=== PATIENT | female | born 1935 | race Caucasian/White ===

== ENCOUNTER 2017-02-20 17:05 | Inpatient (IN) ==
--- OUTSIDE RECORDS SUMMARY | 2017-02-20 19:01 | External Medical Summary | Summary of Care ---
:1935 Author Name Derick Luna Address [address], [place] [id number] Care Team Providers Name Role Phone Keesha Downey, Adali Lim Unavailable Unavailable Derick Luna Unavailable Unavailable Kiley Romero APRN Unavailable Unavailable Adali Richards M.D. Unavailable Unavailable Raphael Thao Unavailable Unavailable [place] Burke, [place] (MD) Unavailable Unavailable Unavailable Unavailable Unavailable Functional Status Functional Status Health Issues Name Dates Details Functional status health issues are not documented Status: Cognitive Status Health Issues Name Dates Details Cognitive status health issues are not documented Status: Problems Name Dates Details Tendonitis (726.90, M77.9) Status: Active De Quervain's tenosynovitis (727.04, M65.4) Status: Active Pseudophakia (V43.1, Z96.1) Status: Active Nontropical sprue (579.0, K90.0) Status: Active Cataract (366.9, H26.9) Status: Active Labyrinthitis (386.30, H83.09) Status: Active Carotid artery stenosis (433.10, I65.29) Status: Active Cystocele (618.01, N81.10) Status: Active Vaginal bleeding (623.8, N93.9) Status: Active Lower back pain (724.2, M54.5) Status: Active Postmenopausal vaginal bleeding (627.1, N95.0) Status: Active Esophageal reflux (530.81, K21.9) Status: Active Fall (E888.9, W19.XXXA) Status: Active Chronic pain of both shoulders (719.41, M25.512) Status: Active Malnutrition (263.9, E46) Status: Active Urinary incontinence (788.30, R32) Status: Active Arthralgia of multiple sites (719.49, M25.50) Status: Active Allergic rhinitis (477.9, J30.9) Status: Active Memory loss (780.93, R41.3) Status: Active Depression (311, F32.9) Status: Active Decreased appetite (783.0, R63.0) Status: Active Bursitis of hip (726.5, M70.70) Status: Active Neck pain (723.1, M54.2) Status: Active Hip pain, acute, right (719.45, M25.551) Status: Active Dysphagia, neurologic (787.29, R13.19) Status: Active 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, 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 Hypertension (401.9, I10) Status: Active Hypothyroidism (244.9, E03.9) Status: Active Anxiety (300.00, F41.9) Status: Active Parkinson's disease (332.0, G20) Status: Active Headache (784.0, R51) Status: Active Dizziness (780.4, R42) Status: Active Recurrent urinary tract infection (599.0, N39.0) Status: Active Acute cystitis without hematuria (595.0, N30.00) Status: Active Constipation (564.00, K59.00) Status: Active Dysphagia (787.20, R13.10) Status: Active Chronic nausea (787.02, R11.0) Status: Active Early satiety (780.94, R68.81) Status: Active Medications Name Dates Details Aspirin 81 MG TABS TAKE 1 TABLET DAILY. Refills: 0 Start 21-Jan-2011 Active Carbidopa-Levodopa ER 50-200 MG Oral Tablet Extended Release TAKE 1 TABLET FOUR TIMES A DAY Quantity: 360 Refills: 3 Vimal Richards M.D. Start 08-Jun-2011 Active Effexor XR 150 MG Oral Capsule Extended Release 24 Hour TAKE 1 CAPSULE DAILY. Refills: 0 Start Active MiraLax Oral Powder Refills: 0 Start 22-May-2014 Active Vitamin D 1000 UNIT CAPS Refills: 0 Start 22-May-2014 Active Levothyroxine Sodium 137 MCG Oral Tablet TAKE 1 TABLET DAILY. Refills: 0 Raphael Thao M.D. Start 26-Jun-2014 Active Zofran 4 MG Oral Tablet Give one tab po TID and Q 4 hours prn nausea Refills: 0 Raphael Thao M.D. Adali Start 26-Jun-2014 Active LORazepam 0.5 MG Oral Tablet TAKE 1 TABLET EVERY 6 HOURS NEEDED. Quantity: 90 Refills: 3 Raphael Thao M.D. Start 26-Jul-2014 Active SEROquel 50 MG Oral Tablet Take one tablet at bedtime. Refills: 0 Raphael Thao M.D. Start 19-Nov-2014 Active Loratadine 10 MG Oral Tablet TAKE 1 TABLET DAILY. Refills: 0 Raphael Thao M.D. Start 11-Apr-2015 Active Depakote 500 MG Oral Tablet Delayed Release TAKE 1 TABLET DAILY. Refills: 0 Raphael Thao M.D. Start 07-Feb-2013 Active Fluticasone Propionate 50 MCG/ACT Nasal Suspension USE 2 SPRAYS IN EACH NOSTRIL ONCE DAILY Refills: 0 Raphael Thao M.D. Start 11-Apr-2015 Active Carafate 1 GM/10ML Oral Suspension 10 mL po prn Refills: 0 Raphael Thao M.D. Start 26-Jun-2014 Active Cyclobenzaprine HCl - 10 MG Oral Tablet TAKE 1 TABLET DAILY NEEDED. Quantity: 30 Refills: 2 Raphael Thao M.D. Adali Start Active Voltaren 1 % Transdermal Gel APPLY 1-2 GM OF GEL TO AFFECTED AREA 4 TIMES DAILY. DO NOT APPLY MORE THAN 8 GM DAILY TO ANY ONE AFFECTED JOINT. Quantity: 1 Refills: 1 Raphael Thao M.D. Start Active 100 GM Tube PredniSONE 20 MG Oral Tablet Take 1 tablet daily Refills: 0 Raphael Thao M.D. Start Active Amantadine HCl - 100 MG Oral Tablet Take 1 tablet daily Refills: 0 Start Active AmLODIPine Besylate 5 MG Oral Tablet TAKE 1 TABLET DAILY DIRECTED. Refills: 0 Start Active Omeprazole 20 MG Oral Capsule Delayed Release Take one capsule by mouth daily Quantity: 30 Refills: 0 Kiley Romero APRN Start 03-Feb-2016 Active BusPIRone HCl - 10 MG Oral Tablet TAKE 1 TABLET TWICE DAILY. Refills: 0 Vimal Richards M.D. Start 11-Feb-2016 Active TraMADol HCl - 50 MG Oral Tablet TAKE 1 TABLET EVERY 4 HOURS NEEDED. Quantity: 40 Refills: 5 Keesha Downey Raphael Adali Start 10-Jun-2015 Active Amitiza 8 MCG Oral Capsule TAKE ONE TABLET TWICE DAILY WITH MEALS Quantity: 60 Refills: 5 Derick Luna Start 24-Feb-2016 Active Allergies and Adverse Reactions Name Dates Details Bactrim TABS (Allergy) Status: Active Lortab TABS (Allergy) Status: Active Promethazine HCl TABS (Allergy) Status: Active Reglan TABS (Allergy) Status: Active Sulfa Drugs (Allergy) Status: Active Past Medical History Name Dates Details History of abdominal pain (V1., Z87.898) Status: Resolved History of Abdominal pain, epigastric (789.06, R10.13) Status: Resolved History of Abnormal weight gain (783.1, R63.5) Status: Resolved History of abnormal weight loss (., Z87.898) Status: Resolved History of Acute upper respiratory infection (465.9, J06.9) Status: Resolved History of Allergic rhinitis due to cats (477.2, J30.81) Status: Resolved History of Allergic rhinitis due to dogs (477.2, J30.81) Status: Resolved History of Allergic rhinitis due to pollen (477.0, J30.1) Status: Resolved History of Allergic rhinitis due to pollen (477.0, J30.1) Status: Resolved History of Allergic rhinitis due to pollen (477.0, J30.1) Status: Resolved History of allergy (V15.09, Z88.9) Status: Resolved History of Antral gastritis (535.40, K29.50) Status: Resolved History of Basal cell carcinoma of skin of face (173.31, C44.310) Status: Resolved History of Bone Density Studies Dual-Energy X-ray Absorptiometry Status: Resolved History of diarrhea (V12.79, Z87.898) Status: Resolved History of Duodenitis (535.60, K29.80) Status: Resolved History of Encounter for screening for malignant neoplasm of colon (V76.51, Z12.11) Status: Resolved History of fatigue (3., Z87.898) Status: Resolved History of nausea and vomiting (V12.79, Z87.898) Status: Resolved History of Pre-operative exam (V72.84, Z01.818) Status: Resolved History of Pre-operative exam (V72.84, Z01.818) Status: Resolved History of spontaneous (V13.29, Z87.59) Status: Resolved History of urinary incontinence (V13.09, Z87.898) Status: Resolved History of vaginal delivery (V13.29) Status: Resolved History of weakness (V13.89, Z87.898) Status: Resolved Procedures Procedure Dates Details History of Extracaps Cataract Extract With Prosthesis Insert Right Eye History of Extracaps Cataract Extract With Prosthesis Insert Left Eye History of Complete Colonoscopy For Completed: Polyp Removal History of Back Surgery History of Tubal Ligation History of Gastroscopy With Biopsy Completed: History of Gastroscopy With Biopsy Completed: 25-Feb-2012 GASTRIC EMPTYING Ordered: 24-Feb-2016 Immunization Name Dates Details Influenza on: 18-Jan-2008 Influenza on: 05-Mar-2010 Lot #: [id number] Influenza on: 17-Jan-2013 Pneumo (Pneumovax) on: 23-Jan-2016 Fluzone High-Dose 0.5 ML Intramuscular Suspension Prefilled Syringe on: 2015 Family History Unknown Family Member Name Dates Details Family history of Migraine Headache Comments: Family History Status: Active Family history of Hay Fever Comments: Family History Status: Active Family history of Urticaria Comments: Family History Status: Active Mother Name Dates Details Family history of Heart Disease (V17.49) Status: Active Family history of Diabetes Mellitus (V18.0) Status: Active Father Name Dates Details Family history of Heart Disease (V17.49) Status: Active Brother Name Dates Details Family history of Heart Disease (V17.49) Status: Active Family history of Heart Disease (V17.49) Status: Active Social History Name Dates Details - Status: Smoking Status Name Dates Details Never smoker Vital Signs Date Test Result Details 24-Feb-2016 15:09 BP Systolic 135 mm[Hg] Status: Comments: Location: ; Position: BP Diastolic 79 mm[Hg] Status: Comments: Location: ; Position: Heart Rate 96 /min Status: Comments: Location: ; Height 64 in Status: 17-Feb-2016 10:16 BP Systolic 121 mm[Hg] Status: Comments: Location: ; Position: BP Diastolic 63 mm[Hg] Status: Comments: Location: ; Position: Temperature 97.5 f Status: Heart Rate 92 /min Status: Comments: Location: ; Physical Findings 96 Status: Comments: O2 Saturation 07-Feb-2016 16:05 BP Systolic 163 mm[Hg] Status: Comments: Location: ; Position: BP Diastolic 104 mm[Hg] Status: Comments: Location: ; Position: Temperature 98.1 f Status: Comments: Method: Heart Rate 103 /min Status: Comments: Location: ; Physical Findings 98 Status: Comments: O2 Saturation 05-Feb-2016 14:06 BP Systolic 150 mm[Hg] Status: Comments: Location: ; Position: BP Diastolic 90 mm[Hg] Status: Comments: Location: ; Position: Heart Rate 80 /min Status: Comments: Location: ; 03-Feb-2016 11:23 BP Systolic 116 mm[Hg] Status: Comments: Location: ; Position: BP Diastolic 55 mm[Hg] Status: Comments: Location: ; Position: Temperature 98.2 f Status: Heart Rate 87 /min Status: Comments: Location: ; Physical Findings 20 Status: Comments: Respiration Weight 175 lb Status: Body Mass Index Calculated 30.04 kg/m2 Status: Body Surface Area Calculated 1.85 m2 Status: Results Date Description Value Details 07-Feb-2016 15:40 CT HEAD WITHOUT IV CONTRAST Comments: Exam Date: 2015 14:58Dictation Date: 02/07/2016 15:40 XC HEAD 17-Feb-2016 12:04 CBC w/ Auto Diff 7150 Comments: Manual differential indicated. WBC 10.9 K/uL Range: 4.5-11.0 RBC 4.15 mil/uL Range: 3.60-5.00 HGB 13.5 g/dL Range: 12.0-16.0 HCT 40.1 % Range: 36.0-48.0 MCV 96.7 fL Range: 80.0-99.0 MCH 32.5 pg Range: 27.3-32.5 MCHC 33.6 % Range: 32.0-36.0 RDW 13.8 % Range: 11.6-14.8 PLATELETS 307 K/uL Range: 150-400 MPV 5.9 fL (Below low threshold) Range: 6.0-11.0 12:09 Urinalysis, Reflex to Microscopic or Culture PRN 8005 pH 7.5 Range: 5.0-7.5 SP GRAVITY 1.025 Range: 1.010-1.030 APPEARANCE CLEAR Range: Clear COLOR YELLOW Range: Straw-Yellow PROTEIN NEGATIVE mg/dL Range: Negative-Trace GLUCOSE NEGATIVE mg/dL Range: Negative KETONE TRACE mg/dL (Abnormal) Range: Negative BILIRUB NEGATIVE Range: Negative BLOOD NEGATIVE Range: Negative UROBIL 1.0 EU/dL Range: 0.2-1.0 NITRITE POSITIVE (Abnormal) Range: Negative Comments: Specimen referred to Reference Lab for Culture----- LEUK MODERATE (Abnormal) Range: Negative 12:09 Urine Microscopic UMIC WBC 11-20 /HPF (Abnormal) Range: 0-5 Comments: Specimen referred to Reference Lab for Culture----- MUCUS 1+ /LPF Range: Negative-2+ BACTERIA 3+ /HPF (Abnormal) Range: Negative-Trace Comments: Specimen referred to Reference Lab for Culture----- EPITH 3-5 /HPF Range: 0-10 12:25 H. Pylori IgG, Ab 2024 H PYLORI ANTIBODY Negative Range: Negative 12:26 Comprehensive Metabolic Panel 1212 SODIUM 136 mmol/L Range: 133-144 POTASSIUM 4.5 mmol/L Range: 3.5-5.1 CHLORIDE 97 mmol/L (Below low Range: 98-110 threshold) CARBON DIOXIDE 24.1 mmol/L Range: 23.0-33.0 ANION GAP 15 mmol/L Range: 6-16 BUN 19 mg/dL (Above high Range: 7-18 threshold) CREATININE, SERUM 0.95 mg/dL Range: 0.55-1.02 BUN:CREATININE RATIO 20 EST GFR, >60 ml/min Range: >60 EST GFR, NON-AFR YEMENI 57 ml/min (Below low Range: >60 threshold) Comments: EST GFR is reported in ml/min per 1.73 m2 of body surface area. ----- GLUCOSE 109 mg/dL (Above high Range: 70-100 threshold) ALK PHOSPHATASE 120 U/L (Above high Range: 46-116 threshold) TOTAL BILIRUBIN 0.20 mg/dL Range: 0.20-1.00 AST 18 U/L Range: 8-35 ALT 14 U/L Range: 14-59 ALBUMIN 3.6 g/dL Range: 3.4-5.0 TOTAL PROTEIN 7.0 g/dL Range: 6.4-8.2 A/G RATIO 1.1 units Range: 1.0-1.8 CALCIUM 8.9 mg/dL Range: 8.5-10.1 12:26 AMYLASE 1250 AMYLASE 26 U/L Range: 25-115 12:26 Lipase 1275 LIPASE 94 U/L Range: 73-393 12:33 VITAMIN B12 3606 Comments: SDC 10 VITAMIN B12 726 pg/mL Range: 211-911 12:36 Manual Differential 7400 SEGS 75 % Range: 37-80 BANDS 0 % Range: 0-7 LYMPH 21 % Range: 13-50 MONO 1 % Range: 0-12 EOSIN 3 % Range: 0-7 BASO 0 % Range: 0-3 DANNY LYMPH 0 % Range: 0-0 META 0 % Range: 0-0 MYELO 0 % Range: 0-0 PRO 0 % Range: 0-0 BLAST 0 % Range: 0-0 NUC RBC 0 /100 WBC Range: 0-0 SMUDGE 0 /100 WBC PLATELET Adequate Range: Adequate 19-Feb-2016 17:15 URINE CULTURE [id number] Comments: [employer] performed at: [facility], [facility] [place], [address], [employer]: Shree Pollock D.O., MPHQuest Collection Date/Time: [id number] Results Received Date/Time: Reported Date /Time: FASTING:NOQuest performed at : [facility], [facility] [place], [address], [employer]: Shree Pollock D.O., MPHQuest Collection Date/Time: [id number] Results Received Date/Time: [id number] Reported Date/Time: FASTING:NO CULTURE, URINE, ROUTINE SEE NOTE (Abnormal) Comments: CULTURE, URINE, ROUTINE MICRO NUMBER: [id number] TEST STATUS: FINAL SPECIMEN SOURCE : URINE SPECIMEN QUALITY: ADEQUATE RESULT: Greater than 100,000 CFU/mL of Escherichia co li E.coli --- INT GEOFF AMOX/CLAVULANATE S <=2 AMPICILLIN S <=2 AMP/SULBACTA M S <=2 CEFAZOLIN NR <=4 1 CEFEPIME S <=1 CEFTRIAXONE S <=1 CIPROFLOXACIN S <=0.25 ERTAPENEM S <=0.5 GENTAMICIN S <=1 IMIPENEM S <=0.25 LEVOFLOXACIN S <=0.12 NITROFURANTOIN S <=16 PIP/TAZOBACTAM S <=4 TOBRAMYCIN S <=1 TRIMETHOPRIM/ SULFA S <=20S=Susceptible I=Intermediate R=Resistant *=Not TestedNR=Not Reported NN=See Therapy CommentsTHERAPY COMM ENTS Note 1: ORAL therapy: A cefazolin GEOFF of < 32 predicts susceptibility to the oral agents cefaclor, cefdinir, cefpodoxime, cefprozil , cefuroxime, cephalexin, and loracarbef when us ed for therapy of uncomplicated UTIs due to E. coli, K. pneumoniae , and P. mirabilis. PARENTERAL therapy: A cefazolin GEOFF of > 8 indicates resistance to parenteral cefazolin. An altern ate test method must be performed to to confirm susceptibility to parenteral cefazolin.[KS]----- Plan of Care Name Dates Details Planned Observations GASTRIC EMPTYING On 24-Feb-2016 Intent Planned Goals not documented Planned Encounters Appointment; Provider: Camacho Lawson On 16-Mar-2016 14:00 Appointment; Provider: Vimal Ricahrds M.D. On 04-Mar-2016 14:15 Appointment; Provider: Ke Solomon M.D. On 03-Mar-2016 09:15 Instructions Name Dates Details Instructions not documented Encounters Appointment; Bobo Sierra D.O. On 17-Feb-2016 Encounter Diagnosis: Problem not documented 10:05 Appointment; Vimal Richards M.D. On 05-Feb-2016 Encounter Diagnosis: Problem not documented 13:45 Appointment; Kiley Romero A.P.R.N. On 31-Jan-2016 Encounter Diagnosis: Problem not documented 13:30 Appointment; Tra Rico M.D.|Vernell|Nasreen,PRANAY|Nasreen,PRANAY, On Encounter Diagnosis: Problem not documented 11:30 Appointment; Billy Golden M.D.|PRANAY Boyce|Nasreen,PRANAY, On Encounter Diagnosis: Problem not documented 10:30 Appointment; Raphael Thao M.D. On Encounter Diagnosis: Problem not documented 16:00 Appointment; Raphael Thao M.D. On Encounter Diagnosis: Problem not documented 14:15 Appointment; Vimal Richards M.D. On 08-Aug-2015 Encounter Diagnosis: Problem not documented 15:00 Appointment; Jo Ann Crowe, P.AGorge On 02-Aug-2015 Encounter Diagnosis: Problem not documented 13:00 Appointment; Raphael Thao M.D. On 09-Apr-2015 Encounter Diagnosis: Problem not documented 14:15 Appointment; Vimal Richards M.D. On 19-Feb-2015 Encounter Diagnosis: Problem not documented 14:15 Appointment; Raphael Thao M.D. On 04-Feb-2015 Encounter Diagnosis: Problem not documented 14:30 Appointment; Raphael Thao M.D. On 24-Dec-2014 Encounter Diagnosis: Problem not documented 15:00 Appointment; Raphael Thao M.D. On 16-Nov-2014 Encounter Diagnosis: Problem not documented 11:30 Appointment; Vimal Richards M.D. On 13-Nov-2014 Encounter Diagnosis: Problem not documented 14:30 Appointment; Jo Ann Crowe PGorgeAGorge On 24-Aug-2014 Encounter Diagnosis: Problem not documented 13:15 Appointment; Raphael Thao M.D. On 19-Jun-2014 Encounter Diagnosis: Problem not documented 16:00 Appointment; Brittney Bennett M.D. On 07-Jun-2014 Encounter Diagnosis: Problem not documented 10:30 Appointment; Raphael Thao M.D. On 05-Jun-2014 Encounter Diagnosis: Problem not documented 13:00 Appointment; Vimal Richards M.D. On 22-May-2014 Encounter Diagnosis: Problem not documented 13:30 Appointment; Jo Ann Crowe, P.AGorge On 27-Apr-2014 Encounter Diagnosis: Problem not documented 13:45 Appointment; Raphael Thao M.D. On 16-Mar-2014 Encounter Diagnosis: Problem not documented 14:30 Appointment; Ke Gabriel M.D.|Vernell|Nasreen,PRANAY|Nasreen,PRANAY, On 2013 Encounter Diagnosis: Problem not documented 14:30"
--- OUTSIDE RECORDS SUMMARY | 2017-02-20 19:02 | External Medical Summary ---
:1935 Author Name Davidson Banerjee A Address [address] Unavailable [place], [place] [id number] Care Team Providers Name Role Phone Keesha Lim Unavailable Unavailable Unavailable Unavailable Reason for Referral No Reason for Referral was given. History of Present Illness No HPI available. Problems Normal Routine History And Physical Senior Citizen (65-80) (V70.0); ( Active)Chest Pain (786.50); (Active)Cataract (366.9); (Active) Visit For: Preoperative Exam (V72.84); (Active)Visit For: Preoperative Exam (V72.84); (Active)Pseudophakia (V43.1); (Active)De Quervain' s Tenosynovitis (727.04); (Active)Fatigue (780.79); (Active) Parkinson Disease (332.0); (Active)Tendonitis (726.90); (Active) Abnormal Weight Gain (783.1); (Active)Lower Back Pain (724.2); ( Active)Allergies (V15.09); (Active)Hypertension (401.9); (Active) Pain During Urination (Dysuria) (788.1); (Active)Allergic Rhinitis Due To Cats (477.2); (Active)Allergic Rhinitis Due To Dogs (477.2); ( Active)Allergic Rhinitis Due To Grass Pollen (477.0); (Active)Allergic Rhinitis Due To Mold (477.8); (Active)Allergic Rhinitis Due To Tree Pollen (477.0); (Active)Allergic Rhinitis Due To Ragweed Pollen (477.0); (Active)Headache (784.0); (Active)Depression (311); ( Active)Abdominal Pain In The Central Upper Belly (Epigastric) (789.06); ( Active)Nontropical (Celiac) Sprue (579.0); (Active)Arthralgias In Multiple Sites (719.49); (Active)Bursitis Of The Hip (726.5); ( Active)Abnormal Weight Loss (783.21); (Active)Visit For: Screening Malignant Neoplasm Colon (V76.51); (Active)Carotid Artery Stenosis ( 433.10); (Active)Diarrhea (Symptom) (787.91); (Active)Nausea With Vomiting (787.01); (Active)Duodenitis (535.60); (Active)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); (Active)Abdominal Pain (789.00); ( Active)Feeling Weak (780.79); (Active)Hypothyroidism (244.9); ( Active) Medication Levothyroxine Sodium 125 MCG Oral Tablet;Take 1 tablet daily; Start Date: 2008; End Date: (Active)Caduet 5-20 MG Oral Tablet;TAKE 1 TABLET DAILY.; Start Date: 11/20/2006 (Active)Pantoprazole Sodium 40 MG Oral Tablet Delayed Release;TAKE 1 TABLET DAILY.; Start Date: 09/22/2010; End Date: 1899 (Active)Aspirin 81 MG Oral Tablet;TAKE 1 TABLET DAILY.; Start Date: 2010 (Active)Carbidopa-Levodopa ER 50-200 MG Oral Tablet Extended Release;TAKE 1 TABLET 4 TIMES DAILY.; Start Date: 06/08/2011; End Date: (Active) Singulair 10 MG Oral Tablet;TAKE 1 TABLET DAILY.; Start Date: 06/08/2011 (Active )Loratadine 10 MG Oral Tablet; Start Date: 02/02/2012 (Active)ALPRAZolam 0.25 MG Oral Tablet;TAKE 1 TABLET EVERY 6 HOUR(S) NEEDED FOR ANXIETY; Start Date: 03/14/2012 (Active)Remeron 45 MG Oral Tablet;Take one daily; Start Date: 2012 (Active)HydrOXYzine HCl 10 MG Oral Tablet;TAKE 1 TABLET 3 TIMES DAILY NEEDED.; Start Date: 07/20/2012 (Active) Allergies and Adverse Reactions Lortab TABS (Active)Sulfa Drugs (Active)Bactrim TABS (Active) Past Medical History History ofComplete Colonoscopy For Polyp Removal - Onset: 10/15/2009; ( Resolved)History ofBone Density Studies Dual-Energy X-ray Absorptiometry ( Resolved)History ofBasal Cell Carcinoma Of The Skin Of The Face Comments: Rt supra tip, ASIM/C (173.31); (Resolved) Procedures Procedure Procedure Date Date Completed Status Extracaps Cataract Extract With Prosthesis - - Active Insert Right Eye Extracaps Cataract Extract With Prosthesis - - Active Insert Left Eye Back Surgery - - Active Tubal Ligation - - Active Gastroscopy With Biopsy 09/22/2010 - Active Gastroscopy With Biopsy 02/25/2012 - Active Immunization Influenza - Administered on: 01/18/2008Influenza (Lot #: [id number]) - Administered on: 03/05/2010 Family History Family history ofMigraine Headache (Active)Family history ofHay Fever (Active)Family history ofUrticaria (Active)Maternal history ofHeart Disease (V17.49); (Active)Maternal history ofDiabetes Mellitus (V18.0); (Active)Paternal history ofHeart Disease (V17.49); (Active) Fraternal history ofHeart Disease (V17.49); (Active)Fraternal history ofHeart Disease (V17.49); (Active) Social History Racial Background (___ %) (Active)Never A Smoker (Active) Vital Signs Date Description Test Result 20 Jul 2012 02:39 PM recorded by: Susi Reaves BP Systolic 130 mm[Hg] BP Diastolic 64 mm[Hg] Results Date Description Test Name Value Reference Interpretation Status 20 Jul 2012 01:52 PM XS CAROTID XS CAROTID Active Treatment Plan XM CAD (SCREENING) 08/09/2007 RoutinePAP SMEAR 9600 08/09/2007 RoutineUrine Culture PRN 8000 10/17/2007 RoutineXM CAD (SCREENING) 08/08/2008 RoutineXM CAD ( SCREENING) 08/09/2009 RoutinePAP SMEAR 9600 09/13/2009 RoutineXC CTA NECK [address] RECON FOR NON CTA EXAMS 02/26/2010 RoutineXC OPTIRAY 320 100ML 02/26/2010 RoutineHOLD TUBE 9421 03/05/2010 RoutineXC OPTIRAY 320 100ML RoutineUrine Culture PRN 8000 10/21/2011 Routine Advance Directives No Advance Directives available. Encounters Appointment 07/20/2012RTNPT , Provider: Maurice Celis, Status: Pen , Time: 2:30 PM 08/02/2012
--- OUTSIDE RECORDS SUMMARY | 2017-02-20 19:02 | External Medical Summary | Summary of Care ---
:1935 Author Name Gabo Bennett M.D.say Address [address], [place] [id number] Care Team Providers Name Role Phone Adali Thao M.D. Unavailable Unavailable Adali Richards M.D. Unavailable Unavailable Raphael Thao Primary Care Provider Unavailable [facility] Referring Provider Unavailable Unavailable Unavailable Unavailable Functional Status Functional Status Health Issues Name Dates Details Functional status health issues are not documented Status: Cognitive Status Health Issues Name Dates Details Cognitive status health issues are not documented Status: Problems Name Dates Details Tendonitis (726.90, M77.9) Status: Active De Quervain's tenosynovitis (727.04, M65.4) Status: Active Pseudophakia (V43.1, Z96.1) Status: Active Bursitis of hip (726.5, M70.70) Status: Active Nontropical sprue (579.0, K90.0) Status: Active Cataract (366.9, H26.9) Status: Active Labyrinthitis (386.30, H83.09) Status: Active Chest pain (786.50, R07.9) Status: Active Arthralgia of multiple sites (719.49, M25.50) Status: Active Esophageal reflux (530.81, K21.9) Status: Active UTI (lower urinary tract infection) (599.0, N39.0) Status: Active Decreased appetite (783.0, R63.0) Status: Active Dysuria (788.1, R30.0) Status: Active Carotid artery stenosis (433.10, I65.29) Status: Active Hypertension (401.9, I10) Status: Active Hypothyroidism (244.9, E03.9) Status: Active Recurrent urinary tract infection (599.0, N39.0) Status: Active Urinary incontinence (788.30, R32) Status: Active Cystocele (618.01, N81.10) Status: Active Hip pain (719.45, M25.559) Status: Active Memory loss (780.93, R41.3) Status: Active Constipation (564.00, K59.00) Status: Active Depression (311, F32.9) Status: Active Acute upper respiratory infection (465.9, J06.9) Status: Active Parkinson's disease (332.0, G20) Status: Active Vaginal bleeding (623.8, N93.9) Status: Active Lower back pain (724.2, M54.5) Status: Active Medications Name Dates Details Levothyroxine Sodium 125 MCG Oral Tablet Take 1 tablet daily Quantity: 90 Refills: 3 Raphael Thao M.D. Started 02-Jan-2009 ActiveAspirin 81 MG Oral Tablet TAKE 1 TABLET DAILY. Refills: 0 Started 21-Jan-2011 ActiveCarbidopa-Levodopa ER 50-200 MG Oral Tablet Extended Release TAKE 1 TABLET FOUR TIMES A DAY Quantity: 360 Refills: Vimal Zavala M.D. Started 08-Jun-2011 ActiveEffexor XR 150 MG Oral Capsule Extended Release 24 Hour TAKE 1 CAPSULE DAILY. Refills: 0 Started ActiveSEROquel 50 MG Oral Tablet Take one tablet at bedtime. Refills: 0 Raphael Thao M.D. Started 06-Feb-2013 ActiveDepakote 500 MG Oral Tablet Delayed Release TAKE 1 TABLET TWICE DAILY. Refills: 0 Raphael Thao M.D. Started 07-Feb-2013 ActiveMontelukast Sodium 10 MG Oral Tablet TAKE 1 TABLET BY MOUTH DAILY Quantity: 90 Refills: Raphael Conner M.D. Started 03-Jul-2013 ActiveAmLODIPine Besylate 5 MG Oral Tablet take one tablet by mouth every day Quantity: 30 Refills: Raphael Painter M.D. Started ActiveAtorvastatin Calcium 20 MG Oral Tablet TAKE 1 TABLET DAILY. Quantity: 30 Refills: Raphael Painter M.D. Started ActiveHydrOXYzine HCl - 25 MG Oral Tablet TAKE 1 TABLET 3 TIMES DAILY NEEDED. Refills: 0 Raphael Thao M.D. Started 15-Feb-2014 ActiveAricept 10 MG Oral Tablet TAKE 1 TABLET DAILY DIRECTED. Refills: 0 Raphael Thao M.D. Started 30-Apr-2014 ActiveMegestrol Acetate 400 MG/10ML Oral Suspension TAKE 20 ML , BY MOUTH, DAILY DIRECTED. Refills: 0 Raphael Thao M.D. Started 30-Apr-2014 ActiveMiraLax Oral Powder Refills: 0 Started 22-May-2014 ActiveNamenda XR 7 MG Oral Capsule Extended Release 24 Hour Refills: 0 Started 22-May-2014 ActivePremarin 0.625 MG/GM Vaginal Cream Refills: 0 Started 22-May-2014 ActiveSenna 8.6 MG Oral Tablet Refills: 0 Started 22-May-2014 ActiveVitamin C 500 MG Oral Capsule Refills: 0 Started 22-May-2014 ActiveVitamin D 1000 UNIT Oral Capsule Refills: 0 Started 22-May-2014 ActiveOmeprazole 20 MG Oral Tablet Delayed Release Take 1 tablet daily Refills: 0 Raphael Thao M.D. Started 07-Jun-2014 Active Allergies and Adverse Reactions Name Dates Details Bactrim TABS Status: Active Lortab TABS Status: Active Promethazine HCl TABS Status: Active Reglan TABS Status: Active Sulfa Drugs Status: Active Past Medical History Name Dates Details History of abdominal pain (V13.89, Z87.898) Status: Resolved History of Abdominal pain, epigastric (789.06, R10.13) Status: Resolved History of Abnormal weight gain (783.1, R63.5) Status: Resolved History of abnormal weight loss (V13.89, Z87.898) Status: Resolved History of allergic rhinitis (V12.69, Z87.09) Status: Resolved History of Allergic rhinitis due [...] Absorptiometry Status: Resolved History of diarrhea (V12.79, Z87.19) Status: Resolved History of Duodenitis (535.60, K29.80) Status: Resolved History of Encounter for screening for malignant neoplasm of colon (V76.51, Z12.11) Status: Resolved History of fatigue (V13.89, Z87.898) Status: Resolved History of headache (V13.89, Z87.898) Status: Resolved History of nausea and vomiting (V12.79, Z87.19) Status: Resolved History of Pre-operative exam (V72.84, Z01.818) Status: Resolved History of Pre-operative exam (V72.84, Z01.818) Status: Resolved History of spontaneous (V13.29, Z87.42) Status: Resolved History of vaginal delivery (V13.29, Z87.42) Status: Resolved History of weakness (V13.89, Z87.898) Status: Resolved Procedures Procedure Dates Details History of Extracaps Cataract Extract With Prosthesis Insert Right Eye History of Extracaps Cataract Extract With Prosthesis Insert Left Eye History of Complete Colonoscopy For Polyp Completed: Removal History of Back Surgery History of Tubal Ligation History of Gastroscopy With Biopsy Completed: History of Gastroscopy With Biopsy Completed:25-Feb-2012 ULTRASOUND PELVIC SONO Ordered:05-Jun-2014 Immunization Name Dates Details Influenza Administered on:18-Jan-2008 Influenza Administered on:05-Mar-2010 Lot #: [id number] Influenza Administered on:17-Jan-2013 Family History Unknown Family Member Name Dates [...] Status: Active Social History Name Dates Details Smoking StatusNever smoker Vital Signs Date Test Result Details 07-Jun-2014 11:04 BP Systolic 120 mm[Hg] Status: BP Diastolic 75 mm[Hg] Status: Weight 0 lb Status: Body Mass Index Calculated 25.75 kg/m2 Status: Body Surface Area Calculated 1.73 m2 Status: 05-Jun-2014 13:04 BP Systolic 120 mm[Hg] Status: BP Diastolic 68 mm[Hg] Status: Heart Rate 112 /min Status: 22-May-2014 13:39 BP Systolic 110 mm[Hg] Status: BP Diastolic 70 mm[Hg] Status: Heart Rate 108 /min Status: Results Date Description Value Details 05-Jun-2014 16:43 Urinalysis, Reflex to Microscopic or Culture PRN 8005 pH 6.0 (Better) Range: 5.0-7.5 SP GRAVITY 1.030 (Better) Range: 1.010-1.030 APPEARANCE Clear (Better) Range: Clear COLOR Yellow (Better) Range: Straw-Yellow PROTEIN Trace mg/dL (Better) Range: Negative-Trace GLUCOSE Negative mg/dL Range: Negative (Better) KETONE Trace mg/dL Range: Negative (Abnormal) BILIRUB Negative (Better) Range: Negative BLOOD Trace (Abnormal) Range: Negative UROBIL 0.2 EU/dL (Better) Range: 0.2-1.0 NITRITE Negative (Better) Range: Negative LEUK Negative (Better) Range: Negative 16:43 Urine Microscopic UMIC Comments: Quantity not sufficient for concentration.Less than 10 ml received for analysis RBC 0-2 /HPF (Better) Range: 0-2 BACTERIA 1+ /HPF (Abnormal) Range: Negative-Trace EPITH 0-2 /HPF (Better) Range: 0-10 U AMORPH 2+ /HPF (Better) 17:07 ULTRASOUND ENDOVAGINAL Comments: Exam Date: 15:59Dictation Date: 17:07 SONO XS ENDOVAGINAL SONO (Better) Plan of Care Planned Observations Name Dates Details Planned Goals not documented Goal Planned Encounters Appointment; Provider: Vimal Richards On 13-Nov-2014 14:30 Appointment; Provider: Ke Gabriel On 14:15 Appointment; Provider: Davidson Banerjee On 04-Jun-2011 10:30 Instructions Instructions not documented Encounters Appointment; Brittney Bennett On 07-Jun-2014 Encounter Diagnosis: Problem not documented 10:30 Appointment; Raphael Thao On 05-Jun-2014 Encounter Diagnosis: Problem not documented 13:00 Appointment; Vimal Richards On 22-May-2014 Encounter Diagnosis: Problem not documented 13:30 Appointment; Jo Ann Crowe On 27-Apr-2014 Encounter Diagnosis: Problem not documented 13:45 Appointment; Raphael Thao On 16-Mar-2014 Encounter Diagnosis: Problem not documented 14:30 Appointment; Ke Gabriel On 07-Mar-2014 Encounter Diagnosis: Problem not documented 14:30 Appointment; Raphael Thao On 13-Feb-2014 Encounter Diagnosis: Problem not documented 13:00 Appointment; Ke Gabriel On 31-Jan-2014 Encounter Diagnosis: Problem not documented 12:00 Appointment; Ke Gabriel On 03-Jan-2014 Encounter Diagnosis: Problem not documented 13:30 Appointment; Raphael Thao On 21-Dec-2013 Encounter Diagnosis: Problem not documented 14:00 Appointment; Ke Gabriel On 20-Dec-2013 Encounter Diagnosis: Problem not documented 14:00 Appointment; Vimal Reynoso On Encounter Diagnosis: Problem not documented 15:30 Appointment; Vimal Richards On Encounter Diagnosis: Problem not documented 14:30 Appointment; Raphael Thao On 15-Aug-2013 Encounter Diagnosis: Problem not documented 14:15 Appointment; Davidson Banerjee On 19-Jun-2013 Encounter Diagnosis: Problem not documented 13:45 Appointment; Raphael Thao On 15-May-2013 Encounter Diagnosis: Problem not documented 14:15 Appointment; Raphael Thao On 06-Feb-2013 Encounter Diagnosis: Problem not documented 13:45 Appointment; Raphael Thao On 13-Jan-2013 Encounter Diagnosis: Problem not documented 13:00 Appointment; Vimal Richards On 08-Dec-2012 Encounter Diagnosis: Problem not documented 15:30 Appointment; Kiley Gresham On Encounter Diagnosis: Problem not documented 16:00 Appointment; Vimal Richards On 02-Aug-2012 Encounter Diagnosis: Problem not documented 14:30 Appointment; Davidson Banerjee On 20-Jul-2012 Encounter Diagnosis: Problem not documented 14:30
--- OUTSIDE RECORDS SUMMARY | 2017-02-20 19:02 | External Medical Summary | Summary of Care ---
:1935 Author Name Gabo Bennett M.D.say Address [address], [place] [id number] Care Team Providers Name Role Phone Adali Thao M.D. Unavailable Unavailable Adali Richards M.D. Unavailable Unavailable Raphael Thao Primary Care Provider Unavailable [facility] Referring Provider Unavailable Unavailable Unavailable Unavailable Functional [...] Status: Active Depression (311, F32.9) Status: Active Parkinson's disease (332.0, G20) Status: Active Vaginal bleeding (623.8, N93.9) Status: Active Lower back pain (724.2, M54.5) Status: Active Postmenopausal vaginal bleeding (627.1, N95.0) Status: Active Medications Name Dates Details Levothyroxine [...] loss (V13.89, Z87.898) Status: Resolved History of Acute upper respiratory infection (465.9, J06.9) Status: Resolved History of allergic rhinitis (V12.69, [...] Administered on:18-Jan-2008 Influenza Administered on:05-Mar-2010 Lot #: [id number] Influenza Administered on:17-Jan-2013 Family History Unknown Family [...]
--- OUTSIDE RECORDS SUMMARY | 2017-02-20 19:02 | External Medical Summary ---
:1935 Author Name GENERATED, SYSTEM Care Team Providers Name Role Phone MD MONICA, AYUSH Primary Care Provider Unavailable Reason For Visit Reason for Visit from 06/19/2014 7:49 PM:Pt Stated Reason for Adm : Dehydration Chief Complaint DEHYDRATION ACID REFLEX Social History Social History from 06/26/2014 11:56 AM:Tobacco Use? : Never SmokerSocial History from 06/19/2014 7:49 PM:Tobacco Use? : Never Smoker Functional Status Functional Status from 06/26/2014 10:30 AM:LOC : AlertOriented To : Person,Place, Time,EventWeight Bearing Status : FullAssist Level : Partial# Assists : 2Functional Status from 06/25/2014 8:15 PM:LOC : AlertOriented To : Person,Place, Time,EventWeight Bearing Status : FullAssist Level : Partial# Assists : 1Functional Status from 06/25/2014 8:19 AM:LOC : AlertOriented To : Person,Place, TimeWeight Bearing Status : FullAssist Level : Partial# Assists : 2Functional Status from 06/24/2014 9:00 PM:LOC : AlertOriented To : Person,Place,TimeWeight Bearing Status : FullAssist Level : Partial# Assists : 2Functional Status from 8:44 AM:LOC : AlertOriented To : Person,Place,EventWeight Bearing Status : FullAssist Level : Dependent# Assists : 2Functional Status from 2014 12:09 AM:LOC : DrowsyOriented To : Person,Place,TimeWeight Bearing Status : FullAssist Level : Partial# Assists : 2Functional Status from 06/23/2014 4:20 PM:LOC : AlertOriented To : Person,Place,Time,EventWeight Bearing Status : PartialAssist Level : Partial# Assists : 2Functional Status from 06/23/2014 11: 00 AM:LOC : AlertOriented To : Person,Place,TimeWeight Bearing Status : PartialAssist Level : Partial# Assists : 2Functional Status from 06/23/2014 10: 45 AM:LOC : DrowsyOriented To : Person,Place,EventFunctional Status from 2014 10:13 AM:LOC : DrowsyFunctional Status from 06/22/2014 7:59 PM:LOC : AlertOriented To : Person,Place,Time,EventWeight Bearing Status : FullAssist Level : Partial# Assists : 1Functional Status from 06/22/2014 3:25 PM:LOC : AlertOriented To : Person,PlaceWeight Bearing Status : FullAssist Level : Partial# Assists : 2Functional Status from 06/22/2014 9:02 AM:LOC : ConfusedOriented To : PersonWeight Bearing Status : FullAssist Level : Partial# Assists : 2Functional Status from 06/22/2014 12:05 AM:LOC : AlertOriented To : Person,PlaceWeight Bearing Status : FullAssist Level : Partial# Assists : 2Functional Status from 06/21/2014 3:38 PM:LOC : AlertOriented To : Person,Place, Time,EventWeight Bearing Status : FullAssist Level : Partial# Assists : 2Functional Status from 06/21/2014 7:30 AM:LOC : AlertOriented To : Person,Place, Time,EventWeight Bearing Status : FullAssist Level : Dependent# Assists : 2Functional Status from 06/20/2014 11:21 PM:LOC : DrowsyOriented To : Person, Place,Time,EventWeight Bearing Status : FullAssist Level : Dependent# Assists : 2Functional Status from 06/20/2014 9:37 PM:LOC : AlertOriented To : Person,Place, Time,EventWeight Bearing Status : FullAssist Level : Partial# Assists : 2Functional Status from 06/20/2014 9:45 AM:LOC : AlertOriented To : Person,Place, Time,EventWeight Bearing Status : FullAssist Level : Partial# Assists : 2Functional Status from 06/19/2014 9:00 PM:LOC : AlertOriented To : Person,Place, TimeWeight Bearing Status : FullAssist Level : Partial# Assists : 2Functional Status from 06/19/2014 7:49 PM:LOC : AlertOriented To : Person,Place,Time, EventWeight Bearing Status : FullAssist Level : Partial# Assists : 2 Vital Signs Hospital Vital Signs from 06/26/2014 1:00 PM:Height : 5/5 ft,inTemperature : 98.2 FPulse : 108Respirations : 18BP : 145/88Hospital Vital Signs from 2014 7:28 AM:Height : 5/5 ft,inTemperature : 97.0 FPulse : 90Respirations : 18BP : 144/69Hospital Vital Signs from 06/25/2014 10:06 PM:Height : 5/5 ft, inTemperature : 98.2 FPulse : 91Respirations : 18BP : 114/57Hospital Vital Signs from 06/25/2014 3:07 PM:Height : 5/5 ft,inTemperature : 97.5 FPulse : 96Respirations : 18BP : 115/71Hospital Vital Signs from 06/25/2014 7:08 AM: Height : 5/5 ft,inTemperature : 96.5 FPulse : 95Respirations : 18BP : 103/ 55Hospital Vital Signs from 06/25/2014 3:14 AM:Height : 5/5 ft,inTemperature : 97.8 FPulse : 84Respirations : 18BP : 122/58Hospital Vital Signs from 06/24/2014 2:34 PM:Height : 5/5 ft,inTemperature : 97.6 FPulse : 90Respirations : 18BP : 122/56Hospital Vital Signs from 06/24/2014 8:44 AM:Heart Rate : 86Hospital Vital Signs from 06/24/2014 7:18 AM:Height : 5/5 ft,inTemperature : 98.1 FPulse : 86Respirations : 20BP : 124/58Hospital Vital Signs from 06/23/2014 10:45 PM: Height : 5/5 ft,inTemperature : 98.6 FPulse : 87Respirations : 20BP : 120/ 62Hospital Vital Signs from 06/23/2014 2:52 PM:Height : 5/5 ft,inTemperature : 97.4 FPulse : 92Respirations : 20BP : 141/67Hospital Vital Signs from 06/23/2014 11:00 AM:Heart Rate : 80Hospital Vital Signs from 06/23/2014 10:15 AM:Temp : 98Hospital Vital Signs from 06/23/2014 10:00 AM:Temp : 98.8Resp Rate : 13Systolic BP (mmHg) : 92Diastolic BP (mmHg) : 58Mean BP (mmHg) : 70Hospital Vital Signs from 06/23/2014 7:24 AM:Height : 5/5 ft,inTemperature : 97.2 FPulse : 83Respirations : 20BP : 147/76Hospital Vital Signs from 06/22/2014 10:05 PM: Height : 5/5 ft,inTemperature : 97.8 FPulse : 95Respirations : 20BP : 145/ 55Hospital Vital Signs from 06/22/2014 3:26 PM:Height : 5/5 ft,inTemperature : 97.8 FPulse : 101Respirations : 20BP : 132/71Hospital Vital Signs from 2014 7:27 AM:Height : 5/5 ft,inTemperature : 97.7 FPulse : 105Respirations : 20BP : 151/79Hospital Vital Signs from 06/21/2014 10:50 PM:Height : 5/5 ft, inTemperature : 98.0 FPulse : 92BP : 164/80Hospital Vital Signs from 06/21/2014 4 :05 PM:Height : 5/5 ft,inHospital Vital Signs from 06/21/2014 3:35 PM:Height : 5/ 5 ft,inTemperature : 96.8 FPulse : 93BP : 122/63Hospital Vital Signs from 2014 7:44 AM:Height : 5/5 ft,inTemperature : 97.9 FPulse : 92Respirations : 16BP : 135/74Hospital Vital Signs from 06/20/2014 10:01 PM:Height : 5/5 ft, inTemperature : 97.8 FPulse : 91Respirations : 16BP : 127/63Hospital Vital Signs from 06/20/2014 7:21 PM:Height : 5/5 ft,inTemperature : 97.4 FPulse : 94Respirations : 16BP : 130/62Hospital Vital Signs from 06/20/2014 3:07 PM: Height : 5/5 ft,inTemperature : 97.3 FPulse : 96Respirations : 16BP : 125/ 56Hospital Vital Signs from 06/20/2014 11:27 AM:Height : 5/5 ft,inTemperature : 96.5 FPulse : 96Respirations : 18BP : 142/72Hospital Vital Signs from 06/20/2014 10:43 AM:Height : 5/5 ft,inHospital Vital Signs from 06/20/2014 7:40 AM:Height : 5/5 ft,inTemperature : 96.9 FPulse : 86Respirations : 18BP : 120/62Hospital Vital Signs from 06/19/2014 10:27 PM:Height : 5/5 ft,inTemperature : 97.2 FPulse : 90Respirations : 18BP : 126/70Hospital Vital Signs from 06/19/2014 7:49 PM: Weight : 67.8/ kgHeight : 5/5 ft,inHospital Vital Signs from 06/19/2014 5:57 PM: Weight : 67.8/ kgHeight : 5/5 ft,inTemperature : 97.3 FPulse : 93Respirations : 18BP : 122/69 Results Chemistry from 06/24/2014 5:26 [id number] MMOL/L (136-145 MMOL/L) POTASSIUM4.4 MMOL/L (3.5-5.1 MMOL/L) ERFCQGTL581 MMOL/L (98-107 MMOL/L) ZAJ362.9 MMOL/L (21.0-32.0 MMOL/L) ANION GAP7.1 MMOL/L L (8.0-16.0 MMOL/L) BUN14 MG/DL (7-18 MG/DL) CREATININE0.83 MG/DL (0.43-0.83 MG/DL) BUN/CREATININE RATIO16.9 (9.1-17.0 ) DSMQPFR84 MG/DL (65-99 MG/DL) GFR EST NON AFR LVZRQAEM82 ML/MIN GFRA EST AFR AMER79 ML/MIN CALCIUM8.8 MG/DL (8.5-10.1 MG/DL) BILIRUBIN TOTAL0.20 MG/DL (0.20-1.00 MG/DL) TOTAL PROTEIN5.6 GM/DL L (6.4-8.2 GM/DL) ALBUMIN2.7 GM/DL L (3.4-5.0 GM/DL) GLOBULIN2.9 GM/DL (2.3-3.5 GM/DL) A/G RATIO0.9 MG/DL L (1.5-2.2 MG/DL) ALK PHOS82 U/L (46-116 U/L) ALT (SGPT)15 U/L L (16-63 U/L) AST (SGOT)44 U/L H (15-37 U/L)Chemistry from 06/21/2014 6:19 [id number] MMOL/L ( 136-145 MMOL/L) POTASSIUM4.4 MMOL/L (3.5-5.1 MMOL/L) CNJDMZYV567 MMOL/L (98-107 MMOL/L) OWW953.3 MMOL/L (21.0-32.0 MMOL/L) ANION GAP7.7 MMOL/L L (8.0-16.0 MMOL/L) BUN8 MG/DL (7-18 MG/DL) CREATININE0.64 MG/DL (0.43-0.83 MG/DL) BUN/CREATININE RATIO12.5 (9.1-17.0 ) ADQHLMW33 MG/DL (65-99 MG/DL) GFR EST NON AFR LHVJZSSF85 ML/MIN GFRA EST AFR AMER>90 ML/MIN CALCIUM8.6 MG/DL (8.5-10.1 MG/DL) BILIRUBIN TOTAL0.23 MG/DL (0.20-1.00 MG/DL) TOTAL PROTEIN5.4 GM/DL L (6.4-8.2 GM/DL) ALBUMIN2.6 GM/DL L (3.4-5.0 GM/DL) GLOBULIN2.8 GM/DL (2.3-3.5 GM/DL) A/G RATIO0.9 MG/DL L (1.5-2.2 MG/DL) ALK PHOS78 U/L (46-116 U/L) ALT (SGPT)17 U/L (16-63 U/L) AST (SGOT)34 U/L (15-37 U/L) EST AVG GRCYLHM126.9 gm/dl HEMOGLOBIN A1C5.7 % (4.5-6.2 %) VITAMIN F22930 PG/ML (180-914 PG/ML) FOLATES9.5 NG/ML (>3.0- NG/ML)Chemistry from 06/19/2014 8:37 [id number] MMOL/ L L (136-145 MMOL/L) POTASSIUM3.8 MMOL/L (3.5-5.1 MMOL/L) ZEPPPELY048 MMOL/L (98-107 MMOL/L) YEZ464.8 MMOL/L (21.0-32.0 MMOL/L) ANION GAP4.2 MMOL/L L (8.0-16.0 MMOL/L) BUN18 MG/DL (7-18 MG/DL) CREATININE0.73 MG/DL (0.43-0.83 MG/DL) BUN/CREATININE RATIO24.7 H (9.1-17.0 ) OVGCJRT251 MG/DL H (65-99 MG/DL) GFR EST NON AFR PKCHPFFX30 ML/MIN GFRA EST AFR AMER>90 ML/MIN CALCIUM8.1 MG/DL L (8.5-10.1 MG/DL) BILIRUBIN TOTAL0.20 MG/DL (0.20-1.00 MG/DL) TOTAL PROTEIN5.8 GM/DL L (6.4-8.2 GM/DL) ALBUMIN2.7 GM/DL L (3.4-5.0 GM/DL) GLOBULIN3.1 GM/DL (2.3-3.5 GM/DL) A/G RATIO0.9 MG/DL L (1.5-2.2 MG/DL) ALK PHOS85 U/L (46-116 U/L) ALT (SGPT)14 U/L L (16-63 U/L) AST (SGOT)20 U/L (15-37 U/L) MAGNESIUM2.2 MG/DL (1.8-2.4 MG/DL) PHOSPHORUS3.3 MG/DL (2.5-4.9 MG/DL) TROPONIN-I<0.04 (SEE BELOW ) C-REACTIVE PROTEIN0.16 MG/DL (0.00-0.30 MG/DL) TSH9.23 UIU/ML H (0.34-4.82 UIU/ML) CK74 U/L (26-192 U/L)Hematology from 06/24/2014 5:26 AMWBC10.9 X10e3/UL (3.6- 11.2 X10e3/UL) RBC3.71 X10e6/UL (3.63-4.92 X10e6/UL) ZDGDOEOQOZ99.1 G/DL (11.0-14.3 G/DL) JITDLTXWZD18.3 % (31.2-41.9 %) QAO488.6 FL H (79.0-98.0 FL) MCH32.8 PG (27.0-33.0 PG) MCHC32.6 G/DL (32.0-36.0 G/DL) RDW13.1 % (12.3-17.0 %) RDWSD45.5 (37.1-47.8 ) BQSCKOXI359 X10e3/UL (159-386 X10e3/UL) MPV7.5 FL (7.4-10.4 FL)Hematology from 06/21/2014 6:19 AMWBC10.4 X10e3/UL (3.6- 11.2 X10e3/UL) RBC3.68 X10e6/UL (3.63-4.92 X10e6/UL) DPDPNQKDWZ99.3 G/DL (11.0-14.3 G/DL) DXTOYLTWHD21.9 % (31.2-41.9 %) APJ691.3 FL H (79.0-98.0 FL) MCH33.4 PG H (27.0-33.0 PG) MCHC33.3 G/DL (32.0-36.0 G/DL) RDW12.7 % (12.3-17.0 %) VCCKBYKM042 X10e3/UL (159-386 X10e3/UL) MPV7.8 FL (7.4-10.4 FL)Hematology from 06/19/2014 8:37 PMWBC8.5 X10e3/UL (3.6- 11.2 X10e3/UL) RBC3.63 X10e6/UL (3.63-4.92 X10e6/UL) NARIMNUDHS44.0 G/DL (11.0-14.3 G/DL) XCDUKIYCSX44.3 % (31.2-41.9 %) VDE710.1 FL H (79.0-98.0 FL) MCH33.1 PG H (27.0-33.0 PG) MCHC33.1 G/DL (32.0-36.0 G/DL) RDW13.4 % (12.3-17.0 %) RDWSD46.8 (37.1-47.8 ) YBBMWMWZ598 X10e3/UL (159-386 X10e3/UL) MPV7.7 FL (7.4-10.4 FL) SED RATE7 MM/HR (0-30 MM/HR)Urinalysis from 06/20/2014 1:20 PM Status: Final Result URINALYSIS Specimen Number: [id number] Sample Collection Date/Time: 06/20/2014 1:20 PM Specimen Source: URINE COLORYELLOW (STRAW/YELL/DK YELL ) URINE APPEARANCECLOUDY A (CLEAR ) URINE PH6.5 (5.0-8.0 ) URINE SPECIFIC GRAVITY1.020 (<=1.005->=1.030 ) URINE GLUCOSENEGATIVE MG/DL (NEGATIVE MG/DL) URINE BILIRUBINNEGATIVE (NEGATIVE ) URINE KETONESNEGATIVE MG/DL (NEGATIVE MG/DL) URINE BLOODTRACE-LYSED A (NEGATIVE ) URINE PROTEINNEGATIVE MG/DL (NEGATIVE MG/DL) URINE UROBILINOGEN0.2 EU/DL (0.2-1.0 EU/DL) URINE NITRITESNEGATIVE (NEGATIVE ) *URINE LEUKOCYTESLARGE A (NEGATIVE ) MICROSCOPIC EXAM PERFORMEDPERFORMED TVP27-83 /HPF A (0-5 /HPF) RBC1-5 /HPF A (0-1 /HPF) TRANSITIONAL EP. CELLSMODERATE /LPF A (NEG-FEW /LPF) MUCOUS THREADSFEW /LPF A (NEGATIVE /LPF)Microbiology from 06/20/2014 1:20 PMCULTURE URINE Specimen Number: [id number] Sample Collection Date/Time: 06/20/2014 1:20 PM Specimen Source: Urine Catheter 1 Comment Result Value Citrobacter freundii Result Status Final Result Aztreonam <=1 S Cefazolin =16 R Cefepime <=1 S Ceftazidime <=1 S Ceftriaxone <=1 S Ertapenem <=0.5 S Gentamicin <=1 S Levofloxacin =0.5 S Meropenem <=0.25 S Nitrofurantoin <=16 S Piperacillin/tazobactam <=4 S Tobramycin <=1 S Trimethoprim/Sulfa <=20 S Pathology from 06/23/2014 12:00 AMPATH SOURCE DUODENUM BX-ROUTINE FINAL DIAGNOSIS DUODENUM (BIOPSY): BENIGN DUODENAL MUCOSA WITH NO SIGNIFICANT DUODENITIS.. (RAD[COLTON]) SIGNATURE JOSE ANTONIO VENTURA M.D. , PATHOLOGIST (CASE SIGNED 06/25/2014 AT 14:32) GROSS EXAMINATION: 1. RECEIVED IN FIXATIVE LABELED "DUODENUM NODULE" ARE TWO YELLOWISH-PINK MUCOSAL FRAGMENTS EACH AVERAGING 0.3 CM. THE SPECIMEN IS SUBMITTED IN TOTO IN A SINGLE CASSETTE. (RD/COLTON) MICROSCOPIC EXAMINATION: BIOPSY OF DUODENUM REVEALS NORMAL TALL VILLOUS ARCHITECTURE WITHOUT EVIDENCE OF VILLOUS BLUNTING. A MASS FORMING LESION IS NOT IDENTIFIED. PHYSICIANS ARNAUD ORDAZ// AYUSH ANDERSON// MICHAEL CONWAY// CHARGE CODE CPT COUNT [id number] 1 DX Radiology from 06/19/2014 5:42 PMCHEST 1 VIEWDATE OF EXAM: Jun 19 2014 6: 18PM Proc: DG 0066 - CHEST 1 VIEW CPT Code(s): 59730-; ; ; INDICATION / CLINICAL HISTORY: Dehydration. COMPARISON: 02/23/09. FINDINGS: The cardiac silhouette and pulmonary vasculature are within normal limits. There is minimal left basilar atelectasis. IMPRESSION: Minimal left basilar atelectasis. Problems Encounter Diagnosis Anxiety Comment:Problem resolved by [facility] upon Discharge, Status: Resolved.Dehydration Comment:Problem resolved by [facility] upon Discharge , Status:Resolved.Gastroesophageal Reflux Disease Comment:Problem resolved by [facility] upon Discharge, Status:Resolved.Hypertensive Disorder Comment: Problem resolved by [facility] upon Discharge, Status:Resolved.Parkinson' s Disease Comment:Problem resolved by [facility] upon Discharge, Status: Resolved.Additional Problems Pain Comment:Problem resolved by [facility] upon Discharge, Status: Resolved.Vertigo Comment:Problem resolved by [facility] upon Discharge, Status:Resolved. Encounters Encounter Diagnosis Anxiety Comment:Problem resolved by [facility] upon Discharge, Status: Resolved.Dehydration Comment:Problem resolved by [facility] upon Discharge , Status:Resolved.Gastroesophageal Reflux Disease Comment:Problem resolved by [facility] Work[facility] upon Discharge, Status:Resolved.Hypertensive Disorder Comment: Problem resolved by [facility] upon Discharge, Status:Resolved.Parkinson' s Disease Comment:Problem resolved by [facility] upon Discharge, Status: Resolved. Plan of Care Follow-up Appointments from 06/26/2014 11:56 AM:#1 Office appointment: : Jaycee Rolle#1 Date/Time : 07/05/2014 11:00 AMAddress # 1 : [facility]: [address], [address], [facility] Treatment Plan from 06/26/2014 9:45 AM:Care Management Note : [facility] aware of discharge for today and will transport at 1300. Patient and spouse informed. Spouse states he will notify their daughter, who will be bringing patient's wheelchair for transfer.Treatment Plan from 06/25/2014 2:31 PM:Care Management Note : Patient, [facility] and daughterSandy, all aware of anticipated discharge for tomorrow. Will set up transportation once discharge date confirmed.Treatment Plan from 06/22/2014 9:35 AM:Care Management Note :Noted Dr. Anderson discharged patient today to [facility]. I went to set up transportation and informed patient, spouse and daughter but daughter states she does not feel patient ready to be dismissed and wants to appeal discharge. Nurse informed and will notify Dr. Anderson.Treatment Plan from 06/20/2014 3:08 PM :Care Management Note : Patient resides at [facility] and plans to return at discharge. Will set up transportation once discharge date confirmed. Procedures Completed esophagogastroduodenoscopy with biopsy, by MD [facility], on 9:48 AM Immunizations No immunizations administered or ordered. Hospital Course Hospital Discharge Instructions How to care for yourself at home from 06/26/2014 11:56 AM:Discharge Activity : Activity as tolerated,May ShowerDischarge Diet : Modification as given by physicianDischarge Diet: : Regular with Ensure 1 can BIDCall your doctor if: : Fever over 101 F or severe chills,Chest pain or other unexplained symptoms, Tingling or numbness develops,A sudden increase or decrease in weight,You have persistent or worsening symptomsSpecific Discharge Teaching Instructions provided: : NoDischarge on Warfarin : No Allergies, Adverse Reactions, Alerts Bactrim causes unspecified.Neurontin causes unspecified.opium tincture causes unspecified.No Latex Allergy.No IV Contrast Allergy.No Known Food Allergies. Medication It is the responsibility of the patient or patient printing supplies sales representative to confirm the list of medicationswith either the patient's personal care provider or the patient's follow-up care provider to ensure the patient has an appropriate list of medications to take at home. Discharge medicationsNew medicationspantoprazole (ProTONIX) 40 mg tablet, delayed release (DR/EC), Ordered By: BONNIE AKBAR RN Directions: 1 tablet oral twice a day Additional Instructions: For 2 weeks LORazepam 0.5 mg Tablet, Ordered By: AYUSH ANDERSON MD Directions: 1 tablet oral every six hours PRN ANXIETY sucralfate (CarafATE) 1 gram/10 mL Suspension, Ordered By: BONNIE AKBAR RN Directions: 10 mL oral daily every morning ondansetron HCl (Zofran) 4 mg Tablet, Ordered By: BONNIE AKBAR RN Directions: 1 tablet oral 3 times a day before meals ondansetron HCl (Zofran) 4 mg Tablet, Ordered By: BONNIE AKBAR RN Directions: 1 tablet oral Every 4 hours as needed for nausea. PRN nausea or vomiting Continued medicationsvenlafaxine (Effexor XR) 150 mg capsule,extended release 24hr, Ordered By: AYUSH ANDERSON MD Directions: 1 capsule oral daily sennosides (Senna Lax) 8.6 mg Tablet, Ordered By: AYUSH ANDERSON MD Directions: 2 tablet oral daily polyethylene glycol 3350 (Miralax) 17 gram Powder in Packet, Ordered By: AYUSH ANDERSON MD Directions: 1 packet oral every other day montelukast (Singulair) 10 mg Tablet, Ordered By: AYUSH ANDERSON MD Directions: 1 tablet oral daily every evening divalproex (Depakote) 500 mg tablet,delayed release (DR/EC), Ordered By: AYUSH ANDERSON MD Directions: 1 tablet oral twice a day donepezil (Aricept) 10 mg Tablet, Ordered By: AYUSH ANDERSON MD Directions: 1 tablet oral daily amLODIPine 5 mg Tablet, Ordered By: AYUSH ANDERSON MD Directions: 1 tablet oral daily ascorbic acid (Vitamin C) 500 mg Tablet, Ordered By: AYUSH ANDERSON MD Directions: 1 tablet oral three times a day atorvastatin 20 mg Tablet, Ordered By: AYUSH ANDERSON MD Directions: 1 tablet oral daily at bedtime Changed medicationsQUEtiapine (SEROquel) 50 mg Tablet, Ordered By: ARYAN RAMEY Directions: 1 tablet oral daily at bedtime MEMAntine (Namenda XR) 28 mg capsule,sprinkle,ER 24hr, Ordered By: AYUSH ANDERSON MD Directions: oral oral daily conjugated estrogens (Premarin) 0.625 mg/gram Cream, Ordered By: AYUSH ANDERSON MD Directions: 1 application per vagina every Wednesday, Wednesday, Wednesday levothyroxine 137 mcg Tablet, Ordered By: BONNIE AKBAR RN Directions: 1 tablet oral daily before breakfast aspirin (Antelmo Chewable Aspirin) 81 mg tablet,chewable, Ordered By: AYUSH ANDERSON MD Directions: 1 tablet oral daily carbidopa-levodopa 50 mg-200 mg Tablet Extended Release, Ordered By: AYUSH ANDERSON MD Directions: 1 tablet oral twice a day Additional Instructions: RE TIMED TO AVOID CARAFATE cholecalciferol (vitamin D3) (Vitamin D3) 1,000 unit Tablet, Ordered By: AYUSH ANDERSON MD Directions: 3 tablets oral daily QUEtiapine 25 mg Tablet, Ordered By: AYUSH ANDERSON MD Directions: 1 tablet oral three times a day PRN ANXIETY Stopped medicationsomeprazole 20 mg capsule,delayed release(DR/EC) Directions: 1 capsule oral Every evening. hydrOXYzine HCl 25 mg Tablet Directions: 1 tablet oral three times a day PRN anxiety hydrOXYzine HCl 25 mg Tablet Directions: 1 tablet oral twice a day
--- OUTSIDE RECORDS SUMMARY | 2017-02-20 19:02 | External Medical Summary | Summary of Care ---
:1935 Author Name Derick Luna Address [address] [place], [place] [id number] Care Team Providers Name Role Phone Keesha Downey, Adali Lim Unavailable Unavailable Derick Luna Unavailable Unavailable Kiley Romero APRN Unavailable Unavailable Maurice Downey, Adali Celis Unavailable Unavailable Raphael Thao Unavailable Unavailable [facility], [place] ([place]) Unavailable Unavailable Unavailable Unavailable Unavailable Functional Status [...] Postmenopausal vaginal bleeding (627.1, N95.0) Status: Active Fall (E888.9, W19.XXXA) Status: Active Chronic pain of both shoulders (719.41, M25.512) Status: Active Urinary incontinence (788.30, R32) Status: Active Arthralgia of multiple sites (719.49, M25.50) Status: Active Allergic rhinitis (477.9, J30.9) Status: Active Memory loss (780.93, R41.3) Status: Active Bursitis of hip (726.5, M70.70) Status: Active Neck pain (723.1, M54.2) Status: Active Hip pain, acute, right (719.45, M25.551) Status: Active Hypothyroidism (244.9, E03.9) Status: Active Headache (784.0, R51) Status: Active Recurrent urinary tract infection (599.0, N39.0) Status: Active Acute cystitis without hematuria (595.0, N30.00) Status: Active Early satiety (780.94, R68.81) Status: Active Dizziness (780.4, R42) Status: Active Sensorineural hearing loss, bilateral (389.18, H90.3) Status: Active Dysuria (788.1, R30.0) Status: Active Malnutrition (263.9, E46) Status: Active Constipation (564.00, K59.00) Status: Active Benign paroxysmal vertigo of left ear (386.11, H81.12) Status: Active Myofascial pain syndrome (729.1, M79.1) Status: Active Bilateral impacted cerumen (380.4, H61.23) Status: Active Dysphagia (787.20, R13.10) Status: Active Chronic nausea (787.02, R11.0) Status: Active Dysphagia, neurologic (787.29, R13.19) Status: Active Depression (311, F32.9) Status: Active Anxiety (300.00, F41.9) Status: Active Parkinson's disease (332.0, G20) Status: Active Decreased appetite (783.0, R63.0) Status: Active Hypertension (401.9, I10) Status: Active 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 Refills: 0 Start 21-Jan-2011 Active Carbidopa-Levodopa ER 25-100 MG Oral Tablet Extended Release 1 tablet po QID Refills: 0 Vimal Richards M.D. Start 08-Jun-2011 Active Effexor [...] prn nausea Refills: 0 Raphael Thao M.D. Start 26-Jun-2014 Active LORazepam 0.5 MG Oral Tablet TAKE 1 TABLET EVERY 6 HOURS NEEDED. Quantity: 90 Refills: 3 Raphael Thao M.D. Start 26-Jul-2014 Active Loratadine 10 MG Oral Tablet TAKE [...] Quantity: 30 Refills: 2 Raphael Thao M.D. Start Active Voltaren 1 % Transdermal Gel APPLY 1-2 GM OF GEL TO AFFECTED AREA 4 TIMES DAILY. DO NOT APPLY MORE THAN 8 GM DAILY TO ANY ONE AFFECTED JOINT. Quantity: 1 Refills: 1 Raphael Thao M.D. Start Active 100 GM Tube Amantadine HCl - 100 MG Oral Tablet Take 1 tablet daily Refills: 0 Start Active AmLODIPine Besylate 5 MG Oral Tablet TAKE 1 TABLET DAILY DIRECTED. Refills: 0 Start Active Omeprazole 20 MG Oral Capsule Delayed Release Take one capsule by mouth daily Quantity: 30 Refills: 0 Kiley Romero APRN Start 03-Feb-2016 Active TraMADol HCl - 50 MG Oral Tablet TAKE 1 TABLET EVERY 4 HOURS NEEDED. Quantity: 40 Refills: 5 Keesha DowneyRaphael Start 10-Jun-2015 Active Amitiza 8 MCG Oral Capsule TAKE ONE TABLET TWICE DAILY WITH MEALS Quantity: 60 Refills: 5 Fausto Sauer Derick Start 24-Feb-2016 Active Bismuth Subsalicylate 262 MG Oral Tablet Chewable USE DIRECTED. Refills: 0 Start 26-Jun-2016 Active BusPIRone HCl - 15 MG Oral Tablet TAKE ONE TABLET BY MOUTH TWO TIMES DAILY Quantity: 60 Refills: 2 Maurice DowneyVimal Start 11-Feb-2016 Active Allergies and Adverse Reactions Name Dates [...] fatigue (V13.89, Z87.898) Status: Resolved History of History of vaginal delivery (V13.29) Status: Resolved History of nausea and vomiting (V12.79, Z87.898) Status: Resolved History of Pre-operative exam (V72.84, Z01.818) Status: Resolved History of Pre-operative exam (V72.84, Z01.818) Status: Resolved History of spontaneous (V13.29, Z87.59) Status: Resolved History of urinary incontinence (V13.09, Z87.898) Status: Resolved History of weakness (V13.89, Z87.898) Status: Resolved Procedures Procedure Dates Details History of Extracaps Cataract Extract With Prosthesis Insert Right Eye History of Extracaps Cataract Extract With Prosthesis Insert Left Eye History of Complete Colonoscopy For Polyp Removal Completed: History of Back Surgery History of Tubal Ligation History of Gastroscopy With Biopsy Completed: History of Gastroscopy With Biopsy Completed: 25-Feb-2012 Procedures not documented Immunization Name Dates Details Influenza on: 18-Jan-2008 Influenza on: 05-Mar-2010 Lot #: [id number] Influenza on: 17-Jan-2013 Pneumo (Pneumovax) on: 23-Jan-2016 [...] smoker Vital Signs Date Test Result Details 15:41 BP Systolic 139 mm[Hg] Status: Comments: Location: ; Position: BP Diastolic 74 mm[Hg] Status: Comments: Location: ; Position: Heart Rate 98 /min Status: Comments: Location: ; Results Date Description Value Details Results not documented Plan of Care Name Dates Details Planned Observations Planned Goals not documented Planned Encounters Appointment; Provider: Camacho Lawson On 11-Nov-2016 15:15 Appointment; Provider: Vimal Richards M.D. On 05-Nov-2016 14:15 Instructions Name Dates Details Instructions not documented Encounters Appointment; Billy Golden M.D.|[place]|Nasreen,PRANAY|Nasreen,PRANAY, On Encounter Diagnosis: Problem not documented 11:00 Appointment; Raphael Thao M.D. On 21-Aug-2016 Encounter Diagnosis: Problem not documented 11:45 Appointment; Vimal Richards M.D. On 04-Aug-2016 Encounter Diagnosis: Problem not documented 14:15 Appointment; Derick Lambert P.A. On 22-Jul-2016 Encounter Diagnosis: Problem not documented 13:30 Appointment; Silvina Shaikh A.P.R.N. On 16-Jul-2016 Encounter Diagnosis: Problem not documented 15:00 Appointment; Derick Lambert P.A. On 26-Jun-2016 Encounter Diagnosis: Problem not documented 14:00 Appointment; Vimal Velasquez M.A.|C.C.CGorge-A On 12-May-2016 Encounter Diagnosis: Problem not documented 13:45 Appointment; Ke Solomon M.D. On 12-May-2016 Encounter Diagnosis: Problem not documented 13:00 Appointment; Raphael Thao M.D. On 24-Apr-2016 Encounter Diagnosis: Problem not documented 11:45 Appointment; Ke Solomon M.D. On 20-Apr-2016 Encounter Diagnosis: Problem not documented 13:30 Appointment; Derick Lambert P.A. On 07-Apr-2016 Encounter Diagnosis: Problem not documented 11:15 Appointment; Vimal Richards M.D. On 04-Mar-2016 Encounter Diagnosis: Problem not documented 14:15 Appointment; Ke Solomon M.D. On 03-Mar-2016 Encounter Diagnosis: Problem not documented 09:15 Appointment; Derick Lambert P.A. On 24-Feb-2016 Encounter Diagnosis: Problem not documented 14:30 Appointment; Bobo Sierra D.O. On 17-Feb-2016 Encounter Diagnosis: Problem not documented 10:05 Appointment; Vimal Richards M.D. On 05-Feb-2016 Encounter Diagnosis: Problem not documented 13:45 Appointment; Kiley Romero A.P.R.N. On 31-Jan-2016 Encounter Diagnosis: Problem not documented 13:30 Appointment; Tra Rico M.D.|F.A.C.SGorge|PRANAY Downey|Nasreen,FACS, On Encounter Diagnosis: Problem not documented 11:30 Appointment; Billy Golden M.D.|F.A.C.SGorge|PRANAY Downey|Nasreen,FACS, On Encounter Diagnosis: Problem not documented 10:30 Appointment; Raphael Thao M.D. On Encounter Diagnosis: Problem not documented 16:00 Appointment; Raphael Thao M.D. On Encounter Diagnosis: Problem not documented 14:15 Appointment; Vimal Richards M.D. On 08-Aug-2015 Encounter Diagnosis: Problem not documented 15:00 Appointment; Jo Ann Crowe P.A. On 02-Aug-2015 Encounter Diagnosis: Problem not documented [...] On 13-Nov-2014 Encounter Diagnosis: Problem not documented 14:30"
--- OUTSIDE RECORDS SUMMARY | 2017-02-20 19:02 | External Medical Summary | Summary of Care ---
:1935 Author Name Adali Thao M.D. Address [address], [place] [id number] Care Team Providers Name Role Phone Adali Thao M.D. Unavailable Unavailable Adali Richards M.D. Unavailable Unavailable Raphael Thao Primary Care Provider Unavailable [place], [place] Referring Provider Unavailable Unavailable Unavailable Unavailable Functional [...] of multiple sites (719.49, M25.50) Status: Active UTI (lower urinary tract infection) (599.0, N39.0) Status: Active Dysuria (788.1, R30.0) Status: Active Carotid artery stenosis (433.10, I65.29) Status: Active Hypothyroidism (244.9, E03.9) Status: Active Recurrent urinary tract infection (599.0, N39.0) Status: Active Urinary incontinence (788.30, R32) Status: Active Cystocele (618.01, N81.10) Status: Active Hip pain (719.45, M25.559) Status: Active Memory loss (780.93, R41.3) Status: Active Constipation (564.00, K59.00) Status: Active Depression (311, F32.9) Status: Active Vaginal bleeding (623.8, N93.9) Status: Active Lower back pain (724.2, M54.5) Status: Active Postmenopausal vaginal bleeding (627.1, N95.0) Status: Active Esophageal reflux (530.81, K21.9) Status: Active Parkinson's disease (332.0, G20) Status: Active Anxiety (300.00, F41.1) Status: Active Hypertension (401.9, I10) Status: Active Fall (E888.9, W19.XXXA) Status: Active Decreased appetite (783.0, R63.0) Status: Active Contusion of left hip (924.01, S70.02XA) Status: Active Medications Name Dates Details Aspirin 81 MG Oral Tablet TAKE 1 TABLET DAILY. Refills: 0 Started 21-Jan-2011 ActiveCarbidopa-Levodopa ER 50-200 MG Oral Tablet Extended Release TAKE 1 TABLET FOUR TIMES A DAY Quantity: 360 Refills: 3 Vimal Richards M.D. Started 08-Jun-2011 ActiveEffexor XR 150 MG [...] TABLET BY MOUTH DAILY Quantity: 90 Refills: 3 Raphael Thao M.D. Started 03-Jul-2013 ActiveAmLODIPine Besylate 5 MG Oral Tablet take one tablet by mouth every day Quantity: 30 Refills: Raphael Painter M.D. Started ActiveAtorvastatin Calcium 20 MG Oral Tablet TAKE 1 TABLET DAILY. Quantity: 30 Refills: Raphael Painter M.D. Started ActiveAricept 10 MG Oral Tablet TAKE 1 TABLET DAILY DIRECTED. Refills: 0 Raphael Thao M.D. Started 30-Apr-2014 ActiveMiraLax Oral Powder Refills: 0 Started 22-May-2014 ActiveNamenda XR 7 MG Oral Capsule Extended Release 24 Hour Refills: 0 Started 22-May-2014 ActiveSenna 8.6 MG Oral Tablet Refills: 0 Started 22-May-2014 ActiveVitamin D 1000 UNIT Oral Capsule Refills: 0 Started 22-May-2014 ActiveEffexor XR 75 MG Oral Capsule Extended Release 24 Hour Take one daily with 150 mg to equal 225 mg daily Refills: 0 Raphael Thao M.D. Started 03-Jul-2014 ActiveLevothyroxine Sodium 137 MCG Oral Tablet TAKE 1 TABLET DAILY. Refills: 0 Raphael Thao M.D. Started 26-Jun-2014 ActiveCarafate 1 GM/10ML Oral Suspension 10 mL po each morning Refills: 0 Raphael Thao M.D. Started 26-Jun-2014 ActivePantoprazole Sodium 40 MG Oral Tablet Delayed Release Take 1 tablet twice a day Quantity: 76 Refills: 0 Raphael Thao M.D. Started 26-Jun-2014 ActiveQUEtiapine Fumarate 25 MG Oral Tablet TAKE 1 TABLET 3 TIMES DAILY. Refills: 0 Raphael Thao M.D. Started 26-Jun-2014 ActiveRemeron 15 MG Oral Tablet TAKE 1 TABLET AT BEDTIME. Refills: 0 Raphael Thao M.D. Started ActiveZofran 4 MG Oral Tablet Give one tab po TID and Q 4 hours prn nausea Refills: 0 Raphael Thao M.D. Started 26-Jun-2014 ActiveLORazepam 0.5 MG Oral Tablet TAKE 1 TABLET EVERY 6 HOURS NEEDED. Quantity: 90 Refills: 3 Raphael Thao M.D. Started 26-Jul-2014 Active Allergies and Adverse Reactions Name Dates [...] Completed: History of Gastroscopy With Biopsy Completed:25-Feb-2012 Procedures not documented Immunization Name Dates Details Influenza Administered on:18-Jan-2008 Influenza Administered on:05-Mar-2010 Lot #: [id number] Influenza Administered on:17-Jan-2013 Family History Unknown Family [...] smoker Vital Signs Date Test Result Details No Known Vitals to report Results Date Description Value Details Results not documented Plan of Care Planned Observations Name Dates Details Planned Goals not documented Goal Planned Encounters Appointment; Provider: Raphael Thao On 16-Nov-2014 11:30 Appointment; Provider: Vimal Richards On 13-Nov-2014 14:30 Appointment; Provider: Jo Ann Crowe On 13:30 Appointment; Provider: Davidson Banerjee On 04-Jun-2011 10:30 Instructions Instructions not documented Encounters Appointment; Jo Ann Crowe On 24-Aug-2014 Encounter Diagnosis: Problem not documented 13:15 Appointment; Raphael Thao On 19-Jun-2014 Encounter Diagnosis: Problem not documented 16:00 Appointment; Brittney Bennett On 07-Jun-2014 Encounter Diagnosis: [...]
--- OUTSIDE RECORDS SUMMARY | 2017-02-20 19:03 | External Medical Summary | Summary of Care ---
:1935 Author Name Silvina Shaikh APRN Address [address] Unavailable [place], [place] [id number] Care Team Providers Name Role Phone Keesha Downey, Adali Lim Unavailable Unavailable Derick Luna Unavailable Unavailable Kiley Romero APRN Unavailable Unavailable Silvina Shaikh APRN Unavailable Unavailable Maurice Downey, Adali Celis Unavailable Unavailable Raphael Thao Unavailable Unavailable [facility], [place] ([place]) Unavailable Unavailable Unavailable Unavailable Unavailable Functional Status [...] Active Memory loss (780.93, R41.3) Status: Active Decreased appetite (783.0, R63.0) Status: Active Bursitis of hip (726.5, M70.70) Status: Active Neck pain (723.1, M54.2) Status: Active Hip pain, acute, right (719.45, M25.551) Status: Active 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, 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 Hypothyroidism (244.9, E03.9) Status: Active Headache (784.0, R51) Status: Active Recurrent urinary tract infection (599.0, N39.0) Status: Active Acute cystitis without hematuria (595.0, N30.00) Status: Active Early satiety (780.94, R68.81) Status: Active Depression (311, F32.9) Status: Active Dizziness (780.4, R42) Status: Active Sensorineural hearing loss, bilateral (389.18, H90.3) Status: Active Dysuria (788.1, R30.0) Status: Active Anxiety (300.00, F41.9) Status: Active Malnutrition (263.9, E46) Status: Active Constipation (564.00, K59.00) Status: Active Benign paroxysmal vertigo of left ear (386.11, H81.12) Status: Active Myofascial pain syndrome (729.1, M79.1) Status: Active Bilateral impacted cerumen (380.4, H61.23) Status: Active Chronic nausea (787.02, R11.0) Status: Active Dysphagia, neurologic (787.29, R13.19) Status: Active Esophageal reflux (530.81, K21.9) Status: Active Dysphagia (787.20, R13.10) Status: Active Parkinson's disease (332.0, G20) Status: Active Hypertension (401.9, I10) Status: Active Medications Name Dates Details Aspirin 81 MG TABS TAKE 1 TABLET DAILY. Refills: 0 Start 21-Jan-2011 Active Carbidopa-Levodopa ER 25-100 MG Oral Tablet Extended Release 1 tablet po QID Refills: 0 Vimal Richards M.D. Start 08-Jun-2011 Active Effexor XR 150 MG Oral Capsule Extended Release 24 Hour TAKE 1 CAPSULE DAILY. Refills: 0 Start Active Depakote 500 MG Oral Tablet Delayed Release TAKE 1 TABLET DAILY. Refills: 0 Raphael Thao M.D. Start 07-Feb-2013 Active MiraLax Oral Powder Refills: 0 Start [...] 0 Raphael Thao M.D. Start 11-Apr-2015 Active Fluticasone Propionate 50 MCG/ACT Nasal Suspension [...] fatigue (V13.89, Z87.898) Status: Resolved History of nausea [...] on: 18-Jan-2008 Influenza on: 05-Mar-2010 Lot #: [id number] Influenza on: 17-Jan-2013 Pneumo (Pneumovax) on: 23-Jan-2016 [...] smoker Vital Signs Date Test Result Details 16-Jul-2016 16:54 Weight 178 lb Status: Body Mass Index Calculated 30.55 kg/m2 Status: Body Surface Area Calculated 1.86 m2 Status: 16-Jul-2016 15:22 BP Systolic 120 mm[Hg] Status: Comments: Location: ; Position: BP Diastolic 78 mm[Hg] Status: Comments: Location: ; Position: Heart Rate 95 /min Status: Comments: Location: ; Physical Findings 96 Status: Comments: O2 Saturation 26-Jun-2016 14:14 BP Systolic 132 mm[Hg] Status: BP Diastolic 76 mm[Hg] Status: Heart Rate 99 /min Status: Results Date Description Value Details Results not documented Plan of Care Name Dates Details Planned Observations Planned Goals not documented Planned Encounters Appointment; Provider: Vimal Richards M.D. On 04-Aug-2016 14:15 Appointment; Provider: Camacho Lawson On 22-Jul-2016 13:30 Instructions Name Dates Details Instructions not documented Encounters Appointment; Derick Lambert P.A. On 26-Jun-2016 Encounter Diagnosis: Problem not documented 14:00 Appointment; Vimal Velasquez M.A.|C.C.C.-A On 12-May-2016 Encounter Diagnosis: Problem not documented [...] Problem not documented 13:30 Appointment; Tra Rico M.D.|PremaC.SGorge|Nasreen,PRANAY|Nasreen,PRANAY, On Encounter Diagnosis: Problem not documented 11:30 Appointment; Billy Golden M.D.|PremaC.SGorge|Nasreen,PRANAY|Nasreen,PRANAY, On Encounter Diagnosis: Problem not documented 10:30 [...] not documented 14:30 Appointment; Jo Ann Crowe P.A. On 24-Aug-2014 Encounter Diagnosis: Problem not documented 13:15"
--- OUTSIDE RECORDS SUMMARY | 2017-02-20 19:03 | External Medical Summary | Summary of Care ---
:1935 Author Name [place] Downey, PRANAY, ,, Billy Address Unavailable Unavailable , Care Team Providers Name Role Phone Adali Thao M.D. Unavailable Unavailable Adali Richards M.D. Unavailable Unavailable Raphael Thao Primary Care Provider Unavailable [place], [place] ([place]) Referring Provider Unavailable Unavailable Unavailable Unavailable Functional [...] Active Chest pain (786.50, R07.9) Status: Active UTI (lower urinary tract infection) (599.0, N39.0) Status: Active Dysuria (788.1, R30.0) Status: Active Carotid artery stenosis (433.10, I65.29) Status: Active Recurrent urinary tract infection (599.0, N39.0) Status: Active Cystocele (618.01, N81.10) Status: Active Hip pain (719.45, M25.559) Status: Active Constipation (564.00, K59.00) Status: Active Vaginal bleeding (623.8, N93.9) Status: Active Lower back pain (724.2, M54.5) Status: Active Postmenopausal vaginal bleeding (627.1, N95.0) Status: Active Esophageal reflux (530.81, K21.9) Status: Active Fall (E888.9, W19.XXXA) Status: Active Contusion of left hip (924.01, S70.02XA) Status: Active Acute sinusitis (461.9, J01.90) Status: Active Chronic pain of both shoulders (719.41, M25.512) Status: Active Malnutrition (263.9, E46) Status: Active Urinary incontinence (788.30, R32) Status: Active Arthralgia of multiple sites (719.49, M25.50) Status: Active Allergic rhinitis (477.9, J30.9) Status: Active Hypothyroidism (244.9, E03.9) Status: Active Hypertension (401.9, I10) Status: Active Parkinson's disease (332.0, G20) Status: Active Memory loss (780.93, R41.3) Status: Active Acute bronchitis, unspecified organism (466.0, J20.9) Status: Active Depression (311, F32.9) Status: Active Decreased appetite (783.0, R63.0) Status: Active Anxiety (300.00, F41.9) Status: Active Bursitis of hip (726.5, M70.70) Status: Active Neck pain (723.1, M54.2) Status: Active Hip pain, acute, right (719.45, M25.551) Status: Active Dysphagia, neurologic (787.29, R13.19) Status: Active 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 Refills: 0 Started 21-Jan-2011 ActiveCarbidopa-Levodopa ER 50-200 MG Oral Tablet Extended Release TAKE 1 TABLET FOUR TIMES A DAY Quantity: 360 Refills: 3 Vimal Richards M.D. Started 08-Jun-2011 ActiveEffexor XR 150 MG Oral Capsule Extended Release 24 Hour TAKE 1 CAPSULE DAILY. Refills: 0 Started ActiveMiraLax Oral Powder Refills: 0 Started 22-May-2014 ActiveVitamin D 1000 UNIT CAPS Refills: 0 Started 22-May-2014 ActiveLevothyroxine Sodium 137 MCG Oral Tablet TAKE 1 TABLET DAILY. Refills: 0 Raphael Thao M.D. Started 26-Jun-2014 ActiveZofran 4 MG Oral Tablet Give one tab po TID and Q 4 hours prn nausea Refills: 0 Raphael Thao M.D. Started 26-Jun-2014 ActiveLORazepam 0.5 MG Oral Tablet TAKE 1 TABLET EVERY 6 HOURS NEEDED. Quantity: 90 Refills: 3 Raphael Thao M.D. Started 26-Jul-2014 ActiveSEROquel 50 MG Oral Tablet Take one tablet at bedtime. Refills: 0 Raphael Thao M.D. Started 19-Nov-2014 ActiveLoratadine 10 MG Oral Tablet TAKE 1 TABLET DAILY. Refills: 0 Raphael Thao M.D. Started 11-Apr-2015 ActiveDepakote 500 MG Oral Tablet Delayed Release TAKE 1 TABLET DAILY. Refills: 0 Raphael Thao M.D. Started 07-Feb-2013 ActiveFluticasone Propionate 50 MCG/ACT Nasal Suspension USE 2 SPRAYS IN EACH NOSTRIL ONCE DAILY Refills: 0 Raphael Thao M.D. Started 11-Apr-2015 ActiveTraMADol HCl - 50 MG Oral Tablet TAKE 1 TABLET EVERY 4 HOURS NEEDED. Quantity: 40 Refills: 5 Raphael Thao M.D. Started 10-Jun-2015 ActiveCarafate 1 GM/10ML Oral Suspension 10 mL po prn Refills: 0 Raphael Thao M.D. Started 26-Jun-2014 ActiveCyclobenzaprine HCl - 10 MG Oral Tablet TAKE 1 TABLET DAILY NEEDED. Quantity: 30 Refills: 2 Raphael Thao M.D. Started ActiveVoltaren 1 % Transdermal Gel APPLY 1-2 GM OF GEL TO AFFECTED AREA 4 TIMES DAILY. DO NOT APPLY MORE THAN 8 GM DAILY TO ANY ONE AFFECTED JOINT. Quantity: 1 Refills: 1 Raphael Thao M.D. Started [id number] GM Tube PredniSONE 20 MG Oral Tablet Take 1 tablet daily Refills: 0 Raphael Thao M.D. Started ActiveAmantadine HCl - 100 MG Oral Tablet Take 1 tablet daily Refills: 0 Started ActiveAmLODIPine Besylate 5 MG Oral Tablet TAKE 1 TABLET DAILY DIRECTED. Refills: 0 Started Active Allergies and Adverse Reactions Name Dates Details Bactrim TABS Status: Active Lortab TABS Status: Active Promethazine HCl TABS Status: Active Reglan TABS Status: Active Sulfa Drugs Status: Active Past Medical History Name Dates Details History of abdominal pain (V13., Z87.898) Status: Resolved History of Abdominal pain, [...] (V76.51, Z12.11) Status: Resolved History of fatigue (V13., Z87.898) Status: Resolved History of headache (V13., Z87.898) Status: Resolved History of nausea and [...] Administered on:18-Jan-2008 Influenza Administered on:05-Mar-2010 Lot #: [id number] Influenza Administered on:17-Jan-2013 Family History Unknown Family [...] smoker Vital Signs Date Test Result Details 10:53 BP Systolic 126 mm[Hg] Status: BP Diastolic 68 mm[Hg] Status: Temperature 98.4 f Status: Heart Rate 104 /min Status: O2 SAT 97 % Status: 16:32 BP Systolic 126 mm[Hg] Status: BP Diastolic 68 mm[Hg] Status: Heart Rate 99 /min Status: Weight 177.0 lb Status: Body Mass Index Calculated 30.38 kg/m2 Status: Body Surface Area Calculated 1.86 m2 Status: Results Date Description Value Details 07:55 XRay HIP-Right Comments: Exam Date: 10/07/2015 17: 07Dictation Date: 10/08/2015 07:55 X HIP COMP (MIN 2V) RT (Better) Plan of Care Planned Observations Name Dates Details Planned Goals not documented Goal Planned Encounters Appointment; Provider: Vimal Richards On 05-Feb-2016 13:45 Appointment; Provider: Jo Ann Crowe On 13:30 Appointment; Provider: Davidson Banerjee On 04-Jun-2011 10:30 Instructions Instructions not documented Encounters Appointment; Billy Golden On Encounter Diagnosis: Problem not documented 10:30 Appointment; Raphael Thao On Encounter Diagnosis: Problem not documented 16:00 Appointment; Raphael Thao On Encounter Diagnosis: Problem not documented 14:15 Appointment; Vimal Richards On 08-Aug-2015 Encounter Diagnosis: Problem not documented 15:00 Appointment; Jo Ann Crowe On 02-Aug-2015 Encounter Diagnosis: Problem not documented 13:00 Appointment; Raphael Thao On 09-Apr-2015 Encounter Diagnosis: Problem not documented 14:15 Appointment; Vimal Richards On 19-Feb-2015 Encounter Diagnosis: Problem not documented 14:15 Appointment; Raphael Thao On 04-Feb-2015 Encounter Diagnosis: Problem not documented 14:30 Appointment; Rahpael Thao On 24-Dec-2014 Encounter Diagnosis: Problem not documented 15:00 Appointment; Raphael Thao On 16-Nov-2014 Encounter Diagnosis: Problem not documented 11:30 Appointment; Vimal Richards On 13-Nov-2014 Encounter Diagnosis: Problem not documented 14:30 Appointment; Jo Ann Crowe On 24-Aug-2014 Encounter [...]
--- OUTSIDE RECORDS SUMMARY | 2017-02-20 19:03 | External Medical Summary | Summary of Care ---
:1935 Author Name Chico Downey, PRANAY, ,Billy Address Unavailable Unavailable , Care Team Providers Name Role Phone Keesha Downey, Adali Lim Unavailable Unavailable Chico Downey FACS, ,, Billy Unavailable Unavailable Derick Luna Unavailable Unavailable Romero SQUARE CUTTER, Kiley Unavailable Unavailable Maurice Downey, Adali Celis Unavailable Unavailable Raphael Thao Unavailable Unavailable [facility] [place] ([place]) Unavailable Unavailable Unavailable Unavailable Unavailable Functional Status Functional Status Health Issues Name Dates Details Functional status health issues are not documented Status: Cognitive Status Health Issues Name Dates Details Cognitive status health issues are not documented Status: Problems Name Dates Details Carotid artery stenosis (433.10, I65.29) Status: Active Fall (E888.9, W19.XXXA) Status: Active Bursitis of hip (726.5, M70.70) Status: Active Neck pain (723.1, M54.2) Status: Active Hip pain, acute, right (719.45, M25.551) Status: Active Bilateral impacted cerumen (380.4, H61.23) Status: Active Depression (311, F32.9) Status: Active 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, 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 Esophageal reflux (530.81, K21.9) Status: Active Acute cystitis without hematuria (595.0, N30.00) Status: Active Headache (784.0, R51) Status: Active Hypothyroidism (244.9, E03.9) Status: Active Memory loss (780.93, R41.3) Status: Active Allergic rhinitis (477.9, J30.9) Status: Active Arthralgia of multiple sites (719.49, M25.50) Status: Active Urinary incontinence (788.30, R32) Status: Active Chronic pain of both shoulders (719.41, M25.512) Status: Active Postmenopausal vaginal bleeding (627.1, N95.0) Status: Active Lower back pain (724.2, M54.5) Status: Active Vaginal bleeding (623.8, N93.9) Status: Active Cystocele (618.01, N81.10) Status: Active Labyrinthitis (386.30, H83.09) Status: Active Cataract (366.9, H26.9) Status: Active Nontropical sprue (579.0, K90.0) Status: Active Pseudophakia (V43.1, Z96.1) Status: Active De Quervain's tenosynovitis (727.04, M65.4) Status: Active Tendonitis (726.90, M77.9) Status: Active Hypertension (401.9, I10) Status: Active Decreased appetite (783.0, R63.0) Status: Active Parkinson's disease (332.0, G20) Status: Active Anxiety (300.00, F41.9) Status: Active Dysphagia, neurologic (787.29, R13.19) Status: Active Chronic nausea (787.02, R11.0) Status: Active Dysphagia (787.20, R13.10) Status: Active Myofascial pain syndrome (729.1, M79.1) Status: Active Benign paroxysmal vertigo of left ear (386.11, H81.12) Status: Active Constipation (564.00, K59.00) Status: Active Malnutrition (263.9, E46) Status: Active Dysuria (788.1, R30.0) Status: Active Sensorineural hearing loss, bilateral (389.18, H90.3) Status: Active Dizziness (780.4, R42) Status: Active Early satiety (780.94, R68.81) Status: Active Recurrent urinary tract infection (599.0, N39.0) Status: Active Medications Name Dates Details Effexor XR 150 MG Oral Capsule Extended Release 24 Hour TAKE 1 CAPSULE DAILY. Refills: 0 Start Active Depakote 500 MG Oral Tablet Delayed Release TAKE 1 TABLET DAILY. Refills: 0 Raphael Thao M.D. Start 07-Feb-2013 Active Loratadine 10 MG Oral Tablet TAKE 1 TABLET DAILY. Refills: 0 Raphael Thao M.D. Start 11-Apr-2015 Active Fluticasone Propionate 50 MCG/ACT Nasal Suspension USE 2 SPRAYS IN EACH NOSTRIL ONCE DAILY Refills: 0 Raphael Thao M.D. Start 11-Apr-2015 Active Amantadine HCl - 100 MG Oral Tablet Take 1 tablet daily Refills: 0 Start Active AmLODIPine Besylate 5 MG Oral Tablet TAKE 1 TABLET DAILY DIRECTED. Refills: 0 Start Active TraMADol HCl - 50 MG Oral Tablet TAKE 1 TABLET EVERY 4 HOURS NEEDED. Quantity: 40 Refills: 5 Raphael Thao M.D. Start 10-Jun-2015 Active Bismuth Subsalicylate 262 MG Oral Tablet Chewable USE DIRECTED. Refills: 0 Start 26-Jun-2016 Active BusPIRone HCl - 15 MG Oral Tablet TAKE ONE TABLET BY MOUTH TWO TIMES DAILY Quantity: 60 Refills: 2 Vimal Richards M.D. Start 11-Feb-2016 Active Carafate 1 GM/10ML Oral Suspension 10 mL po prn Refills: 0 Raphael Thao M.D. Start 26-Jun-2014 Active Amitiza 8 MCG Oral Capsule TAKE ONE TABLET TWICE DAILY WITH MEALS Quantity: 60 Refills: 5 Derick Luna Start 24-Feb-2016 Active Omeprazole 20 MG Oral Capsule Delayed Release Take one capsule by mouth daily Quantity: 30 Refills: 0 Kiley Romero APRN Start 03-Feb-2016 Active Voltaren 1 % Transdermal Gel APPLY 1-2 GM OF GEL TO AFFECTED AREA 4 TIMES DAILY. DO NOT APPLY MORE THAN 8 GM DAILY TO ANY ONE AFFECTED JOINT. Quantity: 1 Refills: 1 Keesha Downey, Raphael Bro Start Active 100 GM Tube Cyclobenzaprine HCl - 10 MG Oral Tablet TAKE 1 TABLET DAILY NEEDED. Quantity: 30 Refills: 2 Raphael Thao M.D. Start Active LORazepam 0.5 MG Oral Tablet TAKE 1 TABLET EVERY 6 HOURS NEEDED. Quantity: 90 Refills: 3 Keesha Downey, Raphael Bro Start 26-Jul-2014 Active Zofran 4 MG Oral Tablet Give one tab po TID and Q 4 hours prn nausea Refills: 0 YaRaphael morales M.D. Start 26-Jun-2014 Active Levothyroxine Sodium 137 MCG Oral Tablet TAKE 1 TABLET DAILY. Refills: 0 Raphael Thao M.D. Start 26-Jun-2014 Active Vitamin D 1000 UNIT CAPS Refills: 0 Start 22-May-2014 Active MiraLax Oral Powder Refills: 0 Start 22-May-2014 Active Carbidopa-Levodopa ER 25-100 MG Oral Tablet Extended Release 1 tablet po QID Refills: 0 Vimal Richards M.D. Start 08-Jun-2011 Active Aspirin 81 MG TABS TAKE 1 TABLET DAILY. Refills: 0 Start 21-Jan-2011 Active Allergies and Adverse Reactions Name Dates [...] With Prosthesis Insert Left Eye History of Tubal Ligation History of Gastroscopy With Biopsy Completed: 25-Feb-2012 History of Gastroscopy With Biopsy Completed: History of Back Surgery History of Complete Colonoscopy For Polyp Removal Completed: History of Extracaps Cataract Extract With Prosthesis Insert Right Eye Procedures not documented Immunization Name Dates Details Influenza on: 18-Jan-2008 Influenza on: 05-Mar-2010 Lot #: [id number] Influenza on: 17-Jan-2013 Pneumo (Pneumovax) on: 23-Jan-2016 Fluzone High-Dose 0.5 ML Intramuscular Suspension Prefilled Syringe on: 2015 Family History Unknown Family Member Name Dates Details Family history of Urticaria Comments: Family History Status: Active Family history of Hay Fever Comments: Family History Status: Active Family history of Migraine Headache Comments: Family History Status: Active Mother Name Dates Details Family history of Diabetes Mellitus (V18.0) Status: Active Family history of Heart Disease (V17.49) Status: Active Father Name Dates Details Family [...] Rate 98 /min Status: Comments: Location: ; 21-Aug-2016 11:57 BP Systolic 120 mm[Hg] Status: Comments: Location: ; Position: BP Diastolic 60 mm[Hg] Status: Comments: Location: ; Position: Heart Rate 105 /min Status: Comments: Location: ; Physical Findings 96 Status: Comments: O2 Saturation Results Date Description Value Details Results not documented Plan of Care Name Dates Details Planned Observations Planned Goals not documented Planned Encounters Appointment; Provider: Camacho Lawson On 11-Nov-2016 15:15 Appointment; Provider: Vimal Richards M.D. On 05-Nov-2016 14:15 Instructions Name Dates Details Instructions not documented Encounters Appointment; Raphael Thao M.D. On 21-Aug-2016 Encounter Diagnosis: Problem not documented 11:45 Appointment; Vimal Richards M.D. On 04-Aug-2016 Encounter Diagnosis: Problem not documented 14:15 Appointment; Derick Lambert P.A. On 22-Jul-2016 Encounter Diagnosis: Problem not documented 13:30 Appointment; Silvina Shaikh, SebasPGorgeREan On 16-Jul-2016 Encounter Diagnosis: Problem not documented [...] Problem not documented 13:30 Appointment; Tra Rico M.D.|F.A.C.SGorge|MLuisana,PRANAY|Nasreen,FACS, On Encounter Diagnosis: Problem not documented 11:30 Appointment; Billy Golden M.D.|F.A.C.S.|Nasreen,FACS|Nasreen,FACS, On Encounter Diagnosis: Problem not documented 10:30 Appointment; Raphael Thao M.D. On Encounter Diagnosis: Problem not documented 16:00 Appointment; Raphael Thao M.D. On Encounter Diagnosis: Problem not documented 14:15 Appointment; Vimal Richards M.D. On 08-Aug-2015 Encounter Diagnosis: Problem not documented 15:00 Appointment; Jo Ann Croew P.A. On 02-Aug-2015 Encounter Diagnosis: Problem not [...]
--- OUTSIDE RECORDS SUMMARY | 2017-02-20 19:03 | External Medical Summary | Summary of Care ---
:1935 Author Name Neha Downey, Adali Dempsey Address Unavailable Unavailable , Care Team Providers Name Role Phone Keesha Downey, Adali Lim Unavailable Unavailable Derick Luna Unavailable Unavailable Kiley Romero APRN Unavailable Unavailable Neha Downey, Adali Dempsey Unavailable Unavailable Maurice Downey, Adali Celis Unavailable Unavailable Raphael Thao Unavailable Unavailable [facility] [place] ([place]) Unavailable Unavailable Unavailable Unavailable Unavailable Functional Status [...] Active Early satiety (780.94, R68.81) Status: Active Anxiety (300.00, F41.9) Status: Active Parkinson's disease (332.0, G20) Status: Active Depression (311, F32.9) Status: Active Dizziness (780.4, R42) Status: Active Benign paroxysmal vertigo of left ear (386.11, H81.12) Status: Active Sensorineural hearing loss, bilateral (389.18, H90.3) Status: Active Medications Name Dates Details Aspirin [...] TABLET DAILY NEEDED. Quantity: 30 Refills: 2 Keesha Downey Raphael Adali Start Active Voltaren 1 % Transdermal Gel APPLY 1-2 GM OF GEL TO AFFECTED AREA 4 TIMES DAILY. DO NOT APPLY MORE THAN 8 GM DAILY TO ANY ONE AFFECTED JOINT. Quantity: 1 Refills: 1 Keesha Downey, Raphael Bro Start Active 100 GM Tube PredniSONE 20 [...] TAKE 1 TABLET TWICE DAILY. Refills: 0 Maurice DowneyVimal Start 11-Feb-2016 Active TraMADol HCl - 50 MG Oral Tablet TAKE 1 TABLET EVERY 4 HOURS NEEDED. Quantity: 40 Refills: 5 Keesha DowneyRaphael Start 10-Jun-2015 Active Amitiza 8 MCG Oral Capsule TAKE ONE TABLET TWICE DAILY WITH MEALS Quantity: 60 Refills: 5 Fausto Sauer Derick Start 24-Feb-2016 Active Allergies and Adverse Reactions [...] on: 18-Jan-2008 Influenza on: 05-Mar-2010 Lot #: [id number] Influenza on: 17-Jan-2013 Pneumo (Pneumovax) on: 23-Jan-2016 [...] smoker Vital Signs Date Test Result Details 04-Mar-2016 14:51 BP Systolic 104 mm[Hg] Status: Comments: Location: ; Position: BP Diastolic 60 mm[Hg] Status: Comments: Location: ; Position: Heart Rate 66 /min Status: Comments: Location: ; 03-Mar-2016 09:35 Heart Rate 104 /min Status: Comments: Location: ; Weight 171 lb Status: Physical Findings 96 Status: Comments: O2 Saturation Body Mass Index Calculated 29.35 kg/m2 Status: Body Surface Area Calculated 1.83 m2 Status: 24-Feb-2016 15:09 BP Systolic 135 mm[Hg] Status: [...] Location: ; Position: Temperature 98.1 f Status: Heart Rate 103 /min Status: Comments: Location: ; Physical Findings 98 Status: Comments: O2 Saturation 05-Feb-2016 14:06 BP Systolic 150 mm[Hg] Status: BP Diastolic 90 mm[Hg] Status: Heart Rate 80 /min Status: Comments: Location: ; Results Date Description Value Details 07-Feb-2016 15:40 [...] >60 ml/min Range: >60 EST GFR, NON-AFR SAO TOMEAN 57 ml/min (Below low Range: >60 threshold) [...] Adequate Range: Adequate 19-Feb-2016 17:15 URINE CULTURE [id number] Comments: Squirro performed at: [facility], [address] [place] [address], [id number], Air Export Coordinator: Shree Pollock D.O., MPHQuest Collection Date/Time: [id number] Results Received Date/Time: Reported Date /Time: FASTING:NOQuest performed at : [facility], [address] [place], [address], Air Export Coordinator: Shree Pollock D.O., MPHQuest Collection Date/Time: [id number] Results Received Date/Time: Reported Date/Time: FASTING:NO CULTURE, URINE, ROUTINE SEE NOTE (Abnormal) Comments: CULTURE, URINE, ROUTINE MICRO NUMBER: [id number] TEST STATUS: FINAL SPECIMEN SOURCE : URINE [...] Encounters Appointment; Provider: Vimal Richards M.D. On 22-Jun-2016 14:30 Appointment; Provider: Ke Solomon M.D. On 20-Apr-2016 15:15 Appointment; Provider: Camacho Lawson On 16-Mar-2016 14:00 Appointment; Provider: Schedule Radiology On 11-Mar-2016 09:00 Instructions Name Dates Details Instructions not documented Encounters Appointment; Derick Lambert P.A. On 24-Feb-2016 Encounter Diagnosis: Problem not documented 14:30 Appointment; Bobo Sierra D.O. On 17-Feb-2016 Encounter Diagnosis: Problem not documented 10:05 Appointment; Vimal Richards M.D. On 05-Feb-2016 Encounter Diagnosis: Problem not documented 13:45 Appointment; Kiley Romero A.P.R.N. On 31-Jan-2016 Encounter Diagnosis: Problem not documented 13:30 Appointment; Tra Rico M.D.|[place]|Nasreen,PRANAY|Nasreen,PRANAY, On Encounter Diagnosis: Problem not documented 11:30 Appointment; Billy Golden M.D.|[place]ell|Nasreen,PRANAY|Nasreen,PRANAY, On Encounter Diagnosis: Problem not documented 10:30 Appointment; Raphael Thao M.D. On Encounter Diagnosis: Problem not documented 16:00 Appointment; Raphael Thao M.D. On Encounter Diagnosis: Problem not documented 14:15 Appointment; Vimal Richards M.D. On 08-Aug-2015 Encounter Diagnosis: Problem not documented 15:00 Appointment; Jo Ann Crowe PJoy On 02-Aug-2015 Encounter Diagnosis: Problem not documented [...] not documented 13:30 Appointment; Jo Ann Crowe P.A. On 27-Apr-2014 Encounter Diagnosis: Problem not documented 13:45 Appointment; Raphael Thao M.D. On 16-Mar-2014 Encounter Diagnosis: Problem not documented 14:30 Appointment; Ke Gabriel M.D.|[place]ell|Nasreen,PRANAY|Nasreen,PRANAY, On 2013 Encounter Diagnosis: Problem not documented 14:30"
--- OUTSIDE RECORDS SUMMARY | 2017-02-20 19:04 | External Medical Summary | Summary of Care ---
:1935 Author Name Adali Thao M.D. Address Unavailable Unavailable , Care Team Providers Name Role Phone Adali Thao M.D. Unavailable Unavailable Adali Richards M.D. Unavailable Unavailable Raphael Thao Primary Care Provider Unavailable [facility] [place] ([place]) Referring Provider Unavailable Unavailable Unavailable Unavailable Functional [...] Active Dysphagia, neurologic (787.29, R13.19) Status: Active Medications Name Dates Details Aspirin 81 MG TABS TAKE 1 TABLET DAILY. Refills: 0 Started 21-Jan-2011 ActiveCarbidopa-Levodopa ER 50-200 MG Oral Tablet Extended Release TAKE 1 TABLET FOUR TIMES A DAY Quantity: 360 Refills: 3 Vimal Richards M.D. Started 08-Jun-2011 ActiveEffexor XR 150 MG Oral Capsule Extended Release 24 Hour TAKE 1 CAPSULE DAILY. Refills: 0 Started ActiveDepakote 500 MG Oral Tablet Delayed Release TAKE 1 TABLET DAILY. Refills: 0 Raphael Thao M.D. Started 07-Feb-2013 ActiveMiraLax Oral Powder Refills: 0 Started 22-May-2014 [...] Refills: 0 Raphael Thao M.D. Started 11-Apr-2015 ActiveFluticasone Propionate 50 MCG/ACT Nasal Suspension USE [...] 1 Refills: 1 Raphael Thao M.D. Started [id number] GM Tube PredniSONE 20 MG Oral Tablet Take 1 tablet daily Refills: 0 Raphael Thao M.D. Started Active Allergies and Adverse Reactions Name [...] Completed: History of Gastroscopy With Biopsy Completed:25-Feb-2012 XRay HIP-Right Ordered: Immunization Name Dates Details Influenza Administered on:18-Jan-2008 Influenza Administered on:05-Mar-2010 Lot #: [id number] Influenza Administered on:17-Jan-2013 Family History Unknown Family [...] smoker Vital Signs Date Test Result Details 16:32 BP Systolic 126 mm[Hg] Status: BP Diastolic 68 mm[Hg] Status: Heart Rate 99 /min Status: Weight 177.0 lb Status: Body Mass Index Calculated 30.38 kg/m2 Status: Body Surface Area Calculated 1.86 m2 Status: 14:13 BP Systolic 126 mm[Hg] Status: BP Diastolic 84 mm[Hg] Status: Heart Rate 96 /min Status: Results Date Description Value Details 16:16 XRay HIP-Left Comments: Exam Date: 09/10/2015 15: 10Dictation Date: 09/10/2015 16:16 X HIP COMP (MIN 2V) LT (Better) 16:18 XRay SPINE-CERVICAL Comments: Exam Date: 09/10/2015 15:11Dictation Date: 09/10/2015 16:18 X SPINE CERVICAL COMP (Better) Plan of Care Planned Observations Name Dates Details Planned Goals not documented Goal Planned Encounters Appointment; Provider: Vimal Richards On 05-Feb-2016 13:45 Appointment; Provider: Billy Golden On 10:30 Appointment; Provider: Jo Ann Crowe On 13:30 Appointment; Provider: Davidson Banerjee On 04-Jun-2011 10:30 Instructions Instructions not documented Encounters Appointment; Raphael Taho On Encounter Diagnosis: Problem not documented 16:00 [...] not documented 14:30 Appointment; Raphael Thao On 24-Dec-2014 Encounter Diagnosis: Problem not [...]
--- OUTSIDE RECORDS SUMMARY | 2017-02-20 19:04 | External Medical Summary | Summary of Care ---
:1935 Author Name Keesha Downey, Adali Lim Address [address], [place] [id number] Care Team Providers Name Role Phone Keesha Downey, Adali Lim Unavailable Unavailable Adali Richards M.D. Unavailable Unavailable Raphael Thao Primary Care Provider Unavailable [facility] ([place]) Referring Provider Unavailable Unavailable Unavailable Unavailable Functional [...] of left hip (924.01, S70.02XA) Status: Active Dysphagia, neurologic (787.29, R13.19) Status: Active Acute sinusitis (461.9, J01.90) Status: Active Chronic pain of both shoulders (719.41, M25.512) Status: Active Malnutrition (263.9, E46) Status: Active Urinary incontinence (788.30, R32) Status: Active Arthralgia of multiple sites (719.49, M25.50) Status: Active Allergic rhinitis (477.9, J30.9) Status: Active Memory loss (780.93, R41.3) Status: Active Parkinson's disease (332.0, G20) Status: Active Decreased appetite (783.0, R63.0) Status: Active Anxiety (300.00, F41.9) Status: Active Hypertension (401.9, I10) Status: Active Depression (311, F32.9) Status: Active Medications Name Dates Details Aspirin [...] Refills: 0 Raphael Thao M.D. Started 07-Feb-2013 ActiveAmLODIPine Besylate 5 MG Oral Tablet take one tablet by mouth every day Quantity: 30 Refills: 11 Raphael Thao M.D. Started ActiveMiraLax Oral Powder Refills: 0 Started [...] Refills: 0 Raphael Thao M.D. Started 19-Nov-2014 ActiveAmantadine HCl - 100 MG Oral Tablet Take one tablet daily. Refills: 0 Raphael Thao M.D. Started 11-Apr-2015 ActiveLoratadine 10 MG Oral Tablet TAKE 1 TABLET DAILY. Refills: 0 Raphael Thao M.D. Started 11-Apr-2015 ActiveFluticasone Propionate 50 MCG/ACT Nasal Suspension USE 2 SPRAYS IN EACH NOSTRIL ONCE DAILY Refills: 0 Raphael Thao M.D. Started 11-Apr-2015 ActiveNexIUM 40 MG Oral Capsule Delayed Release TAKE 1 CAPSULE DAILY. Refills: 0 Raphael Thao M.D. Started 11-Apr-2015 ActiveTraMADol HCl - 50 MG Oral Tablet TAKE 1 TABLET EVERY 4 HOURS NEEDED. Quantity: 40 Refills: 5 Raphael Thao M.D. Started 10-Jun-2015 Active Allergies and Adverse Reactions Name Dates [...] Administered on:18-Jan-2008 Influenza Administered on:05-Mar-2010 Lot #: [id number] Influenza Administered on:17-Jan-2013 Family History Unknown Family [...] Planned Encounters Appointment; Provider: Vimal Richards On 08-Jul-2015 14:30 Appointment; Provider: Jo Ann Crowe On 13:30 Appointment; Provider: Davidson Banerjee On 04-Jun-2011 10:30 Instructions Instructions not documented Encounters Appointment; Raphael Thao On 09-Apr-2015 Encounter Diagnosis: [...]
--- OUTSIDE RECORDS SUMMARY | 2017-02-20 19:04 | External Medical Summary | Summary of Care ---
:1935 Author Name Jo Ann Reina Address [address] [facility] Unavailable [place], [place] [id number] Care Team Providers Name Role Phone Adali Thao M.D. Unavailable Unavailable Adali Richards M.D. Unavailable Unavailable Raphael Thao Primary Care Provider Unavailable [facility] ([place]) Referring Provider Unavailable Unavailable Unavailable Unavailable Functional [...] Active Decreased appetite (783.0, R63.0) Status: Active Depression (311, F32.9) Status: Active Hypothyroidism (244.9, E03.9) Status: Active Hypertension (401.9, I10) Status: Active Parkinson's disease (332.0, G20) Status: Active Anxiety (300.00, F41.9) Status: Active Medications Name Dates Details Aspirin 81 MG TABS TAKE 1 TABLET DAILY. Refills: 0 Started 21-Jan-2011 ActiveCarbidopa-Levodopa ER 50-200 MG Oral Tablet Extended Release TAKE 1 TABLET FOUR TIMES A DAY Quantity: 360 Refills: 3 Vimal Richards M.D. Started 08-Jun-2011 ActiveEffexor XR 150 MG Oral Capsule Extended Release 24 Hour TAKE 1 CAPSULE DAILY. Refills: 0 Started ActiveAmLODIPine Besylate 5 MG Oral Tablet take [...] Refills: 0 Raphael Thao M.D. Started 26-Jun-2014 ActiveOmeprazole 20 MG Oral Capsule Delayed Release TAKE 1 CAPSULE Daily Quantity: 90 Refills: 0 Raphael Thao M.D. Started 28-Jul-2015 Active Allergies and Adverse Reactions Name Dates [...] Administered on:18-Jan-2008 Influenza Administered on:05-Mar-2010 Lot #: [id number] Influenza Administered on:17-Jan-2013 Family History Unknown Family [...] smoker Vital Signs Date Test Result Details 02-Aug-2015 11:40 BP Systolic 121 mm[Hg] Status: BP Diastolic 69 mm[Hg] Status: Temperature 97.4 f Status: Heart Rate 98 /min Status: Respiration Rate 21 /min Status: Weight 172 lb Status: Body Mass Index Calculated 29.52 kg/m2 Status: Body Surface Area Calculated 1.83 m2 Status: Results Date Description Value Details Results not documented Plan of Care Planned Observations Name Dates Details Planned Goals not documented Goal Planned Encounters Appointment; Provider: Vimal Richards On 08-Aug-2015 15:00 Appointment; Provider: Jo Ann Crowe On 13:30 Appointment; Provider: Davidson Banerjee On 04-Jun-2011 10:30 Instructions Instructions not documented Encounters Appointment; Jo Ann Crowe On 02-Aug-2015 Encounter Diagnosis: Problem not documented 13:00 Appointment; Raphael Thao On 09-Apr-2015 Encounter Diagnosis: Problem not documented 14:15 Appointment; Vimal Rihcards On 19-Feb-2015 Encounter Diagnosis: Problem not documented [...]
--- OUTSIDE RECORDS SUMMARY | 2017-02-20 19:04 | External Medical Summary | Summary of Care ---
:1935 Author Name Keesha Downey, Adali Lim Address [address], [place] [id number] Care Team Providers Name Role Phone Keesha Downey, Adali Lim Unavailable Unavailable Fausto MacADerick Pennington Unavailable Unavailable Kiley Romero APRN Unavailable Unavailable Adali Richards M.D. Unavailable Unavailable Raphael Thao Unavailable Unavailable Gilbert [place], [place] ([place]) Unavailable Unavailable Unavailable Unavailable Unavailable Functional Status [...] hearing loss, bilateral (389.18, H90.3) Status: Active Dysphagia (787.20, R13.10) Status: Active Dysuria (788.1, R30.0) Status: Active Anxiety (300.00, F41.9) Status: Active Malnutrition (263.9, E46) Status: Active Chronic nausea (787.02, R11.0) Status: Active Constipation (564.00, K59.00) Status: Active Parkinson's disease (332.0, G20) Status: Active Medications Name Dates Details Aspirin [...] Keesha Downey, Raphael Bro Start 26-Jul-2014 Active SEROquel 50 MG Oral [...] by mouth daily Quantity: 30 Refills: 0 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 Refills: 0 Maurice Downey Vimal Bro Start 11-Feb-2016 Active TraMADol HCl - 50 MG Oral Tablet TAKE 1 TABLET EVERY 4 HOURS NEEDED. Quantity: 40 Refills: 5 Keesha DowneyRaphael Start 10-Jun-2015 Active Amitiza 8 MCG Oral Capsule TAKE ONE TABLET TWICE DAILY WITH MEALS Quantity: 60 Refills: 5 Fausot Sauer Derick Start 24-Feb-2016 Active Allergies and [...] History of Gastroscopy With Biopsy Completed: 25-Feb-2012 Prealbumin [id number] Ordered: 07-Apr-2016 ALBUMIN 1105 Ordered: 07-Apr-2016 LIPID PROFILE 1184 Ordered: 07-Apr-2016 Immunization Name Dates Details Influenza on: 18-Jan-2008 Influenza on: 05-Mar-2010 Lot #: [id number] Influenza on: 17-Jan-2013 Pneumo (Pneumovax) on: 23-Jan-2016 [...] smoker Vital Signs Date Test Result Details 24-Apr-2016 11:55 BP Systolic 130 mm[Hg] Status: Comments: Location: ; Position: BP Diastolic 80 mm[Hg] Status: Comments: Location: ; Position: Heart Rate 102 /min Status: Comments: Location: ; Physical Findings 99 Status: Comments: O2 Saturation Results Date Description Value Details 07-Apr-2016 12:55 Urinalysis, Reflex to Microscopic or Culture PRN 8005 pH 6.5 Range: 5.0-7.5 SP GRAVITY 1.020 Range: 1.010-1.030 APPEARANCE CLEAR Range: Clear COLOR YELLOW Range: Straw-Yellow PROTEIN NEGATIVE mg/dL Range: Negative-Trace GLUCOSE NEGATIVE mg/dL Range: Negative KETONE TRACE mg/dL (Abnormal) Range: Negative BILIRUB NEGATIVE Range: Negative BLOOD NEGATIVE Range: Negative UROBIL 0.2 EU/dL Range: 0.2-1.0 NITRITE NEGATIVE Range: Negative LEUK MODERATE (Abnormal) Range: Negative 12:55 Urine Microscopic UMIC WBC 21-50 /HPF (Abnormal) Range: 0-5 Comments: Specimen referred to Reference Lab for Culture----- RBC 0-2 /HPF Range: 0-2 HYAL CAST 0-2 /LPF Range: 0-2 MUCUS 1+ /LPF Range: Negative-2+ BACTERIA 2+ /HPF (Abnormal) Range: Negative-Trace EPITH 0-2 /HPF Range: 0-10 09-Apr-2016 16:09 URINE CULTURE [id number] Comments: [facility] performed at: [facility], [place], [address], Manager Of Marketing: Shree Pollock D.O., MPHQuest Collection Date/Time: [facility] Results Received Date/Time: [id number] Reported Date /Time: [id number] FASTING:NOQuest performed at : [facility], [place], [address], Manager Of Marketing: Shree Pollock D.O., MPHQuest Collection Date/Time: [id number] Results Received Date/Time: [id number] Reported Date/Time: FASTING:NO CULTURE, URINE, ROUTINE SEE NOTE (Abnormal) Comments: CULTURE, URINE, ROUTINE MICRO NUMBER: [id number] TEST STATUS: FINAL SPECIMEN SOURCE : URINE SPECIMEN QUALITY: ADEQUATE RESULT: Greater than 100,000 CFU/mL of Escherichia co li (ESBL) E.coli (ESBL) INT GEOFF AMOX/CLAVULANATE S 4 AMPICILLIN R >=32 1 AMP/SULBACTAM S 4 CEFAZOLIN R >=64 * *2 CEFEPIME S 2 CEFTRIAXONE R 32 CIPROFLOXACIN R >=4 ERTAPENEM S <=0.5 GENTAMICIN S <=1 IMIPENEM S <=0.25 LEVOFLOXACIN R >=8 NITROFURANTOIN S <=16 PIP/TAZOBACTAM S <=4 TOBRAMYCIN S <=1 TRIMETHOPRIM/SULFA R >=320 ESBL RESULT: * 3S=Susceptible I=Intermediate R=Resistant *=Not TestedNR=Not Reported NN=See Therapy CommentsTHERAPY COMMENTS Note 1: Extended spectrum beta- lactamase (ESBL) producing organisms demonstrate decreased activity with penicillins, cephalosporins and aztreonam. Note 2 : ORAL therapy: A cefazolin GEOFF of < 32 predicts susceptibility to the oral agents cefaclor, cefdinir, cefpodoxime, cefprozil, cefuroxime, cephalexin, and loracarbef when used for therapy of uncomplicated UTIs due to E. coli, K. pneumoniae, and P. mirabilis. PARENTERAL therapy: A cefazolin GEOFF of > 8 indicates resistance to parenteral cefazolin. An alternate test metho d must be performed to to confirm susceptibility to parenteral cefazolin. Note 3: The organism has been confirm----- Plan of Care Name Dates Details Planned Observations Planned Goals not documented Planned Encounters Appointment; Provider: Vimal Richards M.D. On 22-Jun-2016 14:30 Appointment; Provider: Camacho Lawson On 02-Jun-2016 11:00 Appointment; Provider: Ke Solomon M.D. On 12-May-2016 13:00 Instructions Name Dates Details Instructions not documented Encounters Appointment; Ke Solomon M.D. On 20-Apr-2016 Encounter [...] Problem not documented 13:30 Appointment; Tra Rico M.D.|Catrachita.Adali.C.SGorge|PRANAY Downey|Nasreen,PRANAY, On Encounter Diagnosis: Problem not documented 11:30 Appointment; Billy Golden M.D.|F.A.C.SGorge|Nasreen,PRANAY|Nasreen,PRANAY, On Encounter Diagnosis: Problem not documented 10:30 Appointment; Raphael Thao M.D. On Encounter Diagnosis: Problem not documented 16:00 Appointment; Raphael Thao M.D. On Encounter Diagnosis: Problem not documented 14:15 Appointment; Vmial Richards M.D. On 08-Aug-2015 Encounter Diagnosis: Problem [...] On 27-Apr-2014 Encounter Diagnosis: Problem not documented 13:45"
--- OUTSIDE RECORDS SUMMARY | 2017-02-20 19:05 | External Medical Summary ---
:1935 Author Organization [facility], [facility]. Summary purpose CCDA Sent to [facility] Chief Complaint and Reason for Visit No authorized Reason for Visit (Admitting Diagnosis) is available for this visit. Problem list No authorized problems tracked for continuity of care are available for this visit. Encounters No authorized problems tracked for encounter diagnoses are available for this visit. Medications No medications recorded for this patient visit Allergies, adverse reactions, alerts No allergy information is available for this patient. Immunizations No immunizations recorded for this patient visit Relevant diagnostic tests and/or laboratory data No authorized results are available for this patient visit History of procedures No procedures recorded for this patient visit. Functional status No functional or cognitive status observations are available for this visit. Vital signs No authorized vital signs are available for this visit. Social history No Social History or smoking status observations were recorded for this visit. ( Unknown if ever smoked.) Treatment Plan No treatment plan text is available for this visit. Hospital discharge instructions No discharge instruction text is available for this visit.
--- OUTSIDE RECORDS SUMMARY | 2017-02-20 19:05 | External Medical Summary | Summary of Care ---
:1935 Author Name Nabor Sierra D.O. Address [address] [place], [place] [id number] Care Team Providers Name Role Phone Keesha Downey, Adali Lim Unavailable Unavailable Nabor Sierra D.O. Unavailable Unavailable Kiley Romero APRN Unavailable Unavailable Maurice Downey, Adali Celis Unavailable Unavailable Raphael Thao Unavailable Unavailable Carbon [place], [place] ([place]) Unavailable Unavailable Unavailable Unavailable Unavailable Functional Status [...] Status: Active Cystocele (618.01, N81.10) Status: Active Constipation (564.00, K59.00) Status: Active [...] Status: Active Dizziness (780.4, R42) Status: Active Chronic nausea (787.02, R11.0) Status: Active Recurrent urinary tract infection (599.0, N39.0) Status: Active Acute cystitis without hematuria (595.0, N30.00) Status: Active Medications Name Dates Details Aspirin [...] Q 4 hours prn nausea Refills: 0 Keesha Downey Raphael Bro Start 26-Jun-2014 Active LORazepam 0.5 MG Oral Tablet TAKE 1 TABLET EVERY 6 HOURS NEEDED. Quantity: 90 Refills: 3 Keesha DowneyRaphael Start 26-Jul-2014 Active SEROquel 50 MG Oral Tablet Take one tablet at bedtime. Refills: 0 Keesha Downey Raphael Bro Start 19-Nov-2014 Active Loratadine 10 MG Oral Tablet TAKE 1 TABLET DAILY. Refills: 0 Keesha Downey Raphael Bro Start 11-Apr-2015 Active Fluticasone Propionate 50 MCG/ACT Nasal Suspension USE 2 SPRAYS IN EACH NOSTRIL ONCE DAILY Refills: 0 Raphael Thao M.D. Adali Start 11-Apr-2015 Active Carafate 1 GM/10ML Oral Suspension 10 mL po prn Refills: 0 Keesha Downey, Raphael Bro Start 26-Jun-2014 Active Cyclobenzaprine HCl - 10 MG Oral Tablet TAKE 1 TABLET DAILY NEEDED. Quantity: 30 Refills: 2 Keesha DowneyRaphael Start Active Voltaren 1 % Transdermal Gel APPLY 1-2 GM OF GEL TO AFFECTED AREA 4 TIMES DAILY. DO NOT APPLY MORE THAN 8 GM DAILY TO ANY ONE AFFECTED JOINT. Quantity: 1 Refills: 1 Keesha DowneyRaphael Start Active 100 GM Tube PredniSONE 20 MG Oral Tablet Take 1 tablet daily Refills: 0 Keesha Downey Raphael Bro Start Active Amantadine HCl - 100 MG [...] TWICE DAILY. Refills: 0 Maurice Downey Vimal Adali Start 11-Feb-2016 Active TraMADol HCl - 50 MG Oral Tablet TAKE 1 TABLET EVERY 4 HOURS NEEDED. Quantity: 40 Refills: 5 Keesha Downey Raphael Adali Start 10-Jun-2015 Active Allergies and Adverse Reactions Name [...] on: 18-Jan-2008 Influenza on: 05-Mar-2010 Lot #: [id number] Influenza on: 17-Jan-2013 Pneumo (Pneumovax) on: 23-Jan-2016 [...] smoker Vital Signs Date Test Result Details 17-Feb-2016 10:16 BP Systolic 121 mm[Hg] Status: Comments: Location: ; Position: BP Diastolic 63 mm[Hg] Status: Comments: Location: ; Position: Temperature 97.5 f Status: Comments: Method: Heart Rate 92 /min Status: Comments: Location: [...] Location: ; Position: Temperature 98.2 f Status: Comments: Method: Heart Rate 87 /min Status: Comments: Location: [...] >60 ml/min Range: >60 EST GFR, NON-AFR SUDANESE 57 ml/min (Below low Range: >60 threshold) [...] 0 /100 WBC PLATELET Adequate Range: Adequate Plan of Care Name Dates Details Planned Observations Planned Goals not documented Planned Encounters Appointment; Provider: Vimal Richards M.D. On 04-Mar-2016 14:15 Interventions Provided Labs/Procedures/ImagingAMYLASE 1250; Done: Feb 17 2016 11:35AMCBC w/ Auto Diff 7150; Done: Feb 17 2016 11:35AMComprehensive Metabolic Panel 1212; Done: Feb 17 2016 11:35AMH. Pylori IgG, Ab 2024; Done: Feb 17 2016 11:35AMLipase 1275; Done: Feb 17 2016 11:35AMUrinalysis, Reflex to Microscopic or Culture PRN [id number]; Done: Feb 17 2016 11:25AMVITAMIN B12 3606; Done: Feb 17 2016 11:35AM Instructions Name Dates Details Instructions not documented Encounters Appointment; Vimal Richards M.D. On 05-Feb-2016 Encounter Diagnosis: Problem not documented 13:45 Appointment; Kiley Romero A.P.R.N. On 31-Jan-2016 Encounter Diagnosis: Problem not documented 13:30 Appointment; Tra Rico M.D.|Catrachita.Adali.C.SPRANAY Quiñonez|PRANAY Downey, On Encounter Diagnosis: Problem not documented 11:30 Appointment; Billy Golden M.D.|Catrachita.A.C.SGorge|PRANAY Downey|PRANAY Downey, On Encounter Diagnosis: Problem not documented 10:30 Appointment; Raphael Thao M.D. On Encounter Diagnosis: Problem not documented 16:00 Appointment; Raphael Thao M.D. On Encounter Diagnosis: Problem not documented 14:15 Appointment; Vimal Richards M.D. On 08-Aug-2015 Encounter Diagnosis: Problem not documented 15:00 Appointment; Jo Ann Crowe PGorgeAGorge On 02-Aug-2015 Encounter Diagnosis: Problem not documented [...] not documented 14:30 Appointment; Jo Ann Crowe P.AGorge On 24-Aug-2014 Encounter Diagnosis: Problem not documented 13:15 Appointment; Raphael Thao M.D. On 19-Jun-2014 Encounter Diagnosis: Problem not documented 16:00 Appointment; Brittney Bennett M.D. On 07-Jun-2014 Encounter Diagnosis: Problem not documented 10:30 Appointment; Raphael Thao M.D. On 05-Jun-2014 Encounter Diagnosis: Problem not documented 13:00 Appointment; Vimal Richards M.D. On 22-May-2014 Encounter Diagnosis: Problem not documented 13:30 Appointment; Jo Ann Crowe P.AGorge On 27-Apr-2014 Encounter Diagnosis: Problem not documented 13:45 Appointment; Raphael Thao M.D. On 16-Mar-2014 Encounter Diagnosis: Problem not documented 14:30 Appointment; Ke Gabriel M.D.|Austen,PRANAY|Nasreen,PRANAY, On 2013 Encounter Diagnosis: Problem not documented 14:30"
--- OUTSIDE RECORDS SUMMARY | 2017-02-20 19:05 | External Medical Summary | Summary of Care ---
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 Refills: 0 Keesha Downey, Raphael Bro Start 26-Jun-2014 Active Zofran 4 MG Oral Tablet Give one tab po TID and Q 4 hours prn nausea Refills: 0 Keesha Downey, Raphael A Start 26-Jun-2014 Active LORazepam 0.5 MG Oral Tablet TAKE 1 TABLET EVERY 6 HOURS NEEDED. Quantity: 90 Refills: 3 Keesha Downey, Raphael A Start 26-Jul-2014 Active SEROquel 50 MG Oral Tablet Take one tablet at bedtime. Refills: 0 Keesha Downey, Raphael A Start 19-Nov-2014 Active Loratadine 10 MG Oral Tablet TAKE 1 TABLET DAILY. Refills: 0 Raphael Thao M.D. A Start 11-Apr-2015 Active Fluticasone Propionate 50 MCG/ACT Nasal Suspension USE 2 SPRAYS IN EACH NOSTRIL ONCE DAILY Refills: 0 Raphael Thao M.D. A Start 11-Apr-2015 Active TraMADol HCl - 50 MG Oral Tablet TAKE 1 TABLET EVERY 4 HOURS NEEDED. Quantity: 40 Refills: 5 Keesha Downey, Raphael A Start 10-Jun-2015 Active Carafate 1 GM/10ML Oral Suspension 10 mL po prn Refills: 0 Raphael Thao M.D. A Start 26-Jun-2014 Active Cyclobenzaprine HCl - 10 MG Oral Tablet TAKE 1 TABLET DAILY NEEDED. Quantity: 30 Refills: 2 Keesha Downey, Raphael A Start Active Voltaren 1 % Transdermal Gel APPLY 1-2 GM OF GEL TO AFFECTED AREA 4 TIMES DAILY. DO NOT APPLY MORE THAN 8 GM DAILY TO ANY ONE AFFECTED JOINT. Quantity: 1 Refills: 1 Keesha Downey, Raphael A Start Active 100 GM Tube PredniSONE 20 MG Oral Tablet Take 1 tablet daily Refills: 0 Raphael Thao M.D. A Start Active Amantadine HCl - 100 MG Oral Tablet Take 1 tablet daily Refills: 0 Start Active AmLODIPine Besylate 5 MG Oral Tablet TAKE 1 TABLET DAILY DIRECTED. Refills: 0 Start Active Omeprazole 20 MG Oral Capsule Delayed Release Take one capsule by mouth daily Quantity: 30 Refills: 0 Kiley Romero APRN Start 03-Feb-2016 Active Allergies and Adverse Reactions Name Dates [...] Status: Resolved History of abnormal weight loss (V13., Z87.898) Status: Resolved History of Acute upper [...] (V76.51, Z12.11) Status: Resolved History of fatigue (V1., Z87.898) Status: Resolved History of headache (V1., Z87.898) Status: Resolved History of nausea and [...] on: 18-Jan-2008 Influenza on: 05-Mar-2010 Lot #: [id number] Influenza on: 17-Jan-2013 Pneumo (Pneumovax) on: 23-Jan-2016 [...] smoker Vital Signs Date Test Result Details 03-Feb-2016 11:23 BP Systolic 116 mm[Hg] Status: [...] Encounters Appointment; Provider: Vimal Richards M.D. On 05-Feb-2016 13:45 Instructions Name Dates Details Instructions not documented Encounters Appointment; Tra Rico M.D.|EVONNE Boyce FACS, On Encounter Diagnosis: Problem not documented 11:30 Appointment; Billy Golden M.D.|[place]|PRANAY Downey|PRANAY Downey, On Encounter Diagnosis: Problem not documented 10:30 Appointment; Raphael Thao M.D. On Encounter Diagnosis: Problem not documented 16:00 Appointment; Raphael Thao M.D. On Encounter Diagnosis: Problem not documented 14:15 Appointment; Vimal Richards M.D. On 08-Aug-2015 Encounter Diagnosis: Problem not documented 15:00 Appointment; Jo Ann Crowe, PGorgeAGorge On 02-Aug-2015 Encounter Diagnosis: Problem not [...] On 2013 Encounter Diagnosis: Problem not documented 14:30 Appointment; Raphael Thao M.D. On 13-Feb-2014 Encounter Diagnosis: Problem not documented 13:00"
--- OUTSIDE RECORDS SUMMARY | 2017-02-20 19:05 | External Medical Summary ---
:1935 Author Name GENERATED, SYSTEM Care Team Providers Name Role Phone MD MONICA, AYUSH Primary Care Provider Unavailable Reason For Visit Chief Complaint FALL Social History Functional Status Vital Signs Results Chemistry from 11/26/2016 2:12 [id number] MMOL/L (136-145 MMOL/L) POTASSIUM4.1 MMOL/L (3.5-5.1 MMOL/L) [id number] MMOL/L (98-107 MMOL/L) LSI208.5 MMOL/L (21.0-32.0 MMOL/L) *ANION GAP6.5 MMOL/L L (8.0-16.0 MMOL/L) BUN20 MG/DL H (7-18 MG/DL) CREATININE0.88 MG/DL (0.55-1.02 MG/DL) *BUN/CREATININE RATIO22.7 H (9.1-17.0 ) NLFOVFZ190 MG/DL H (65-99 MG/DL) *GFR EST NON AFR ZZWGYVJX85 ML/MIN (Reference Range: not available) *GFR EST AFR AMER72 ML/MIN (Reference Range: not available) CALCIUM8.7 MG/DL (8.5-10.1 MG/DL)Hematology from 11/26/2016 2:12 AMWBC7.6 X10e3/ UL (3.6-11.2 X10e3/UL) RBC3.93 X10e6/UL (3.63-4.92 X10e6/UL) WQBYUFELUD36.9 G/DL (11.0-14.3 G/DL) SKTUNQRYOX42.7 % (31.2-41.9 %) *MCV98.4 FL H (79.0-98.0 FL) *MCH32.7 PG (27.0-33.0 PG) *MCHC33.2 G/DL (32.0-36.0 G/DL) *RDW13.9 % (12.3-17.0 %) *RDWSD48.6 H (37.1-47.8 ) NXFRRYHG002 X10e3/UL (159-386 X10e3/UL) *MPV7.4 FL (7.4-10.4 FL) AUTOMATED DIFFPERFORMED (Reference Range: not available) SEGS63.7 % (Reference Range: not available) *XQFQVFWWPBP93.5 % (Reference Range: not available) *CZMAFBNAT05.2 % (Reference Range: not available) *EOSINOPHILS4.9 % (Reference Range: not available) *BASOPHILS0.7 % (Reference Range: not available) *ABSOLUTE NEUTROPHILS4.80 X10e3/UL (1.80-7.80 X10e3/UL) *ABSOLUTE LYMPHOCYTES1.40 X10e3/UL (1.00-3.00 X10e3/UL) *ABSOLUTE MONOCYTES0.90 X10e3/UL (0.30-1.00 X10e3/UL) *ABSOLUTE EOSINOPHILS0.40 X10e3/UL (0.00-0.50 X10e3/UL) *ABSOLUTE BASOPHILS0.10 X10e3/UL (0.00-0.20 X10e3/UL)Urinalysis from 11/26/2016 2 :00 AM*URINE COLORYELLOW (STRAW/YELL/DK YELL ) *URINE APPEARANCECLEAR (CLEAR ) URINE PH5.5 (5.0-8.0 ) URINE SPECIFIC GRAVITY1.025 (<=1.005->=1.030 ) *URINE GLUCOSENEGATIVE MG/DL (NEGATIVE MG/DL) *URINE BILIRUBINNEGATIVE (NEGATIVE ) *URINE KETONESTRACE MG/DL A (NEGATIVE MG/DL) *URINE BLOODNEGATIVE (NEGATIVE ) *URINE PROTEINNEGATIVE MG/DL (NEGATIVE MG/DL) *URINE UROBILINOGEN0.2 EU/DL (0.2-1.0 EU/DL) *URINE NITRITESPOSITIVE A (NEGATIVE ) *URINE LEUKOCYTESSMALL A (NEGATIVE ) *MICROSCOPIC EXAM PERFORMEDPERFORMED (Reference Range: not available) *WBC IUNXR82-73 /HPF A (0-5 /HPF) *SQUAMOUS EP. CELLSFEW /LPF (NEG-FEW /LPF) *MUCOUS THREADSMODERATE /LPF A (NEGATIVE /LPF) *BACTERIAMODERATE /HPF A (NEGATIVE /HPF)Coagulation from 11/26/2016 2:12 AM* PROTHROMBIN TIME10.9 SECONDS (9.4-11.5 SECONDS) *INR1.0 (0.9-1.1 ) PARTIAL THROMBOPLASTIN TIME23.4 SECONDS (23.0-31.0 SECONDS)Microbiology from 2:00 AMCULTURE URINE Specimen Number: [id number] Sample Collection Date/Time: 11/26/2016 2:00 AM Specimen Source: Urine No Method Given CULTURE URINE: Escherichia coli >100,000 cfu/ml ESBL + organism isolated. Use Infection Control Precautions. *ISOLATE1: Escherichia coli 1 Comment Result Value Escherichia coli Result Status Final Result Ampicillin >=32 R Ampicillin/sulbactam =4 S Aztreonam =4 R Cefazolin >=64 R Cefepime <=1 R Ceftazidime =4 R Ceftriaxone >=64 R Ertapenem <=0.5 S ESBL Pos + Gentamicin <=1 S Levofloxacin >=8 R Meropenem <=0.25 S Nitrofurantoin <=16 S Piperacillin/tazobactam <=4 S Tobramycin <=1 S Trimethoprim/Sulfa >=[address] Scan from 11/26/2016 2:18 AMCT CEREBRAL W/O CONTRASTHistory: fall . 81 yo female presenting to ER by EMS for fall at home just [employer]. she was sitting on arm of chair, bent over to put a shoe on, lost balance and fell onto her left side. c/o pain to left face and left hip. no other complaints. she reports chronic left hip pain. Priors: CT of the head dated 01/19/2016 Findings: Ventricles and Extra axial spaces: Normal in size and morphology for the patient's age. Hemorrhage: None. Cerebral parenchyma: There is decreased attenuation within the periventricular white matter, suggestive of chronic microvascular ischemic changes. 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 Mass effect/midline shift: None. Brainstem/Cerebellum: Normal. Calvarium: Normal. Visualized Paranasal sinuses/Mastoids: Clear. Impression: No acute intracranial abnormality. Electronically signed by: Kristi Oliver MD Dictated: 11/26/2016 08:59 (Reference Range: not available) CT FACIAL BONES W/O CONTRASTHistory: fall . 81 yo female presenting to ER by EMS for fall at home just [employer]. she was sitting on arm of chair, bent over to put a shoe on, lost balance and fell onto her left side. c/o pain to left face and left hip. no other complaints. she reports chronic left hip pain. Priors: None. Findings: Facial Bones: No discrete facial fracture is identified. Sinuses and Mastoids: Unremarkable. Globes, extraocular muscles, optic nerves and retrobulbar fat: Normal. Mandible: Intact. Soft Tissues: Unremarkable. Impression: No evidence of acute facial bone fracture. Electronically signed by: Kristi Oliver MD Dictated: 11/26/2016 09:07 (Reference Range: not available) CT SPINE CERVICAL W/O CONTRASTHistory: fall . 81 yo female presenting to ER by EMS for fall at home just [employer] HEL[employer]. she was sitting on arm of chair, bent over to put a shoe on, lost balance and fell onto her left side. c/o pain to left face and left hip. no other complaints. she reports chronic left hip pain. Priors: CT of the cervical spine dated 01/19/2016 Findings: There is mild reversal of the normal cervical lordosis. Alignment is otherwise maintained. There is no acute fracture. At C2-3 there is a tiny central disc protrusion without significant spinal stenosis. At C3-4 there is mild generalized disc bulging without significant spinal stenosis. At C4-5 there is bilateral uncovertebral joint hypertrophy producing [id number] bilateral neural foraminal stenosis pre At C5-6 there is a mild disc bulge/ posterior osteophyte complex and bilateral uncovertebral joint hypertrophy producing moderate to severe bilateral neural foraminal stenosis. At C6-7 there is bilateral uncovertebral joint hypertrophy producing bilateral [id number] neural foraminal stenosis The soft tissues are unremarkable. The lung apices are unremarkable. Impression: No evidence of acute fracture or subluxation. Mild degenerative changes, as described. Electronically signed by: Kristi Oliver MD Dictated: 11/26/2016 09:06 (Reference Range: not available) Problems Encounter Diagnosis No relevant problems exist. Additional Problems Accidental Fall Comment:Problem resolved by [facility] Work[facility] upon Discharge, Status:Resolved.Acute Pain Comment:Problem resolved by [facility] Work[facility] upon Discharge, Status:Resolved.Acute Urinary Tract infection Comment:Problem resolved by [facility] upon Discharge, Status:Resolved.Adult Failure to Thrive Syndrome Comment:Problem resolved by [facility] upon Discharge, Status:Resolved.Altered Mental Status Comment:Problem resolved by [facility] upon Discharge, Status:Resolved.Altered Mental Status Comment:Problem resolved by [facility] Work[facility] upon Discharge, Status:Resolved.Anxiety Comment: Problem resolved by [facility] upon Discharge, Status:Resolved.Chest Pain Comment:Problem resolved by [facility] Work[facility] upon Discharge, Status: Resolved.Dehydration Comment:Problem resolved by [facility] upon Discharge , Status:Resolved.Dehydration Comment:Problem resolved by [facility] Work[facility] upon Discharge, Status:Resolved.Dementia Comment:Problem resolved by [facility] upon Discharge, Status:Resolved.Dysphagia Comment:Problem resolved by [facility] [employer] upon Discharge, Status:Resolved.Fall Risk Comment:Problem resolved by [facility] [employer] upon Discharge, Status:Resolved.Fall Risk Comment: Problem resolved by [facility] upon Discharge, Status: Resolved.Gastroesophageal Reflux Disease Comment:Problem resolved by [facility] upon Discharge, Status:Resolved.History of Hypertension Comment: Problem resolved by [facility] upon Discharge, Status: Resolved.Hypertensive Disorder Comment:Problem resolved by [facility] Work[facility] upon Discharge, Status:Resolved.Hypertensive Disorder Comment:Problem resolved by [facility] Work[facility] upon Discharge, Status:Resolved.Hypothyroidism Comment: Problem resolved by [facility] upon Discharge, Status:Resolved.Mobility Impairment Comment:Problem resolved by [facility] [employer] upon Discharge, Status: Resolved.Mobility Impairment Comment:Problem resolved by [facility] Work[facility] upon Discharge, Status:Resolved.Nutritional Deficiency Comment:Problem resolved by [facility] Work[facility] upon Discharge, Status:Resolved.Pain Comment:Problem resolved by [facility] Work[facility] upon Discharge, Status:Resolved.Parkinson's Disease Comment: Problem resolved by [facility] [employer] upon Discharge, Status:Resolved.Parkinson' s Disease Comment:Problem resolved by [facility] Work[facility] upon Discharge, Status: Resolved.Parkinson's Disease Comment:Problem resolved by [facility] Work[facility] upon Discharge, Status:Resolved.Skin Integrity Impairment Risk Comment:Problem resolved by [facility] Work[facility] upon Discharge, Status:Resolved.Skin Integrity Impairment Risk Comment:Problem resolved by [facility] Work[facility] upon Discharge, Status:Resolved.Vertigo Comment:Problem resolved by [facility] upon Discharge, Status:Resolved. Encounters Encounter Diagnosis No relevant problems exist. Plan of Care Procedures Completed Percutaneous Endoscopic Gastrostomy, by MD MARKUS MAURO, on 2014 2:47 PMCompleted esophagogastroduodenoscopy with biopsy, by MD ALYSSA CONWAYBHAKAR, on 06/23/2014 9:48 AMCompleted Procedure Code: 45.16 Procedure Name: not valued, on 06/23/2014 12:00 AM Immunizations No immunizations administered or ordered. Hospital Course Hospital Discharge Instructions Allergies, Adverse Reactions, Alerts This section is labor representative of the current allergy information, at the time of the CCD generation. In the case of regeneration of the CCD, the allergy information may not reflect the state of known allergies at the time of the CCD' s subject visit. Phenergan causes Unknown.Remeron causes Unknown.Sulfa (Sulfonamide Antibiotics) causes Unknown.Reglan causes Unknown.Bactrim causes unspecified.Neurontin causes unspecified.opium tincture causes unspecified.Latex Allergy has not been assessed.IV Contrast Allergy has not been assessed.No Known Food Allergies. Medication Medication reconciliation has not been performed.
--- OUTSIDE RECORDS SUMMARY | 2017-02-20 19:05 | External Medical Summary | Summary of Care ---
:1935 Author Name Adali Richards M.D. Address [address] [place], [place] [id number] Care Team Providers Name Role Phone Adali Thao M.D. Unavailable Unavailable Adali Richards M.D. Unavailable Unavailable Raphael Thao Primary Care Provider Unavailable [facility] Referring Provider Unavailable Unavailable Unavailable Unavailable Functional [...] Status: Active Cystocele (618.01, N81.10) Status: Active Urinary incontinence (788.30, R32) Status: Active Hip pain (719.45, M25.559) Status: Active Constipation (564.00, K59.00) Status: Active Depression (311, F32.9) Status: Active Vaginal bleeding (623.8, N93.9) Status: Active Lower back pain (724.2, M54.5) Status: Active Postmenopausal vaginal bleeding (627.1, N95.0) Status: Active Esophageal reflux (530.81, K21.9) Status: Active Hypertension (401.9, I10) Status: Active Fall (E888.9, W19.XXXA) Status: Active Decreased appetite (783.0, R63.0) Status: Active Contusion of left hip (924.01, S70.02XA) Status: Active Anxiety (300.00, F41.1) Status: Active Parkinson's disease (332.0, G20) Status: Active Memory loss (780.93, R41.3) Status: Active Medications Name Dates Details Aspirin [...] Administered on:18-Jan-2008 Influenza Administered on:05-Mar-2010 Lot #: [id number] Influenza Administered on:17-Jan-2013 Family History Unknown Family [...] smoker Vital Signs Date Test Result Details 13-Nov-2014 14:48 BP Systolic 132 mm[Hg] Status: BP Diastolic 70 mm[Hg] Status: Heart Rate 96 /min Status: Results Date Description Value Details Results not documented Plan of Care Planned Observations Name Dates Details Planned Goals not documented Goal Planned Encounters Appointment; Provider: Vimal Richards On 19-Feb-2015 14:15 Appointment; Provider: Raphael Thao On 16-Nov-2014 11:30 Appointment; Provider: Jo Ann Crowe On 13:30 Appointment; Provider: Davidson Banerjee On 04-Jun-2011 10:30 Instructions Instructions not documented Encounters Appointment; Vimal Richards On 13-Nov-2014 Encounter Diagnosis: [...]
--- OUTSIDE RECORDS SUMMARY | 2017-02-20 19:05 | External Medical Summary | Summary of Care ---
:1935 Author Name Derick Luna Address [address] [place] [place], [place] [id number] Care Team Providers Name Role Phone Keesha Downey, Adali Lim Unavailable Unavailable Derick Luna Unavailable Unavailable Kiley Romero APRN Unavailable Unavailable Adali Richards M.D. Unavailable Unavailable Raphael Thao Unavailable Unavailable Clementon Boardman, [place] ([place]) Unavailable Unavailable Unavailable Unavailable Unavailable Functional Status [...] Bilateral impacted cerumen (380.4, H61.23) Status: Active Esophageal reflux (530.81, K21.9) Status: Active Dysphagia (787.20, R13.10) Status: Active Parkinson's disease (332.0, G20) Status: Active Hypertension (401.9, I10) Status: Active Chronic nausea (787.02, R11.0) Status: Active Dysphagia, neurologic (787.29, R13.19) Status: Active Medications Name Dates Details Aspirin 81 MG TABS TAKE 1 TABLET DAILY. Refills: 0 Start 21-Jan-2011 Active Effexor XR 150 MG Oral Capsule Extended Release 24 Hour TAKE 1 CAPSULE DAILY. Refills: 0 Start Active Depakote 500 MG Oral Tablet Delayed Release TAKE 1 TABLET DAILY. Refills: 0 Raphael Thao M.D. Start 07-Feb-2013 Active Carbidopa-Levodopa ER 25-100 MG Oral Tablet Extended Release 1 tablet po QID Refills: 0 Maurice Downey Vimal Bro Start 08-Jun-2011 Active MiraLax Oral Powder Refills: 0 Start [...] on: 18-Jan-2008 Influenza on: 05-Mar-2010 Lot #: [id number] Influenza on: 17-Jan-2013 Pneumo (Pneumovax) on: 23-Jan-2016 [...] smoker Vital Signs Date Test Result Details 22-Jul-2016 13:56 BP Systolic 124 mm[Hg] Status: Comments: Location: ; Position: BP Diastolic 69 mm[Hg] Status: Comments: Location: ; Position: Heart Rate 96 /min Status: Comments: Location: ; Physical Findings 18 Status: Comments: Respiration 16-Jul-2016 16:54 Weight 178 lb Status: Body Mass Index Calculated 30.55 kg/m2 Status: Body Surface Area Calculated 1.86 m2 Status: 16-Jul-2016 15:22 BP Systolic 120 mm[Hg] Status: BP Diastolic 78 mm[Hg] Status: Heart Rate 95 /min Status: Physical Findings 96 Status: Comments: O2 Saturation Results Date Description Value Details Results not documented Plan of Care Name Dates Details Planned Observations Planned Goals not documented Planned Encounters Appointment; Provider: Camacho Lawson On 15:15 Appointment; Provider: Vimal Richards M.D. On 04-Aug-2016 14:15 Instructions Name Dates Details Instructions not documented Encounters Appointment; Silvina Shaikh A.P.R.N. On 16-Jul-2016 Encounter [...] Problem not documented 13:30 Appointment; Tra Rico M.D.|F.A.C.S.|M.DGorge,PRANAY|MLuisana,FACS, On Encounter Diagnosis: Problem not documented 11:30 Appointment; Billy Golden M.D.|F.A.C.S.|M.Johnny,FACS|Nasreen,FACS, On Encounter Diagnosis: Problem not documented 10:30 [...]
--- OUTSIDE RECORDS SUMMARY | 2017-02-20 19:06 | External Medical Summary | Summary of Care ---
:1935 Author Name Adali Richards M.D. Address [address] [place], [place] [id number] Care Team Providers Name Role Phone Adali Thao M.D. Unavailable Unavailable Adali Richards M.D. Unavailable Unavailable Raphael Thao Primary Care Provider Unavailable [facility] ([place]) Referring Provider Unavailable Unavailable [...] (924.01, S70.02XA) Status: Active Dysphagia, neurologic (787.29, F45.8) Status: Active Hypertension (401.9, I10) Status: Active Acute sinusitis (461.9, J01.90) Status: Active Chronic pain of both shoulders (719.41, M25.512) Status: Active Malnutrition (263.9, E46) Status: Active Urinary incontinence (788.30, R32) Status: Active Arthralgia of multiple sites (719.49, M25.50) Status: Active Depression (311, F32.9) Status: Active Allergic rhinitis (477.9, J30.9) Status: Active Anxiety (300.00, F41.9) Status: Active [...] ActiveMiraLax Oral Powder Refills: 0 Started 22-May-2014 ActiveSenna 8.6 MG Oral Tablet Refills: 0 Started 22-May-2014 ActiveVitamin D 1000 UNIT Oral Capsule Refills: 0 Started 22-May-2014 ActiveLevothyroxine Sodium 137 [...] Refills: 3 Raphael Thao M.D. Started 26-Jul-2014 ActiveLansoprazole 30 MG Oral Capsule Delayed Release TAKE 1 CAPSULE DAILY. Refills: 0 Raphael Thao M.D. Started 19-Nov-2014 ActiveSEROquel 50 MG Oral Tablet Take one tablet at bedtime. Refills: 0 Raphael Thao M.D. Started 19-Nov-2014 ActiveVenlafaxine HCl - 75 MG Oral Tablet TAKE 1 TABLET DAILY. Refills: 0 Raphael Thao M.D. Started 19-Nov-2014 ActiveClonazePAM 1 MG Oral Tablet TAKE 1/2 TABLET TWICE DAILY. Refills: 0 Raphael Thao M.D. Started 19-Nov-2014 Active Allergies and Adverse Reactions Name Dates [...] Administered on:18-Jan-2008 Influenza Administered on:05-Mar-2010 Lot #: [id number] Influenza Administered on:17-Jan-2013 Family History Unknown Family [...] smoker Vital Signs Date Test Result Details 19-Feb-2015 14:47 BP Systolic 128 mm[Hg] Status: BP Diastolic 68 mm[Hg] Status: Heart Rate 84 /min Status: 04-Feb-2015 14:43 BP Systolic 122 mm[Hg] Status: BP Diastolic 72 mm[Hg] Status: Heart Rate 108 /min Status: Results Date Description Value Details 04-Feb-2015 15:51 Urinalysis, Reflex to Microscopic or Culture PRN [id number] pH 8.0 (Abnormal) Range: 5.0-7.5 SP GRAVITY 1.015 (Better) Range: 1.010-1.030 APPEARANCE CLOUDY (Abnormal) Range: Clear COLOR YELLOW (Better) Range: Straw-Yellow PROTEIN NEGATIVE mg/dL Range: Negative-Trace (Better) GLUCOSE NEGATIVE mg/dL Range: Negative (Better) KETONE NEGATIVE mg/dL Range: Negative (Better) BILIRUB NEGATIVE (Better) Range: Negative BLOOD NEGATIVE (Better) Range: Negative UROBIL 0.2 EU/dL (Better) Range: 0.2-1.0 NITRITE NEGATIVE (Better) Range: Negative LEUK NEGATIVE (Better) Range: Negative Plan of Care Planned Observations Name Dates Details Planned Goals not documented Goal Planned Encounters Appointment; Provider: Vimal Richards On 14-May-2015 14:00 Appointment; Provider: Raphael Thao On 09-Apr-2015 14:15 Appointment; Provider: Jo Ann Crowe On 13:30 Appointment; Provider: Davidson Banerjee On 04-Jun-2011 10:30 Instructions Instructions not documented Encounters Appointment; Vimal Richards On 19-Feb-2015 Encounter Diagnosis: [...]
--- OUTSIDE RECORDS SUMMARY | 2017-02-20 19:06 | External Medical Summary ---
:1935 Author Name GENERATED, SYSTEM Care Team Providers Name Role Phone MD MONICA, AYUSH Primary Care Provider Unavailable Reason For Visit Reason for Visit from 10/20/2014 4:51 AM:Pt Stated Reason for Adm : failure to thrive, UTI, Parkinsons Chief Complaint FAILURE TO THRIVE, UTI, PARKINSONS Social History Social History from 10/29/2014 8:52 AM:Tobacco Use? : Never SmokerSocial History from 10/20/2014 4:51 AM:Tobacco Use? : Never Smoker Functional Status Functional Status from 10/29/2014 7:35 AM:LOC : AlertOriented To : Person,Place, EventWeight Bearing Status : FullAssist Level : Dependent# Assists : 3Functional Status from 10/28/2014 8:10 PM:LOC : AlertOriented To : Person,Place, TimeWeight Bearing Status : FullAssist Level : Dependent# Assists : > 3Functional Status from 10/28/2014 12:20 PM:LOC : AlertOriented To : Person,Place, TimeWeight Bearing Status : FullAssist Level : Partial# Assists : 2Functional Status from 10/27/2014 7:30 PM:LOC : AlertOriented To : Person,Place,TimeWeight Bearing Status : FullAssist Level : Dependent# Assists : >3Functional Status from 10/27/2014 8:15 AM:LOC : AlertOriented To : Person,Place,Time,EventWeight Bearing Status : FullAssist Level : Partial# Assists : 2Functional Status from 8:20 PM:LOC : AlertOriented To : Person,Place,TimeWeight Bearing Status : FullAssist Level : Dependent# Assists : >3Functional Status from 8:00 AM:LOC : DrowsyOriented To : Person,Place,EventWeight Bearing Status : No wt bearingAssist Level : Dependent# Assists : 3Functional Status from 10/25/2014 8:30 PM:LOC : AlertOriented To : PersonWeight Bearing Status : No wt bearingAssist Level : Dependent# Assists : 2Functional Status from 2014 3:48 PM:LOC : AlertOriented To : Person,Place,Time,EventFunctional Status from 10/25/2014 3:30 PM:LOC : AlertOriented To : Person,Place,Time, EventFunctional Status from 10/25/2014 8:00 AM:LOC : AlertOriented To : Person, PlaceWeight Bearing Status : No wt bearingAssist Level : Dependent# Assists : & gt;3Functional Status from 10/25/2014 4:34 AM:# Assists : 2Functional Status from 10/24/2014 8:01 PM:LOC : AlertOriented To : Person,PlaceWeight Bearing Status : No wt bearingAssist Level : Dependent# Assists : 2Functional Status from 10/24/2014 11:30 AM:LOC : AlertOriented To : Person,Place,EventWeight Bearing Status : No wt bearingAssist Level : Dependent# Assists : 2Functional Status from 10/23/2014 8:22 PM:LOC : AlertOriented To : Person,Place,Time, EventWeight Bearing Status : No wt bearingAssist Level : Partial# Assists : 2Functional Status from 10/23/2014 7:30 PM:LOC : DrowsyOriented To : Person,Place ,Time,EventWeight Bearing Status : FullAssist Level : Partial# Assists : 3Functional Status from 10/23/2014 11:00 AM:LOC : LethargicOriented To : Person, PlaceWeight Bearing Status : No wt bearingAssist Level : Dependent# Assists : 2Functional Status from 10/22/2014 9:21 AM:LOC : AlertOriented To : Person,Place, Time,EventWeight Bearing Status : FullAssist Level : Partial# Assists : 2Functional Status from 10/21/2014 8:30 PM:LOC : AlertOriented To : Person,Place, Time,EventWeight Bearing Status : FullAssist Level : Partial# Assists : 3Functional Status from 10/21/2014 4:30 PM:# Assists : 2Functional Status from 2:26 PM:LOC : ListlessOriented To : PersonWeight Bearing Status : No wt bearingAssist Level : Dependent# Assists : 2Functional Status from 10/21/2014 12: 20 PM:# Assists : 2Functional Status from 10/20/2014 8:00 PM:LOC : AlertOriented To : Person,Place,Time,EventWeight Bearing Status : FullAssist Level : Dependent # Assists : 2Functional Status from 10/20/2014 4:20 PM:# Assists : 2Functional Status from 10/20/2014 1:50 PM:LOC : DrowsyOriented To : PersonWeight Bearing Status : FullAssist Level : Dependent# Assists : 2Functional Status from 2014 12:00 PM:# Assists : 2Functional Status from 10/20/2014 4:51 AM:LOC : AlertOriented To : Person,Place,Time,EventWeight Bearing Status : FullAssist Level : Partial# Assists : 3 Vital Signs Hospital Vital Signs from 10/29/2014 3:43 PM:Height : 5/5 ft,inHospital Vital Signs from 10/29/2014 2:44 PM:Height : 5/5 ft,inTemperature : 99.1 FPulse : 89Respirations : 18BP : 125/66Hospital Vital Signs from 10/29/2014 11:09 AM: Height : 5/5 ft,inTemperature : 96.8 FPulse : 91Respirations : 18BP : 131/ 63Hospital Vital Signs from 10/29/2014 7:57 AM:Height : 5/5 ft,inTemperature : 97.8 FPulse : 90Respirations : 20BP : 118/59Hospital Vital Signs from 10/29/2014 12:15 AM:Height : 5/5 ft,inPulse : 83BP : 118/69Hospital Vital Signs from 2014 11:06 PM:Height : 5/5 ft,inTemperature : 98.4 FPulse : 83Respirations : 18BP : 93/46Hospital Vital Signs from 10/28/2014 6:33 PM:Height : 5/5 ft, inTemperature : 97.3 FPulse : 89Respirations : 17BP : 140/64Hospital Vital Signs from 10/28/2014 1:58 PM:Height : 5/5 ft,inTemperature : 96.7 FPulse : 93Respirations : 16BP : 128/60Hospital Vital Signs from 10/28/2014 11:08 AM: Height : 5/5 ft,inTemperature : 98.0 FPulse : 93Respirations : 16BP : 112/ 62Hospital Vital Signs from 10/28/2014 7:17 AM:Height : 5/5 ft,inTemperature : 97.4 FPulse : 95Respirations : 16BP : 122/62Hospital Vital Signs from 10/27/2014 3 :23 PM:Height : 5/5 ft,inTemperature : 97.9 FPulse : 92Respirations : 16BP : 123 /58Hospital Vital Signs from 10/27/2014 10:19 AM:Height : 5/5 ft,inTemperature : 98.3 FPulse : 86Respirations : 18BP : 118/57Hospital Vital Signs from 10/27/2014 7 :32 AM:Height : 5/5 ft,inTemperature : 97.8 FPulse : 93Respirations : 18BP : 140 /67Hospital Vital Signs from 10/26/2014 9:17 PM:Height : 5/5 ft,inTemperature : 98.1 FPulse : 81Respirations : 18BP : 119/67Hospital Vital Signs from 10/26/2014 6:40 PM:Height : 5/5 ft,inTemperature : 96.2 FPulse : 90Respirations : 18BP : 121/58Hospital Vital Signs from 10/26/2014 2:07 PM:Height : 5/5 ft,inTemperature : 98.4 FPulse : 87Respirations : 20BP : 116/57Hospital Vital Signs from 2014 10:46 AM:Height : 5/5 ft,inTemperature : 97.8 FPulse : 95Respirations : 20BP : 134/75Hospital Vital Signs from 10/26/2014 10:20 AM:Height : 5/5 ft, inHospital Vital Signs from 10/26/2014 7:14 AM:Height : 5/5 ft,inTemperature : 98.5 FPulse : 92Respirations : 20BP : 143/71Hospital Vital Signs from 10/26/2014 4:27 AM:Height : 5/5 ft,inTemperature : 98.1 FPulse : 98Respirations : 20BP : 133/60Hospital Vital Signs from 10/25/2014 9:25 PM:Height : 5/5 ft,inPulse : 91Respirations : 18BP : 147/67Hospital Vital Signs from 10/25/2014 8:24 PM: Height : 5/5 ft,inTemperature : 97.7 FPulse : 89Respirations : 16BP : 158/ 80Hospital Vital Signs from 10/25/2014 7:25 PM:Height : 5/5 ft,inPulse : 91Respirations : 16BP : 127/62Hospital Vital Signs from 10/25/2014 6:35 PM: Height : 5/5 ft,inPulse : 90Respirations : 16BP : 132/61Hospital Vital Signs from 10/25/2014 6:25 PM:Height : 5/5 ft,inPulse : 84Respirations : 16BP : 133/ 62Hospital Vital Signs from 10/25/2014 6:10 PM:Height : 5/5 ft,inPulse : 89Respirations : 16BP : 131/57Hospital Vital Signs from 10/25/2014 5:55 PM: Height : 5/5 ft,inPulse : 89Respirations : 16BP : 145/67Hospital Vital Signs from 10/25/2014 5:40 PM:Height : 5/5 ft,inPulse : 87Respirations : 16BP : 143/ 62Hospital Vital Signs from 10/25/2014 5:20 PM:Height : 5/5 ft,inTemperature : 97.0 FPulse : 92Respirations : 16BP : 136/62Hospital Vital Signs from 10/25/2014 4:15 PM:Heart Rate : 92Resp Rate : 15Systolic BP (mmHg) : 122Diastolic BP (mmHg ) : 68Mean BP (mmHg) : 100O2 Saturation (%) : 99Hospital Vital Signs from 2014 4:10 PM:Heart Rate : 90Resp Rate : 18Systolic BP (mmHg) : 130Diastolic BP ( mmHg) : 68Mean BP (mmHg) : 85O2 Saturation (%) : 99Hospital Vital Signs from 4:05 PM:Temp : 97.2Heart Rate : 92Resp Rate : 20Systolic BP (mmHg) : 130Diastolic BP (mmHg) : 80Mean BP (mmHg) : 99O2 Saturation (%) : 98Hospital Vital Signs from 10/25/2014 4:00 PM:Heart Rate : 94Resp Rate : 18Systolic BP ( mmHg) : 139Diastolic BP (mmHg) : 72Mean BP (mmHg) : 101O2 Saturation (%) : 99Hospital Vital Signs from 10/25/2014 3:55 PM:Heart Rate : 94Resp Rate : 18Systolic BP (mmHg) : 125Diastolic BP (mmHg) : 62Mean BP (mmHg) : 81O2 Saturation (%) : 99Hospital Vital Signs from 10/25/2014 3:50 PM:Heart Rate : 94Resp Rate : 18Systolic BP (mmHg) : 116Diastolic BP (mmHg) : 62Mean BP (mmHg) : 97O2 Saturation (%) : 100Hospital Vital Signs from 10/25/2014 3:45 PM:Temp : 97.9Heart Rate : 94Resp Rate : 16Systolic BP (mmHg) : 116Diastolic BP (mmHg) : 69Mean BP (mmHg) : 93O2 Saturation (%) : 100Hospital Vital Signs from 10/25/2014 3:40 PM:Heart Rate : 96Resp Rate : 18Systolic BP (mmHg) : 117Diastolic BP (mmHg ) : 68Mean BP (mmHg) : 83O2 Saturation (%) : 99Hospital Vital Signs from 2014 3:35 PM:Heart Rate : 95Resp Rate : 18Systolic BP (mmHg) : 96Diastolic BP ( mmHg) : 82Mean BP (mmHg) : 89O2 Saturation (%) : 100Hospital Vital Signs from 3:30 PM:Height : 5/5 ft,inHeart Rate : 95Resp Rate : 20Systolic BP (mmHg ) : 135Diastolic BP (mmHg) : 77Mean BP (mmHg) : 88O2 Saturation (%) : 98Hospital Vital Signs from 10/25/2014 3:25 PM:Temp : 97.2Heart Rate : 95Resp Rate : 20Systolic BP (mmHg) : 122Diastolic BP (mmHg) : 78Mean BP (mmHg) : 96O2 Saturation (%) : 99Hospital Vital Signs from 10/25/2014 11:33 AM:Height : 5/5 ft, inTemperature : 98.2 FPulse : 91Respirations : 14BP : 107/57Hospital Vital Signs from 10/25/2014 6:39 AM:Height : 5/5 ft,inTemperature : 98.4 FPulse : 93Respirations : 16BP : 117/54Hospital Vital Signs from 10/24/2014 9:28 PM: Height : 5/5 ft,inTemperature : 98.7 FPulse : 93Respirations : 16BP : 1113/ 53Hospital Vital Signs from 10/24/2014 3:54 PM:Height : 5/5 ft,inTemperature : 96.7 FPulse : 91Respirations : 14BP : 118/58Hospital Vital Signs from 10/24/2014 11:45 AM:Height : 5/5 ft,inTemperature : 96.5 FPulse : 96Respirations : 14BP : 131/60Hospital Vital Signs from 10/24/2014 7:39 AM:Height : 5/5 ft,inTemperature : 97.6 FPulse : 68Respirations : 16BP : 107/61Hospital Vital Signs from 2014 9:55 PM:Height : 5/5 ft,inTemperature : 97.2 FPulse : 88Respirations : 16BP : 131/62Hospital Vital Signs from 10/23/2014 3:31 PM:Height : 5/5 ft, inHospital Vital Signs from 10/23/2014 3:29 PM:Height : 5/5 ft,inTemperature : 97.9 FPulse : 89Respirations : 20BP : 117/59Hospital Vital Signs from 10/23/2014 7:38 AM:Height : 5/5 ft,inTemperature : 97.5 FPulse : 86Respirations : 18BP : 129/66Hospital Vital Signs from 10/22/2014 10:55 PM:Height : 5/5 ft, inTemperature : 97.8 FPulse : 85Respirations : 16BP : 134/64Hospital Vital Signs from 10/22/2014 7:19 PM:Height : 5/5 ft,inTemperature : 98.2 FPulse : 98Respirations : 16BP : 136/68Hospital Vital Signs from 10/22/2014 4:51 PM: Height : 5/5 ft,inTemperature : 98.3 FPulse : 94Respirations : 16BP : 148/ 72Hospital Vital Signs from 10/22/2014 2:24 PM:Height : 5/5 ft,inTemperature : 97.0 FPulse : 87Respirations : 16BP : 128/62Hospital Vital Signs from 10/22/2014 11:05 AM:Height : 5/5 ft,inTemperature : 96.6 FPulse : 74Respirations : 16BP : 119/61Hospital Vital Signs from 10/22/2014 10:13 AM:Height : 5/5 ft,inHospital Vital Signs from 10/22/2014 7:07 AM:Height : 5/5 ft,inTemperature : 97.8 FPulse : 77Respirations : 16BP : 128/67Hospital Vital Signs from 10/22/2014 4:32 AM: Weight : 68/ kgHeight : 5/5 ft,inHospital Vital Signs from 10/21/2014 9:19 PM: Height : 5/5 ft,inTemperature : 97.9 FPulse : 75Respirations : 16BP : 123/ 59Hospital Vital Signs from 10/21/2014 3:16 PM:Height : 5/5 ft,inTemperature : 97.4 FPulse : 78Respirations : 18BP : 118/58Hospital Vital Signs from 10/21/2014 10:32 AM:Height : 5/5 ft,inTemperature : 96.8 FPulse : 77Respirations : 16BP : 139/64Hospital Vital Signs from 10/21/2014 7:39 AM:Height : 5/5 ft,inTemperature : 97.5 FPulse : 78Respirations : 18BP : 131/72Hospital Vital Signs from 2014 9:52 PM:Height : 5/5 ft,inTemperature : 95.7 FPulse : 90Respirations : 16BP : 109/56Hospital Vital Signs from 10/20/2014 7:19 PM:Height : 5/5 ft, inTemperature : 97 FPulse : 91Respirations : 18BP : 141/65Hospital Vital Signs from 10/20/2014 2:00 PM:Height : 5/5 ft,inTemperature : 98.02 FPulse : 84Respirations : 18BP : 131/76Hospital Vital Signs from 10/20/2014 10:45 AM: Height : 5/5 ft,inTemperature : 97.6 FPulse : 81Respirations : 18BP : 114/ 61Hospital Vital Signs from 10/20/2014 7:23 AM:Height : 5/5 ft,inTemperature : 98.3 FPulse : 76Respirations : 18BP : 112/64Hospital Vital Signs from 10/20/2014 4:51 AM:Weight : 64.0/ kgHeight : 5/5 ft,inHospital Vital Signs from 10/20/2014 4 :15 AM:Height : 5/5 ft,inTemperature : 96.2 FPulse : 76Respirations : 18BP : 136 /60Hospital Vital Signs from 10/19/2014 10:06 PM:Height : 5/5 ft,inPulse : 89Respirations : 18BP : 125/68Hospital Vital Signs from 10/19/2014 7:20 PM: Height : 5/5 ft,inTemperature : 97 FPulse : 80Respirations : 18BP : 117/ 62Hospital Vital Signs from 10/19/2014 6:28 PM:Weight : 64.0/ kgHeight : 5/5 ft, inTemperature : 97.4 FPulse : 88Respirations : 18BP : 134/73 Results Chemistry from 10/29/2014 6:05 [id number] MMOL/L (136-145 MMOL/L) POTASSIUM4.3 MMOL/L (3.5-5.1 MMOL/L) [id number] MMOL/L H (98-107 MMOL/L) FSV275.4 MMOL/L (21.0-32.0 MMOL/L) ANION GAP4.6 MMOL/L L (8.0-16.0 MMOL/L) BUN17 MG/DL (7-18 MG/DL) CREATININE0.67 MG/DL (0.55-1.02 MG/DL) BUN/CREATININE RATIO25.4 H (9.1-17.0 ) EDPCHEQ298 MG/DL H (65-99 MG/DL) GFR EST NON AFR RQTLMICJ10 ML/MIN GFRA EST AFR AMER>90 ML/MIN CALCIUM8.3 MG/DL L (8.5-10.1 MG/DL) ALBUMIN2.6 GM/DL L (3.4-5.0 GM/DL) MAGNESIUM2.1 MG/DL (1.8-2.4 MG/DL) PHOSPHORUS4.3 MG/DL (2.5-4.9 MG/DL)Chemistry from 10/28/2014 5:45 [id number] MMOL /L (136-145 MMOL/L) POTASSIUM4.0 MMOL/L (3.5-5.1 MMOL/L) [id number] MMOL/L H (98-107 MMOL/L) HWW281.1 MMOL/L (21.0-32.0 MMOL/L) ANION GAP5.9 MMOL/L L (8.0-16.0 MMOL/L) BUN14 MG/DL (7-18 MG/DL) CREATININE0.71 MG/DL (0.55-1.02 MG/DL) BUN/CREATININE RATIO19.7 H (9.1-17.0 ) KGQAUAM679 MG/DL H (65-99 MG/DL) GFR EST NON AFR SACQCFJJ77 ML/MIN GFRA EST AFR AMER>90 ML/MIN CALCIUM8.2 MG/DL L (8.5-10.1 MG/DL) ALBUMIN2.4 GM/DL L (3.4-5.0 GM/DL) MAGNESIUM2.0 MG/DL (1.8-2.4 MG/DL) PHOSPHORUS3.2 MG/DL (2.5-4.9 MG/DL)Chemistry from 10/27/2014 5:08 [id number] MMOL /L (136-145 MMOL/L) POTASSIUM4.1 MMOL/L (3.5-5.1 MMOL/L) [id number] MMOL/L H (98-107 MMOL/L) TAL367.0 MMOL/L (21.0-32.0 MMOL/L) ANION GAP2.0 MMOL/L L (8.0-16.0 MMOL/L) BUN18 MG/DL (7-18 MG/DL) CREATININE0.77 MG/DL (0.55-1.02 MG/DL) BUN/CREATININE RATIO23.4 H (9.1-17.0 ) NHEBUBQ307 MG/DL H (65-99 MG/DL) GFR EST NON AFR DQQYMJPQ98 ML/MIN GFRA EST AFR AMER86 ML/MIN CALCIUM8.2 MG/DL L (8.5-10.1 MG/DL) ALBUMIN2.4 GM/DL L (3.4-5.0 GM/DL) MAGNESIUM2.2 MG/DL (1.8-2.4 MG/DL) PHOSPHORUS4.0 MG/DL (2.5-4.9 MG/DL)Chemistry from 10/26/2014 4:25 [id number] MMOL/L (136-145 MMOL/L) POTASSIUM4.1 MMOL/L (3.5-5.1 MMOL/L) [id number] MMOL/L H (98-107 MMOL/L) PGW238.3 MMOL/L (21.0-32.0 MMOL/L) ANION GAP5.7 MMOL/L L (8.0-16.0 MMOL/L) BUN12 MG/DL (7-18 MG/DL) CREATININE0.68 MG/DL (0.55-1.02 MG/DL) BUN/CREATININE RATIO17.6 H (9.1-17.0 ) HOPAFLO956 MG/DL H (65-99 MG/DL) GFR EST NON AFR LXWQMPFU41 ML/MIN GFRA EST AFR AMER>90 ML/MIN CALCIUM8.5 MG/DL (8.5-10.1 MG/DL) BILIRUBIN TOTAL0.18 MG/DL L (0.20-1.00 MG/DL) TOTAL PROTEIN5.7 GM/DL L (6.4-8.2 GM/DL) ALBUMIN2.6 GM/DL L (3.4-5.0 GM/DL) GLOBULIN3.1 GM/DL (2.3-3.5 GM/DL) A/G RATIO0.8 MG/DL L (1.5-2.2 MG/DL) ALK PHOS59 U/L (46-116 U/L) ALT (SGPT)10 U/L L (16-63 U/L) AST (SGOT)16 U/L (15-37 U/L) MAGNESIUM2.3 MG/DL (1.8-2.4 MG/DL) PHOSPHORUS4.7 MG/DL (2.5-4.9 MG/DL)Chemistry from 10/25/2014 8:13 [id number] MMOL/L (136-145 MMOL/L) POTASSIUM3.9 MMOL/L (3.5-5.1 MMOL/L) SVTVKQIJ532 MMOL/L H (98-107 MMOL/L) ALU488.9 MMOL/L (21.0-32.0 MMOL/L) ANION GAP8.1 MMOL/L (8.0-16.0 MMOL/L) BUN16 MG/DL (7-18 MG/DL) CREATININE0.76 MG/DL (0.43-0.83 MG/DL) BUN/CREATININE RATIO21.1 H (9.1-17.0 ) OPJJIWE96 MG/DL (65-99 MG/DL) GFR EST NON AFR FEJQNXGG30 ML/MIN GFRA EST AFR AMER88 ML/MIN CALCIUM8.7 MG/DL (8.5-10.1 MG/DL) ALBUMIN3.0 GM/DL L (3.4-5.0 GM/DL) MAGNESIUM2.1 MG/DL (1.8-2.4 MG/DL) PHOSPHORUS2.1 MG/DL L (2.5-4.9 MG/DL)Chemistry from 10/24/2014 6:30 [id number] MMOL/L (136-145 MMOL/L) POTASSIUM3.8 MMOL/L (3.5-5.1 MMOL/L) [id number] MMOL/L (98-107 MMOL/L) LSH426.1 MMOL/L (21.0-32.0 MMOL/L) ANION GAP5.9 MMOL/L L (8.0-16.0 MMOL/L) BUN19 MG/DL H (7-18 MG/DL) CREATININE0.58 MG/DL (0.43-0.83 MG/DL) BUN/CREATININE RATIO32.8 H (9.1-17.0 ) JKODLYD255 MG/DL H (65-99 MG/DL) GFR EST NON AFR NHMFSGGT81 ML/MIN GFRA EST AFR AMER>90 ML/MIN CALCIUM8.3 MG/DL L (8.5-10.1 MG/DL) BILIRUBIN TOTAL0.21 MG/DL (0.20-1.00 MG/DL) TOTAL PROTEIN5.6 GM/DL L (6.4-8.2 GM/DL) ALBUMIN2.6 GM/DL L (3.4-5.0 GM/DL) GLOBULIN3.0 GM/DL (2.3-3.5 GM/DL) A/G RATIO0.9 MG/DL L (1.5-2.2 MG/DL) ALK PHOS58 U/L (46-116 U/L) ALT (SGPT)<6 U/L L (16-63 U/L) AST (SGOT)13 U/L L (15-37 U/L) MAGNESIUM2.3 MG/DL (1.8-2.4 MG/DL) PHOSPHORUS4.3 MG/DL (2.5-4.9 MG/DL)Chemistry from 10/23/2014 7:40 [id number] MMOL/L (136-145 MMOL/L) POTASSIUM3.6 MMOL/L (3.5-5.1 MMOL/L) [id number] MMOL/L (98-107 MMOL/L) ROE674.9 MMOL/L (21.0-32.0 MMOL/L) ANION GAP4.1 MMOL/L L (8.0-16.0 MMOL/L) BUN15 MG/DL (7-18 MG/DL) CREATININE0.70 MG/DL (0.43-0.83 MG/DL) BUN/CREATININE RATIO21.4 H (9.1-17.0 ) JIEIFTS55 MG/DL (65-99 MG/DL) GFR EST NON AFR YDWDIODR31 ML/MIN GFRA EST AFR AMER>90 ML/MIN CALCIUM8.5 MG/DL (8.5-10.1 MG/DL) ALBUMIN2.9 GM/DL L (3.4-5.0 GM/DL) MAGNESIUM2.3 MG/DL (1.8-2.4 MG/DL) PHOSPHORUS4.3 MG/DL (2.5-4.9 MG/DL)Chemistry from 10/22/2014 4:15 [id number] MMOL/L (136-145 MMOL/L) POTASSIUM3.6 MMOL/L (3.5-5.1 MMOL/L) YYJJJVPG077 MMOL/L (98-107 MMOL/L) NYS876.8 MMOL/L H (21.0-32.0 MMOL/L) ANION GAP0.2 MMOL/L L (8.0-16.0 MMOL/L) BUN14 MG/DL (7-18 MG/DL) CREATININE0.61 MG/DL (0.43-0.83 MG/DL) BUN/CREATININE RATIO23.0 H (9.1-17.0 ) PKGBVSL841 MG/DL H (65-99 MG/DL) GFR EST NON AFR HDDRUQBG25 ML/MIN GFRA EST AFR AMER>90 ML/MIN CALCIUM8.4 MG/DL L (8.5-10.1 MG/DL) BILIRUBIN TOTAL0.22 MG/DL (0.20-1.00 MG/DL) TOTAL PROTEIN5.6 GM/DL L (6.4-8.2 GM/DL) ALBUMIN2.6 GM/DL L (3.4-5.0 GM/DL) GLOBULIN3.0 GM/DL (2.3-3.5 GM/DL) A/G RATIO0.9 MG/DL L (1.5-2.2 MG/DL) ALK PHOS64 U/L (46-116 U/L) ALT (SGPT)<6 U/L L (16-63 U/L) AST (SGOT)11 U/L L (15-37 U/L) MAGNESIUM2.3 MG/DL (1.8-2.4 MG/DL) PHOSPHORUS4.4 MG/DL (2.5-4.9 MG/DL)Chemistry from 10/21/2014 5:45 [id number] MMOL/L (136-145 MMOL/L) POTASSIUM3.9 MMOL/L (3.5-5.1 MMOL/L) REAINYJQ237 MMOL/L H (98-107 MMOL/L) IWS176.4 MMOL/L (21.0-32.0 MMOL/L) ANION GAP3.6 MMOL/L L (8.0-16.0 MMOL/L) BUN10 MG/DL (7-18 MG/DL) CREATININE0.55 MG/DL (0.43-0.83 MG/DL) BUN/CREATININE RATIO18.2 H (9.1-17.0 ) RIPCNYO14 MG/DL (65-99 MG/DL) GFR EST NON AFR UGANDAN>90 ML/MIN GFRA EST AFR AMER>90 ML/MIN CALCIUM8.5 MG/DL (8.5-10.1 MG/DL) ALBUMIN2.7 GM/DL L (3.4-5.0 GM/DL) MAGNESIUM2.3 MG/DL (1.8-2.4 MG/DL) PHOSPHORUS4.4 MG/DL (2.5-4.9 MG/DL)Chemistry from 10/20/2014 2:41 PMVALPROIC ACID67 MCG/ML (50-100 MCG/ML)Chemistry from 10/19/2014 7:25 [id number] MMOL/L ( 136-145 MMOL/L) POTASSIUM3.4 MMOL/L L (3.5-5.1 MMOL/L) [id number] MMOL/L (98-107 MMOL/L) WOK722.4 MMOL/L (21.0-32.0 MMOL/L) ANION GAP4.6 MMOL/L L (8.0-16.0 MMOL/L) BUN15 MG/DL (7-18 MG/DL) CREATININE0.78 MG/DL (0.43-0.83 MG/DL) BUN/CREATININE RATIO19.2 H (9.1-17.0 ) AQHHBYE510 MG/DL H (65-99 MG/DL) GFR EST NON AFR BCGUVEQW18 ML/MIN GFRA EST AFR AMER85 ML/MIN CALCIUM8.9 MG/DL (8.5-10.1 MG/DL) BILIRUBIN TOTAL0.46 MG/DL (0.20-1.00 MG/DL) TOTAL PROTEIN7.1 GM/DL (6.4-8.2 GM/DL) ALBUMIN3.4 GM/DL (3.4-5.0 GM/DL) GLOBULIN3.7 GM/DL H (2.3-3.5 GM/DL) A/G RATIO0.9 MG/DL L (1.5-2.2 MG/DL) ALK PHOS81 U/L (46-116 U/L) ALT (SGPT)7 U/L L (16-63 U/L) AST (SGOT)17 U/L (15-37 U/L) MAGNESIUM2.2 MG/DL (1.8-2.4 MG/DL) PHOSPHORUS4.0 MG/DL (2.5-4.9 MG/DL) TSH3.01 UIU/ML (0.34-4.82 UIU/ML)Hematology from 10/26/2014 4:25 AMWBC14.0 X10e3/ UL H (3.6-11.2 X10e3/UL) RBC3.57 X10e6/UL L (3.63-4.92 X10e6/UL) XYCPQWVRAA01.8 G/DL (11.0-14.3 G/DL) SVIPTQWKSY31.3 % (31.2-41.9 %) MCV99.0 FL H (79.0-98.0 FL) MCH33.1 PG H (27.0-33.0 PG) MCHC33.5 G/DL (32.0-36.0 G/DL) RDW14.1 % (12.3-17.0 %) RDWSD49.0 H (37.1-47.8 ) REYWLQIK626 X10e3/UL L (159-386 X10e3/UL) MPV9.0 FL (7.4-10.4 FL)Hematology from 10/24/2014 4:40 AMWBC7.8 X10e3/UL (3.6- 11.2 X10e3/UL) RBC3.46 X10e6/UL L (3.63-4.92 X10e6/UL) YUQEWTKNAU12.5 G/DL (11.0-14.3 G/DL) LBJPQICBKG25.5 % (31.2-41.9 %) MCV99.8 FL H (79.0-98.0 FL) MCH36.2 PG H (27.0-33.0 PG) MCHC36.3 G/DL H (32.0-36.0 G/DL) RDW14.2 % (12.3-17.0 %) RDWSD49.4 H (37.1-47.8 ) [id number] X10e3/UL L (159-386 X10e3/UL) MPV8.6 FL (7.4-10.4 FL)Hematology from 10/21/2014 5:45 AMWBC9.7 X10e3/UL (3.6- 11.2 X10e3/UL) RBC3.62 X10e6/UL L (3.63-4.92 X10e6/UL) DZAKDVRUPX21.3 G/DL (11.0-14.3 G/DL) LBQQEISSJD01.3 % (31.2-41.9 %) NNC508.1 FL H (79.0-98.0 FL) MCH33.9 PG H (27.0-33.0 PG) MCHC33.8 G/DL (32.0-36.0 G/DL) RDW14.6 % (12.3-17.0 %) RDWSD50.8 H (37.1-47.8 ) VFZRJEFD728 X10e3/UL L (159-386 X10e3/UL) MPV7.8 FL (7.4-10.4 FL)Hematology from 10/19/2014 7:25 PMWBC8.8 X10e3/UL (3.6- 11.2 X10e3/UL) RBC4.13 X10e6/UL (3.63-4.92 X10e6/UL) KTLQSKKAXJ69.8 G/DL (11.0-14.3 G/DL) EGOROTAKCX64.4 % (31.2-41.9 %) VOP663.3 FL H (79.0-98.0 FL) MCH33.4 PG H (27.0-33.0 PG) MCHC33.3 G/DL (32.0-36.0 G/DL) RDW14.3 % (12.3-17.0 %) RDWSD49.4 H (37.1-47.8 ) ALGUMCMJ696 X10e3/UL (159-386 X10e3/UL) MPV7.8 FL (7.4-10.4 FL) AUTOMATED DIFFPERFORMED SEGS74.2 % TFVWGUYKQXP74.4 % MONOCYTES9.0 % EOSINOPHILS1.0 % BASOPHILS0.4 % ABSOLUTE NEUTROPHILS6.60 X10e3/UL (1.80-7.80 X10e3/UL) ABSOLUTE LYMPHOCYTES1.40 X10e3/UL (1.00-3.00 X10e3/UL) ABSOLUTE MONOCYTES0.80 X10e3/UL (0.30-1.00 X10e3/UL) ABSOLUTE EOSINOPHILS0.10 X10e3/UL (0.00-0.50 X10e3/UL) ABSOLUTE BASOPHILS0.00 X10e3/UL (0.00-0.20 X10e3/UL)Urinalysis from 10/20/2014 6: 10 PM Status: Final Result URINALYSIS Specimen Number: [id number] Sample Collection Date/Time: 10/20/2014 6:10 PM Specimen Source: URINE COLORYELLOW (STRAW/YELL/DK YELL ) URINE APPEARANCECLEAR (CLEAR ) URINE PH7.5 (5.0-8.0 ) URINE SPECIFIC GRAVITY1.015 (<=1.005->=1.030 ) URINE GLUCOSENEGATIVE MG/DL (NEGATIVE MG/DL) URINE BILIRUBINNEGATIVE (NEGATIVE ) URINE KETONESNEGATIVE MG/DL (NEGATIVE MG/DL) URINE BLOODNEGATIVE (NEGATIVE ) URINE PROTEINNEGATIVE MG/DL (NEGATIVE MG/DL) URINE UROBILINOGEN0.2 EU/DL (0.2-1.0 EU/DL) URINE NITRITESNEGATIVE (NEGATIVE ) *URINE LEUKOCYTESNEGATIVE (NEGATIVE )Microbiology from 10/20/2014 6:10 PMCULTURE URINE Specimen Number: [id number] Sample Collection Date/Time: 10/20/2014 6:10 PM Specimen Source: Urine Straight Catheter CULTURE URINE: No growth at 48 hrs DX Radiology from 10/24/2014 5:16 AMCHEST 1 VIEWHistory: Cough Priors: 10/20/2009 Findings: There has been resolution of mild left lower lobe pneumonia. No new infiltrate, pneumothorax or pleural effusions identified. This right-sided PICC line in good position. Impression: Resolution left lower lobe pneumonia. Electronically signed by: Gage Thakkar MD Dictated: 10/24/2014 08:21DX Radiology from 10/20/2014 10:30 AMCHEST 1 VIEWHistory: PICC line repositioning. Priors: Earlier the same day Findings: There has been repositioning right-sided PICC line its tip now junction SVC and right atrium in good position. There is been no significant change in mild left lower lobe pneumonia. No new infiltrates identified Impression: Reposition right-sided PICC line its tip in good position. Unchanged mild left lower lobe pneumonia. Electronically signed by: Gage Thakkar MD Dictated: 10/20/2014 10:36DX Radiology from 10/20/2014 10:02 AMCHEST 1 VIEWHistory: Postop PICC line placement. Pneumonia. Priors: One day Findings: There is been placed right-sided PICC line its tip directed cephalad into the right internal jugular vein. This will be repositioned by the PICC line nurse. There has been worsening of mild left lower lobe pneumonia. No new infiltrate or pneumothorax identified. Impression: Cautiously right-sided PICC line which will be repositioned by the PICC line nurse. Worsening mild left lower lobe pneumonia. Electronically signed by: Gage Thakkar MD Dictated: 10/20/2014 10:14DX Radiology from 10/19/2014 6:54 PMCHEST 1 VIEWHistory : Pneumonia Priors: 08/01/2014 Findings: There is mild left basilar infiltrate consistent pneumonia. No additional infiltrate, pneumothorax or pleural effusions identified Impression: Mild left basilar pneumonia. Electronically signed by: Gage Thakkar MD Dictated: 10/20/2014 09:57 Problems Encounter Diagnosis Acute Urinary Tract infection Comment:Problem resolved by Soarian Workflow upon Discharge, Status:Resolved.Adult Failure to Thrive Syndrome Comment:Problem resolved by Soarian Workflow upon Discharge, Status:Resolved.Altered Mental Status Comment:Problem resolved by Soarian Workflow upon Discharge, Status: Resolved.Dehydration Status:Active.Dementia Status:Active.Dysphagia Status: Active.Fall Risk Comment:Problem resolved by Soarian Workflow upon Discharge, Status:Resolved.Hypertensive Disorder Comment:Problem resolved by Soarian Workflow upon Discharge, Status:Resolved.Hypothyroidism Status:Active.Mobility Impairment Comment:Problem resolved by Soarian Workflow upon Discharge, Status: Resolved.Nutritional Deficiency Comment:Problem resolved by Soarian Workflow upon Discharge, Status:Resolved.Parkinson's Disease Comment:Problem resolved by Soarian Workflow upon Discharge, Status:Resolved.Skin Integrity Impairment Risk Comment:Problem resolved by Soarian Workflow upon Discharge, Status: Resolved.Additional Problems Anxiety Comment:Problem resolved by Soarian Workflow upon Discharge, Status: Resolved.Gastroesophageal Reflux Disease Comment:Problem resolved by Soarian Workflow upon Discharge, Status:Resolved.Pain Comment:Problem resolved by Soarian Workflow upon Discharge, Status:Resolved.Vertigo Comment:Problem resolved by Soarian Workflow upon Discharge, Status:Resolved. Encounters Encounter Diagnosis Acute Urinary Tract infection Comment:Problem resolved by Soarian Workflow upon Discharge, Status:Resolved.Adult Failure to Thrive Syndrome Comment:Problem resolved by Soarian Workflow upon Discharge, Status:Resolved.Altered Mental Status Comment:Problem resolved by Soarian Workflow upon Discharge, Status: Resolved.Dehydration Status:Active.Dementia Status:Active.Dysphagia Status: Active.Fall Risk Comment:Problem resolved by Soarian Workflow upon Discharge, Status:Resolved.Hypertensive Disorder Comment:Problem resolved by Soarian Workflow upon Discharge, Status:Resolved.Hypothyroidism Status:Active.Mobility Impairment Comment:Problem resolved by Soarian Workflow upon Discharge, Status: Resolved.Nutritional Deficiency Comment:Problem resolved by Soarian Workflow upon Discharge, Status:Resolved.Parkinson's Disease Comment:Problem resolved by Soarian Workflow upon Discharge, Status:Resolved.Skin Integrity Impairment Risk Comment:Problem resolved by Soarian Workflow upon Discharge, Status:Resolved. Plan of Care Follow-up Appointments from 10/29/2014 8:52 AM:#1 Office appointment: : #1 Date/Time : 11/16/2014 11:30 AMTreatment Plan from 10/29/2014 2:38 PM:Care Management Note : [facility] aware of discharge for today. They will transport her at 1530. Patient, spouse and daughter aware. [facility] states they are unable to get patient precertedwith [employer] for skilled care so can only accept her as intermediate until precert obtained. Patientand family aware of this and voice no concerns.Treatment Plan from 10/29/2014 11:44 AM:Care Management Note : to senior living today. Jo Ann HAILE working on time. care management to follow if needs arise.Treatment Plan from 10/26/2014 7:49 AM:Care Management Note : wean TPN/Lipids today. Plan to start tube feedings today if okay with surgeon. care management to follow.Treatment Plan from 10/25/2014 8:46 AM:Care Management Note : NPO. consulted General Surgery for PEG tube placement - anticipate placed today per Awa Bowser. Dr Anderson adjusts meds today. continues to monitor labs and TPN/Lipids.Care management to follow.Treatment Plan from 10/24/2014 1:43 PM:Care Management Note :Patient's daughter, Sandy, aware of palliative care order and in agreement. Referral made. Daughter plans for patient to return to [facility] at discharge. No needs voiced at this time.Treatment Plan from 10/24/2014 12:23 PM:Care Management Note : catherine Price [employer]her Screen Repairer - patient and family in agreement for palliative care. This RN talked with Dr Orozco he is in agreement if the family is. Order placed.Treatment Plan from 10/24/2014 9:50 AM:Care Management Note : awaiting PCP to round. possible feeding tube placement pending Dr Gonzalez discussion with patient and family today. patient continues to get IV TPN/ Lipids. care management to follow. possible need for palliative care order if PCP agrees.Treatment Plan from 10/23/2014 8:44 AM:Care Management Note : talked at length with Dr Anderson. He feels this patient would not benefit from a PEG tube and should go possible hospice. Speech therapy noted. Dr Anderson and this RN came up with a plan to have Crusher Screen Repairer talk with patient and family about possible transition to hospice vs PEG. continue TPN/Lipids at this time. care management to follow.Treatment Plan from 10/22/2014 10:50 AM:Care Management Note : continues TPN/Lipids. Poor PO intake/appetite. Daniel pena'analy continues to monitor labs. care management to follow.Treatment Plan from 10/22/2014 10:25 AM:Care Management Note : Unable to visit with patient at this time. Chart reviewed and noted patient resides at [facility]. Anticipate return at discharge. Will follow and assist with needs as they arise. Procedures Completed Percutaneous Endoscopic Gastrostomy, by MD MARKUS MAURO, on 2014 2:47 PMCompleted esophagogastroduodenoscopy with biopsy, by MD MICHAEL CONWAY, on 06/23/2014 9:48 AMCompleted Procedure Code: 45.16 Procedure Name: not valued, on 06/23/2014 12:00 AM Immunizations No immunizations administered or ordered. Hospital Course Hospital Discharge Instructions How to care for yourself at home from 10/29/2014 8:52 AM:Discharge Activity : Activity as toleratedDischarge Diet : Modification as given by physicianDischarge Diet: : ensure plus can 5 times per day with 80 ml of water before and after feedingsDischarge Wound Care : Change dressings as necessaryCall your doctor if: : Fever over 101 F or severe chills,Chest pain or other unexplained symptoms,Tingling or numbness develops,A sudden increase or decrease in weight,You have persistent or worsening symptoms,If you have Heart Failure and you gain 3 pounds within 1 week or your symptoms worsen. (Weigh at home tomorrow morning)Specific Discharge Teaching Instructions provided: : NoDischarge on Warfarin : No Allergies, Adverse Reactions, Alerts Bactrim causes unspecified.Neurontin causes unspecified.opium tincture causes unspecified.No Latex Allergy.No IV Contrast Allergy.No Known Food Allergies. Medication It is the responsibility of the patient or patient malt liquors sales representative to confirm the list of medicationswith either the patient's personal care provider or the patient's follow-up care provider to ensure the patient has an appropriate list of medications to take at home. Discharge medicationsNew medicationslansoprazole (PrevACID SoluTab) 30 mg tablet ,disintegrat, delay rel, Ordered By: AYUSH ANDERSON MD Directions: 1 tablet gastrostomy (PEG) daily before breakfast Additional Instructions: DISINTEGRATE IN ORAL SYG W/ 10 ML WATER. GIVE DOSE THEN RINSE SYG WITH 5 MLWATER AND GIVE. LORazepam 0.5 mg Tablet, Ordered By: AYUSH ANDERSON MD Directions: 1 tablet oral every six hours PRN ANXIETY Continued medicationsamLODIPine 5 mg Tablet, Ordered By: AYUSH ANDERSON MD Directions: 1 tablet oral daily aspirin (Antelmo Chewable Aspirin) 81 mg tablet,chewable, Ordered By: AYUSH ANDERSON MD Directions: 1 tablet oral daily levothyroxine 137 mcg Tablet, Ordered By: AYUSH ANDERSON MD Directions: 1 tablet oral daily before breakfast polyethylene glycol 3350 (Miralax) 17 gram Powder in Packet, Ordered By: AYUSH ANDERSON MD Directions: 1 packet oral every other day QUEtiapine (SEROquel) 50 mg Tablet, Ordered By: AYUSH ANDERSON MD Directions: 1 tablet oral daily at bedtime sucralfate (CarafATE) 1 gram/10 mL Suspension, Ordered By: AYUSH ANDERSON MD Directions: 10 mL oral daily every morning venlafaxine (Effexor XR) 150 mg capsule,extended release 24hr, Ordered By: AYUSH ANDERSON MD Directions: 1 capsule oral daily Changed medicationscarbidopa-levodopa 25 mg-100 mg Tablet, Ordered By: AYUSH ANDERSON MD Directions: 2 tablet gastrostomy (PEG) four times daily Additional Instructions: GIVE THROUGH PEG TUBE cholecalciferol (vitamin D3) (Vitamin D3) 1,000 unit Tablet, Ordered By: AYUSH ANDERSON MD Directions: 2 tablet oral daily with breakfast divalproex 500 mg Tablet Extended Release 24 hr, Ordered By: AYUSH ANDERSON MD Directions: 1 tablet oral daily at bedtime Stopped medicationsatorvastatin 20 mg Tablet Directions: 1 tablet oral daily at bedtime donepezil (Aricept) 10 mg Tablet Directions: 1 tablet oral daily MEMAntine (Namenda XR) 28 mg capsule,sprinkle,ER 24hr Directions: oral oral daily montelukast (Singulair) 10 mg Tablet Directions: 1 tablet oral daily every evening pantoprazole (ProTONIX) 40 mg tablet,delayed release (DR/EC) Directions: 1 tablet oral twice a day Additional Instructions: For 2 weeks sennosides (Senna Lax) 8.6 mg Tablet Directions: 2 tablet oral daily
--- OUTSIDE RECORDS SUMMARY | 2017-02-20 19:06 | External Medical Summary ---
:1935 Author Name GENERATED, SYSTEM Care Team Providers Name Role Phone MD MONICA, AYUSH Primary Care Provider Unavailable Reason For Visit Reason for Visit from 10/12/2016 10:28 PM:Pt Stated Reason for Adm : Recent Fall , Chest Pain Chief Complaint CHEST PAIN, ELEVATED TROP Social History Social History from 10/14/2016 12:34 PM:Tobacco Use? : Never SmokerSocial History from 10/12/2016 10:28 PM:Tobacco Use? : Never Smoker Functional Status Functional Status from 10/14/2016 11:25 AM:# Assists : 2Functional Status from 9:34 AM:LOC : AlertOriented To : Person,TimeWeight Bearing Status : FullAssist Level : Partial# Assists : 2Functional Status from 10/13/2016 9:31 PM: LOC : AlertOriented To : Person,Place,TimeWeight Bearing Status : FullAssist Level : Dependent# Assists : 2Functional Status from 10/13/2016 2:53 PM:# Assists : 2Functional Status from 10/13/2016 11:05 AM:Oriented To : PersonFunctional Status from 10/13/2016 9:17 AM:LOC : AlertOriented To : Person, Place,TimeWeight Bearing Status : FullAssist Level : Partial# Assists : 2Functional Status from 10/12/2016 10:28 PM:LOC : AlertWeight Bearing Status : PartialAssist Level : Dependent# Assists : 2 Vital Signs Hospital Vital Signs from 10/14/2016 10:21 AM:Height : 5/5 ft,inTemperature : 95.8 FPulse : 89Respirations : 20BP : 127/61Hospital Vital Signs from 10/14/2016 9:34 AM:Heart Rate : 87Hospital Vital Signs from 10/14/2016 7:18 AM:Height : 5/5 ft,inTemperature : 97.6 FPulse : 80Respirations : 20BP : 115/68Hospital Vital Signs from 10/14/2016 2:21 AM:Height : 5/5 ft,inTemperature : 97.6 FPulse : 82Respirations : 20BP : 120/64Hospital Vital Signs from 10/14/2016 12:06 AM: Weight : 89/ kgHeight : 5/5 ft,inHospital Vital Signs from 10/13/2016 10:48 PM: Height : 5/5 ft,inTemperature : 97.8 FPulse : 88Respirations : 20BP : 121/ 65Hospital Vital Signs from 10/13/2016 7:47 PM:Height : 5/5 ft,inTemperature : 97.6 FPulse : 93Respirations : 20BP : 127/73Hospital Vital Signs from 10/13/2016 4:18 PM:Height : 5/5 ft,inTemperature : 98.6 FPulse : 95Respirations : 18BP : 143/73Hospital Vital Signs from 10/13/2016 11:03 AM:Height : 5/5 ft, inTemperature : 96.5 FPulse : 86Respirations : 18BP : 116/58Hospital Vital Signs from 10/13/2016 8:21 AM:Height : 5/5 ft,inHospital Vital Signs from 2016 7:05 AM:Height : 5/5 ft,inTemperature : 97.0 FPulse : 82Respirations : 18BP : 128/66Hospital Vital Signs from 10/13/2016 3:34 AM:Height : 5/5 ft, inTemperature : 95.9 FPulse : 81Respirations : 20BP : 130/62Hospital Vital Signs from 10/12/2016 10:42 PM:Weight : 80.1/ kgHeight : 5/5 ft,inTemperature : 96.0 FPulse : 89Respirations : 20BP : 130/64Hospital Vital Signs from 10/12/2016 10:28 PM:Weight : 80.1/ kgHeight : 5/5 ft,in Results Chemistry from 10/14/2016 2:20 [id number] MMOL/L (136-145 MMOL/L) POTASSIUM3.7 MMOL/L (3.5-5.1 MMOL/L) [id number] MMOL/L (98-107 MMOL/L) HVJ383.9 MMOL/L (21.0-32.0 MMOL/L) *ANION GAP11.1 MMOL/L (8.0-16.0 MMOL/L) BUN18 MG/DL (7-18 MG/DL) CREATININE1.09 MG/DL H (0.55-1.02 MG/DL) *BUN/CREATININE RATIO16.5 (9.1-17.0 ) ZQCQVMM01 MG/DL (65-99 MG/DL) *GFR EST NON AFR AIFGNWDS25 ML/MIN (Reference Range: not available) *GFR EST AFR AMER56 ML/MIN (Reference Range: not available) CALCIUM8.7 MG/DL (8.5-10.1 MG/DL) ALBUMIN3.6 GM/DL (3.4-5.0 GM/DL) MAGNESIUM2.2 MG/DL (1.8-2.4 MG/DL) PHOSPHORUS5.5 MG/DL H (2.6-4.7 MG/DL)Hematology from 10/14/2016 2:20 AMWBC8.5 X10e3/UL (3.6-11.2 X10e3/UL) RBC4.38 X10e6/UL (3.63-4.92 X10e6/UL) WELGOJXILD25.1 G/DL (11.0-14.3 G/DL) HMBHBYLZIH24.4 % H (31.2-41.9 %) *MCV96.8 FL (79.0-98.0 FL) *MCH32.2 PG (27.0-33.0 PG) *MCHC33.2 G/DL (32.0-36.0 G/DL) *RDW14.4 % (12.3-17.0 %) *RDWSD49.0 H (37.1-47.8 ) [id number] X10e3/UL (159-386 X10e3/UL) *MPV7.4 FL (7.4-10.4 FL) AUTOMATED DIFFPERFORMED (Reference Range: not available) SEGS62.8 % (Reference Range: not available) *PUOWPZGUZFC92.4 % (Reference Range: not available) *MONOCYTES9.2 % (Reference Range: not available) *EOSINOPHILS2.8 % (Reference Range: not available) *BASOPHILS0.8 % (Reference Range: not available) *ABSOLUTE NEUTROPHILS5.40 X10e3/UL (1.80-7.80 X10e3/UL) *ABSOLUTE LYMPHOCYTES2.10 X10e3/UL (1.00-3.00 X10e3/UL) *ABSOLUTE MONOCYTES0.80 X10e3/UL (0.30-1.00 X10e3/UL) *ABSOLUTE EOSINOPHILS0.20 X10e3/UL (0.00-0.50 X10e3/UL) *ABSOLUTE BASOPHILS0.10 X10e3/UL (0.00-0.20 X10e3/UL)Coagulation from 10/14/2016 2:20 AMPARTIAL THROMBOPLASTIN TIME46.7 SECONDS H (23.0-31.0 SECONDS)Coagulation from 10/13/2016 9:53 PMPARTIAL THROMBOPLASTIN TIME51.5 SECONDS H (23.0-31.0 SECONDS) Problems Encounter Diagnosis Accidental Fall Status:Active.Acute Pain Status:Active.Altered Mental Status Status:Active.Chest Pain Status:Active.Fall Risk Status:Active.History of Hypertension Status:Active.Mobility Impairment Status:Active.Parkinson's Disease Status:Active.Skin Integrity Impairment Risk Status:Active.Additional Problems Acute Urinary Tract infection Comment:Problem resolved by [...] Comment:Problem resolved by Soarian Workflow upon Discharge, Status:Resolved.Gastroesophageal Reflux Disease Comment:Problem resolved by Soarian [...] Workflow upon Discharge, Status:Resolved. Encounters Encounter Diagnosis Accidental Fall Status:Active.Acute Pain Status:Active.Altered Mental Status Status:Active.Chest Pain Status:Active.Fall Risk Status:Active.History of Hypertension Status:Active.Mobility Impairment Status:Active.Parkinson's Disease Status:Active.Skin Integrity Impairment Risk Status:Active. Plan of Care Follow-up Appointments from 10/14/2016 12:34 PM:#1 Office appointment: : Dr. Thao#1 Date/Time : 10/20/2016 2:15 PMAddress # 1 : [facility]: [address] [place], [place]- or #2 Office appointment: : Dr. Hidalgo ([place] to schedule follow-up appointmenr for 1-2 weeks)Treatment Plan from 10/13/2016 5:30 PM:Care Management Note : BODY,TD,TH,BUTTON,INPUT,SELECT, TEXTAREA{FONT-SIZE: 10pt; FONT-FAMILY: [employer],Helvetica; COLOR: black;} P,DIV,UL, OL,BLOCKQUOTE{MARGIN-BOTTOM: 0px; MARGIN-TOP: 0px;} BODY{MARGIN: 5px;} Patient admitted initially under outpatient observation status after presenting to the ED after sustaining a fall when reaching across her bedside table. No acute injury identified in relation to fall. During the examination, it was brought to the ED Dr's attention that the patient had been having intermittent chest pain that felt like a band across her chest. Serial troponin elevated @ 0.172. POC was for cont cardiac monitoring, serial troponin/EKG's et stress test. Patient's stress test cameback significantly abnormal. Patient will need cardiac cath. Due to patient's abnormal stress testet anticipated LOS > 2 midnights, an order was received to change patient to inpatient status. Patient resides at [facility]. TAMEZ was not given with status change completed prior to her 24 hrs observation status.Treatment Plan from 10/13 4:30 PM:Care Management Note : BODY,TD,TH,BUTTON,INPUT,SELECT,TEXTAREA{ FONT-SIZE: 10pt; FONT-FAMILY: [employer],Helvetica; COLOR: black;} P,DIV,UL,OL, BLOCKQUOTE{MARGIN-BOTTOM: 0px; MARGIN-TOP: 0px;} BODY{MARGIN: 5px;} Per chart review, patient is from [facility] and is anticipated to return there. [facility] contacted them to inform them of possible dc tomorrow per hospitalist. Procedures Completed Percutaneous Endoscopic Gastrostomy, by MD MARKUS MAURO, on 2014 2:47 PMCompleted esophagogastroduodenoscopy with biopsy, by MD MICHAEL CONWAY, on 06/23/2014 9:48 AMCompleted Procedure Code: 45.16 Procedure Name: not valued, on 06/23/2014 12:00 AM Immunizations No immunizations administered or ordered. Hospital Course Hospital Discharge Instructions How to care for yourself at home from 10/14/2016 12:34 PM:Discharge Activity : Activity as toleratedDischarge Diet : Diet as toleratedDischarge Diet: : Cardiac dietCall your doctor if: : Fever over 101 F or severe chills,Chest pain or other unexplained symptoms,Tingling or numbness develops,A sudden increase or decrease in weight,You have persistent or worsening symptoms,If you have Heart Failure and you gain 3 pounds within 1 week or your symptoms worsen. ( Weigh at home tomorrow morning)Specific Discharge Teaching Instructions provided : : NoDischarge on Warfarin : No Allergies, Adverse Reactions, Alerts This section is dental sales representative of the current allergy information, at the time of the CCD generation. In the case of regeneration of the CCD, the allergy information may not reflect the state of known allergies at the time of the CCD' s subject visit. Phenergan causes Unknown.Remeron causes Unknown.Sulfa (Sulfonamide Antibiotics) causes Unknown.Reglan causes Unknown.Bactrim causes unspecified.Neurontin causes unspecified.opium tincture causes unspecified.No Latex Allergy.No IV Contrast Allergy.No Known Food Allergies. Medication It is the responsibility of the patient or patient dental sales representative to confirm the list of medicationswith either the patient's personal care provider or the patient's follow-up care provider to ensure the patient has an appropriate list of medications to take at home. Discharge medicationsNew medicationsatorvastatin 40 mg Tablet, Ordered By: STANISLAW SOUZA MD Directions: 1 tablet oral daily at bedtime carvedilol (Coreg) 3.125 mg Tablet, Ordered By: STANISLAW SOUZA MD Directions: 1 tablet oral twice a day cephalexin 500 mg Capsule, Ordered By: STANISLAW SOUZA MD Directions: 1 capsule oral twice a day Additional Instructions: End Date 10/19/16 Continued medicationsacetaminophen (Acetaminophen Extra Strength) 500 mg Tablet , Ordered By: STANISLAW SOUZA MD Directions: 2 tablet oral three times a day amantadine HCl 100 mg Capsule, Ordered By: STANISLAW SOUZA MD Directions: 1 capsule oral daily every morning amLODIPine 5 mg Tablet, Ordered By: STANISLAW SOUZA MD Directions: 1 tablet oral daily aspirin (Antelmo Chewable Aspirin) 81 mg tablet,chewable, Ordered By: STANISLAW SOUZA MD Directions: 1 tablet oral daily busPIRone 15 mg Tablet, Ordered By: STANISLAW SOUZA MD Directions: 1.5 tablet oral twice a day carbidopa-levodopa 25 mg-100 mg Tablet, Ordered By: STANISLAW SOUZA MD Directions: 2 tablet oral four times daily cholecalciferol (vitamin D3) (Vitamin D3) 1,000 unit Tablet, Ordered By: STANISLAW SOUZA MD Directions: 2 tablet oral daily with breakfast diclofenac sodium 1 % Gel, Ordered By: STANISLAW SOUZA MD Directions: 1 application topical three times a day for pain-mild Additional Instructions: Apply to back of neck and on lower shoulders and chest area. divalproex 500 mg Tablet Extended Release 24 hr, Ordered By: STANISLAW SOUZA MD Directions: 1 tablet oral daily at bedtime gabapentin 100 mg Capsule, Ordered By: STANISLAW SOUZA MD Directions: 1 capsule oral daily at bedtime lansoprazole (PrevACID SoluTab) 30 mg tablet,disintegrat, delay rel, Ordered By : STANISLAW SOUZA MD Directions: 1 tablet oral daily before breakfast levothyroxine 137 mcg Tablet, Ordered By: STANISLAW SOUZA MD Directions: 1 tablet oral daily before breakfast lubiprostone (Amitiza) 24 mcg Capsule, Ordered By: STANISLAW SOUZA MD Directions: 1 capsule oral daily every morning mupirocin 2 % Ointment, Ordered By: STANISLAW SOUZA MD Directions: 1 application topical daily Additional Instructions: Apply to Peg tube site polyethylene glycol 3350 (Miralax) 17 gram Powder in Packet, Ordered By: STANISLAW SOUZA MD Directions: 1 packet oral twice a day ranitidine HCl (ZANtac) 150 mg Tablet, Ordered By: STANISLAW SOUZA MD Directions: 1 tablet oral twice a day sucralfate (CarafATE) 1 gram/10 mL Suspension, Ordered By: STANISLAW SOUZA MD Directions: 10 mL oral daily every morning venlafaxine (Effexor XR) 150 mg capsule,extended release 24hr, Ordered By: STANISLAW SOUZA MD Directions: 1.5 capsule oral bedtime Stopped medicationscyclobenzaprine 10 mg Tablet Directions: 1 tablet oral three times a day PRN pain LORazepam 0.5 mg Tablet Directions: 1 tablet oral every six hours PRN ANXIETY LORazepam 1 mg Tablet Directions: 1 tablet oral daily furosemide 20 mg Tablet Directions: 1 tablet oral daily traMADol 50 mg Tablet Directions: 1 tablet oral every four hours PRN pain
--- OUTSIDE RECORDS SUMMARY | 2017-02-20 19:06 | External Medical Summary ---
:1935 Author Name GENERATED, SYSTEM Care Team Providers Name Role Phone MD MONICA, AYUSH Primary Care Provider Unavailable Reason For Visit Chief Complaint R13.14 Social History Functional Status Vital Signs Results Problems Encounter Diagnosis No relevant problems exist. Additional Problems Acute Urinary Tract infection Comment:Problem resolved by Soarian Workflow upon Discharge, Status:Resolved.Adult Failure to Thrive Syndrome Comment:Problem resolved by Soarian Workflow upon Discharge, Status:Resolved.Altered Mental Status Comment:Problem resolved by Soarian Workflow upon Discharge, Status: Resolved.Anxiety Comment:Problem resolved by Soarian Workflow upon Discharge, Status:Resolved.Dehydration Comment:Problem resolved by Soarian Workflow upon Discharge, Status:Resolved.Dehydration Comment:Problem resolved by Soarian Workflow upon [...] resolved by Soarian Workflow upon Discharge, Status: Resolved.Hypothyroidism Comment:Problem resolved by Soarian Workflow upon Discharge, Status:Resolved.Mobility Impairment Comment:Problem resolved by Soarian Workflow upon Discharge, Status:Resolved.Nutritional Deficiency Comment: Problem resolved by Soarian Workflow upon Discharge, Status:Resolved.Pain [...] Hospital Discharge Instructions Allergies, Adverse Reactions, Alerts Bactrim causes unspecified.Neurontin causes unspecified.opium tincture causes unspecified.Latex Allergy has not been assessed.IV Contrast Allergy has not been assessed.No Known Food Allergies. Medication Medication reconciliation has not been performed.
--- OUTSIDE RECORDS SUMMARY | 2017-02-20 19:06 | External Medical Summary ---
:1935 Author Name GENERATED, SYSTEM Care Team Providers Name Role Phone MD MONICA, AYUSH Primary Care Provider Unavailable Reason For Visit Chief Complaint FALL Social History Functional Status Vital Signs Results DX Radiology from 01/19/2016 2:48 PMHAND RIGHT 3 VIEWSHistory: Right hand pain Technique: 3view hand Priors: None. Findings: There is no fracture. There is no dislocation. The distal radius and ulna appear intact. There is mild diffuse osteophyte formation and joint space narrowing involving the PIP and DIP joints of the 1st through 5th digits. The MCP joint spaces appear well aligned and maintained. Soft tissue swelling is seen over the radial aspect of the 2nd proximal interphalangeal joint as well as along the ulnar aspect of the 5th MCP joint. No radiopaque foreign bodies are seen. Diffuse osteopenia. Impression: No acute fracture or dislocation of the right hand. 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 Diffuse osteopenia. Electronically signed by: ALFONSO SHELLEY Dictated: 01/19/2016 15:34 KNEE BILATERAL 3 VIEWSHistory: Fall and bilateral knee pain. Technique: Three views right knee. Three views left knee. Priors: February 23, 2014 Findings: Right Knee: Mild medial tibial femoral and patellofemoral osteophytes are seen. Joint spaces are otherwise well aligned and maintained. No joint effusion. Extensive vascular calcification. No acute fracture. Left knee: Mild medial tibiofemoral osteophytesand patellofemoral osteophytes are seen. Joint spaces are otherwise well aligned and maintained. No joint effusion. Extensive vascular calcification. No acute fracture. Impression: Mild bilateral knee osteoarthritis without acute fracture or dislocation of the right or left knee. Electronically signed by: ALFONSO SHELLEY Dictated: 01/19/2016 15:31CT Scan from 01/19/2016 2:31 PMCT CEREBRAL W/O CONTRASTHistory: Head injury Priors: None. Findings: Mild symmetric prominence of the ventricles and subarachnoid spaces. Old lacunar type right caudate head infarcts are seen. Mild patchy supratentorial white matter hypodensities are seen compatible with mild nonspecific white matter disease. Ayala-white matter interfaces are otherwise maintained. No acute intracranial hemorrhage or extra-axial fluid collection is identified. There is no mass-effect, midline shift, or herniation. A large right frontal scalp hematoma/contusion is seen. Calvarium appears intact. Visualized mastoid air cells and paranasal sinuses are well aerated. Impression: Large right frontal scalp hematoma/ contusion without calvarial fracture or acute intracranial hemorrhage. Mild generalized cerebral atrophy, old right caudate head lacunar infarcts, and mild supratentorial nonspecific white matter disease which is likely related to chronic small vessel ischemic changes. . Electronically signed by: ALFONSO SHELLEY Dictated: 01/19/2016 15:00 CT FACIAL BONES W/O CONTRASTHistory: Fall with head and face injury. Priors: None. Findings: Facial Bones: A nondisplaced left nasal bone fracture is present (series 2, image 36). Remaining facial bones are intact. There is no evidence of an orbital fracture. Sinuses and Mastoids: Unremarkable. Globes, extraocular muscles, optic nerves and retrobulbar fat: Normal. Mandible: Intact. Soft Tissues: Large frontal scalp hematoma/contusion is partially visualized and better characterized on same-day head CT. Impression: 1. Nondisplaced left nasal bone fracture. No additional facial bone fracture or evidence of orbital hemorrhage. 2. Large right frontal scalp contusion/ hematoma is better evaluated on same-day head CT. Electronically signed by: ALFONSO SHELLEY Dictated: 01/19/2016 15:03 CT SPINE CERVICAL W/O CONTRASTHistory: Fall and head injury Priors: None. Findings: There is straightening of the normal cervical lordosis. There is subtle anterior positioning of the C4 vertebral body on C5 of 1-2 millimeters with otherwise maintained cervical vertebral body alignment. This appears subtly different in positioning from the comparison examination of October 06, 2014. Vertebral body heights are well maintained. Gwtm-cj-klfaflow multilevel marginal vertebral body osteophytes are seen and not significantly changed. The paraspinal soft tissues are unremarkable. There is no evidence of a hematoma within the cervical spinal canal. C2-C3 through C4-C5: No spinal canal or neural foraminal stenosis. C5-C6: Disc degeneration with large posterior disc osteophyte complex and facet and uncovertebral hypertrophy resulting in moderate bilateral neural foraminal and mild central spinal canal stenosis. C6-C7 through C7-T1: No spinal canal or neural foraminal stenosis. Impression: 1. No acute cervical spine fracture. Subtle anterolisthesis of C4 on C5 which is felt likely due to differences patient positioning from the comparison examination of September of 2014. If concern for ligamentous injury, MRI would be of benefit for further characterization. This finding was discussed with the staff ED physician by telephone at 3:24 p.m. on 01/19/2016. 2. Unchanged mild cervical spondylosis at C5-6 resulting unchanged mild central spinal canal and moderate bilateral neural foraminal stenosis. Electronically signed by: ALFONSO SHELLEY Dictated: 01/19/2016 15:25 Problems Encounter Diagnosis No relevant problems exist. [...] 2:47 PMCompleted esophagogastroduodenoscopy with biopsy, by MD ZORAIDA MICHAEL, on 06/23/2014 9:48 AMCompleted Procedure Code: 45.16 [...]
--- OUTSIDE RECORDS SUMMARY | 2017-02-20 19:06 | External Medical Summary | Summary of Care ---
:1935 Author Name Derick Luna Address [address], [place] [id number] Care Team Providers Name Role Phone Keesha Downey, Adali Lim Unavailable Unavailable Derick Luna Unavailable Unavailable Kiley Romero APRN Unavailable Unavailable Adali Richards M.D. Unavailable Unavailable Raphael Thao Unavailable Unavailable [place], [place] ([place]) Unavailable Unavailable Unavailable Unavailable Unavailable Functional Status [...] Active Parkinson's disease (332.0, G20) Status: Active Benign paroxysmal vertigo of left [...] Quantity: 30 Refills: 2 Keesha Downey, Raphael Bro Start Active Voltaren 1 % Transdermal Gel [...] Quantity: 40 Refills: 5 Keesha Downey Raphael Bro Start 10-Jun-2015 Active Amitiza 8 MCG Oral Capsule TAKE ONE TABLET TWICE DAILY WITH MEALS Quantity: 60 Refills: 5 Derick Luna Start 24-Feb-2016 Active Bismuth Subsalicylate 262 MG Oral Tablet Chewable USE DIRECTED. Refills: 0 Start 26-Jun-2016 Active Allergies and Adverse Reactions Name Dates [...] on: 18-Jan-2008 Influenza on: 05-Mar-2010 Lot #: [id number] Influenza on: 17-Jan-2013 Pneumo (Pneumovax) on: 23-Jan-2016 [...] smoker Vital Signs Date Test Result Details 26-Jun-2016 14:14 BP Systolic 132 mm[Hg] Status: Comments: Location: ; Position: BP Diastolic 76 mm[Hg] Status: Comments: Location: ; Position: Heart Rate 99 /min Status: Comments: Location: ; Results Date Description Value Details Results not documented Plan of Care Name Dates Details Planned Observations Planned Goals not documented Planned Encounters Appointment; Provider: Vimal Richards M.D. On 04-Aug-2016 14:15 Appointment; Provider: Camacho Lawson On 22-Jul-2016 13:30 Instructions Name Dates Details Instructions not documented Encounters Appointment; Vimal Velasquez M.A.|C.C.C.-A On 12-May-2016 Encounter [...] Problem not documented 13:30 Appointment; Tra Rico M.D.|F.A.C.S.|Nasreen,PRANAY|Nasreen,PRANAY, On Encounter Diagnosis: Problem not documented 11:30 Appointment; Billy Golden M.D.|Vernell|PRANAY Downey|Nasreen,PRANAY, On Encounter Diagnosis: Problem not documented 10:30 [...] Problem not documented 14:30 Appointment; Jo Ann Crowe, P.A. On 24-Aug-2014 Encounter Diagnosis: Problem not documented 13:15"
--- OUTSIDE RECORDS SUMMARY | 2017-02-20 19:06 | External Medical Summary ---
:1935 Author Name GENERATED, SYSTEM Care Team Providers Name Role Phone MD MONICA, AYUSH Primary Care Provider Unavailable Reason For Visit Chief Complaint CHEST PAIN Social History Functional Status Vital Signs Results Urinalysis from 08/01/2014 9:55 AMURINE COLORYELLOW (STRAW/YELL/DK YELL ) URINE APPEARANCECLEAR (CLEAR ) URINE PH8.0 (5.0-8.0 ) URINE SPECIFIC GRAVITY1.015 (<=1.005->=1.030 ) URINE GLUCOSENEGATIVE MG/DL (NEGATIVE MG/DL) URINE BILIRUBINNEGATIVE (NEGATIVE ) URINE KETONESTRACE MG/DL A (NEGATIVE MG/DL) URINE BLOODNEGATIVE (NEGATIVE ) URINE PROTEINNEGATIVE MG/DL (NEGATIVE MG/DL) URINE UROBILINOGEN0.2 EU/DL (0.2-1.0 EU/DL) URINE NITRITESNEGATIVE (NEGATIVE ) *URINE LEUKOCYTESNEGATIVE (NEGATIVE )DX Radiology from 08/01/2014 8:32 AMCHEST 1 VIEWDATE OF EXAM: Aug 01 2014 8:43AM Proc: DG 0066 - CHEST 1 VIEW CPT Code(s): 73371-; ; ; INDICATION / CLINICAL HISTORY: \E\Chest Pain FINDINGS: A single view of the chest was obtained. The heart size and pulmonary vasculature appear within normal limits. There is no evidence of pneumothorax, pleural effusion, or acute infiltrate. The osseous structures appear intact. IMPRESSION: Unremarkable chest radiograph. Problems Encounter Diagnosis No relevant problems exist. Additional Problems Anxiety Comment:Problem resolved by [facility] Workflow [...] problems exist. Plan of Care Procedures Completed esophagogastroduodenoscopy with biopsy, by MD MICHAEL CONWAY, on 9:48 AMCompleted Procedure Code: 45.16 Procedure Name: [...]
--- OUTSIDE RECORDS SUMMARY | 2017-02-20 19:06 | External Medical Summary ---
:1935 Author Name GENERATED, SYSTEM Care Team Providers Name Role Phone MD MONICA, AYUSH Primary Care Provider Unavailable Reason For Visit Chief Complaint 02/24/16 DYSPHAGIA Social History Functional Status Vital Signs Results [...]
--- OUTSIDE RECORDS SUMMARY | 2017-02-20 19:07 | External Medical Summary ---
:1935 Author Name GENERATED, SYSTEM Care Team Providers Name Role Phone MD MONICA, AYUSH Primary Care Provider Unavailable Reason For Visit Chief Complaint 02/24/16 DYSPHAGIA Social History Functional Status Vital Signs Results DX Radiology from 03/19/2016 11:00 AMSwallowing Function w/VideoHistory: Dysphagia Technique: Video fluoroscopy was performed in conjunction with the department speech pathology. 1.6 minutes of fluoroscopy time was utilized. A single spot film was obtained. Priors: None. Findings: The oral phase of swallowing is within normal limits, however the patient had difficulty swallowing a barium pill with anterior to posterior propulsion of the pill. There is moderate weakening of the pharyngeal phase with decreased laryngeal elevation, pharyngeal contractions and minimal epiglottic movement. There is moderate residual noted within the vallecula. There is mild penetration with thin liquids without aspiration noted. Impression: [id number] dysphagia secondary to weakening of the pharyngeal phase with mild penetration with thin liquids without aspiration Electronically signed by: Kristi Oliver MD Dictated: 03/19/2016 11:41 Problems Encounter Diagnosis No relevant problems exist. [...] Procedures Completed Percutaneous Endoscopic Gastrostomy, by MD ZUNILDA APARICIO, on 2014 2:47 PMCompleted esophagogastroduodenoscopy with biopsy, by MD ZORAIDA [facility], on 06/23/2014 9:48 AMCompleted Procedure Code: 45.16 Procedure Name: not valued, on 06/23/2014 12:00 AM Immunizations No immunizations administered or ordered. Hospital Course Hospital Discharge Instructions Allergies, Adverse Reactions, Alerts Bactrim causes unspecified.Neurontin causes unspecified.opium tincture causes unspecified.No Latex Allergy.No IV Contrast Allergy.No Known Food Allergies. Medication Medication reconciliation has not been performed.
--- OUTSIDE RECORDS SUMMARY | 2017-02-20 19:07 | External Medical Summary | Summary of Care ---
:1935 Author Name Jo Ann Reina Address [address] [facility] Unavailable [place], [place] [id number] Care Team Providers Name Role Phone Adali Thao M.D. Unavailable Unavailable Adali Richards M.D. Unavailable Unavailable Raphael Thao Primary Care Provider Unavailable [place] [facility] ([place]) Referring Provider Unavailable Unavailable Unavailable Unavailable Functional [...] Administered on:18-Jan-2008 Influenza Administered on:05-Mar-2010 Lot #: [id number] Influenza Administered on:17-Jan-2013 Family History Unknown Family [...]
--- OUTSIDE RECORDS SUMMARY | 2017-02-20 19:07 | External Medical Summary | Summary of Care ---
:1935 Author Name Jo Ann Reina Address [address], [place] [phone] Care Team Providers Name Role Phone Adali Thao M.D. Unavailable Unavailable Adali Richards M.D. Unavailable Unavailable Raphael Thao Primary Care Provider Unavailable [place], [place] Referring Provider Unavailable Unavailable Unavailable Unavailable Functional [...] TAKE 1 TABLET EVERY 6 HOURS NEEDED. Refills: 0 Raphael Thao M.D. Started 26-Jul-2014 ActivePantoprazole Sodium 40 MG Oral Tablet Delayed [...] Refills: 0 Raphael Thao M.D. Started 26-Jun-2014 Active Allergies and Adverse Reactions Name Dates [...] Administered on:18-Jan-2008 Influenza Administered on:05-Mar-2010 Lot #: [id number] Influenza Administered on:17-Jan-2013 Family History Unknown Family [...] Encounter Diagnosis: Problem not documented 14:30 Appointment; aRphael Thao On 15-Aug-2013 Encounter Diagnosis: Problem not [...]
--- OUTSIDE RECORDS SUMMARY | 2017-02-20 19:07 | External Medical Summary ---
[...] Never Smoker Functional Status Functional Status from 10/28/2014 8:10 PM:LOC : AlertOriented [...] Vital Signs Hospital Vital Signs from 10/29/2014 7:57 AM:Height : 5/5 ft,inTemperature : 97.8 FPulse : 90Respirations : 20BP : 118/59Hospital Vital Signs from 10/29/2014 12:15 AM:Height : 5/5 ft,inPulse : 83BP : 118/69Hospital Vital Signs from 10/28/2014 11: 06 PM:Height : 5/5 ft,inTemperature : 98.4 FPulse : 83Respirations : 18BP : 93/ 46Hospital Vital Signs from 10/28/2014 6:33 PM:Height : 5/5 ft,inTemperature : 97.3 FPulse : 89Respirations : 17BP : 140/64Hospital Vital Signs from 10/28/2014 1 :58 PM:Height : 5/5 ft,inTemperature : 96.7 FPulse : 93Respirations : 16BP : 128 /60Hospital Vital Signs from 10/28/2014 11:08 AM:Height : 5/5 ft,inTemperature : 98.0 FPulse : 93Respirations : 16BP : 112/62Hospital Vital Signs from 10/28/2014 7 :17 AM:Height : 5/5 ft,inTemperature : 97.4 FPulse : 95Respirations : 16BP : 122 /62Hospital Vital Signs from 10/27/2014 3:23 PM:Height : 5/5 ft,inTemperature : 97.9 FPulse : 92Respirations : 16BP : 123/58Hospital Vital Signs from 10/27/2014 10:19 AM:Height : 5/5 ft,inTemperature : 98.3 FPulse : 86Respirations : 18BP : 118/57Hospital Vital Signs from 10/27/2014 7:32 AM:Height : 5/5 ft,inTemperature : 97.8 FPulse : 93Respirations : 18BP : 140/67Hospital Vital Signs from 2014 9:17 PM:Height : 5/5 ft,inTemperature : 98.1 FPulse : 81Respirations : 18BP : 119/67Hospital Vital Signs from 10/26/2014 6:40 PM:Height : 5/5 ft, inTemperature : 96.2 FPulse : 90Respirations : 18BP : 121/58Hospital Vital Signs from 10/26/2014 2:07 PM:Height : 5/5 ft,inTemperature : 98.4 FPulse : 87Respirations : 20BP : 116/57Hospital Vital Signs from 10/26/2014 10:46 AM: Height : 5/5 ft,inTemperature : 97.8 FPulse : 95Respirations : 20BP : 134/ 75Hospital Vital Signs from 10/26/2014 10:20 AM:Height : 5/5 ft,inHospital Vital Signs from 10/26/2014 7:14 AM:Height : 5/5 ft,inTemperature : 98.5 FPulse : 92Respirations : 20BP : 143/71Hospital Vital Signs from 10/26/2014 4:27 AM: Height : 5/5 ft,inTemperature : 98.1 FPulse : 98Respirations : 20BP : 133/ 60Hospital Vital Signs from 10/25/2014 9:25 PM:Height : [...] : 134/73 Results Chemistry from 10/29/2014 6:05 [id number] MMOL/L (136-145 MMOL/L) POTASSIUM4.3 MMOL/L (3.5-5.1 MMOL/L) GTMDHNFG827 MMOL/L H (98-107 MMOL/L) ZRE593.4 MMOL/L (21.0-32.0 MMOL/L) ANION GAP4.6 MMOL/L L (8.0-16.0 MMOL/L) BUN17 MG/DL (7-18 MG/DL) CREATININE0.67 MG/DL (0.55-1.02 MG/DL) BUN/CREATININE RATIO25.4 H (9.1-17.0 ) ZLWBCNN262 MG/DL H (65-99 MG/DL) GFR EST NON AFR IIYEWBRB72 ML/MIN GFRA EST AFR AMER>90 ML/MIN CALCIUM8.3 MG/DL L (8.5-10.1 MG/DL) ALBUMIN2.6 GM/DL L (3.4-5.0 GM/DL) MAGNESIUM2.1 MG/DL (1.8-2.4 MG/DL) PHOSPHORUS4.3 MG/DL (2.5-4.9 MG/DL)Chemistry from 10/28/2014 5:45 [id number] MMOL /L (136-145 MMOL/L) POTASSIUM4.0 MMOL/L (3.5-5.1 MMOL/L) JZOPQATZ045 MMOL/L H (98-107 MMOL/L) RGQ070.1 MMOL/L (21.0-32.0 MMOL/L) ANION GAP5.9 MMOL/L L (8.0-16.0 MMOL/L) BUN14 MG/DL (7-18 MG/DL) CREATININE0.71 MG/DL (0.55-1.02 MG/DL) BUN/CREATININE RATIO19.7 H (9.1-17.0 ) ZNMQAEU912 MG/DL H (65-99 MG/DL) GFR EST NON AFR CISTMOPJ50 ML/MIN GFRA EST AFR AMER>90 ML/MIN CALCIUM8.2 MG/DL L (8.5-10.1 MG/DL) ALBUMIN2.4 GM/DL L (3.4-5.0 GM/DL) MAGNESIUM2.0 MG/DL (1.8-2.4 MG/DL) PHOSPHORUS3.2 MG/DL (2.5-4.9 MG/DL)Chemistry from 10/27/2014 5:08 BPEKIJNV060 MMOL /L (136-145 MMOL/L) POTASSIUM4.1 MMOL/L (3.5-5.1 MMOL/L) NDNNEJLP242 MMOL/L H (98-107 MMOL/L) XBA101.0 MMOL/L (21.0-32.0 MMOL/L) ANION GAP2.0 MMOL/L L (8.0-16.0 MMOL/L) BUN18 MG/DL (7-18 MG/DL) CREATININE0.77 MG/DL (0.55-1.02 MG/DL) BUN/CREATININE RATIO23.4 H (9.1-17.0 ) MEUSKTL557 MG/DL H (65-99 MG/DL) GFR EST NON AFR CUTOLQEL94 ML/MIN GFRA EST AFR AMER86 ML/MIN CALCIUM8.2 MG/DL L (8.5-10.1 MG/DL) ALBUMIN2.4 GM/DL L (3.4-5.0 GM/DL) MAGNESIUM2.2 MG/DL (1.8-2.4 MG/DL) PHOSPHORUS4.0 MG/DL (2.5-4.9 MG/DL)Chemistry from 10/26/2014 4:25 ARXBOHMI473 MMOL/L (136-145 MMOL/L) POTASSIUM4.1 MMOL/L (3.5-5.1 MMOL/L) NFRPRWMH875 MMOL/L H (98-107 MMOL/L) RCW279.3 MMOL/L (21.0-32.0 MMOL/L) ANION GAP5.7 MMOL/L L (8.0-16.0 MMOL/L) BUN12 MG/DL (7-18 MG/DL) CREATININE0.68 MG/DL (0.55-1.02 MG/DL) BUN/CREATININE RATIO17.6 H (9.1-17.0 ) ALSPLYA613 MG/DL H (65-99 MG/DL) GFR EST NON AFR FFHWCLXQ60 ML/MIN GFRA EST AFR AMER>90 ML/MIN CALCIUM8.5 [...] PHOSPHORUS4.7 MG/DL (2.5-4.9 MG/DL)Chemistry from 10/25/2014 8:13 TGAPFDYA489 MMOL/L (136-145 MMOL/L) POTASSIUM3.9 MMOL/L (3.5-5.1 MMOL/L) GEOORLRW222 MMOL/L H (98-107 MMOL/L) XMI213.9 MMOL/L (21.0-32.0 MMOL/L) ANION GAP8.1 MMOL/L (8.0-16.0 MMOL/L) BUN16 MG/DL (7-18 MG/DL) CREATININE0.76 MG/DL (0.43-0.83 MG/DL) BUN/CREATININE RATIO21.1 H (9.1-17.0 ) EYDWPIF55 MG/DL (65-99 MG/DL) GFR EST NON AFR BNYKLOOB37 ML/MIN GFRA EST AFR AMER88 ML/MIN CALCIUM8.7 MG/DL (8.5-10.1 MG/DL) ALBUMIN3.0 GM/DL L (3.4-5.0 GM/DL) MAGNESIUM2.1 MG/DL (1.8-2.4 MG/DL) PHOSPHORUS2.1 MG/DL L (2.5-4.9 MG/DL)Chemistry from 10/24/2014 6:30 LURFNXVD550 MMOL/L (136-145 MMOL/L) POTASSIUM3.8 MMOL/L (3.5-5.1 MMOL/L) ZFGARUWE619 MMOL/L (98-107 MMOL/L) CHD320.1 MMOL/L (21.0-32.0 MMOL/L) ANION GAP5.9 MMOL/L L (8.0-16.0 MMOL/L) BUN19 MG/DL H (7-18 MG/DL) CREATININE0.58 MG/DL (0.43-0.83 MG/DL) BUN/CREATININE RATIO32.8 H (9.1-17.0 ) BNURJIL508 MG/DL H (65-99 MG/DL) GFR EST NON AFR ZADSLFPC42 ML/MIN GFRA EST AFR AMER>90 ML/MIN CALCIUM8.3 [...] PHOSPHORUS4.3 MG/DL (2.5-4.9 MG/DL)Chemistry from 10/23/2014 7:40 OSRXCOGX800 MMOL/L (136-145 MMOL/L) POTASSIUM3.6 MMOL/L (3.5-5.1 MMOL/L) AURDOAJK439 MMOL/L (98-107 MMOL/L) VUC046.9 MMOL/L (21.0-32.0 MMOL/L) ANION GAP4.1 MMOL/L L (8.0-16.0 MMOL/L) BUN15 MG/DL (7-18 MG/DL) CREATININE0.70 MG/DL (0.43-0.83 MG/DL) BUN/CREATININE RATIO21.4 H (9.1-17.0 ) RXBCHSL44 MG/DL (65-99 MG/DL) GFR EST NON AFR SYYFXZHZ48 ML/MIN GFRA EST AFR AMER>90 ML/MIN CALCIUM8.5 MG/DL (8.5-10.1 MG/DL) ALBUMIN2.9 GM/DL L (3.4-5.0 GM/DL) MAGNESIUM2.3 MG/DL (1.8-2.4 MG/DL) PHOSPHORUS4.3 MG/DL (2.5-4.9 MG/DL)Chemistry from 10/22/2014 4:15 EFKJUTYP229 MMOL/L (136-145 MMOL/L) POTASSIUM3.6 MMOL/L (3.5-5.1 MMOL/L) QWNZXEGT806 MMOL/L (98-107 MMOL/L) LAV765.8 MMOL/L H (21.0-32.0 MMOL/L) ANION GAP0.2 MMOL/L L (8.0-16.0 MMOL/L) BUN14 MG/DL (7-18 MG/DL) CREATININE0.61 MG/DL (0.43-0.83 MG/DL) BUN/CREATININE RATIO23.0 H (9.1-17.0 ) VTVUTMG661 MG/DL H (65-99 MG/DL) GFR EST NON AFR LSFTYERU33 ML/MIN GFRA EST AFR AMER>90 ML/MIN CALCIUM8.4 [...] PHOSPHORUS4.4 MG/DL (2.5-4.9 MG/DL)Chemistry from 10/21/2014 5:45 PNRGOBUB601 MMOL/L (136-145 MMOL/L) POTASSIUM3.9 MMOL/L (3.5-5.1 MMOL/L) CKAGFXRL241 MMOL/L H (98-107 MMOL/L) AQP535.4 MMOL/L (21.0-32.0 MMOL/L) ANION GAP3.6 MMOL/L L (8.0-16.0 MMOL/L) BUN10 MG/DL (7-18 MG/DL) CREATININE0.55 MG/DL (0.43-0.83 MG/DL) BUN/CREATININE RATIO18.2 H (9.1-17.0 ) TKHONCG26 MG/DL (65-99 MG/DL) GFR EST NON AFR MONTSERRATIAN>90 ML/MIN GFRA EST AFR AMER>90 ML/MIN CALCIUM8.5 MG/DL (8.5-10.1 MG/DL) ALBUMIN2.7 GM/DL L (3.4-5.0 GM/DL) MAGNESIUM2.3 MG/DL (1.8-2.4 MG/DL) PHOSPHORUS4.4 MG/DL (2.5-4.9 MG/DL)Chemistry from 10/20/2014 2:41 PMVALPROIC ACID67 MCG/ML (50-100 MCG/ML)Chemistry from 10/19/2014 7:25 GJZJUTKE666 MMOL/L ( 136-145 MMOL/L) POTASSIUM3.4 MMOL/L L (3.5-5.1 MMOL/L) PGMJMRDI471 MMOL/L (98-107 MMOL/L) ITV521.4 MMOL/L (21.0-32.0 MMOL/L) ANION GAP4.6 MMOL/L L (8.0-16.0 MMOL/L) BUN15 MG/DL (7-18 MG/DL) CREATININE0.78 MG/DL (0.43-0.83 MG/DL) BUN/CREATININE RATIO19.2 H (9.1-17.0 ) YKJYWFX212 MG/DL H (65-99 MG/DL) GFR EST NON AFR OHKPLJUV74 ML/MIN GFRA EST AFR AMER85 ML/MIN CALCIUM8.9 [...] (3.6-11.2 X10e3/UL) RBC3.57 X10e6/UL L (3.63-4.92 X10e6/UL) LOSDUYASXO94.8 G/DL (11.0-14.3 G/DL) WIUMHFFSPM11.3 % (31.2-41.9 %) MCV99.0 FL H (79.0-98.0 FL) MCH33.1 PG H (27.0-33.0 PG) MCHC33.5 G/DL (32.0-36.0 G/DL) RDW14.1 % (12.3-17.0 %) RDWSD49.0 H (37.1-47.8 ) AIRRPZZK998 X10e3/UL L (159-386 X10e3/UL) MPV9.0 FL (7.4-10.4 FL)Hematology from 10/24/2014 4:40 AMWBC7.8 X10e3/UL (3.6- 11.2 X10e3/UL) RBC3.46 X10e6/UL L (3.63-4.92 X10e6/UL) HUUOEHPFCL92.5 G/DL (11.0-14.3 G/DL) XBNLZOQVEI08.5 % (31.2-41.9 %) MCV99.8 FL H (79.0-98.0 FL) MCH36.2 PG H (27.0-33.0 PG) MCHC36.3 G/DL H (32.0-36.0 G/DL) RDW14.2 % (12.3-17.0 %) RDWSD49.4 H (37.1-47.8 ) VIGGMYFP808 X10e3/UL L (159-386 X10e3/UL) MPV8.6 FL (7.4-10.4 FL)Hematology from 10/21/2014 5:45 AMWBC9.7 X10e3/UL (3.6- 11.2 X10e3/UL) RBC3.62 X10e6/UL L (3.63-4.92 X10e6/UL) EDWKMJNSAM75.3 G/DL (11.0-14.3 G/DL) YHGCIBZLXJ77.3 % (31.2-41.9 %) ACG742.1 FL H (79.0-98.0 FL) MCH33.9 PG H (27.0-33.0 PG) MCHC33.8 G/DL (32.0-36.0 G/DL) RDW14.6 % (12.3-17.0 %) RDWSD50.8 H (37.1-47.8 ) JHXHARKO667 X10e3/UL L (159-386 X10e3/UL) MPV7.8 FL (7.4-10.4 FL)Hematology from 10/19/2014 7:25 PMWBC8.8 X10e3/UL (3.6- 11.2 X10e3/UL) RBC4.13 X10e6/UL (3.63-4.92 X10e6/UL) NUXHJTIIBT62.8 G/DL (11.0-14.3 G/DL) SVMLIYJFJW93.4 % (31.2-41.9 %) VVX718.3 FL H (79.0-98.0 FL) MCH33.4 PG H (27.0-33.0 PG) MCHC33.3 G/DL (32.0-36.0 G/DL) RDW14.3 % (12.3-17.0 %) RDWSD49.4 H (37.1-47.8 ) VSFVYQYO857 X10e3/UL (159-386 X10e3/UL) MPV7.8 FL (7.4-10.4 FL) AUTOMATED DIFFPERFORMED SEGS74.2 % XXOSDIMFEDO18.4 % MONOCYTES9.0 % EOSINOPHILS1.0 % BASOPHILS0.4 % ABSOLUTE NEUTROPHILS6.60 X10e3/UL (1.80-7.80 X10e3/UL) ABSOLUTE LYMPHOCYTES1.40 X10e3/UL (1.00-3.00 X10e3/UL) ABSOLUTE MONOCYTES0.80 X10e3/UL (0.30-1.00 X10e3/UL) ABSOLUTE EOSINOPHILS0.10 X10e3/UL (0.00-0.50 X10e3/UL) ABSOLUTE BASOPHILS0.00 X10e3/UL (0.00-0.20 X10e3/UL)Urinalysis from 10/20/2014 6: 10 PM Status: Final Result URINALYSIS Specimen Number: [id number] Sample Collection Date/Time: 10/20/2014 6:10 PM Specimen [...] from 10/20/2014 6:10 PMCULTURE URINE Specimen Number: [id number] Sample Collection Date/Time: 10/20/2014 6:10 PM Specimen [...] Problems Encounter Diagnosis Acute Urinary Tract infection Status:Active.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.Altered Mental Status Status:Active.Dehydration Status: Active.Dementia Status:Active.Dysphagia Status:Active.Fall Risk Status: Active.Hypertensive Disorder Status:Active.Hypothyroidism Status: Active.Mobility Impairment Status:Active.Nutritional Deficiency Status: Active.Parkinson's Disease Status:Active.Skin Integrity Impairment Risk Status: Active.Additional Problems Anxiety Comment:Problem resolved by [facility] [employer] upon Discharge, Status: Resolved.Gastroesophageal Reflux Disease Comment:Problem resolved by [facility] upon Discharge, Status:Resolved.Pain Comment:Problem resolved by [facility] upon Discharge, Status:Resolved.Vertigo Comment:Problem resolved by [facility] upon Discharge, Status:Resolved. 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 Plan of Care Treatment Plan from 10/26/2014 7:49 AM:Care Management Note [...] management to follow.Treatment Plan from 10/24/2014 1:43 PM: Care Management Note :Patient's daughter, Sandy, aware of palliative care order and in agreement. Referral made. Daughter plans for patient to return to [facility] at discharge. No needs voiced at this time.Treatment Plan from 12:23 PM:Care Management Note : catherine John - patient and family in agreement for palliative care. This RN talked with Dr Orozco he is in agreement if the family is. Order placed.Treatment Plan from 10/24/2014 9:50 AM: Care Management Note : awaiting PCP to round. possible feeding tube placement pending Dr Gonzalez discussion with patient and family today. patient continues to get IV TPN/Lipids. care management to follow. possible need for palliative care order if PCP agrees.Treatment Plan from 10/23/2014 8:44 AM:Care Management Note : talked at length with Dr Anderson. He feels this patient would not benefit from a PEG tube and should go possible hospice. Speech therapy noted. Dr Anderson and this RN came up with a plan to have Heating Mechanic talk with patient and family about possible transition to hospice vs PEG. continue TPN/Lipids at this time. care management to follow.Treatment Plan from 10/22/2014 10:50 AM: Care Management Note : continues TPN/Lipids. Poor PO intake/appetite. Daniel nazario continues to monitor labs. care management to follow.Treatment Plan from 10:25 AM:Care Management Note : Unable to visit with patient at this time. Chart reviewed and noted patient resides at [facility]. Anticipate return at discharge. Will follow and assist with needs as they arise. Procedures Completed Percutaneous Endoscopic Gastrostomy, by MD MARKUS MAURO, on 2014 2:47 PMCompleted esophagogastroduodenoscopy with biopsy, by MD [facility], on 06/23/2014 9:48 AMCompleted Procedure Code: 45.16 Procedure Name: not valued, on 06/23/2014 12:00 AM Immunizations No immunizations administered or ordered. Hospital Course Hospital Discharge Instructions How to care for yourself at home from 10/29/2014 8:52 AM:Call your doctor if: : Fever over 101 F or severe chills,Chest pain or other unexplained symptoms, Tingling or numbness develops,A sudden increase or decrease in weight,You have persistent or worsening symptoms,If you have Heart Failure and you gain 3 pounds within 1 week or your symptoms worsen. (Weigh at home tomorrow morning) Allergies, Adverse Reactions, Alerts Bactrim causes unspecified.Neurontin causes unspecified.opium tincture causes unspecified.No Latex Allergy.No IV Contrast Allergy.No Known Food Allergies. Medication It is the responsibility of the patient or patient medical representative to confirm the list of medicationswith either the patient's personal care provider or the patient's follow-up care provider to ensure the patient has an appropriate list of medications to take at home. Discharge medicationsNew medicationslansoprazole (PrevACID SoluTab) 30 mg tablet ,disintegrat, delay rel, Ordered By: AYUSH ANEDRSON MD Directions: 1 tablet gastrostomy (PEG) daily [...]
--- OUTSIDE RECORDS SUMMARY | 2017-02-20 19:07 | External Medical Summary | Summary of Care ---
:1935 Author Name Keesha Downey, Adali Lim Address [address], [place] [id number] Care Team Providers Name Role Phone Keesha Downey, Adali Lim Unavailable Unavailable Derick Luna Unavailable Unavailable Kiley Romero APRN Unavailable Unavailable Adali Richards M.D. Unavailable Unavailable Raphael Thao Unavailable Unavailable [facility], [place] ([place]) Unavailable Unavailable Unavailable Unavailable Unavailable Functional Status [...] Active Parkinson's disease (332.0, G20) Status: Active Esophageal reflux (530.81, K21.9) Status: Active Decreased appetite (783.0, R63.0) Status: Active Hypertension (401.9, I10) Status: Active Medications Name Dates Details Aspirin 81 MG TABS TAKE 1 TABLET DAILY. Refills: 0 Start -Dec-2010 Active Effexor XR 150 MG Oral Capsule Extended Release 24 Hour TAKE 1 CAPSULE DAILY. Refills: 0 Start Active MiraLax Oral Powder Refills: 0 Start -Apr-2014 Active Vitamin D 1000 UNIT CAPS Refills: 0 Start 22-May-2014 Active Depakote 500 MG Oral Tablet Delayed Release TAKE 1 TABLET DAILY. Refills: 0 Raphael Thao M.D. Adali Start 07-Feb-2013 Active Carbidopa-Levodopa ER 25-100 MG Oral Tablet Extended Release 1 tablet po QID Refills: 0 Maurice Downey Vimal Adali Start 08-Jun-2011 Active Levothyroxine Sodium 137 MCG Oral Tablet [...] Quantity: 30 Refills: 2 Keesha Downey Raphael Bro Start Active Voltaren 1 % [...] on: 18-Jan-2008 Influenza on: 05-Mar-2010 Lot #: [id number] Influenza on: 17-Jan-2013 Pneumo (Pneumovax) on: 23-Jan-2016 [...] smoker Vital Signs Date Test Result Details 21-Aug-2016 11:57 BP Systolic 120 mm[Hg] Status: Comments: Location: ; Position: BP Diastolic 60 mm[Hg] Status: Comments: Location: ; Position: Heart Rate 105 /min Status: Comments: Location: ; Physical Findings 96 Status: Comments: O2 Saturation 04-Aug-2016 14:43 BP Systolic 90 mm[Hg] Status: Comments: Location: ; Position: BP Diastolic 60 mm[Hg] Status: Comments: Location: ; Position: Heart Rate 80 /min Status: Comments: Location: ; Weight 178 lb Status: Body Mass Index Calculated 30.55 kg/m2 Status: Body Surface Area Calculated 1.86 m2 Status: Results Date Description Value Details Results not documented Plan of Care Name Dates Details Planned Observations Planned Goals not documented Planned Encounters Appointment; Provider: Vimal Richards M.D. On 05-Nov-2016 14:15 Appointment; Provider: Camacho Lawson On 15:15 Instructions Name Dates Details Instructions not documented Encounters Appointment; Vimal Richards M.D. On 04-Aug-2016 Encounter [...] Problem not documented 13:30 Appointment; Tra Rico M.D.|F.A.C.SGorge|Nasreen,PRANAY|Nasreen,FACS, On Encounter Diagnosis: Problem not documented 11:30 [...] Diagnosis: Problem not documented 15:00 Appointment; Raphael hTao M.D. On 16-Nov-2014 Encounter Diagnosis: Problem not documented 11:30 Appointment; Vimal Richards M.D. On 13-Nov-2014 Encounter Diagnosis: Problem not documented 14:30 Appointment; Jo Ann Crowe P.A. On 24-Aug-2014 Encounter Diagnosis: Problem not documented 13:15"
--- OUTSIDE RECORDS SUMMARY | 2017-02-20 19:08 | External Medical Summary | Summary of Care ---
:1935 Author Name Derick Luna Address [address] [place], [place] [id number] Care Team Providers Name Role Phone Keesha Downey, Adali Lim Unavailable Unavailable Derick Luna Unavailable Unavailable Kiley Romero APRN Unavailable Unavailable Adali Richards M.D. Unavailable Unavailable Raphael Thao Unavailable Unavailable [place], [place] ([place]) Unavailable Unavailable Unavailable Unavailable Unavailable Functional Status [...] Status: Active Cystocele (618.01, N81.10) Status: Active Lower back pain (724.2, M54.5) Status: Active Postmenopausal vaginal bleeding (627.1, N95.0) Status: Active Esophageal reflux (530.81, K21.9) Status: Active Fall (E888.9, W19.XXXA) Status: Active Urinary incontinence (788.30, R32) Status: Active Memory loss (780.93, R41.3) Status: [...] Bilateral impacted cerumen (380.4, H61.23) Status: Active Allergic rhinitis (477.9, J30.9) Status: Active Arthralgia of multiple sites (719.49, M25.50) Status: Active Chronic pain of both shoulders (719.41, M25.512) Status: Active Vaginal bleeding (623.8, N93.9) Status: Active Medications Name Dates Details Aspirin 81 MG TABS TAKE 1 TABLET DAILY. Refills: 0 Start -Dec-2010 Active Effexor XR 150 MG Oral Capsule Extended Release 24 Hour TAKE 1 CAPSULE DAILY. Refills: 0 Start Active Levothyroxine Sodium 137 MCG Oral Tablet TAKE 1 TABLET DAILY. Refills: 0 Raphael Thao M.D. Start 26-Jun-2014 Active Carafate 1 GM/10ML Oral Suspension 10 [...] 0 Raphael Thao M.D. Start 26-Jun-2014 Active SEROquel 50 MG Oral Tablet Take [...] by mouth daily Quantity: 30 Refills: 0 Nick REDDY Kiley Start 03-Feb-2016 Active Amitiza 8 MCG Oral Capsule TAKE ONE TABLET TWICE DAILY WITH MEALS Quantity: 60 Refills: 5 Derick Luna Start 24-Feb-2016 Active PredniSONE 20 MG Oral Tablet Take 1 tablet daily Refills: 0 Raphael Thao M.D. Start Active Voltaren 1 [...] 2 Keesha Downey, Raphael Bro Start Active BusPIRone HCl - 10 MG Oral Tablet TAKE 1 TABLET TWICE DAILY. Refills: 0 Maurice Downey Vimal Bro Start 11-Feb-2016 Active TraMADol HCl - 50 MG Oral Tablet TAKE 1 TABLET EVERY 4 HOURS NEEDED. Quantity: 40 Refills: 5 Keesha DowneyRaphael Start 10-Jun-2015 Active Vitamin D 1000 UNIT CAPS Refills: 0 Start 22-May-2014 Active MiraLax Oral Powder Refills: 0 Start 22-May-2014 Active Depakote 500 MG Oral Tablet Delayed Release TAKE 1 TABLET DAILY. Refills: 0 Keesha Downey Raphael Bro Start 07-Feb-2013 Active Carbidopa-Levodopa ER 50-200 MG Oral Tablet Extended Release TAKE 1 TABLET FOUR TIMES A DAY Quantity: 360 Refills: 3 Maurice DowneyVimal Start 08-Jun-2011 Active Allergies and Adverse Reactions Name Dates [...] of Gastroscopy With Biopsy Completed: 25-Feb-2012 Prealbumin [id number] Ordered: 07-Apr-2016 LIPID PROFILE 1184 Ordered: 07-Apr-2016 Immunization Name Dates Details Influenza on: 18-Jan-2008 Influenza on: 05-Mar-2010 Lot #: [id number] Influenza on: 17-Jan-2013 Pneumo (Pneumovax) on: 23-Jan-2016 [...] smoker Vital Signs Date Test Result Details 12-May-2016 13:02 Heart Rate 92 /min Status: Comments: Location: ; Weight 168 lb Status: Physical Findings 92 Status: Comments: O2 Saturation Body Mass Index Calculated 28.84 kg/m2 Status: Body Surface Area Calculated 1.82 m2 Status: Results Date Description Value Details Results not documented Plan of Care Name Dates Details Planned Observations Planned Goals not documented Planned Encounters Appointment; Provider: Vimal Richards M.D. On 22-Jun-2016 14:30 Appointment; Provider: Camacho Lawson On 02-Jun-2016 11:00 Interventions Provided Labs/Procedures/ImagingLIPID PROFILE 1184; To be Done: 07 Apr 2016Prealbumin [id number]; To be Done: 07 Apr 2016 Instructions Name Dates Details Instructions not documented Encounters Appointment; Vimal Richards M.D. On 04-Mar-2016 Encounter Diagnosis: Problem not documented 14:15 Appointment; Ke Solomon M.D. On 03-Mar-2016 Encounter Diagnosis: Problem not documented 09:15 Appointment; Derick Lambert P.A. On 24-Feb-2016 Encounter Diagnosis: Problem not documented 14:30 Appointment; Bobo Sierra D.O. On 17-Feb-2016 Encounter Diagnosis: Problem not documented 10:05 Appointment; Vimal Richards M.D. On 05-Feb-2016 Encounter Diagnosis: Problem not documented 13:45 Appointment; Kiely Romero A.P.R.N. On 31-Jan-2016 Encounter Diagnosis: Problem not documented 13:30 Appointment; Tra Rico M.D.|Keturah.C.SGorge|PARNAY Downey|PRANAY Downey, On Encounter Diagnosis: Problem not documented 11:30 Appointment; Billy Golden M.D.|F.A.C.S.|PRANAY Downey|PRANAY Downey, On Encounter Diagnosis: Problem not documented 10:30 Appointment; Raphael Thao M.D. On Encounter Diagnosis: Problem not documented 16:00 Appointment; Raphael Thao M.D. On Encounter Diagnosis: Problem not documented 14:15 Appointment; Vimal Richards M.D. On 08-Aug-2015 Encounter Diagnosis: Problem not documented 15:00 Appointment; Jo Ann Crowe P.AGorge On 02-Aug-2015 Encounter Diagnosis: Problem not [...] not documented 14:30 Appointment; Jo Ann Crowe, P.AGorge On 24-Aug-2014 Encounter Diagnosis: Problem not documented 13:15 Appointment; Raphael Thao M.D. On 19-Jun-2014 Encounter Diagnosis: Problem not documented 16:00 Appointment; Brittney Bennett M.D. On 07-Jun-2014 Encounter Diagnosis: Problem not documented 10:30 Appointment; Raphael Thao M.D. On 05-Jun-2014 Encounter Diagnosis: Problem not documented 13:00"
--- OUTSIDE RECORDS SUMMARY | 2017-02-20 19:08 | External Medical Summary | Summary of Care ---
:1935 Author Name Jo Ann Reina Address [address] [facility] [place]available [place], [place] [id number] Care Team Providers Name Role Phone Adali Thao M.D. Unavailable Unavailable Adali Richards M.D. Unavailable Unavailable Raphael Thao Primary Care Provider Unavailable [facility] ([place]) Referring Provider Unavailable Unavailable Unavailable Unavailable Functional Status Functional Status Health Issues Name Dates Details Functional status health issues are not documented Status: Cognitive Status Health Issues Name Dates Details Cognitive status health issues are not documented Status: Problems Name Dates Details Chronic pain of both shoulders (719.41, M25.512) Status: Active Bursitis of hip (726.5, M70.70) Status: Active Urinary incontinence (788.30, R32) Status: Active Acute sinusitis (461.9, J01.90) Status: Active De Quervain's tenosynovitis (727.04, M65.4) Status: Active Memory loss (780.93, R41.3) Status: Active Anxiety (300.00, F41.9) Status: Active Depression (311, F32.9) Status: Active Dysuria (788.1, R30.0) Status: Active Carotid artery stenosis (433.10, I65.29) Status: Active Hypothyroidism (244.9, E03.9) Status: Active Lower back pain (724.2, M54.5) Status: Active Recurrent urinary tract infection (599.0, N39.0) Status: Active Pseudophakia (V43.1, Z96.1) Status: Active Tendonitis (726.90, M77.9) Status: Active Postmenopausal vaginal bleeding (627.1, N95.0) Status: Active Vaginal bleeding (623.8, N93.9) Status: Active Malnutrition (263.9, E46) Status: Active Dysphagia, neurologic (787.29, R13.19) Status: Active Hip pain (719.45, M25.559) Status: Active Esophageal reflux (530.81, K21.9) Status: Active Allergic rhinitis (477.9, J30.9) Status: Active Cataract (366.9, H26.9) Status: Active Chest pain (786.50, R07.9) Status: Active Hypertension (401.9, I10) Status: Active Labyrinthitis (386.30, H83.09) Status: Active Parkinson's disease (332.0, G20) Status: Active Constipation (564.00, K59.00) Status: Active Fall (E888.9, W19.XXXA) Status: Active Nontropical sprue (579.0, K90.0) Status: Active Cystocele (618.01, N81.10) Status: Active UTI (lower urinary tract infection) (599.0, N39.0) Status: Active Decreased appetite (783.0, R63.0) Status: Active Contusion of left hip (924.01, S70.02XA) Status: Active Arthralgia of multiple sites (719.49, M25.50) Status: Active Medications Name Dates Details Aspirin [...] Resolved Procedures Procedure Dates Details History of Tubal Ligation History of Complete Colonoscopy For Polyp Removal Completed: History of Extracaps Cataract Extract With Prosthesis Insert Right Eye History of Extracaps Cataract Extract With Prosthesis Insert Left Eye History of Gastroscopy With Biopsy Completed: History of Gastroscopy With Biopsy Completed:25-Feb-2012 History of Back Surgery Procedures not documented Immunization Name Dates Details Influenza Administered on:18-Jan-2008 Influenza Administered on:05-Mar-2010 Lot #: [id number] Influenza Administered on:17-Jan-2013 Family History Unknown Family Member Name Dates Details Family history of Urticaria Comments: Family History Status: Active Family history of Migraine Headache Comments: Family History Status: Active Family history of Hay Fever Comments: Family History Status: Active Mother Name [...] 15:00 Appointment; Provider: Jo Ann Crowe On 02-Aug-2015 13:00 Appointment; Provider: Jo Ann Crowe On 13:30 [...]
--- OUTSIDE RECORDS SUMMARY | 2017-02-20 19:08 | External Medical Summary | Summary of Care ---
:1935 Author Name Keesha Downey, Adali Lim Address [address], [place] [id number] Care Team Providers Name Role Phone Keesha Downey, Adali Lim Unavailable Unavailable Adali Richards M.D. Unavailable Unavailable Raphael Thao Primary Care Provider Unavailable Left [facility] ([place]) Referring Provider Unavailable Unavailable Unavailable Unavailable Functional [...] of left hip (924.01, S70.02XA) Status: Active Memory loss (780.93, R41.3) Status: Active Dysphagia, neurologic (787.29, F45.8) Status: Active Hypertension (401.9, I10) Status: Active Acute sinusitis (461.9, J01.90) Status: Active Chronic pain of both shoulders (719.41, M25.512) Status: Active Anxiety (300.00, F41.9) Status: Active Allergic rhinitis (477.9, J30.9) Status: Active Depression (311, F32.9) Status: Active Parkinson's disease (332.0, G20) Status: Active Malnutrition (263.9, E46) Status: Active Urinary incontinence (788.30, R32) Status: Active Medications Name Dates Details Aspirin [...] 30 Refills: 11 Raphael Thao M.D. Started ActiveAtorvastatin Calcium 20 MG Oral Tablet TAKE 1 TABLET DAILY. Quantity: 30 Refills: 11 Raphael Thao M.D. Started ActiveAricept 10 MG Oral Tablet [...] delivery (V13.29) Status: Resolved History of weakness (V13., Z87.898) Status: Resolved Procedures Procedure Dates Details History of Extracaps Cataract Extract With Prosthesis Insert Right Eye History of Extracaps Cataract Extract With Prosthesis Insert Left Eye History of Complete Colonoscopy For Polyp Completed: Removal History of Back Surgery History of Tubal Ligation History of Gastroscopy With Biopsy Completed: History of Gastroscopy With Biopsy Completed:25-Feb-2012 Urinalysis, Reflex to Microscopic or Ordered:04-Feb-2015 Culture PRN [id number] Immunization Name Dates Details Influenza Administered on:18-Jan-2008 Influenza Administered on:05-Mar-2010 Lot #: [id number] Influenza Administered on:17-Jan-2013 Family History Unknown Family [...] smoker Vital Signs Date Test Result Details 04-Feb-2015 14:43 BP Systolic 122 mm[Hg] Status: BP Diastolic 72 mm[Hg] Status: Heart Rate 108 /min Status: Results Date Description Value Details Results not documented Plan of Care Planned Observations Name Dates Details Planned Goals not documented Goal Planned Encounters Appointment; Provider: Raphael Thao On 09-Apr-2015 14:15 Appointment; Provider: Vimal Richards On 19-Feb-2015 14:15 Appointment; Provider: Ke Gabriel On 12-Feb-2015 11:15 Appointment; Provider: Jo Ann Crowe On 13:30 Appointment; Provider: Davidson Banerjee On 04-Jun-2011 10:30 Instructions Instructions not documented Encounters Appointment; Raphael Thao On 04-Feb-2015 Encounter Diagnosis: [...] Encounter Diagnosis: Problem not documented 16:00 Appointment; Britteny Bennett On 07-Jun-2014 Encounter Diagnosis: Problem not [...]
--- OUTSIDE RECORDS SUMMARY | 2017-02-20 19:08 | External Medical Summary | Summary of Care ---
:1935 Author Name Keesha Downey, Adali Lim Address [address], [place] [id number] Care Team Providers Name Role Phone Keesha Downey, Adali Lim Unavailable Unavailable Derick Luna Unavailable Unavailable Kiley Romero APRN Unavailable Unavailable Adali Richards M.D. Unavailable Unavailable Raphael Thao Unavailable Unavailable [facility], [place] ([place]) Unavailable Unavailable Unavailable Unavailable Unavailable Functional [...] cystitis without hematuria (595.0, N30.00) Status: Active Chronic nausea (787.02, R11.0) Status: Active Early satiety (780.94, R68.81) Status: Active Anxiety (300.00, F41.9) Status: Active Parkinson's disease (332.0, G20) Status: Active Depression (311, F32.9) Status: Active Dizziness (780.4, R42) Status: Active Benign paroxysmal vertigo of left ear (386.11, H81.12) Status: Active Sensorineural hearing loss, bilateral (389.18, H90.3) Status: Active Constipation (564.00, K59.00) Status: Active Dysphagia (787.20, R13.10) Status: Active Dysuria (788.1, R30.0) Status: Active Medications Name Dates Details Aspirin [...] Tablet TAKE 1 TABLET DAILY. Refills: 0 Raphale Thao M.D. Start 11-Apr-2015 Active Depakote 500 [...] mouth daily Quantity: 30 Refills: 0 Romero [employer]ICIAN, Kiley Start 03-Feb-2016 Active BusPIRone HCl - [...] of Gastroscopy With Biopsy Completed: 25-Feb-2012 Prealbumin [id number] Ordered: 07-Apr-2016 ALBUMIN 1105 Ordered: 07-Apr-2016 LIPID PROFILE 1184 Ordered: 07-Apr-2016 Immunization Name Dates Details Influenza on: 18-Jan-2008 Influenza on: 05-Mar-2010 Lot #: [id number] Influenza on: 17-Jan-2013 Pneumo (Pneumovax) on: 23-Jan-2016 [...] to report Results Date Description Value Details 11-Mar-2016 11:20 GASTRIC EMPTYING Comments: Exam Date: 03/11/2016 08: 55Dictation Date: 03/11/2016 11:20 XN GASTRIC EMPTYING 07-Apr-2016 12:55 Urinalysis, Reflex to Microscopic or [...] Range: Negative-Trace EPITH 0-2 /HPF Range: 0-10 Plan of Care Name Dates Details Planned Observations Planned Goals not documented Planned Encounters Appointment; Provider: Vimal Richards M.D. On 22-Jun-2016 14:30 Appointment; Provider: Camacho Lawson On 02-Jun-2016 11:00 Appointment; Provider: Ke Solomon M.D. On 20-Apr-2016 13:30 Interventions Provided Labs/Procedures/ImagingUrinalysis, Reflex to Microscopic or Culture PRN [id number]; Done: Apr 07 2016 12:19PM Instructions Name Dates Details Instructions not documented Encounters Appointment; Derick Lambert P.A. On 07-Apr-2016 Encounter [...] Problem not documented 13:30 Appointment; Tra Rico M.D.|PremaCMelvin|PRANAY Downey|PRANAY Downey, On Encounter Diagnosis: Problem not [...]
--- OUTSIDE RECORDS SUMMARY | 2017-02-20 19:08 | External Medical Summary ---
:1935 Author Name GENERATED, SYSTEM Care Team Providers Name Role Phone MD MONICA, AYUSH Primary Care Provider Unavailable Reason For Visit Chief Complaint AGITATION Social History Functional Status Vital Signs Results Chemistry from 02/13/2017 11:14 [id number] MMOL/L (136-145 MMOL/L) POTASSIUM4.1 MMOL/L (3.5-5.1 MMOL/L) [id number] MMOL/L (98-107 MMOL/L) MXH428.2 MMOL/L (21.0-32.0 MMOL/L) *ANION GAP12.8 MMOL/L (8.0-16.0 MMOL/L) BUN19 MG/DL H (7-18 MG/DL) CREATININE0.82 MG/DL (0.55-1.02 MG/DL) *BUN/CREATININE RATIO23.2 H (9.1-17.0 ) [id number] MG/DL H (65-99 MG/DL) *GFR EST NON AFR JYWYSALK55 ML/MIN (Reference Range: not available) *GFR EST AFR AMER79 ML/MIN (Reference Range: not available) CALCIUM9.0 MG/DL (8.5-10.1 MG/DL) BILIRUBIN TOTAL0.40 MG/DL (0.20-1.00 MG/DL) TOTAL PROTEIN7.2 GM/DL (6.4-8.2 GM/DL) ALBUMIN3.9 GM/DL (3.4-5.0 GM/DL) *GLOBULIN3.3 GM/DL (2.3-3.5 GM/DL) *A/G RATIO1.2 L (1.5-2.2 ) ALK YQTV264 U/L (46-116 U/L) ALT (SGPT)84 U/L H (16-63 U/L) AST (SGOT)76 U/L H (15-37 U/L)Hematology from 02/13/2017 11:14 AMWBC8.0 X10e3/ UL (3.6-11.2 X10e3/UL) RBC4.14 X10e6/UL (3.63-4.92 X10e6/UL) NUNCHRRIXK44.9 G/DL (11.0-14.3 G/DL) LBNNWOLSWS33.8 % (31.2-41.9 %) *MCV98.6 FL H (79.0-98.0 FL) *MCH33.5 PG H (27.0-33.0 PG) *MCHC33.9 G/DL (32.0-36.0 G/DL) *RDW13.7 % (12.3-17.0 %) *RDWSD47.7 (37.1-47.8 ) MUZURQOS245 X10e3/UL (159-386 X10e3/UL) *MPV7.8 FL (7.4-10.4 FL) AUTOMATED DIFFPERFORMED (Reference Range: not available) SEGS78.7 % (Reference Range: not available) *ZLSSEANYJTK59.7 % (Reference Range: not available) *MONOCYTES7.4 % (Reference Range: not available) *EOSINOPHILS1.7 % (Reference Range: not available) *BASOPHILS0.5 % (Reference Range: not available) *ABSOLUTE NEUTROPHILS6.30 X10e3/UL (1.80-7.80 X10e3/UL) *ABSOLUTE LYMPHOCYTES0.90 X10e3/UL L (1.00-3.00 X10e3/UL) *ABSOLUTE MONOCYTES0.60 X10e3/UL (0.30-1.00 X10e3/UL) *ABSOLUTE EOSINOPHILS0.10 X10e3/UL (0.00-0.50 X10e3/UL) *ABSOLUTE BASOPHILS0.00 X10e3/UL (0.00-0.20 X10e3/UL)Urinalysis from 02/13/2017 11:45 AM*URINE COLORYELLOW (STRAW/YELL/DK YELL ) *URINE APPEARANCECLOUDY A (CLEAR ) URINE PH6.0 (5.0-8.0 ) URINE SPECIFIC GRAVITY1.020 (<=1.005->=1.030 ) *URINE GLUCOSENEGATIVE MG/DL (NEGATIVE MG/DL) *URINE BILIRUBINNEGATIVE (NEGATIVE ) *URINE KETONESTRACE MG/DL A (NEGATIVE MG/DL) *URINE BLOODNEGATIVE (NEGATIVE ) *URINE PROTEINNEGATIVE MG/DL (NEGATIVE MG/DL) *URINE UROBILINOGEN0.2 EU/DL (0.2-1.0 EU/DL) *URINE NITRITESPOSITIVE A (NEGATIVE ) *URINE LEUKOCYTESSMALL A (NEGATIVE ) *MICROSCOPIC EXAM PERFORMEDPERFORMED (Reference Range: not available) *WBC IUATB21-64 /HPF A (0-5 /HPF) *RBC URINE1-5 /HPF A (0-1 /HPF) *SQUAMOUS EP. CELLSFEW /LPF (NEG-FEW /LPF) *MUCOUS THREADSMODERATE /LPF A (NEGATIVE /LPF) *BACTERIAMANY /HPF A (NEGATIVE /HPF) Problems Encounter Diagnosis No relevant problems exist. [...] Comment:Problem resolved by [facility] Workflow upon Discharge, Status:Resolved.Chest Pain Comment:Problem resolved by [facility] Workflow upon Discharge, Status:Resolved.Dehydration Comment:Problem resolved by [facility] Workflow upon Discharge, Status:Resolved.Dehydration Comment:Problem resolved by [facility] Workflow upon Discharge, Status:Resolved.Dementia Comment:Problem resolved by [facility] Workflow upon Discharge, Status:Resolved.Dysphagia Comment: Problem resolved by [facility] Workflow upon Discharge, Status:Resolved.Fall Risk Comment:Problem resolved by [facility] Workflow upon Discharge, Status: Resolved.Fall Risk Comment:Problem resolved by [facility] Workflow upon Discharge, Status:Resolved.Fall Risk Comment:Problem resolved by [facility] Workflow upon Discharge, Status:Resolved.Gastroesophageal Reflux Disease Comment:Problem resolved by [facility] Workflow upon Discharge, Status:Resolved.History of Hypertension Comment:Problem resolved by [facility] Workflow upon Discharge, Status :Resolved.Hypertensive Disorder Comment:Problem resolved by [facility] Workflow upon Discharge, Status:Resolved.Hypertensive Disorder Comment:Problem resolved by [facility] Workflow upon Discharge, Status:Resolved.Hypothyroidism Comment: Problem resolved by [facility] Workflow upon Discharge, Status:Resolved.Infection Risk Comment:Problem resolved by [facility] Workflow upon Discharge, Status: Resolved.Mobility Impairment Comment:Problem resolved by [facility] Workflow upon Discharge, Status:Resolved.Mobility Impairment Comment:Problem resolved by [facility] Workflow upon Discharge, Status:Resolved.Mobility Impairment Comment: Problem resolved by [facility] Workflow upon [...] PMCompleted esophagogastroduodenoscopy with biopsy, by MD [facility], on 06/23/2014 9:48 AMCompleted Procedure Code: 45.16 Procedure Name: not valued, on 06/23/2014 12:00 AM Immunizations No immunizations administered or ordered. Hospital Course Hospital Discharge Instructions Allergies, Adverse Reactions, Alerts This section is training representative of the current allergy information, at the time of the CCD generation. In the case of regeneration of the CCD, the allergy information may not reflect the state of known allergies at the time of the CCD' s subject visit. Lortab causes Unknown. Onset unspecified.Phenergan causes Unknown.Remeron causes Unknown.Sulfa (Sulfonamide Antibiotics) causes Unknown.Reglan causes Unknown.Bactrim causes unspecified.Neurontin causes unspecified.opium tincture causes unspecified.Latex Allergy has not been assessed.IV Contrast Allergy has not been assessed.No Known Food Allergies. Medication Medication reconciliation has not been performed.
--- OUTSIDE RECORDS SUMMARY | 2017-02-20 19:09 | External Medical Summary | Summary of Care ---
:1935 Author Name Neha Downey, Adali Dempsey Address Unavailable Unavailable , Care Team Providers Name Role Phone Keesha Downey, Adali Lim Unavailable Unavailable Derick Luna Unavailable Unavailable Kiley Romero APRN Unavailable Unavailable Neha Downey, Adali Dempsey Unavailable Unavailable Maurice Downey, Adali Celis Unavailable Unavailable Raphael Thao Unavailable Unavailable [facility], [place] ([place]) Unavailable Unavailable Unavailable Unavailable Unavailable Functional Status [...] Bilateral impacted cerumen (380.4, H61.23) Status: Active Medications Name Dates Details Aspirin [...] of Gastroscopy With Biopsy Completed: 25-Feb-2012 Prealbumin [id number] Ordered: 07-Apr-2016 ALBUMIN 1105 Ordered: 07-Apr-2016 LIPID PROFILE 1184 Ordered: 07-Apr-2016 Immunization Name Dates Details Influenza on: 18-Jan-2008 Influenza on: 05-Mar-2010 Lot #: [id number] Influenza on: 17-Jan-2013 Pneumo (Pneumovax) on: 23-Jan-2016 [...] Body Surface Area Calculated 1.82 m2 Status: 24-Apr-2016 11:55 BP Systolic 130 mm[Hg] Status: BP Diastolic 80 mm[Hg] Status: Heart Rate 102 /min Status: Comments: Location: ; Physical Findings 99 Status: Comments: O2 Saturation Results Date Description Value Details Results not documented Plan of Care Name Dates Details Planned Observations Planned Goals not documented Planned Encounters Appointment; Provider: Vimal Richards M.D. On 22-Jun-2016 14:30 Appointment; Provider: Camacho Lawson On 02-Jun-2016 11:00 Instructions Name Dates Details Instructions not documented Encounters Appointment; Raphael Thao M.D. On 24-Apr-2016 Encounter [...] On 22-May-2014 Encounter Diagnosis: Problem not documented 13:30"
--- OUTSIDE RECORDS SUMMARY | 2017-02-20 19:09 | External Medical Summary | Summary of Care ---
:1935 Author Name Jo Ann Reina Address [address], [place] [address] Care Team Providers Name Role Phone Adali Thao M.D. Unavailable Unavailable Adali Richards M.D. Unavailable Unavailable Raphael Thao Primary Care Provider Unavailable [place], [place] Referring Provider Unavailable Unavailable Unavailable Unavailable Functional [...] I10) Status: Active Medications Name Dates Details Levothyroxine [...] Administered on:18-Jan-2008 Influenza Administered on:05-Mar-2010 Lot #: [id number] Influenza Administered on:17-Jan-2013 Family History Unknown Family [...]
--- OUTSIDE RECORDS SUMMARY | 2017-02-20 19:09 | External Medical Summary ---
[...] Never Smoker Functional Status Functional Status from 06/25/2014 8:15 PM:LOC : AlertOriented [...] Vital Signs Hospital Vital Signs from 06/26/2014 7:28 AM:Height : 5/5 ft,inTemperature : 97.0 FPulse : 90Respirations : 18BP : 144/69Hospital Vital Signs from 06/25/2014 10:06 PM:Height : 5/5 ft,inTemperature : 98.2 FPulse : 91Respirations : 18BP : 114/57Hospital Vital Signs from 06/25/2014 3:07 PM:Height : 5/5 ft,inTemperature : 97.5 FPulse : 96Respirations : 18BP : 115/71Hospital Vital Signs from 2014 7:08 AM:Height : 5/5 ft,inTemperature : 96.5 FPulse : 95Respirations : 18BP : 103/55Hospital Vital Signs from 06/25/2014 3:14 AM:Height : 5/5 ft, inTemperature : 97.8 FPulse : 84Respirations : 18BP : 122/58Hospital Vital Signs from 06/24/2014 2:34 PM:Height : 5/5 ft,inTemperature : 97.6 FPulse : 90Respirations : 18BP : 122/56Hospital Vital Signs from 06/24/2014 8:44 AM:Heart Rate : 86Hospital Vital Signs from 06/24/2014 7:18 AM:Height : 5/5 ft, inTemperature : 98.1 FPulse : 86Respirations : 20BP : 124/58Hospital Vital Signs from 06/23/2014 10:45 PM:Height : 5/5 ft,inTemperature : 98.6 FPulse : 87Respirations : 20BP : 120/62Hospital Vital Signs from 06/23/2014 2:52 PM: Height : 5/5 ft,inTemperature : 97.4 FPulse : 92Respirations : 20BP : 141/ 67Hospital Vital Signs from 06/23/2014 11:00 AM:Heart Rate : 80Hospital Vital Signs from 06/23/2014 10:15 AM:Temp : 98Hospital Vital Signs from 06/23/2014 10: 00 AM:Temp : 98.8Resp Rate : 13Systolic BP (mmHg) : 92Diastolic BP (mmHg) : 58Mean BP (mmHg) : 70Hospital Vital Signs from 06/23/2014 7:24 AM:Height : 5/5 ft ,inTemperature : 97.2 FPulse : 83Respirations : 20BP : 147/76Hospital Vital Signs from 06/22/2014 10:05 PM:Height : 5/5 ft,inTemperature : 97.8 FPulse : 95Respirations : 20BP : 145/55Hospital Vital Signs from 06/22/2014 3:26 PM: Height : 5/5 ft,inTemperature : 97.8 FPulse : 101Respirations : 20BP : 132/ 71Hospital Vital Signs from 06/22/2014 7:27 AM:Height : 5/5 ft,inTemperature : 97.7 FPulse : 105Respirations : 20BP : 151/79Hospital Vital Signs from 2014 10:50 PM:Height : 5/5 ft,inTemperature : 98.0 FPulse : 92BP : 164/ 80Hospital Vital Signs from 06/21/2014 4:05 PM:Height : 5/5 ft,inHospital Vital Signs from 06/21/2014 3:35 PM:Height : 5/5 ft,inTemperature : 96.8 FPulse : 93BP : 122/63Hospital Vital Signs from 06/21/2014 7:44 AM:Height : 5/5 ft, inTemperature : 97.9 FPulse : 92Respirations : 16BP : 135/74Hospital Vital Signs from 06/20/2014 10:01 PM:Height : 5/5 ft,inTemperature : 97.8 FPulse : 91Respirations : 16BP : 127/63Hospital Vital Signs from 06/20/2014 7:21 PM: Height : 5/5 ft,inTemperature : 97.4 FPulse : 94Respirations : 16BP : 130/ 62Hospital Vital Signs from 06/20/2014 3:07 PM:Height : 5/5 ft,inTemperature : 97.3 FPulse : 96Respirations : 16BP : 125/56Hospital Vital Signs from 06/20/2014 11:27 AM:Height : 5/5 ft,inTemperature : 96.5 FPulse : 96Respirations : 18BP : 142/72Hospital Vital Signs from 06/20/2014 10:43 AM:Height : 5/5 ft,inHospital Vital Signs from 06/20/2014 7:40 AM:Height : 5/5 ft,inTemperature : 96.9 FPulse : 86Respirations : 18BP : 120/62Hospital Vital Signs from 06/19/2014 10:27 PM: Height : 5/5 ft,inTemperature : 97.2 FPulse : 90Respirations : 18BP : 126/ 70Hospital Vital Signs from 06/19/2014 7:49 PM:Weight : 67.8/ kgHeight : 5/5 ft, inHospital Vital Signs from 06/19/2014 5:57 PM:Weight : 67.8/ kgHeight : 5/5 ft, inTemperature : 97.3 FPulse : 93Respirations : 18BP : 122/69 Results Chemistry from 06/24/2014 5:26 [id number] MMOL/L (136-145 MMOL/L) POTASSIUM4.4 MMOL/L (3.5-5.1 MMOL/L) ZUOFJINO450 MMOL/L (98-107 MMOL/L) NQZ261.9 MMOL/L (21.0-32.0 MMOL/L) ANION GAP7.1 MMOL/L L (8.0-16.0 MMOL/L) BUN14 MG/DL (7-18 MG/DL) CREATININE0.83 MG/DL (0.43-0.83 MG/DL) BUN/CREATININE RATIO16.9 (9.1-17.0 ) PXKGTZG02 MG/DL (65-99 MG/DL) GFR EST NON AFR LXRMHEXR02 ML/MIN GFRA EST AFR AMER79 ML/MIN CALCIUM8.8 MG/DL (8.5-10.1 MG/DL) BILIRUBIN TOTAL0.20 MG/DL (0.20-1.00 MG/DL) TOTAL PROTEIN5.6 GM/DL L (6.4-8.2 GM/DL) ALBUMIN2.7 GM/DL L (3.4-5.0 GM/DL) GLOBULIN2.9 GM/DL (2.3-3.5 GM/DL) A/G RATIO0.9 MG/DL L (1.5-2.2 MG/DL) ALK PHOS82 U/L (46-116 U/L) ALT (SGPT)15 U/L L (16-63 U/L) AST (SGOT)44 U/L H (15-37 U/L)Chemistry from 06/21/2014 6:19 UPEIAYHW333 MMOL/L ( 136-145 MMOL/L) POTASSIUM4.4 MMOL/L (3.5-5.1 MMOL/L) LEGXDDZJ623 MMOL/L (98-107 MMOL/L) UWN678.3 MMOL/L (21.0-32.0 MMOL/L) ANION GAP7.7 MMOL/L L (8.0-16.0 MMOL/L) BUN8 MG/DL (7-18 MG/DL) CREATININE0.64 MG/DL (0.43-0.83 MG/DL) BUN/CREATININE RATIO12.5 (9.1-17.0 ) WTBPQAJ25 MG/DL (65-99 MG/DL) GFR EST NON AFR OFKALRNS87 ML/MIN GFRA EST AFR AMER>90 ML/MIN CALCIUM8.6 MG/DL (8.5-10.1 MG/DL) BILIRUBIN TOTAL0.23 MG/DL (0.20-1.00 MG/DL) TOTAL PROTEIN5.4 GM/DL L (6.4-8.2 GM/DL) ALBUMIN2.6 GM/DL L (3.4-5.0 GM/DL) GLOBULIN2.8 GM/DL (2.3-3.5 GM/DL) A/G RATIO0.9 MG/DL L (1.5-2.2 MG/DL) ALK PHOS78 U/L (46-116 U/L) ALT (SGPT)17 U/L (16-63 U/L) AST (SGOT)34 U/L (15-37 U/L) EST AVG TXWEZDI708.9 gm/dl HEMOGLOBIN A1C5.7 % (4.5-6.2 %) VITAMIN O91657 PG/ML (180-914 PG/ML) FOLATES9.5 NG/ML (>3.0- NG/ML)Chemistry from 06/19/2014 8:37 HYVCJGYN366 MMOL/ L L (136-145 MMOL/L) POTASSIUM3.8 MMOL/L (3.5-5.1 MMOL/L) GJDRTCBY471 MMOL/L (98-107 MMOL/L) JYP140.8 MMOL/L (21.0-32.0 MMOL/L) ANION GAP4.2 MMOL/L L (8.0-16.0 MMOL/L) BUN18 MG/DL (7-18 MG/DL) CREATININE0.73 MG/DL (0.43-0.83 MG/DL) BUN/CREATININE RATIO24.7 H (9.1-17.0 ) XBQIAJM070 MG/DL H (65-99 MG/DL) GFR EST NON AFR RCSCOTWW02 ML/MIN GFRA EST AFR AMER>90 ML/MIN CALCIUM8.1 [...] (3.6- 11.2 X10e3/UL) RBC3.71 X10e6/UL (3.63-4.92 X10e6/UL) MFWWJILJET58.1 G/DL (11.0-14.3 G/DL) DHDPXDONIO86.3 % (31.2-41.9 %) JWG189.6 FL H (79.0-98.0 FL) MCH32.8 PG (27.0-33.0 PG) MCHC32.6 G/DL (32.0-36.0 G/DL) RDW13.1 % (12.3-17.0 %) RDWSD45.5 (37.1-47.8 ) IXCFEISR372 X10e3/UL (159-386 X10e3/UL) MPV7.5 FL (7.4-10.4 FL)Hematology from 06/21/2014 6:19 AMWBC10.4 X10e3/UL (3.6- 11.2 X10e3/UL) RBC3.68 X10e6/UL (3.63-4.92 X10e6/UL) RNFDOMRNTJ88.3 G/DL (11.0-14.3 G/DL) XCOCBBWKZJ78.9 % (31.2-41.9 %) NCO145.3 FL H (79.0-98.0 FL) MCH33.4 PG H (27.0-33.0 PG) MCHC33.3 G/DL (32.0-36.0 G/DL) RDW12.7 % (12.3-17.0 %) KRHPHZAS026 X10e3/UL (159-386 X10e3/UL) MPV7.8 FL (7.4-10.4 FL)Hematology from 06/19/2014 8:37 PMWBC8.5 X10e3/UL (3.6- 11.2 X10e3/UL) RBC3.63 X10e6/UL (3.63-4.92 X10e6/UL) HOZBLVXVJQ50.0 G/DL (11.0-14.3 G/DL) KCXEXWBQVV43.3 % (31.2-41.9 %) FJU517.1 FL H (79.0-98.0 FL) MCH33.1 PG H (27.0-33.0 PG) MCHC33.1 G/DL (32.0-36.0 G/DL) RDW13.4 % (12.3-17.0 %) RDWSD46.8 (37.1-47.8 ) EHLXUDIO310 X10e3/UL (159-386 X10e3/UL) MPV7.7 FL (7.4-10.4 FL) SED RATE7 MM/HR (0-30 MM/HR)Urinalysis from 06/20/2014 1:20 PM Status: Final Result URINALYSIS Specimen Number: [id number] Sample Collection Date/Time: 06/20/2014 1:20 PM Specimen [...] LEUKOCYTESLARGE A (NEGATIVE ) MICROSCOPIC EXAM PERFORMEDPERFORMED HAV24-11 /HPF A (0-5 /HPF) RBC1-5 /HPF A (0-1 /HPF) TRANSITIONAL EP. CELLSMODERATE /LPF A (NEG-FEW /LPF) MUCOUS THREADSFEW /LPF A (NEGATIVE /LPF)Microbiology from 06/20/2014 1:20 PMCULTURE URINE Specimen Number: [id number] Sample Collection Date/Time: 06/20/2014 1:20 PM Specimen [...] ANDERSON// MICHAEL CONWAY// CHARGE CODE CPT COUNT [id number] 1 DX Radiology from 06/19/2014 5:42 PMCHEST 1 VIEWDATE OF EXAM: Jun 19 2014 6: 18PM Proc: DG 0066 - CHEST 1 VIEW CPT Code(s): 01309-; ; ; INDICATION / CLINICAL HISTORY: Dehydration. COMPARISON: 02/23/09. FINDINGS: The cardiac silhouette and pulmonary vasculature are within normal limits. There is minimal left basilar atelectasis. IMPRESSION: Minimal left basilar atelectasis. Problems Encounter Diagnosis Anxiety Status:Active.Dehydration Status:Active.Gastroesophageal Reflux Disease Status:Active.Hypertensive Disorder Status:Active.Parkinson's Disease Status: Active.Additional Problems Pain Comment:Problem resolved by [facility] upon Discharge, Status: Resolved.Vertigo Comment:Problem resolved by [facility] upon Discharge, Status:Resolved. Encounters Encounter Diagnosis Anxiety Status:Active.Dehydration Status:Active.Gastroesophageal Reflux Disease Status:Active.Hypertensive Disorder Status:Active.Parkinson's Disease Status: Active. Plan of Care Treatment Plan from 06/25/2014 2:31 PM:Care Management Note : Patient, [facility] and daughterSandy, all aware of anticipated discharge for tomorrow. Will set up transportation once discharge date confirmed.Treatment Plan from 9:35 AM:Care Management Note :Noted Dr. Anderson discharged patient today to [facility]. I went to set up transportation and informed patient, spouse and daughter but daughter states she does not feel patient ready to be dismissed and wants to appeal discharge. Nurse informed and will notify Dr. Anderson.Treatment Plan from 06/20/2014 3:08 PM:Care Management Note : Patient resides at [facility] and plans to return at discharge. Will set up transportation once discharge date confirmed. Procedures Completed esophagogastroduodenoscopy with biopsy, by MD ALYSSA CONWAYBHAKAR, on 9:48 AM Immunizations No immunizations administered [...] symptoms worsen. (Weigh at home tomorrow morning) Specific Discharge Teaching Instructions provided: : No Allergies, Adverse Reactions, Alerts Bactrim causes unspecified.Neurontin causes unspecified.opium tincture causes unspecified.No Latex Allergy.No IV Contrast Allergy.No Known Food Allergies. Medication It is the responsibility of the patient or patient traffic representative to confirm the list of medicationswith either the patient's personal care provider or the patient's follow-up care provider to ensure the patient has an appropriate list of medications to take at home. Discharge medicationsNew medicationspantoprazole (ProTONIX) 40 mg tablet, delayed release (DR/EC), Ordered By: AYUSH ANDERSON MD Directions: 1 tablet oral daily LORazepam 0.5 mg Tablet, Ordered By: AYUSH ANDERSON MD Directions: 1 tablet oral every six hours PRN ANXIETY sucralfate (CarafATE) 1 gram/10 mL Suspension Directions: 10 mL oral four times daily before meals and at bedtime Continued medicationsvenlafaxine (Effexor XR) 150 mg capsule,extended [...] MD Directions: 1 tablet oral daily levothyroxine 125 mcg Tablet, Ordered By: AYUSH ANDERSON MD Directions: 1 tablet oral daily before breakfast amLODIPine 5 mg Tablet, Ordered By: AYUSH [...] application per vagina every Wednesday, Wednesday, Wednesday aspirin (Antelmo Chewable Aspirin) 81 mg tablet,chewable, [...]
--- OUTSIDE RECORDS SUMMARY | 2017-02-20 19:09 | External Medical Summary | Summary of Care ---
:1935 Author Name Maurice Downey, Adali Celis Address Unavailable Unavailable , Care Team Providers Name Role Phone Keesha Downey, Adali Lim Unavailable Unavailable Kiley Romero APRN Unavailable Unavailable Maurice Downey, Adali Celis Unavailable Unavailable Raphael Thao Unavailable Unavailable [facility], [place] ([place]) Unavailable Unavailable Unavailable Unavailable Unavailable Functional Status [...] Status: Active Dizziness (780.4, R42) Status: Active Medications Name Dates Details Aspirin [...] 0 Raphael Thao M.D. Start 11-Apr-2015 Active TraMADol HCl - 50 MG Oral Tablet TAKE 1 TABLET EVERY 4 HOURS NEEDED. Quantity: 40 Refills: 5 Raphael Thao M.D. Start 10-Jun-2015 Active Carafate 1 GM/10ML Oral [...] Name Dates Details History of abdominal pain (, Z.8) Status: Resolved History of Abdominal pain, epigastric (789.06, R10.13) Status: Resolved History of Abnormal weight gain (783.1, R63.5) Status: Resolved History of abnormal weight loss (, Z.) Status: Resolved History of Acute upper respiratory [...] X-ray Absorptiometry Status: Resolved History of diarrhea (V1., Z87.898) Status: Resolved History of Duodenitis (535.60, K29.80) Status: Resolved History of Encounter for screening for malignant neoplasm of colon (V76.51, Z12.11) Status: Resolved History of fatigue (, Z87.898) Status: Resolved History of nausea and vomiting (V1., Z87.898) Status: Resolved History of Pre-operative exam [...] History of Gastroscopy With Biopsy Completed: 25-Feb-2012 CT HEAD WITHOUT IV CONTRAST Ordered: 05-Feb-2016 Immunization Name Dates Details Influenza on: 18-Jan-2008 Influenza on: 05-Mar-2010 Lot #: [id number] Influenza on: 17-Jan-2013 Pneumo (Pneumovax) on: 23-Jan-2016 [...] smoker Vital Signs Date Test Result Details 05-Feb-2016 14:06 BP Systolic 150 mm[Hg] Status: [...] of Care Name Dates Details Planned Observations CT HEAD WITHOUT IV CONTRAST On 05-Feb-2016 Intent Planned Goals not documented Planned Encounters Appointment; Provider: Vimal Richards M.D. On 04-Mar-2016 14:15 Instructions Name Dates Details Instructions not documented Encounters Appointment; Kiley Romero A.P.R.N. On 31-Jan-2016 Encounter Diagnosis: Problem not documented 13:30 Appointment; Tra Rico M.D.|Keturah.C.SGorge|Nasreen,PRANAY|Nasreen,PRANAY, On Encounter Diagnosis: Problem not documented 11:30 Appointment; Billy Golden M.D.|Keturah.C.SPRANAY Quiñonez|PRANAY Downey, On Encounter Diagnosis: Problem not [...]
--- OUTSIDE RECORDS SUMMARY | 2017-02-20 19:09 | External Medical Summary | Summary of Care ---
:1935 Author Name Derick Luna Address [address] [place], [place] [id number] Care Team Providers Name Role Phone Keesha Downey, Adali Lim Unavailable Unavailable Derick Luna Unavailable Unavailable Kiley Romero APRN Unavailable Unavailable Maurice Downey, Adali Celis Unavailable Unavailable Raphael Thao Unavailable Unavailable [facility], [place] ([place]) Unavailable Unavailable Unavailable Unavailable Unavailable Functional [...] 0 Raphael Thao M.D. Start 07-Feb-2013 Active Levothyroxine Sodium 137 MCG Oral Tablet [...] Thao M.D. Start Active 100 GM Tube Omeprazole 20 MG Oral Capsule Delayed Release Take one capsule by mouth daily Quantity: 30 Refills: 0 Kiley Romero APRN Start 03-Feb-2016 Active Carafate 1 GM/10ML Oral Suspension 10 mL po prn Refills: 0 Raphael Thao M.D. Start 26-Jun-2014 Active LORazepam 0.5 MG Oral Tablet TAKE 1 TABLET EVERY 6 HOURS NEEDED. Quantity: 90 Refills: 3 Raphael Thao M.D. Start 26-Jul-2014 Active Vitamin D 1000 UNIT CAPS Refills: 0 Start 22-May-2014 Active MiraLax Oral Powder Refills: 0 Start 22-May-2014 Active Amitiza 8 MCG Oral Capsule TAKE ONE TABLET TWICE DAILY WITH MEALS Quantity: 60 Refills: 5 Derick Luna Start 24-Feb-2016 Active TraMADol HCl - 50 MG Oral Tablet TAKE 1 TABLET EVERY 4 HOURS NEEDED. Quantity: 40 Refills: 5 Raphael Thao M.D. Start 10-Jun-2015 Active AmLODIPine Besylate 5 MG Oral Tablet TAKE 1 TABLET DAILY DIRECTED. Refills: 0 Start Active Amantadine HCl - 100 MG Oral Tablet Take 1 tablet daily Refills: 0 Start Active Bismuth Subsalicylate 262 MG Oral Tablet Chewable USE DIRECTED. Refills: 0 Start 26-Jun-2016 Active BusPIRone HCl - 15 MG Oral Tablet TAKE ONE TABLET BY MOUTH TWO TIMES DAILY Quantity: 60 Refills: 2 Maurice MLuisanaVimal Start 11-Feb-2016 Active Fluticasone Propionate 50 MCG/ACT Nasal Suspension USE 2 SPRAYS IN EACH NOSTRIL ONCE DAILY Refills: 0 Keesha Downey Raphael Bro Start 11-Apr-2015 Active Loratadine 10 MG Oral Tablet TAKE 1 TABLET DAILY. Refills: 0 Keesha Downey, Raphael Bro Start 11-Apr-2015 Active Allergies and Adverse Reactions Name Dates [...] on: 18-Jan-2008 Influenza on: 05-Mar-2010 Lot #: [id number] Influenza on: 17-Jan-2013 Pneumo (Pneumovax) on: 23-Jan-2016 [...] Encounter Diagnosis: Problem not documented 13:00 Appointment; Rapheal Thao M.D. On 24-Apr-2016 Encounter Diagnosis: Problem [...] Problem not documented 11:30 Appointment; Billy Golden M.D.|F.A.C.SGorge|Nasreen,FACS|Nasreen,FACS, On Encounter Diagnosis: Problem not documented 10:30 [...]
--- OUTSIDE RECORDS SUMMARY | 2017-02-20 19:10 | External Medical Summary ---
:1935 Author Organization [facility]. Summary purpose CCDA Sent to [facility] Chief Complaint and Reason for Visit No [...] visit Relevant diagnostic tests and/or laboratory data RESULTS Chemistry Group [id number] Result Normal Range Units Creatinine L .70 0.8-1.7 mg/dl History of procedures Procedure Code Code Type Description Date Performed Performing Physician [id number] CPT-4 ASSAY OF CREATININE 11-03-2016 AYUSH ANDERSON Functional status No functional or cognitive status [...]
--- OUTSIDE RECORDS SUMMARY | 2017-02-20 19:10 | External Medical Summary | Summary of Care ---
:1935 Author Name Keesha Downey, Adali Lim Address [address], [place] [id number] Care Team Providers Name Role Phone Keesha Downey, Adali Lim Unavailable Unavailable Adali Richards M.D. Unavailable Unavailable Raphael Thao Primary Care Provider Unavailable [facility] [place] ([place]) Referring Provider Unavailable Unavailable Unavailable Unavailable Functional [...] Active Parkinson's disease (332.0, G20) Status: Active Allergic rhinitis (477.9, J30.9) Status: Active Medications Name Dates Details Aspirin [...] Administered on:18-Jan-2008 Influenza Administered on:05-Mar-2010 Lot #: [id number] Influenza Administered on:17-Jan-2013 Family History Unknown Family [...]
--- OUTSIDE RECORDS SUMMARY | 2017-02-20 19:10 | External Medical Summary | Summary of Care ---
:1935 Author Name Derick Luna Address [address], [place] [id number] Care Team Providers Name Role Phone Keesha Downey, Adali Lim Unavailable Unavailable Derick Luna Unavailable Unavailable Kiley Romero APRN Unavailable Unavailable Adali Richards M.D. Unavailable Unavailable Raphael Thao Unavailable Unavailable [facility], [place] ([place]) Unavailable Unavailable Unavailable Unavailable Unavailable Functional Status [...] Status: Active Dysphagia (787.20, R13.10) Status: Active Medications Name Dates Details Aspirin [...] Tablet TAKE 1 TABLET DAILY. Refills: 0 Yackley M.D., Raphael A Start 26-Jun-2014 Active Zofran 4 MG Oral [...] DAILY WITH MEALS Quantity: 60 Refills: 5 Sarah Lunaew Start 24-Feb-2016 Active Allergies and Adverse Reactions [...] of Gastroscopy With Biopsy Completed: 25-Feb-2012 Prealbumin [id number] Ordered: 07-Apr-2016 ALBUMIN 1105 Ordered: 07-Apr-2016 LIPID PROFILE 1184 Ordered: 07-Apr-2016 Immunization Name Dates Details Influenza on: 18-Jan-2008 Influenza on: 05-Mar-2010 Lot #: [id number] Influenza on: 17-Jan-2013 Pneumo (Pneumovax) on: 23-Jan-2016 [...] 55Dictation Date: 03/11/2016 11:20 XN GASTRIC EMPTYING Plan of Care Name Dates Details Planned Observations Planned Goals not documented Planned Encounters Appointment; Provider: Vimal Richards M.D. On 22-Jun-2016 14:30 Appointment; Provider: Camacho Lawson On 02-Jun-2016 11:00 Appointment; Provider: Ke Solomon M.D. On 20-Apr-2016 13:30 Interventions Provided Labs/Procedures/ImagingALBUMIN 1105; To be Done: 07 Apr 2016LIPID PROFILE 1184; To be Done: 07 Apr 2016Prealbumin [id number]; To be Done: 07 Apr 2016 Instructions [...] not documented 13:30 Appointment; Tra Rico M.D.|F.A.C.SGorge|PRANAY Downey|PRANAY Downey, On Encounter Diagnosis: Problem not documented 11:30 Appointment; Billy Golden M.D.|F.A.C.SGorge|PRANAY Downey|PRANAY Downey, On Encounter Diagnosis: Problem not [...] not documented 13:30 Appointment; Jo Ann Crowe PGorgeAGorge On 27-Apr-2014 Encounter Diagnosis: Problem not documented 13:45"
--- OUTSIDE RECORDS SUMMARY | 2017-02-20 19:10 | External Medical Summary ---
:1935 [address] [facility]. Summary purpose CCDA Sent to [facility] Chief Complaint and Reason for [...] tests and/or laboratory data RESULTS Chemistry Group [id number]:00 Result Normal Range Units Creatinine L .75 0.8-1.7 mg/dl History of procedures No procedures recorded for [...]
--- OUTSIDE RECORDS SUMMARY | 2017-02-20 19:10 | External Medical Summary ---
:1935 Author Name [facility], SYSTEM Care Team Providers Name Role Phone MD MONICA, AYUSH Primary Care Provider Unavailable Reason For Visit Chief Complaint AGITATION Social History Functional Status Vital Signs Results Chemistry from 02/13/2017 11:14 [id number] MMOL/L (136-145 MMOL/L) POTASSIUM4.1 MMOL/L (3.5-5.1 MMOL/L) GYEJKSGD082 MMOL/L (98-107 MMOL/L) ZDE879.2 MMOL/L (21.0-32.0 MMOL/L) *ANION GAP12.8 MMOL/L (8.0-16.0 MMOL/L) BUN19 MG/DL H (7-18 MG/DL) CREATININE0.82 MG/DL (0.55-1.02 MG/DL) *BUN/CREATININE RATIO23.2 H (9.1-17.0 ) AKUNUXX374 MG/DL H (65-99 MG/DL) *GFR EST NON AFR BSJSYYOW16 ML/MIN (Reference Range: not available) *GFR EST AFR AMER79 ML/MIN (Reference Range: not available) CALCIUM9.0 MG/DL (8.5-10.1 MG/DL) BILIRUBIN TOTAL0.40 MG/DL (0.20-1.00 MG/DL) TOTAL PROTEIN7.2 GM/DL (6.4-8.2 GM/DL) ALBUMIN3.9 GM/DL (3.4-5.0 GM/DL) *GLOBULIN3.3 GM/DL (2.3-3.5 GM/DL) *A/G RATIO1.2 L (1.5-2.2 ) ALK BBOL715 U/L (46-116 U/L) ALT (SGPT)84 U/L H (16-63 U/L) AST (SGOT)76 U/L H (15-37 U/L)Hematology from 02/13/2017 11:14 AMWBC8.0 X10e3/ UL (3.6-11.2 X10e3/UL) RBC4.14 X10e6/UL (3.63-4.92 X10e6/UL) RWJBOAMUDC49.9 G/DL (11.0-14.3 G/DL) SQVGCRYUHM90.8 % (31.2-41.9 %) *MCV98.6 FL H (79.0-98.0 FL) *MCH33.5 PG H (27.0-33.0 PG) *MCHC33.9 G/DL (32.0-36.0 G/DL) *RDW13.7 % (12.3-17.0 %) *RDWSD47.7 (37.1-47.8 ) QXJEPLVO085 X10e3/UL (159-386 X10e3/UL) *MPV7.8 FL (7.4-10.4 FL) AUTOMATED DIFFPERFORMED (Reference Range: not available) SEGS78.7 % (Reference Range: not available) *QFWXUVZFFRL76.7 % (Reference Range: not available) *MONOCYTES7.4 % [...] EXAM PERFORMEDPERFORMED (Reference Range: not available) *WBC NXKJN78-15 /HPF A (0-5 /HPF) *RBC URINE1-5 /HPF A (0-1 /HPF) *SQUAMOUS EP. CELLSFEW /LPF (NEG-FEW /LPF) *MUCOUS THREADSMODERATE /LPF A (NEGATIVE /LPF) *BACTERIAMANY /HPF A (NEGATIVE /HPF)Microbiology from 02/13/2017 11:45 AMCULTURE URINE (Preliminary Result) Specimen Number: [id number] Sample Collection Date/Time: 02/13/2017 11:45 AM Specimen Source: Urine Clean Catch CULTURE URINE: Escherichia coli >100,000 cfu/ml Problems Encounter Diagnosis No relevant problems exist. [...] Allergies, Adverse Reactions, Alerts This section is sales representative electric service of the current allergy information, at the [...]
--- OUTSIDE RECORDS SUMMARY | 2017-02-20 19:10 | External Medical Summary | Summary of Care ---
:1935 Author Name Jo Ann Reina Address [address] [place], [place] [phone] Care Team Providers Name Role Phone Adali Thao M.D. Unavailable Unavailable Adali Richards M.D. Unavailable Unavailable Raphael Thao Primary Care Provider Unavailable [facility], [place] Referring Provider Unavailable Unavailable Unavailable Unavailable Functional [...] Tablet TAKE 1 TABLET DAILY. Refills: 0 Rahpael Thao M.D. Started 26-Jun-2014 ActiveCarafate 1 GM/10ML [...] Administered on:18-Jan-2008 Influenza Administered on:05-Mar-2010 Lot #: [id number] Influenza Administered on:17-Jan-2013 Family History Unknown Family [...] smoker Vital Signs Date Test Result Details 24-Aug-2014 14:03 BP Systolic 118 mm[Hg] Status: BP Diastolic 72 mm[Hg] Status: Heart Rate 95 /min Status: Respiration Rate 18 /min Status: Temperature 97.8 f Status: O2 SAT 94 % Status: Results Date Description Value Details Results [...]
--- OUTSIDE RECORDS SUMMARY | 2017-02-20 19:11 | External Medical Summary ---
:1935 Author Name GENERATED, SYSTEM Care Team Providers Name Role Phone MD MONICA, AYUSH Primary Care Provider Unavailable Reason For Visit Reason for Visit from 12/12/2016 6:28 PM:Pt Stated Reason for Adm : AMS Chief Complaint MS CHANGES, POSITIVE TROPONIN Social History Social History from 12/14/2016 10:02 AM:Tobacco Use? : Never SmokerSocial History from 12/12/2016 6:28 PM:Tobacco Use? : Never Smoker Functional Status Functional Status from 12/14/2016 9:29 AM:LOC : AlertOriented To : Person,Place, Time,EventWeight Bearing Status : FullAssist Level : Dependent# Assists : 2Functional Status from 12/13/2016 9:00 PM:LOC : AlertOriented To : Person,Place, TimeWeight Bearing Status : FullAssist Level : Dependent# Assists : 2Functional Status from 12/13/2016 6:15 PM:# Assists : 2Functional Status from 12/13/2016 10: 18 AM:LOC : AlertOriented To : Person,Place,Time,EventWeight Bearing Status : FullAssist Level : Partial# Assists : 1Functional Status from 12/12/2016 6:28 PM: LOC : ConfusedOriented To : Person,PlaceWeight Bearing Status : FullAssist Level : Partial# Assists : 2 Vital Signs Hospital Vital Signs from 12/14/2016 9:29 AM:Heart Rate : 100Hospital Vital Signs from 12/14/2016 9:22 AM:Height : 5/5 ft,inHospital Vital Signs from 2016 8:22 AM:Height : 5/5 ft,inHospital Vital Signs from 12/14/2016 2:33 AM: Height : 5/5 ft,inTemperature : 96.5 FPulse : 85Respirations : 18BP : 145/ 79Hospital Vital Signs from 12/13/2016 10:03 PM:Height : 5/5 ft,inTemperature : 96.1 FPulse : 87Respirations : 18BP : 124/58Hospital Vital Signs from 12/13/2016 9:00 PM:Heart Rate : 80Hospital Vital Signs from 12/13/2016 8:57 PM:Height : 5/5 ft,inTemperature : 98.1 FPulse : 95Respirations : 18BP : 125/68Hospital Vital Signs from 12/13/2016 3:00 PM:Height : 5/5 ft,inTemperature : 96.4 FPulse : 93Respirations : 18BP : 171/78Hospital Vital Signs from 12/13/2016 10:18 AM: Heart Rate : 88Hospital Vital Signs from 12/13/2016 7:59 AM:Height : 5/5 ft, inTemperature : 96.8 FPulse : 86Respirations : 18BP : 126/67Hospital Vital Signs from 12/13/2016 5:53 AM:Height : 5/5 ft,inTemperature : 96.8 FPulse : 83Respirations : 20BP : 129/65Hospital Vital Signs from 12/12/2016 10:22 PM: Height : 5/5 ft,inTemperature : 97.4 FPulse : 92Respirations : 16BP : 152/ 74Hospital Vital Signs from 12/12/2016 6:52 PM:Height : 5/5 ft,inTemperature : 98.0 FPulse : 97Respirations : 18BP : 138/74Hospital Vital Signs from 12/12/2016 6:28 PM:Weight : 79.7/ kgHeight : 5/5 ft,in Results Chemistry from 12/13/2016 5:52 AMTROPONIN-I0.668 NG/ML H (0.000-0.056 NG/ML) Chemistry from 12/13/2016 12:13 AMTROPONIN-I0.771 NG/ML H (0.000-0.056 NG/ML) Problems Encounter Diagnosis Altered Mental Status Status:Active.Fall Risk Status:Active.Infection Risk Status:Active.Mobility Impairment Status:Active.Skin Integrity Impairment Risk Status:Active.Additional Problems Accidental Fall Comment:Problem resolved by [facility] Workflow upon Discharge, Status:Resolved.Acute Pain Comment:Problem resolved by [facility] Workflow upon Discharge, Status:Resolved.Acute Urinary Tract infection Comment:Problem resolved by [facility] Workflow upon Discharge, Status:Resolved.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 Encounters Encounter Diagnosis Altered Mental Status Status:Active.Fall Risk Status:Active.Infection Risk Status:Active.Mobility Impairment Status:Active.Skin Integrity Impairment Risk Status:Active. Plan of Care Follow-up Appointments from 12/14/2016 10:02 AM:#1 Office appointment: : Dr. Thao#1 Date/Time : 12/22/2016 3:15 PMAddress # 1 : [facility]: [address] [place]- or Treatment Plan from 11:50 AM:Care Management Note : BODY,TD,TH,BUTTON,INPUT,SELECT,TEXTAREA{ FONT-SIZE: 10pt; FONT-FAMILY: [place],Helvetica; COLOR: black;} P,DIV,UL,OL, BLOCKQUOTE{MARGIN-BOTTOM: 0px; MARGIN-TOP: 0px;} BODY{MARGIN: 5px;} SW spoke with patient and [facility] staff regarding plan for patient to return to them today. No concerns at this time. [facility] plans to provide transportation at 1430.Treatment Plan from 12/13/2016 2:07 PM:Care Management Note : BODY,TD,TH, BUTTON,INPUT,SELECT,TEXTAREA{FONT-SIZE: 10pt; FONT-FAMILY: [place],Helvetica; COLOR: black;} P,DIV,UL,OL,BLOCKQUOTE{MARGIN-BOTTOM: 0px; MARGIN-TOP: 0px;} BODY {MARGIN: 5px;} talked with Dr Guido - stay is anticipated greater than 2 midnights. he agrees with inpatient status - see orders.Treatment Plan from 12/13 11:20 AM:Care Management Note : BODY,TD,TH,BUTTON,INPUT,SELECT,TEXTAREA{ FONT-SIZE: 10pt; FONT-FAMILY: [place],Helvetica; COLOR: black;} P,DIV,UL,OL, BLOCKQUOTE{MARGIN-BOTTOM: 0px; MARGIN-TOP: 0px;} BODY{MARGIN: 5px;}Patient to 5200 as outpatient observation statusPatient presented to ER for evaluation of AMS with hallucinations. Temp 99.1. 79Y. Patient recent UTI. Wheezing noted in ER. Patient received IV Ativan in ER for confusion and agitation - symptoms improved.labs and vital signs noted. Bun 19. Glucose 165. Troponin 0.40, 0.771, 0.668. UA: cloudy, trace leukocytes, 5-10 WBC, and Moderate Bacteria. Positive UA culture noted.CXR: Minimal bibasilar atelectasisEKG and CT noted.Cardiology consulted to evaluate elevated troponins. Follow vital signs with oximetry. Ambulate in halls 4 times a day. IVF at 100. IV Zosyn every 6 hours. Lovenox for DVT prevention.will talk with Hospitalist regarding POC/LOS. Procedures Completed Percutaneous Endoscopic Gastrostomy, by MD MARKUS MAURO, on 2014 2:47 PMCompleted esophagogastroduodenoscopy with biopsy, by MD MICHAEL CONWAY, on 06/23/2014 9:48 AMCompleted Procedure Code: 45.16 Procedure Name: not valued, on 06/23/2014 12:00 AM Immunizations No immunizations administered or ordered. Hospital Course Hospital Discharge Instructions How to care for yourself at home from 12/14/2016 10:02 AM:Discharge Activity : Activity as tolerated,May ShowerDischarge Diet : Diet as toleratedDischarge Diet : : RegularCall your doctor if: : Fever over 101 [...] Allergies, Adverse Reactions, Alerts This section is c s s representative of the current allergy information, at [...] the responsibility of the patient or patient c s s representative to confirm the list of medicationswith either the patient's personal care provider or the patient's follow-up care provider to ensure the patient has an appropriate list of medications to take at home. Discharge medicationsNew medicationsamoxicillin-pot clavulanate (Augmentin) 875 mg-125 mg Tablet, Ordered By: EFRAIN VELARDE MD Directions: 1 tablet oral twice a day Additional Instructions: 7 days Continued medicationsacetaminophen (Acetaminophen Extra Strength) 500 mg Tablet , Ordered By: EFRAIN VELARDE MD Directions: 2 tablet oral three times a day amantadine HCl 100 mg Capsule, Ordered By: EFRAIN VELARDE MD Directions: 1 capsule oral daily every morning amLODIPine 5 mg Tablet, Ordered By: EFRAIN VELARDE MD Directions: 1 tablet oral daily aspirin (Antelmo Chewable Aspirin) 81 mg tablet,chewable, Ordered By: EFRAIN VELARDE MD Directions: 1 tablet oral daily atorvastatin 40 mg Tablet, Ordered By: EFRAIN VELARDE MD Directions: 1 tablet oral daily at bedtime busPIRone 15 mg Tablet, Ordered By: EFRAIN VELARDE MD Directions: 1.5 tablet oral three times a day carbidopa-levodopa 25 mg-100 mg Tablet, Ordered By: EFRAIN VELARDE MD Directions: 2 tablet oral four times daily carvedilol (Coreg) 3.125 mg Tablet, Ordered By: EFRAIN VELARDE MD Directions: 1 tablet oral twice a day cholecalciferol (vitamin D3) (Vitamin D3) 1,000 unit Tablet, Ordered By: EFRAIN VELARDE MD Directions: 2 tablet oral daily with breakfast cyclobenzaprine 10 mg Tablet, Ordered By: EFRAIN VELARDE MD Directions: 1 tablet oral every eight hours diclofenac sodium 1 % Gel, Ordered By: EFRAIN VELARDE MD Directions: 1 application topical three times a day for pain-mild Additional Instructions: Apply to back of neck and on lower shoulders and chest area. divalproex 500 mg Tablet Extended Release 24 hr, Ordered By: EFRAIN VELARDE MD Directions: 1 tablet oral daily at bedtime escitalopram oxalate (LexAPRO) 10 mg Tablet, Ordered By: EFRAIN VELARDE MD Directions: 1 tablet oral daily lansoprazole (PrevACID) 30 mg capsule,delayed release(DR/EC), Ordered By: EFRAIN VELARDE MD Directions: 1 capsule oral daily levothyroxine 137 mcg Tablet, Ordered By: EFRAIN VELARDE MD Directions: 1 tablet oral daily before breakfast LORazepam 1 mg Tablet, Ordered By: EFRAIN VELARDE MD Directions: 1 tablet oral twice a day polyethylene glycol 3350 (Miralax) 17 gram Powder in Packet, Ordered By: EFRAIN VELARDE MD Directions: 1 packet oral twice a day ranitidine HCl (ZANtac) 150 mg Tablet, Ordered By: EFRAIN VELARDE MD Directions: 1 tablet oral twice a day traMADol 50 mg Tablet, Ordered By: EFRAIN VELARDE MD Directions: 1 tablet oral every four hours PRN pain Changed medicationsmupirocin calcium (Bactroban) 2 % Cream, Ordered By: EFRAIN VELARDE MD Directions: once day apply to reddened area around PEG tube topical daily Stopped medicationsNone
--- OUTSIDE RECORDS SUMMARY | 2017-02-20 19:11 | External Medical Summary | Summary of Care ---
:1935 Author Name Jo Ann Reina Address [address] [place], [place] [id number] Care Team Providers Name Role Phone Adali Thao M.D. Unavailable Unavailable Adali Richards M.D. Unavailable Unavailable Raphael Thao Primary Care Provider Unavailable [facility], [place] Referring Provider Unavailable Unavailable Unavailable Unavailable Functional [...] 1 TABLET AT BEDTIME. Refills: 0 Raphael Thoa M.D. Started ActiveZofran 4 MG Oral Tablet [...] Administered on:18-Jan-2008 Influenza Administered on:05-Mar-2010 Lot #: [id number] Influenza Administered on:17-Jan-2013 Family History Unknown Family [...]
--- OUTSIDE RECORDS SUMMARY | 2017-02-20 19:11 | External Medical Summary | Summary of Care ---
:1935 Author Name Keesha Downey, Adali Lim Address [address] [place], [place] [id number] Care Team Providers Name Role Phone Keesha Downey, Adali Lim Unavailable Unavailable Adali Richards M.D. Unavailable Unavailable Raphael Thao Primary Care Provider Unavailable [facility] ([place]) Referring Provider Unavailable Unavailable Unavailable Unavailable Functional [...] Active Neck pain (723.1, M54.2) Status: Active Medications Name Dates Details Aspirin 81 MG TABS TAKE 1 TABLET DAILY. Refills: 0 Started 21-Jan-2011 ActiveEffexor XR 150 MG Oral Capsule Extended Release 24 Hour TAKE 1 CAPSULE DAILY. Refills: 0 Started ActiveCarbidopa-Levodopa ER 50-200 MG Oral Tablet Extended Release TAKE 1 TABLET FOUR TIMES A DAY Quantity: 360 Refills: 3 Vimal Richards M.D. Started 08-Jun-2011 ActiveAmLODIPine Besylate 5 MG Oral Tablet take one tablet by mouth every day Quantity: 30 Refills: 11 Raphael Thao M.D. Started ActiveDepakote 500 MG Oral Tablet Delayed [...] Administered on:18-Jan-2008 Influenza Administered on:05-Mar-2010 Lot #: [id number] Influenza Administered on:17-Jan-2013 Family History Unknown Family [...] smoker Vital Signs Date Test Result Details 14:13 BP Systolic 126 mm[Hg] Status: BP [...] Vimal Richards On 05-Feb-2016 13:45 Appointment; Provider: Raphael Thao On 12-Nov-2015 14:30 Appointment; Provider: Jo Ann Crowe On 13:30 Appointment; Provider: Davidson Banerjee On 04-Jun-2011 10:30 Instructions Instructions not documented Encounters Appointment; Raphael Thao On Encounter Diagnosis: Problem [...]
--- OUTSIDE RECORDS SUMMARY | 2017-02-20 19:11 | External Medical Summary | Summary of Care ---
:1935 Author Name Nia Velasquez M.A., A James Address [address], [place] [id number] Care Team Providers Name Role Phone Keesha Downey, Adali Lim Unavailable Unavailable Fausto P.AGorge, Derick Unavailable Unavailable Romero CLOTH FOLDER MACHINE, Kiley Unavailable Unavailable Nia Velasquez M.A., A James Unavailable Unavailable Maurice Downey, Adali Celis Unavailable Unavailable Raphael Thao Unavailable Unavailable [place], [place] ([place]) Unavailable Unavailable Unavailable Unavailable Unavailable Functional Status [...] 5 Raphael Thao M.D. Start 10-Jun-2015 Active Amitiza 8 MCG Oral [...] of Gastroscopy With Biopsy Completed: 25-Feb-2012 Prealbumin 069552 Ordered: 07-Apr-2016 ALBUMIN 1105 Ordered: 07-Apr-2016 LIPID PROFILE 1184 Ordered: 07-Apr-2016 Immunization Name Dates Details Influenza on: 18-Jan-2008 Influenza on: 05-Mar-2010 Lot #: [id number] Influenza on: 17-Jan-2013 Pneumo (Pneumovax) on: 23-Jan-2016 [...] documented Encounters Appointment; Ke Solomon M.D. On 12-May-2016 Encounter [...] Problem not documented 13:30 Appointment; Tra Rico M.D.|PremaCGorgeSGorge|Nasreen,PRANAY|Nasreen,PRANAY, On Encounter Diagnosis: Problem not documented 11:30 [...]
--- OUTSIDE RECORDS SUMMARY | 2017-02-20 19:11 | External Medical Summary | Summary of Care ---
:1935 Author Name Keesha Downey, Adali Lim Address [address] [place], [place] [id number] Care Team Providers Name Role Phone Keesha Downey, Adali Lim Unavailable Unavailable Adali Richards M.D. Unavailable Unavailable Raphael Thao Primary Care Provider Unavailable [facility] ([place]) Referring Provider Unavailable Unavailable Unavailable Unavailable Functional [...] Status: Active Malnutrition (263.9, E46) Status: Active Medications Name Dates Details Aspirin [...] spontaneous (V13.29, Z87.59) Status: Resolved History of vaginal delivery (V13.29) [...] Administered on:18-Jan-2008 Influenza Administered on:05-Mar-2010 Lot #: [id number] Influenza Administered on:17-Jan-2013 Family History Unknown Family [...] smoker Vital Signs Date Test Result Details 24-Dec-2014 15:56 BP Systolic 124 mm[Hg] Status: BP Diastolic 64 mm[Hg] Status: Heart Rate 120 /min Status: Results Date Description Value Details Results not documented Plan of Care Planned Observations Name Dates Details Planned Goals not documented Goal Planned Encounters Appointment; Provider: Vimal Richards On 19-Feb-2015 14:15 Appointment; Provider: Raphael Thao On 04-Feb-2015 14:30 Appointment; Provider: Raphael Thao On 07-Jan-2015 11:30 Appointment; Provider: Jo Ann Crowe On 13:30 Appointment; Provider: Davidson Banerjee On 04-Jun-2011 10:30 Instructions Instructions not documented Encounters Appointment; Raphael Thao On 24-Dec-2014 Encounter Diagnosis: Problem not documented 15:00 Appointment; Raphael Thao On 16-Nov-2014 Encounter Diagnosis: Problem not documented 11:30 Appointment; Vimal Richards On 13-Nov-2014 Encounter Diagnosis: Problem not documented 14:30 Appointment; Jo Ann Crowe On 24-Aug-2014 Encounter Diagnosis: Problem not documented 13:15 Appointment; Raphael Thao On 19-Jun-2014 Encounter Diagnosis: Problem not documented 16:00 Appointment; Brtitney Bennett On 07-Jun-2014 Encounter Diagnosis: Problem not [...]
--- OUTSIDE RECORDS SUMMARY | 2017-02-20 19:12 | External Medical Summary ---
[...] Integrity Impairment Risk Status:Active. Plan of Care Treatment Plan from 12/13/2016 2:07 PM:Care Management Note : BODY,TD,TH,BUTTON, INPUT,SELECT,TEXTAREA{FONT-SIZE: 10pt; FONT-FAMILY: [place],Helvetica; COLOR: black;} P,DIV,UL,OL,BLOCKQUOTE{MARGIN-BOTTOM: 0px; MARGIN-TOP: 0px;} BODY{MARGIN : 5px;} talked with Dr Guido - stay is anticipated greater than 2 midnights. he agrees with inpatient status - see orders.Treatment Plan from 12/13 11:20 AM:Care Management Note : BODY,TD,TH,BUTTON,INPUT,SELECT,TEXTAREA{ FONT-SIZE: 10pt; FONT-FAMILY: [place],Helvetica; COLOR: black;} P,DIV,UL,OL, BLOCKQUOTE{MARGIN-BOTTOM: 0px; MARGIN-TOP: 0px;} [...] esophagogastroduodenoscopy with biopsy, [facility], on 06/23/2014 9:48 AMCompleted Procedure Code: [...] symptoms worsen. ( Weigh at home tomorrow morning)Discharge on Warfarin : No Allergies, Adverse Reactions, Alerts This section is teleservices representative of the current allergy information, at [...] the responsibility of the patient or patient teleservices representative to confirm the list of medicationswith [...] MD Directions: 1 tablet oral daily aspirin (Antlemo Chewable Aspirin) 81 mg tablet,chewable, Ordered By: EFRAIN VELARDE MD Directions: 1 tablet oral daily atorvastatin 40 mg Tablet, Ordered By: EFRAIN VELARDE MD Directions: 1 tablet oral daily at bedtime busPIRone 15 mg Tablet, Ordered By: EFRAIN VELARDE MD Directions: 1.5 tablet oral three times a day carbidopa-levodopa 25 mg-100 mg Tablet, Ordered By: EFRAIN VELARED MD Directions: 2 tablet oral four times [...]
--- OUTSIDE RECORDS SUMMARY | 2017-02-20 19:12 | External Medical Summary | Summary of Care ---
:1935 Author Name Derick Luna Address [address] [place], [place] [id number] Care Team Providers Name Role Phone Keesha Downey, Adali Lim Unavailable Unavailable Derick Luna Unavailable Unavailable Kiley Romero APRN Unavailable Unavailable Adali Richards M.D. Unavailable Unavailable Raphael Thao Unavailable Unavailable Notrees [place], [place] ([place]) Unavailable Unavailable Unavailable Unavailable Unavailable Functional Status [...] 3 Raphael Thao M.D. Start 26-Jul-2014 Active Zofran 4 MG Oral [...] 0 Raphael Thao M.D. Start 11-Apr-2015 Active Cyclobenzaprine HCl - 10 MG Oral [...] of Gastroscopy With Biopsy Completed: 25-Feb-2012 Prealbumin [id number] Ordered: 07-Apr-2016 ALBUMIN 1105 Ordered: 07-Apr-2016 LIPID PROFILE 1184 Ordered: 07-Apr-2016 Immunization Name Dates Details Influenza on: 18-Jan-2008 Influenza on: 05-Mar-2010 Lot #: [id number] Influenza on: 17-Jan-2013 Pneumo (Pneumovax) on: 23-Jan-2016 [...] to report Results Date Description Value Details 07-Apr-2016 12:55 [...] /HPF Range: 0-10 09-Apr-2016 16:09 URINE CULTURE [id number] Comments: [employer] performed at: [facility], [address] [place] [address], [address], Advertising Sales Representative: Shree Pollock D.O., MPHQuest Collection Date/Time: Results Received Date/Time: Reported Date /Time: [id number] FASTING:NOQuest performed at : [facility], [place], [address], Advertising Sales Representative: Shree Pollock D.O., MPHQuest Collection Date/Time: Results Received Date/Time: Reported Date/Time: FASTING:NO CULTURE, URINE, ROUTINE SEE NOTE (Abnormal) Comments: CULTURE, URINE, ROUTINE MICRO NUMBER: [id number] TEST STATUS: FINAL SPECIMEN SOURCE : URINE [...] 1184; To be Done: 07 Apr 2016Prealbumin [id number]; To be Done: 07 Apr 2016 Instructions [...] not documented 13:30 Appointment; Tra Rico M.D.|F.A.C.SGorge|PRANAY Downey|Nasreen,PRANAY, On Encounter Diagnosis: Problem not documented 11:30 Appointment; Billy Golden M.D.|F.A.C.SGorge|PRANAY Downey|Nasreen,PRANAY, On Encounter Diagnosis: Problem not documented [...]
--- OUTSIDE RECORDS SUMMARY | 2017-02-20 19:12 | External Medical Summary ---
[...] 5/5 ft,in Results Chemistry from 10/14/2016 2:20 [id number] MMOL/L (136-145 MMOL/L) POTASSIUM3.7 MMOL/L (3.5-5.1 MMOL/L) [id number] MMOL/L (98-107 MMOL/L) OEL817.9 MMOL/L (21.0-32.0 MMOL/L) *ANION GAP11.1 MMOL/L (8.0-16.0 MMOL/L) BUN18 MG/DL (7-18 MG/DL) CREATININE1.09 MG/DL H (0.55-1.02 MG/DL) *BUN/CREATININE RATIO16.5 (9.1-17.0 ) SDZGBCS21 MG/DL (65-99 MG/DL) *GFR EST NON AFR MASKDUOV85 ML/MIN (Reference Range: not available) *GFR EST AFR AMER56 ML/MIN (Reference Range: not available) CALCIUM8.7 MG/DL (8.5-10.1 MG/DL) ALBUMIN3.6 GM/DL (3.4-5.0 GM/DL) MAGNESIUM2.2 MG/DL (1.8-2.4 MG/DL) PHOSPHORUS5.5 MG/DL H (2.6-4.7 MG/DL)Hematology from 10/14/2016 2:20 AMWBC8.5 X10e3/UL (3.6-11.2 X10e3/UL) RBC4.38 X10e6/UL (3.63-4.92 X10e6/UL) OFKEDPTRCA13.1 G/DL (11.0-14.3 G/DL) BNYAHVOEWK50.4 % H (31.2-41.9 %) *MCV96.8 FL (79.0-98.0 FL) *MCH32.2 PG (27.0-33.0 PG) *MCHC33.2 G/DL (32.0-36.0 G/DL) *RDW14.4 % (12.3-17.0 %) *RDWSD49.0 H (37.1-47.8 ) LLFJDHUM531 X10e3/UL (159-386 X10e3/UL) *MPV7.4 FL (7.4-10.4 FL) AUTOMATED DIFFPERFORMED (Reference Range: not available) SEGS62.8 % (Reference Range: not available) *FPPHAMFZYDP30.4 % (Reference Range: not available) *MONOCYTES9.2 % [...] : 10/20/2016 2:15 PMAddress # 1 : [facility]: [address], [place]- or #2 Office appointment: : Dr. Hidalgo ([place] to schedule follow-up appointmenr for 1-2 weeks)Treatment Plan from 10/14/2016 9:45 AM:Care Management Note : BODY,TD,TH,BUTTON,INPUT,SELECT, TEXTAREA{FONT-SIZE: 10pt; FONT-FAMILY: [place],Helvetica; COLOR: black;} P,DIV,UL, OL,BLOCKQUOTE{MARGIN-BOTTOM: 0px; MARGIN-TOP: 0px;} BODY{MARGIN: 5px;} Patient discharging back to [place] today. [place] orders have been completed and signed by Hospitalist. Ayden on transport set up.Treatment Plan from 10/13/2016 5:30 PM :Care Management Note : BODY,TD,TH,BUTTON,INPUT,SELECT,TEXTAREA{FONT-SIZE: 10pt ; FONT-FAMILY: [place],Helvetica; COLOR: black;} P,DIV,UL,OL,BLOCKQUOTE{MARGIN- BOTTOM: 0px; MARGIN-TOP: 0px;} BODY{MARGIN: 5px;} Patient admitted [...] patient to inpatient status. Patient resides at [facility]. TAMEZ was not given with status change completed prior to her 24 hrs observation status.Treatment Plan from 10/13/2016 4:30 PM: Care Management Note : BODY,TD,TH,BUTTON,INPUT,SELECT,TEXTAREA{FONT-SIZE: 10pt; FONT-FAMILY: [place],Helvetica; COLOR: black;} P,DIV,UL,OL,BLOCKQUOTE{MARGIN- BOTTOM: 0px; MARGIN-TOP: 0px;} BODY{MARGIN: 5px;} Per chart review, patient is from [facility] and is anticipated to return there. [facility] contacted them to inform them of possible [...] Allergies, Adverse Reactions, Alerts This section is district representative of the current allergy information, at [...] the responsibility of the patient or patient district representative to confirm the list of medicationswith [...]
--- OUTSIDE RECORDS SUMMARY | 2017-02-20 19:12 | External Medical Summary ---
:1935 Author Name GENERATED, SYSTEM Care Team Providers Name Role Phone MD MONICA, AYUSH Primary Care Provider Unavailable Reason For Visit Chief Complaint ANXIETY ATTACK Social History Functional Status Vital Signs Results Chemistry from 02/07/2016 4:59 [id number] MMOL/L (136-145 MMOL/L) POTASSIUM3.8 MMOL/L (3.5-5.1 MMOL/L) IVYOYRRH055 MMOL/L (98-107 MMOL/L) VGB515.1 MMOL/L (21.0-32.0 MMOL/L) *ANION GAP9.9 MMOL/L (8.0-16.0 MMOL/L) BUN16 MG/DL (7-18 MG/DL) CREATININE0.88 MG/DL (0.55-1.02 MG/DL) *BUN/CREATININE RATIO18.2 H (9.1-17.0 ) UDIHIPV869 MG/DL H (65-99 MG/DL) *GFR EST NON AFR KLEQFDXN74 ML/MIN *GFR EST AFR AMER73 ML/MIN CALCIUM8.7 MG/DL (8.5-10.1 MG/DL) BILIRUBIN TOTAL0.20 MG/DL (0.20-1.00 MG/DL) TOTAL PROTEIN7.4 GM/DL (6.4-8.2 GM/DL) ALBUMIN3.8 GM/DL (3.4-5.0 GM/DL) *GLOBULIN3.6 GM/DL H (2.3-3.5 GM/DL) *A/G RATIO1.1 MG/DL L (1.5-2.2 MG/DL) ALK UVNF693 U/L H (46-116 U/L) ALT (SGPT)21 U/L (16-63 U/L) AST (SGOT)18 U/L (15-37 U/L) TROPONIN-I<0.017 NG/ML (0.000-0.056 NG/ML) TSH3.298 UIU/ML (0.340-4.820 UIU/ML)Hematology from 02/07/2016 4:59 PMWBC8.9 X10e3/UL (3.6-11.2 X10e3/UL) RBC4.14 X10e6/UL (3.63-4.92 X10e6/UL) RTISGMTHUH04.2 G/DL (11.0-14.3 G/DL) OONNAOXPBJ92.6 % (31.2-41.9 %) *MCV95.5 FL (79.0-98.0 FL) *MCH31.8 PG (27.0-33.0 PG) *MCHC33.3 G/DL (32.0-36.0 G/DL) *RDW13.6 % (12.3-17.0 %) *RDWSD45.5 (37.1-47.8 ) SRGHFNJI810 X10e3/UL (159-386 X10e3/UL) *MPV7.4 FL (7.4-10.4 FL) AUTOMATED DIFFPERFORMED SEGS72.5 % *BRLQGABGKUV38.1 % *YDOJNOYQN35.3 % *EOSINOPHILS1.6 % *BASOPHILS0.5 % *ABSOLUTE NEUTROPHILS6.50 X10e3/UL (1.80-7.80 X10e3/UL) *ABSOLUTE LYMPHOCYTES1.30 X10e3/UL (1.00-3.00 X10e3/UL) *ABSOLUTE MONOCYTES1.00 X10e3/UL (0.30-1.00 X10e3/UL) *ABSOLUTE EOSINOPHILS0.10 X10e3/UL (0.00-0.50 X10e3/UL) *ABSOLUTE BASOPHILS0.00 X10e3/UL (0.00-0.20 X10e3/UL) Problems Encounter Diagnosis No relevant problems exist. [...] PMCompleted esophagogastroduodenoscopy with biopsy, by MD [facility], on 06/23/2014 9:48 AMCompleted Procedure Code: 45.16 [...]
--- OUTSIDE RECORDS SUMMARY | 2017-02-20 19:12 | External Medical Summary | Summary of Care ---
:1935 Author Name Derick Luna Address [address], [place] [id number] Care Team Providers Name Role Phone Keesha Downey, Adali Lim Unavailable Unavailable Derick Luna Unavailable Unavailable Kiley Romero APRN Unavailable Unavailable Adali Richards M.D. Unavailable Unavailable Raphael Thao Unavailable Unavailable [place], [place] ([place]) Unavailable Unavailable Unavailable Unavailable Unavailable Functional Status [...] on: 18-Jan-2008 Influenza on: 05-Mar-2010 Lot #: [id number] Influenza on: 17-Jan-2013 Pneumo (Pneumovax) on: 23-Jan-2016 [...] >60 ml/min Range: >60 EST GFR, NON-AFR NEPALESE 57 ml/min (Below low Range: >60 threshold) [...] Adequate Range: Adequate 19-Feb-2016 17:15 URINE CULTURE [id number] Comments: [employer] performed at: [facility], [facility] [employer] [place], [address], Inventory And Pricing Associate: Shree Pollock D.O., MPHQuest Collection Date/Time: [id number] Results Received Date/Time: Reported Date /Time: FASTING:NOQuest performed at : [facility] [place], [facility] [place], [address], Inventory And Pricing Associate: Shree Pollock D.O., MPHQuest Collection Date/Time: [id number] Results Received Date/Time: [id number] Reported Date/Time: FASTING:NO CULTURE, URINE, ROUTINE SEE NOTE (Abnormal) Comments: CULTURE, URINE, ROUTINE MICRO NUMBER: [id number] TEST STATUS: FINAL SPECIMEN SOURCE : URINE [...] Lawson On 16-Mar-2016 14:00 Appointment; Provider: Vimal Richards M.D. On 04-Mar-2016 14:15 Appointment; Provider: Ke [...] Diagnosis: Problem not documented 11:30 Appointment; Billy Goledn M.D.|PRANAY Boyce|Nasreen,PRANAY, On Encounter Diagnosis: Problem not [...]
--- OUTSIDE RECORDS SUMMARY | 2017-02-20 19:12 | External Medical Summary | Summary of Care ---
:1935 Author Name Adali Thao M.D. Address [address], [place] [id number] Care Team Providers Name Role Phone Keesha Downey, Adali Lim Unavailable Unavailable Adali Richards M.D. Unavailable Unavailable Raphael Thao Primary Care Provider Unavailable [facility] Referring Provider Unavailable Unavailable Unavailable Unavailable [...] Status: Active Anxiety (300.00, F41.1) Status: Active Memory loss (780.93, R41.3) Status: Active Parkinson's disease (332.0, G20) Status: Active Malnutrition (263.9, E46) Status: Active Dysphagia, neurologic (787.29, F45.8) Status: Active Depression (311, F32.9) Status: Active Hypertension (401.9, I10) Status: Active Acute sinusitis (461.9, J01.90) Status: Active Medications Name Dates Details Aspirin [...] History of Complete Colonoscopy For Polyp Removal Completed:[id number] History of Back Surgery History of Tubal Ligation History of Gastroscopy With Biopsy Completed: History of Gastroscopy With Biopsy Completed:25-Feb-2012 Procedures not documented Immunization Name Dates Details Influenza Administered on:18-Jan-2008 Influenza Administered on:05-Mar-2010 Lot #: [id number] Influenza Administered on:17-Jan-2013 Family History Unknown Family [...] smoker Vital Signs Date Test Result Details 16-Nov-2014 12:02 BP Systolic 110 mm[Hg] Status: BP Diastolic 62 mm[Hg] Status: Heart Rate 92 /min Status: 13-Nov-2014 14:48 BP Systolic 132 mm[Hg] Status: BP Diastolic 70 mm[Hg] Status: Heart Rate 96 /min Status: Results Date Description Value Details Results not documented Plan of Care Planned Observations Name Dates Details Planned Goals not documented Goal Planned Encounters Appointment; Provider: Vimal Richards On 19-Feb-2015 14:15 Appointment; Provider: Raphael Thao On 24-Dec-2014 15:00 Appointment; Provider: Jo Ann Crowe On 13:30 Appointment; Provider: Davidson Banerjee On 04-Jun-2011 10:30 Instructions Instructions not documented Encounters Appointment; Raphael Thao On 16-Nov-2014 Encounter Diagnosis: [...]
--- OUTSIDE RECORDS SUMMARY | 2017-02-20 19:13 | External Medical Summary | Summary of Care ---
:1935 Author Name Adali Richards M.D. Address Unavailable Unavailable , Care Team Providers Name Role Phone Keesha Downey, Adali Lim Unavailable Unavailable Derick Luna Unavailable Unavailable Nick STRATIGRAPHY TEACHERKiley Interiano Unavailable Unavailable Maurice Downey, Adali Celis Unavailable Unavailable Raphael Thao Unavailable Unavailable [facility], [place] ([place]) Unavailable Unavailable Unavailable Unavailable Unavailable Functional Status [...] Status: Active Dysphagia (787.20, R13.10) Status: Active Hypertension (401.9, I10) Status: Active Chronic nausea (787.02, R11.0) Status: Active Dysphagia, neurologic (787.29, R13.19) Status: Active Anxiety (300.00, F41.9) Status: Active [...] Keesha Downey Raphael Bro Start 07-Feb-2013 Active MiraLax Oral Powder Refills: 0 Start 22-May-2014 Active Vitamin D 1000 UNIT CAPS Refills: 0 Start 22-May-2014 Active Levothyroxine Sodium 137 MCG Oral Tablet TAKE 1 TABLET DAILY. Refills: 0 Keesha Downey Raphael Bro Start 26-Jun-2014 Active Zofran 4 [...] Quantity: 1 Refills: 1 Raphael Thao M.D. Adali Start Active 100 GM Tube Amantadine HCl [...] 2 Vimal Richards M.D. Start 11-Feb-2016 Active Allergies and Adverse Reactions [...] on: 18-Jan-2008 Influenza on: 05-Mar-2010 Lot #: [id number] Influenza on: 17-Jan-2013 Pneumo (Pneumovax) on: 23-Jan-2016 [...] smoker Vital Signs Date Test Result Details 04-Aug-2016 14:43 BP Systolic 90 mm[Hg] Status: Comments: Location: ; Position: BP Diastolic 60 mm[Hg] Status: Comments: Location: ; Position: Heart Rate 80 /min Status: Comments: Location: ; Weight 178 lb Status: Body Mass Index Calculated 30.55 kg/m2 Status: Body Surface Area Calculated 1.86 m2 Status: 22-Jul-2016 13:56 BP Systolic 124 mm[Hg] Status: [...] documented Encounters Appointment; Derick Lambert P.A. On 22-Jul-2016 Encounter Diagnosis: Problem not documented 13:30 Appointment; Silvina Shaikh A.PPriya On 16-Jul-2016 Encounter Diagnosis: Problem not documented [...] Problem not documented 13:30 Appointment; Tra Rico M.D.|PremaCMelvin|Nasreen,PRANAY|Nasreen,PRANAY, On Encounter Diagnosis: Problem not documented 11:30 Appointment; Billy Golden M.D.|Keturah.C.SGorge|Nasreen,PRANAY|Nasreen,PRANAY, On Encounter Diagnosis: Problem not documented 10:30 [...]
--- OUTSIDE RECORDS SUMMARY | 2017-02-20 19:13 | External Medical Summary | Summary of Care ---
:1935 Author Name Keesha Downey, Adali Lim Address [address] [place], [place] [id number] Care Team Providers Name Role Phone Keesha Downey, Adali Lim Unavailable Unavailable Adali Richards M.D. Unavailable Unavailable Raphael Thao Primary Care Provider Unavailable [facility] ([place]) Referring Provider Unavailable Unavailable Unavailable Unavailable Functional [...] Administered on:18-Jan-2008 Influenza Administered on:05-Mar-2010 Lot #: [id number] Influenza Administered on:17-Jan-2013 Family History Unknown Family [...] smoker Vital Signs Date Test Result Details 09-Apr-2015 14:30 BP Systolic 116 mm[Hg] Status: BP Diastolic 64 mm[Hg] Status: Heart Rate 108 /min Status: Results Date Description Value Details Results not documented Plan of Care Planned Observations Name Dates Details Planned Goals not documented Goal Planned Encounters Appointment; Provider: Raphael Thao On 04-Jun-2015 13:45 Appointment; Provider: Vimal Richards On 14-May-2015 14:00 Appointment; Provider: Jo Ann Crowe On 13:30 [...] Encounter Diagnosis: Problem not documented 13:00 Appointment; eK Gabriel On 31-Jan-2014 Encounter Diagnosis: Problem not [...]
--- OUTSIDE RECORDS SUMMARY | 2017-02-20 19:13 | External Medical Summary ---
:1935 Author Name GENERATED, SYSTEM Care Team Providers Name Role Phone MD MONICA, AYUSH Primary Care Provider Unavailable Reason For Visit Chief Complaint FEEDING TUBE REPLACED Social History Functional Status Vital Signs Results [...]
--- OUTSIDE RECORDS SUMMARY | 2017-02-20 19:13 | External Medical Summary | Summary of Care ---
:1935 Author Name Jacky Downey, PRANAY, ,, Barney Dutta Address Unavailable Unavailable , Care Team Providers Name Role Phone Jacky Downey, PRANAY, ,, Barney Dutta Unavailable Unavailable Keesha Downey, Adali Lim Unavailable Unavailable Adali Richards M.D. Unavailable Unavailable Raphael Thao Unavailable Unavailable [facility], [place] ([place]) Unavailable Unavailable Unavailable Unavailable Unavailable Functional [...] Status: Active Hypertension (401.9, I10) Status: Active Memory loss (780.93, R41.3) Status: [...] TABLET DAILY. Refills: 0 Start 21-Jan-2011 Active MiraLax Oral Powder Refills: 0 Start [...] Keesha Downey, Raphael Bro Start 26-Jul-2014 Active Loratadine 10 MG Oral [...] Keesha Downey Raphael Adali Start 10-Jun-2015 Active Amantadine HCl - 100 MG Oral Tablet Take 1 tablet daily Refills: 0 Start Active AmLODIPine Besylate 5 MG Oral Tablet TAKE 1 TABLET DAILY DIRECTED. Refills: 0 Start Active SEROquel 50 MG Oral Tablet Take one tablet at bedtime. Refills: 0 Raphael Thao M.D. Start 19-Nov-2014 Active Effexor XR 150 MG Oral Capsule Extended Release 24 Hour TAKE 1 CAPSULE DAILY. Refills: 0 Start Active Carbidopa-Levodopa ER 50-200 MG Oral Tablet Extended Release TAKE 1 TABLET FOUR TIMES A DAY Quantity: 360 Refills: 3 Maurice Downey Vimal Adali Start 08-Jun-2011 Active PredniSONE 20 MG Oral Tablet Take 1 tablet daily Refills: 0 Raphael Thao M.D. Start Active Voltaren 1 % Transdermal Gel APPLY 1-2 GM OF GEL TO AFFECTED AREA 4 TIMES DAILY. DO NOT APPLY MORE THAN 8 GM DAILY TO ANY ONE AFFECTED JOINT. Quantity: 1 Refills: 1 Raphael Thao M.D. Start Active 100 GM Tube Cyclobenzaprine HCl - 10 MG Oral Tablet TAKE 1 TABLET DAILY NEEDED. Quantity: 30 Refills: 2 Raphael Thao M.D. Start Active Carafate 1 GM/10ML Oral Suspension 10 mL po prn Refills: 0 Raphael Thao M.D. Start 26-Jun-2014 Active Allergies and Adverse Reactions Name [...] on: 18-Jan-2008 Influenza on: 05-Mar-2010 Lot #: [id number] Influenza on: 17-Jan-2013 Family History Unknown Family Member Name Dates [...] Details 10:53 BP Systolic 126 mm[Hg] Status: Comments: Location: LUE; Position: Sitting BP Diastolic 68 mm[Hg] Status: Comments: Location: LUE; Position: Sitting Temperature 98.4 f Status: Heart Rate 104 /min Status: Comments: Location: ; Physical Findings 97 Status: Comments: O2 Saturation 16:32 BP Systolic 126 mm[Hg] Status: Comments: Location: ; Position: BP Diastolic 68 mm[Hg] Status: Comments: Location: ; Position: Heart Rate 99 /min Status: Comments: Location: ; Weight 177.0 lb Status: Body Mass Index Calculated 30.38 kg/m2 Status: Body Surface Area Calculated 1.86 m2 Status: Results Date Description Value Details 07:55 XRay HIP-Right Comments: Exam Date: 10/07/2015 17: 07Dictation Date: 10/08/2015 07:55 X HIP COMP (MIN 2V) RT Plan of Care Name Dates Details Planned [...] Problem not documented 14:30 Appointment; Ke Gabriel M.D.|PremaC.SGorge|EVONNE Downey FACS, On 2013 Encounter Diagnosis: Problem not documented 14:30 Appointment; Raphael Thao M.D. On 13-Feb-2014 Encounter Diagnosis: Problem not documented 13:00 Appointment; Ke Gabriel M.D.|PremaC.SGorge|Nasreen,PRANAY DOUGLASS, On 2013 Encounter Diagnosis: Problem not documented 12:00 Appointment; Ke Gabriel M.D.|PremaC.SGorge|EVONNE Downey,PRANAY, On 2013 Encounter Diagnosis: Problem not documented 13:30 Appointment; Raphael Thao M.D. On 21-Dec-2013 Encounter Diagnosis: Problem not documented 14:00 Appointment; Ke Gabriel M.D.|PremaC.SGorge|EVONNE Downey FACS, On 2013 Encounter Diagnosis: Problem not documented 14:00"
--- OUTSIDE RECORDS SUMMARY | 2017-02-20 19:13 | External Medical Summary | Summary of Care ---
:1935 Author Name Derick Luna Address [address], [place] [id number] Care Team Providers Name Role Phone Keesha Downey, Adali Lim Unavailable Unavailable Derick Luna Unavailable Unavailable Kiley Romero APRN Unavailable Unavailable Adali Richards M.D. Unavailable Unavailable Raphael Thao Unavailable Unavailable [employer] [facility], [place] ([place]) Unavailable Unavailable Unavailable Unavailable Unavailable Functional Status [...] on: 18-Jan-2008 Influenza on: 05-Mar-2010 Lot #: [id number] Influenza on: 17-Jan-2013 Pneumo (Pneumovax) on: 23-Jan-2016 [...] not documented 11:30 Appointment; Billy Golden M.D.|F.A.C.S.|PRANAY Downey|Nasreen,PRANAY, On Encounter Diagnosis: Problem not documented [...]
--- OUTSIDE RECORDS SUMMARY | 2017-02-20 19:13 | External Medical Summary ---
:1935 Author Organization [facility]. Summary purpose CCDA Sent to [facility] Chief Complaint and Reason for Visit No [...] tests and/or laboratory data RESULTS Chemistry Group [id number]:00 Result Normal Range Units Albumin 3.6 3.5-5.0 g/dl Cholesterol H 203 130-170 mg/dl Triglyceride H 351 < 200 mg/dl HDL 40 40-60 mg/dl LDL Jet 93 30-100 mg/dl VLDL 70 0 Chol/HDL H 5.09 0.00-5.00 Ratio Reference Lab Group [id number]:00 Result Normal Range Units Prealbumin H 39 14-37 mg/dL Prealbumin performed at [facility] Reference Lab, [address] [place] [address] Cream Dumper Gurinder Corley DO History of procedures Procedure Code Code Type Description Date Performed Performing Physician 14286 CPT-4 ASSAY OF SERUM ALBUMIN 04-08-2016 JOHANNY KANG 54626 CPT-4 LIPID PANEL 04-08-2016 JOHANNY KANG 20777 CPT-4 ASSAY OF PREALBUMIN 04-08-2016 JOHANNY KANG Functional status No functional or cognitive status [...]
--- OUTSIDE RECORDS SUMMARY | 2017-02-20 19:13 | External Medical Summary ---
:1935 Author Organization [facility]. Summary purpose CCDA Sent to [facility] Chief Complaint and Reason for [...] Relevant diagnostic tests and/or laboratory data RESULTS Special Chemistry Group [id number]:31:00 Result Normal Range Units TSH 0.75 0.50-6.00 uIU/mL History of procedures Procedure Code Code Type Description Date Performed Performing Physician 29631 CPT-4 ASSAY THYROID STIM 01-08-2016 [facility] HORMONE Functional status No functional or cognitive status [...]
--- OUTSIDE RECORDS SUMMARY | 2017-02-20 19:14 | External Medical Summary | Summary of Care ---
:1935 Author Name Derick Luna Address [address], [place] [id number] Care Team Providers Name Role Phone Keesha Downey, Adali Lim Unavailable Unavailable Derick Luna Unavailable Unavailable Kiley Romero APRN Unavailable Unavailable Adali Richards M.D. Unavailable Unavailable Raphael Thao Unavailable Unavailable [facility], [place] ([place]) Unavailable Unavailable Unavailable Unavailable Unavailable Functional [...] on: 18-Jan-2008 Influenza on: 05-Mar-2010 Lot #: [id number] Influenza on: 17-Jan-2013 Pneumo (Pneumovax) on: 23-Jan-2016 [...] not documented 14:30 Appointment; Jo Ann Crowe PJoy On 24-Aug-2014 Encounter Diagnosis: Problem not documented 13:15"
--- OUTSIDE RECORDS SUMMARY | 2017-02-20 19:14 | External Medical Summary | Summary of Care ---
:1935 Author Name Maurice Downey, Adali Celis Address Unavailable Unavailable , Care Team Providers Name Role Phone Keesha Downey, Adali Lim Unavailable Unavailable Derick Luna Unavailable Unavailable Nick COMMERCIAL REAL ESTATE APPRAISERKiley Interiano Unavailable Unavailable Adali Richards M.D. Unavailable Unavailable Raphael Thao Unavailable Unavailable [facility], [place] ([place]) Unavailable Unavailable Unavailable Unavailable Unavailable Functional Status [...] at bedtime. Refills: 0 Raphael Thao M.D. Adali Start 19-Nov-2014 Active Loratadine 10 MG Oral Tablet TAKE 1 TABLET DAILY. Refills: 0 Raphael Thao M.D. Adali Start 11-Apr-2015 Active Fluticasone Propionate 50 MCG/ACT [...] AFFECTED JOINT. Quantity: 1 Refills: 1 Keesha Downey Raphael Bro Start Active 100 GM Tube PredniSONE 20 MG Oral Tablet Take 1 tablet daily Refills: 0 Raphael Thao M.D. Adali Start Active Amantadine HCl - 100 MG [...] (V76.51, Z12.11) Status: Resolved History of fatigue (., Z87.898) Status: Resolved History of nausea and vomiting (V12., Z87.898) Status: Resolved History of Pre-operative exam [...] on: 18-Jan-2008 Influenza on: 05-Mar-2010 Lot #: [id number] Influenza on: 17-Jan-2013 Pneumo (Pneumovax) on: 23-Jan-2016 [...] >60 ml/min Range: >60 EST GFR, NON-AFR LUXEMBOURGER 57 ml/min (Below low Range: >60 threshold) [...] Adequate Range: Adequate 19-Feb-2016 17:15 URINE CULTURE [id number] Comments: [facility] performed at: [facility] [place], [address], Pay Agent: Shree Pollock D.O., MPHQuest Collection Date/Time: [id number] Results Received Date/Time: Reported Date /Time: FASTING:NOQuest performed at : [facility], [address] [employer] [place], [address], Pay Agent: Shree Pollock D.O., MPHQuest Collection Date/Time: [id number] Results Received Date/Time: [id number] Reported Date/Time: FASTING:NO CULTURE, URINE, ROUTINE SEE NOTE (Abnormal) Comments: CULTURE, URINE, ROUTINE MICRO NUMBER: [id number] TEST STATUS: FINAL SPECIMEN SOURCE : URINE [...] documented Encounters Appointment; Ke Solomon M.D. On 03-Mar-2016 Encounter Diagnosis: Problem not documented 09:15 Appointment; Derick Lambert P.A. On 24-Feb-2016 Encounter Diagnosis: Problem not documented 14:30 Appointment; Bobo Sierra D.O. On 17-Feb-2016 Encounter Diagnosis: Problem not documented 10:05 Appointment; Vimal Richards M.D. On 05-Feb-2016 Encounter Diagnosis: Problem not documented 13:45 Appointment; Kiley Romero A.P.R.N. On 31-Jan-2016 Encounter Diagnosis: Problem not documented 13:30 Appointment; Tra Rico M.D.|PremaC.SGorge|PRANAY Downey|Nasreen,PRANAY, On Encounter Diagnosis: Problem not documented [...] Problem not documented 14:30 Appointment; Ke Gabriel M.D.|Vernell|PRANAY Downey|Nasreen,PRANAY, On 2013 Encounter Diagnosis: Problem not documented 14:30"
--- OUTSIDE RECORDS SUMMARY | 2017-02-20 19:14 | External Medical Summary ---
:1935 Author Name GENERATED, SYSTEM Care Team Providers Name Role Phone MD MONICA, AYUSH Primary Care Provider Unavailable Reason For Visit Chief Complaint FEEDING TUBE FELL OUT Social History Functional Status Vital Signs Results DX Radiology from 07/17/2016 11:55 AMABDOMEN (KUB) 1 VIEWHistory: G tube placement . Priors: 02/12/12 Findings: The G-tube is noted in place. The tip appears to be in the normal expected location. The exact location, however, cannot be confirmed without injection of contrast. The bowel gas pattern is unremarkable. There are no suspicious calcifications. There postoperative changes of the spine. Impression: G-tube in place as detailed above. If further evaluation is warranted, injection of small amount of contrast may be helpful to confirm exact tip placement. Electronically signed by: Mani Cervantes MD Dictated: 07/17/2016 12:29 (Reference Range: not available) Problems Encounter Diagnosis [...] PMCompleted esophagogastroduodenoscopy with biopsy, by MD Z[facility]AIDA [facility], on 06/23/2014 9:48 AMCompleted Procedure Code: 45.16 Procedure Name: not valued, on 06/23/2014 12:00 AM Immunizations No immunizations administered or ordered. Hospital Course Hospital Discharge Instructions Allergies, Adverse Reactions, Alerts This section is customer service representative teller of the current allergy information, at the time of the CCD generation. In the case of regeneration of the CCD, the allergy information may not reflect the state of known allergies at the time of the CCD' s subject visit. Bactrim causes unspecified.Neurontin causes unspecified.opium tincture causes unspecified.Latex Allergy has not been assessed.IV Contrast Allergy has not been assessed.No Known Food Allergies. Medication Medication reconciliation has not been performed.
--- OUTSIDE RECORDS SUMMARY | 2017-02-20 19:14 | External Medical Summary | Summary of Care ---
:1935 Author Name Adali Richards M.D. Address [address], [place] [phone] Care Team Providers Name Role Phone Adali Thao M.D. Unavailable Unavailable Adali Richards M.D. Unavailable Unavailable Raphael Thao Primary Care Provider Unavailable [facility], [place] ([place]) Referring Provider Unavailable Unavailable Unavailable Unavailable Functional [...] Active Allergic rhinitis (477.9, J30.9) Status: Active Decreased appetite (783.0, R63.0) Status: Active Depression (311, F32.9) Status: Active Hypothyroidism (244.9, E03.9) Status: Active Hypertension (401.9, I10) Status: Active Parkinson's disease (332.0, G20) Status: Active Anxiety (300.00, F41.9) Status: Active Memory loss (780.93, R41.3) Status: [...] TAKE 1 TABLET DAILY. Refills: 0 Raphael hTao M.D. Started 11-Apr-2015 ActiveFluticasone Propionate 50 MCG/ACT [...] Administered on:18-Jan-2008 Influenza Administered on:05-Mar-2010 Lot #: [id number] Influenza Administered on:17-Jan-2013 Family History Unknown Family [...] smoker Vital Signs Date Test Result Details 08-Aug-2015 15:21 BP Systolic 130 mm[Hg] Status: BP Diastolic 80 mm[Hg] Status: Heart Rate 62 /min Status: 02-Aug-2015 11:40 BP Systolic 121 mm[Hg] Status: [...] not documented Encounters Appointment; Vimal Richards On 08-Aug-2015 Encounter Diagnosis: [...]
[2017-02-20] MEDS ORDERED: BUSPIRONE 10 MG TABLET PO SCH (21:00)
[2017-02-20 23:50] VITALS: BMI 28.5
[2017-02-21] MEDS: ATORVASTATIN 20 MG TABLET PO SCH ×2 (03:52→19:41)
[2017-02-21] MEDS: LORazepam 1 MG TABLET PO SCH ×3 (03:53→19:41)
[2017-02-21] MEDS ORDERED: ESCITALOPRAM 20 MG TABLET PO SCH (09:00)
[2017-02-21] MEDS ORDERED: SALINE FLUSH 10ml SYRINGE IV PRN (09:01)
[2017-02-21] MEDS: RANITIDINE 150 MG TABLET PO SCH ×3 (09:36→19:42)
[2017-02-21] MEDS: OMEPRAZOLE 20 MG CAPSULE PO SCH (09:37)
[2017-02-21] MEDS: CARVEDILOL 3.125 MG TABLET PO SCH ×2 (09:37→17:19)
[2017-02-21] MEDS: BUSPIRONE 15 MG TABLET PO SCH ×3 (09:37→19:41)
[2017-02-21] MEDS: AMANTADINE 100 MG CAPSULE PO SCH (09:37)
[2017-02-21] MEDS: AMLODIPINE 5 MG TABLET PO SCH (09:37)
[2017-02-21] MEDS: ASPIRIN 81 MG CHEWABLE TABLET PO SCH (09:37)
[2017-02-21] MEDS: LEVOTHYROXINE 137 MCG TABLET PO SCH (09:37)
--- NOTE | 2017-02-21 10:44 | History & Physical Report ---
History of Present Illness Date: 02/21/17 Chief complaint: Dementia with behavioral changes HPI: Genny Roca is a 81-year-old female resident from [facility] in [place], [place]. On 02/20/17 she reportedly fell at the long-term, hitting her head. It is unclear if she lost consciousness and how/why she fell as the patient does not remember falling and there are no records from the long-term and limited information from [facility] emergency room. It is also reported that family was concerned because she appeared slightly more confused over the weekend. Nursing reports concerns of hallucinations and delusions with the patient believing that others were trying to mother her as well as increased behaviors including agitation and aggression towards staff. She was taken to [facility] emergency room on 02/21/17 via EMS for further evaluation. Documentation indicates that she was aggressive and agitated with EMS but had no behaviors in the emergency room. CT head and c-spine showed no acute abnormalities, fractures or intracranial hemorrhage. Labs in ED were relatively unremarkable. Slight hypokalemia was noted with potassium at 3.4. EKG showed normal sinus rhythm with a rate of 94. Chest x-ray revealed mild bilateral perihilar lower lobe interstitial prominence concerning for interstitial pneumonitis or mild pulmonary edema. She recently had a UTI which was treated with Macrobid starting on 02/13/17. UA in the ED showed 1-5 WBC with few epithelial cells and few bacteria. She was given 1L of normal saline with apparent improvement, though what improvement was noted is unclear based on documentation. Due to her increased in behaviors, [facility] was contacted and she was accepted for further psychiatric evaluation and treatment. She has a known history of anxiety and depression as well as hypertension, hypercholesterolemia, hypothyroidism, Parkinson's disease, dysphagia and GERD. The hospitalist service was consulted for medical management. On exam, she is seen while sitting in the day room. She briefly makes eye contact and answers some questions with either soft, short answers or slight nodding of her head. She denies any concerns or complaints including no headache, change in vision, chest pain, shortness of breath, recent illness, abdominal pain, nausea, vomiting or dysuria. She is a poor historian and is unable to contribute much to her recent history. Review of Systems All systems PM: 10-point ROS was reviewed, no additional remarkable complaints except Review of systems: limited due to patient's dementia and being a poor historian. - Constitutional Constitutional: Present: weakness (generalized). Absent: chills, fatigue, fever (s), headache(s) - EENMT Eyes: Absent: blurry vision, diplopia, photophobia Ears: Absent: ear pain Balance: Absent: falling to one side Nose: Absent: nosebleeds Mouth/Throat: Absent: pain, dry mouth EENMT Comments: history of dysphagia. - Cardiovascular Cardiovascular: Present: edema. Absent: chest pain, palpitations, syncope, dyspnea on exertion, orthopnea Vascular: Present: pedal edema. Absent: unilateral swelling - Respiratory Respiratory: Absent: cough, dyspnea, hemoptysis, dyspnea on exertion, wheezing, pain on inspiration, chest congestion - Gastrointestinal Gastrointestinal: Present: constipation. Absent: abdominal pain, diarrhea, nausea, vomiting - Genitourinary Genitourinary: Absent: dysuria, flank pain, hematuria Menstruation: post menopausal - Musculoskeletal Musculoskeletal: Present: abnormal gait, muscle weakness. Absent: arthralgias, back pain, deformity, stiffness - Integumentary/Breasts Integumentary: Absent: rash, jaundice - Neurological Neurological: Present: abnormal gait, confusion, weakness. Absent: convulsions , dizziness, focal weakness, headache(s), loss of vision - Psychiatric Psychiatric: Present: anxiety, depression, hallucinations, paranoia - Endocrine Endocrine: Absent: palpitations - Hematologic/Lymphatic Hematologic/Lymphatic: Absent: easy bruising - Allergic/Immunologic Allergic/Immunologic: Present: seasonal rhinorrhea PFSH Patient Stated Medical History Dementia. Parkinson's disease. Dysphagia. Allergic rhinitis. Hypertension. Hypercholesterolemia. GERD. History of UTI. Depression and anxiety. Gait instability with generalized weakness. Closed head injury. Chronic kidney disease, stage III. Chronic pain. Hypothyroidism. Surgical History: Back surgery x 2. Patient denies any other surgeries. - Social History Smoking status: Never smoker Substance use type: does not use Alcohol intake frequency: does not drink Housing: long-term Household members: none service: No Current occupational status: retired Does patient use chewing tobacco?: No Current residence: Jail Social history: PCP - Dr. Thao. to [place] for 55 years and has 3 living daughters. Medications Home Medications Medication Instructions Recorded Confirmed Type Acetaminophen 650 mg PO Q4H PRN 02/20/17 02/20/17 History Acetaminophen [Tylenol] 1,000 mg PO TID 02/20/17 02/20/17 History Amantadine HCl [Amantadine] 100 mg PO DAILY 02/20/17 02/20/17 History Amlodipine [Norvasc] 5 mg PO DAILY 02/20/17 02/20/17 History Aspirin Chewable [ASA] 81 mg PO DAILY 02/20/17 02/20/17 History Atorvastatin [Lipitor] 20 mg PO HS 02/20/17 02/20/17 History Buspirone [Buspar] 15 mg PO TID 02/20/17 02/20/17 History Carbidopa/Levodopa 25/100 MG 1 tab PO QID 02/20/17 02/20/17 History [Sinemet] Carvedilol [Coreg] 3.125 mg PO BIDWM 02/20/17 02/20/17 History Cholecalciferol (Vitamin D3) 2,000 unit PO DAILY 02/20/17 02/20/17 History [Vitamin D3] Cyclobenzaprine [Flexeril] 10 mg PO Q8H PRN 02/20/17 02/20/17 History Diclofenac Sodium 100 gm TP TID 02/20/17 02/20/17 History Divalproex Sprinkle [Depakote 500 mg PO HS 02/20/17 02/20/17 History Sprinkle] Escitalopram Oxalate [Lexapro] 20 mg PO DAILY 02/20/17 02/20/17 History LORazepam [Lorazepam] 0.5 mg PO Q6H PRN 02/20/17 02/20/17 History LORazepam [Lorazepam] 1 mg PO BID 02/20/17 02/20/17 History Levothyroxine Tab [Synthroid] 137 mcg PO ACB 02/20/17 02/20/17 History Mupirocin Ointment [Bactroban 1 applicatio TP DAILY 02/20/17 02/20/17 History Ointmment] Omeprazole 20 mg PO ACB 02/20/17 02/20/17 History Ondansetron [Zofran Odt] 4 mg PO Q4HR PRN 02/20/17 02/20/17 History PEG 3350 17gm PACKET [Miralax] 17 gm PO BID 02/20/17 02/20/17 History Tramadol [Ultram] 50 mg PO Q4HR PRN 02/20/17 02/20/17 History raNITIdine HCl [Ranitidine HCl] 150 mg PO BID 02/20/17 02/20/17 History Allergies Allergy/AdvReac Type Severity Reaction Status Date / Time hydrocodone [From Lortab] Allergy Verified 02/20/17 18:43 metoclopramide [From Reglan] Allergy Verified 02/20/17 18:43 promethazine Allergy Verified 02/20/17 18:43 Sulfa (Sulfonamide Allergy Verified 02/20/17 18:43 Antibiotics) sulfamethoxazole Allergy Verified 02/20/17 18:43 [From Bactrim] trimethoprim [From Bactrim] Allergy Verified 02/20/17 18:43 Exam Vital Signs: Temperature 97.4 F 02/21/17 08:00 Pulse Rate 92 02/21/17 08:00 Respiratory Rate 22 02/21/17 08:00 Blood Pressure 139/69 02/21/17 08:00 Pulse Oximetry 94 02/21/17 08:00 Height/Weight/BMI: Height 5 ft 5 in Weight 171 lb 8.314 oz Body Mass Index 28.5 - Constitutional Present: no acute distress, well nourished, well developed, cooperative Comments: Sitting at the table in the day room, looking out the window. Briefly makes eye contact; answers some, but not all questions, with soft voice or just nodding of the head. - Routine HEENT Exam Head: Present: normocephalic, atraumatic Eye: Present: PERRL, normal accommodation. Absent: scleral injection ENT: Present: mucous membranes moist, dentition normal Comments: Reported closed head injury on 02/20/17; no signs of trauma; no swelling, ecchymosis, abrasion or deformity; no tenderness to scalp or neck. - Routine Neck Exam Present: supple, full ROM, trachea midline. Absent: tenderness - Routine Chest/Breast/Axilla Exam Chest wall: Absent: tenderness - Routine Respiratory Exam Present: CTA bilaterally. Absent: rhonchi, stridor, wheezes, crackles, distant breath sounds, diminished air movement - Routine Cardiovascular Exam Present: RRR, S1, S2 - Routine Abdominal Exam Present: soft, normoactive bowel sounds, non distended, non tender. Absent: rebound, guarding - Routine Extremities Exam Present: edema (trace-1+), non tender, pulses intact. Absent: calf tenderness - Routine Back/Spine/Pelvis Exam Back/Spine: Present: full ROM, kyphosis. Absent: vertebral tenderness Comments: Patient refused visual inspection of back on exam. - Routine Skin Exam Present: intact, dry, warm. Absent: jaundice Comments: afebrile. - Routine Neurological Exam Present: alert (orientated to person and place but not time.), moving all extremities, hearing grossly intact, normal speech. Absent: facial asymmetry - Routine Psychiatric Exam Present: cooperative Comments: depressed, withdrawn affect. Results - Labs Labs: Labs from [facility] ED on 02/20/17: WBC 9.0 Hgb 14.2 Plt 220 Na 144 K 3.4 BUN 17 SCr 0.9 Glu 91 Infuenza A&B Negative UA 1-5 WBC, trace epithelial cells, trace bacteria Assessment and Plan (1) Dementia with behavioral disturbance Current visit: Yes Status: Acute (2) Hallucinogen psychosis, with delusions Current visit: Yes Status: Acute (3) Closed head injury Problem details: Recent fall, negative head [facility] Current visit: Yes Status: Acute (4) Gait instability Problem details: Due to Parkinson's disease Current visit: Yes Status: Chronic Assessment and Plan: Assessment Dementia with behavioral disturbance, acute. Hallucinations with psychosis and delusions, acute. UTI, recurrent - initiated macrobid on 02/13/17; resolved. Recent fall with closed head injury, 02/20/17. Gait instability with generalized weakness. Parkinson's disease. Dysphagia. Hypertension. Hypercholesterolemia. GERD. Depression and anxiety. Chronic kidney disease, stage III. Chronic pain. Hypothyroidism. Allergic rhinitis. Plan - 02/21/17 (Admission). Agree with admission to [facility] for further psychiatric evaluation and treatment. Hospitalist service consulted for medical management. Reported fall with head injury prior to arrival. CT head and C-spine completed at [facility] ED showed no acute changes or abnormalities. Currently patient denies headache or concerns. Monitor neurologic function closely. History of Parkinson's disease with gait instability and generalized weakness. Patient is a high fall risk. Provide safe and supportive environment. May consider PT/OT evaluation for strengthening. Continue home medications - amantadine and Sinemet. History of dysphagia though unknown prior diet. Will consult speech for dysphagia evaluation and dietary recommendations. Until seen by speech, recommend nectar thickened liquids and purred diet as patient is at risk for aspiration. Crush pills as able. Continue home medications. Blood pressure currently controlled - continue amlodipine and Coreg. TSH on admission was 2.85. Continue home synthroid. Mild hypokalemia noted in [facility] ED. Will recheck BMP in AM to monitor electrolytes and renal function and treat hypokalemia if still present. Nursing reports poor oral intake and lack of appetite. Pre-albumin was stable at 28.8 but history of protein calorie malnutrition. Will consult dietary for nutritional recommendations. Encourage oral intake. CXR in [facility] showed mild perihilar lower lobe interstitial prominence concerning for possible pneumonitis or mild pulmonary edema. Lungs are clear to auscultation on exam and patient is breathing easily without cough or signs of distress. Afebrile. May consider repeat CXR if increased respiratory symptoms. Upon discharge, patient's care will be returned to her PCP, Dr. Thao. Magaly Winn M.D. 02/21/17 7 PM I have independently evaluated and examined this patient. I reviewed the chart, the patient's history, and the TECHNICAL SALES ASSOCIATE/PA's documented findings as above. We discussed and formulated the assessment and plan as above with additions as below: Mrs. Roca complains of intermittent headaches on the top of her head since a fall 8 months ago-headaches are not associated with visual changes and frequency has decreased in recent months. She denies more recent falls despite documentation as described above. She reports that she is nonambulatory due to Parkinson's disease but denies dysphagia. She reports that she is blessed because Parkinson's has not caused her to have a tremor. She reports that she's had a recent bladder infection and that her urine "stings a little" recent days but that is no longer true today. NAD, pleasant, cooperative Extensive bruising over the fingers bilaterally and scattered bruises over the distal forearms-various ages Respirations nonlabored, good airflow, breath sounds clear. Regular cardiac rhythm. EOMI, pupils react to light bilaterally, conjugate gaze, facial structure symmetric, tongue midline; sensation intact to light touch 4 extremities. Increased motor tone with cogwheeling to repetitive movements at both wrists, minimal rest tremor noted primarily in the right hand at rest and with hands extended. Power symmetric with mild generalized weakness but no drift of the upper extremities, strong sorter operator bilaterally, patient is able to brace each leg up independently and hold them against moderate resistance, intact dorsiflexion/ plantarflexion. Transfer labs noted and labs obtained at [facility] unremarkable to date; B-12, folic acid, RPR pending. Recent UA does not suggest ongoing UTI. Will need to clarify with Dr. Thao or family members if patient is indeed supposed to be nonambulatory as patient described to me. Blood pressures slightly elevated however may well be orthostatic in conjunction with Parkinson's disease and would not adjust blood pressure medications based on supine readings. Resume tramadol when necessary for pain. GI Prophylaxis: other (Prilosec) Resuscitation Status: Full Code - Time spent with patient Time with patient PN: 70 minutes Hospital Course Summary Disclaimer: The visit summary below is not to be considered part of the above Progress Note. Hospital Course: Admission Diagnosis Dementia with behavioral disturbance, acute. Hallucinations with psychosis and delusions, acute. UTI, recurrent - initiated macrobid on 02/13/17; resolved. Recent fall with closed head injury, 02/20/17. Gait instability with generalized weakness. Chronic Past Medical History Parkinson's disease. Dysphagia. Hypertension. Hypercholesterolemia. GERD. Depression and anxiety. Chronic kidney disease, stage III. Chronic pain. Hypothyroidism. Allergic rhinitis. Plan - 02/21/17 (Admission). Agree with admission to [facility] for further psychiatric evaluation and treatment. Hospitalist service consulted for medical management. Reported fall with head injury prior to arrival. CT head and C-spine completed at [facility] showed no acute changes or abnormalities. Currently patient denies headache or concerns. Monitor neurologic function closely. History of Parkinson's disease with gait instability and generalized weakness. Patient is a high fall risk. Provide safe and supportive environment. May consider PT/OT evaluation for strengthening. Continue home medications - amantadine and Sinemet. History of dysphagia though unknown prior diet. Will consult speech for dysphagia evaluation and dietary recommendations. Until seen by speech, recommend nectar thickened liquids and purred diet as patient is at risk for aspiration. Crush pills as able. Continue home medications. Blood pressure currently controlled - continue amlodipine and Coreg. TSH on admission was 2.85. Continue home synthroid. Mild hypokalemia noted in [facility] ED. Will recheck BMP in AM to monitor electrolytes and renal function and treat hypokalemia if still present. Nursing reports poor oral intake and lack of appetite. Pre-albumin was stable at 28.8 but history of protein calorie malnutrition. Will consult dietary for nutritional recommendations. Encourage oral intake. CXR in [facility] showed mild perihilar lower lobe interstitial prominence concerning for possible pneumonitis or mild pulmonary edema. Lungs are clear to auscultation on exam and patient is breathing easily without cough or signs of distress. Afebrile. May consider repeat CXR if increased respiratory symptoms. Upon discharge, patient's care will be returned to her PCP, Dr. Thao.
[2017-02-21] MEDS ORDERED: CYCLOBENZAPRINE 10 MG TABLET PO PRN (11:11)
[2017-02-21] MEDS ORDERED: SENNA + DOCUSATE TABLET PO PRN (11:13)
--- NOTE | 2017-02-21 11:41 | 24 Hour Neuropsychiatic Eval ---
Date of Admission: 02/20/17 18:44 Chief complaint: "I dont want to be here" History of Present Illness: HPI: 81 Y/O CF with a hx of depression, anxiety, and Parkinson's Disease sent from a [facility] for increasing agitation, combativeness with staff and some delusions. Pt had a recent fall but CT of head was negative. Pt has also recently been treated for a UTI. Nursing staff reports pt has been resistant to care and has been refusing meds. On face to face the pt has a flat affect and is very slow to respond. She will only respond with yes or no answers. She denies any S/I. PSYCH ROS: Difficult to obtain at this time. When given options for her mood she states "I am not happy" but relates it to being here. She is oriented x 3. She denies feeling anxious and denies psychotic symptoms. Again nursing reports she can be agitated and resistive to cares PAST PSYCH: Pt reportedly has a hx of anxiety and depression and is taking Ativan scheduled along with Lexapro and Buspar. No other past psych hx is known at this time [facility] Patient Stated Medical History Dementia Yes Parkinson's Disease Yes Dysphagia Yes Other HEENT Yes: rhinitis Hypertension Yes Bronchitis Yes Gastroesophageal Reflux Yes Disease Hx Urinary Tract Infection Yes: chronic Depression Yes Clinic Medical History Dementia with behavioral disturbance (Acute Medical) Hallucinogen psychosis, with delusions (Acute Medical) UTI (urinary tract infection) (Acute Medical) Gait instability (Chronic Medical) Generalized weakness (Chronic Medical) Closed head injury (Acute Medical) Frequent falls (Chronic Medical) Surgical History: Back surgery x 2. Patient denies any other surgeries. - Social History Smoking status: Never smoker Does patient use chewing tobacco?: No Current residence: Group [facility] Review of Systems - EENMT Ears: Absent: ear pain Balance: Absent: falling to one side Nose: Absent: nosebleeds Mouth/Throat: Absent: pain, dry mouth - Cardiovascular Vascular: Present: pedal edema. Absent: unilateral swelling - Genitourinary Menstruation: post menopausal - Psychiatric Psychiatric: Present: anxiety, behavioral changes, depression Mental Status Exam Vitals: Last Vital Signs Temp 97.4 F 02/21/17 08:00 Pulse 92 02/21/17 10:53 Resp 22 02/21/17 10:53 BP 139/69 02/21/17 08:00 Pulse Ox 94 02/21/17 10:53 Height: 1.65 m Weight: 77.8 kg - Mental Status Exam Muscle Strength/Tone: Normal Dressing: Casual Grooming: Good Attitude: Guarded Motor Activity: Retardation Eye Contact: Poor Speech: Slowed Volume: Soft Rhythm: Appropriate Rhythm Orientation: Oriented X4 Mood: Depressed Affect: Flat Rate of Thoughts: Delayed Thought Organization: [place] Associations: Intact Abstract Reasoning: Poor abstract reasoning Thought Content: Normal Perception/Psychotic: Hx psychosis, not current Language: Naming Impaired Fund of Knowledge: Poor fund of knowledge Memory: Poor-immediate Suicidal Ideation: None Homicidal Ideation: None Insight: Poor Judgement: Poor Impulse Control: Poor - Laboratory Laboratory Results - last 24 hr 02/21/17 08:07 Hemoglobin A1c 5.5 L Prealbumin 28.8 Triglycerides 137 H Cholesterol 109 L LDL Cholesterol, Calc 41.6 L VLDL Cholesterol 27.4 HDL Cholesterol 40 Cholesterol/HDL Ratio 2.7 TSH 2.85 Assessment and Plan (1) Major neurocognitive disorder Problem details: with behavioral disturbance Current visit: Yes Status: Acute Continue to evaluate and stabilize. Hospitalist to follow for medical purposes. Due to hx of Parkinson's disease we will hold Haldol PRN and will only use antipsychotics if absolutely necessary (2) Delirium due to another medical condition Current visit: Yes Status: Acute Pt has had a UTI which has been treated but symptoms may still be present.
[2017-02-21] MEDS: ACETAMINOPHEN 500 MG TABLET PO SCH ×2 (15:00→19:40)
[2017-02-21] MEDS: DICLOFENAC 1% TOP GEL 100gm TP SCH (15:01)
[2017-02-21] MEDS: MUPIROCIN 2% OINTMENT 22gm TP SCH (17:19)
[2017-02-21] MEDS: POLYETHYL GLYCOL 3350 17gm PACKET PO SCH (19:42)
[2017-02-22] MEDS: ACETAMINOPHEN 500 MG TABLET PO SCH ×4 (00:35→19:49)
[2017-02-22] MEDS: LORazepam 1 MG TABLET PO SCH ×3 (00:36→19:52)
[2017-02-22] MEDS: BUSPIRONE 15 MG TABLET PO SCH ×4 (00:36→19:51)
[2017-02-22] MEDS: DICLOFENAC 1% TOP GEL 100gm TP SCH ×3 (00:36→14:20)
[2017-02-22] MEDS: ATORVASTATIN 20 MG TABLET PO SCH ×2 (00:36→19:51)
[2017-02-22] MEDS: POLYETHYL GLYCOL 3350 17gm PACKET PO SCH ×2 (00:37→08:13)
[2017-02-22] MEDS: RANITIDINE 150 MG TABLET PO SCH ×3 (00:37→19:51)
[2017-02-22] MEDS: LEVOTHYROXINE 137 MCG TABLET PO SCH (08:10)
[2017-02-22] MEDS: OMEPRAZOLE 20 MG CAPSULE PO SCH (08:10)
[2017-02-22] MEDS: CARVEDILOL 3.125 MG TABLET PO SCH ×2 (08:11→17:35)
[2017-02-22] MEDS: AMLODIPINE 5 MG TABLET PO SCH (08:12)
[2017-02-22] MEDS: ASPIRIN 81 MG CHEWABLE TABLET PO SCH (08:12)
[2017-02-22] MEDS: AMANTADINE 100 MG CAPSULE PO SCH (08:12)
[2017-02-22] MEDS ORDERED: ESCITALOPRAM 10 MG TABLET PO SCH (09:00)
[2017-02-22] MEDS: MULTI-VITAMIN PLAIN TABLET PO SCH (11:56)
[2017-02-22] MEDS: MAG-AL + SIM ORAL LIQUID 30ml PO PRN (14:15)
[2017-02-22] MEDS: MUPIROCIN 2% OINTMENT 22gm TP SCH (14:21)
--- NOTE | 2017-02-22 14:44 | Progress Note ---
- Date 02/22/17 Subjective: Genny started to c/o left-sided sharp chest pain that started while at rest. Prior to my arrival, she received 2 extra-strength Tylenols and Maalox without relief. She's never had this before. She states the pain is deep in her chest, under her left breast, and also hurts in her back. It hurts to take a deep breath but she doesn't feel short of breath. She feels dizzy when she gets up. She denies diaphoresis or dizziness but feels warm. She mentioned left arm feeling uncomfortable, but pointed to where her IV was yesterday. She denies leg swelling. She has a mild cough but denies fever. Objective Vital signs: Temperature 97.9 F 02/22/17 08:00 Pulse Rate 79 02/22/17 08:00 Respiratory Rate 18 02/22/17 08:00 Blood Pressure 137/69 02/22/17 08:00 Pulse Oximetry 97 02/22/17 08:00 Height/Weight/BMI: Height 1.65 m Weight 77.8 kg Body Mass Index 28.5 - Constitutional Present: no acute distress, well nourished, well developed - Routine HEENT Exam Head: Present: normocephalic Eye: Absent: conjunctival icterus ENT: Present: mucous membranes moist - Routine Respiratory Exam Present: CTA bilaterally Comments: left back tenderness around scapula - Routine Cardiovascular Exam Present: RRR, S1, S2 Comments: chest pain over left breast is reproducible with palpation - Routine Abdominal Exam Present: soft, normoactive bowel sounds, non tender - Routine Extremities Exam Present: edema (trace b/l) - Routine Musculoskeletal Exam Musculoskeletal: Present: no clubbing or cyanosis - Routine Skin Exam Present: intact, dry, warm, ecchymosis (both arms/hands) - Routine Neurological Exam Present: alert, CN II-XII intact (grossly), normal speech. Absent: facial asymmetry - Routine Psychiatric Exam Present: normal affect, cooperative Results - Labs CBC & Chem 7: 02/22/17 04:11 02/22/17 04:11 Assessment and Plan (1) Dementia with behavioral disturbance Current visit: Yes Status: Acute (2) Hallucinogen psychosis, with delusions Current visit: Yes Status: Acute (3) Gait instability Problem details: Due to Parkinson's disease Current visit: Yes Status: Chronic (4) Closed head injury Problem details: Recent fall, negative head CT [facility] Current visit: Yes Status: Acute Assessment and Plan: Assessment Dementia with behavioral disturbance, acute. Hallucinations with psychosis and delusions, acute. UTI, recurrent - initiated macrobid on 02/13/17; resolved. Recent fall with closed head injury, 02/20/17. Gait instability with generalized weakness. Parkinson's disease. Dysphagia. Hypertension. Hypercholesterolemia. GERD. Depression and anxiety. Chronic kidney disease, stage III. Chronic pain. Hypothyroidism. Allergic rhinitis. Plan - 02/21/17 (Admission). Chest pain - will check EKG, CXR, and trop x3. Labs reviewed - electrolytes are stable; not anemic; B12, folate, TSH, & A1c were normal. RPR pending Try tramadol for pain. Staff tried to ambulate Genny - she made it about 3 feet and then her legs became too weak. She's been able to stand and pivot for transfers. Monitor orthostatics. D/W Dr. Winn. Hospital Course Summary Disclaimer: The visit summary below is not to be considered part of the above Progress Note. Hospital Course: Admission Diagnosis Dementia with behavioral disturbance, acute. Hallucinations with psychosis and delusions, acute. UTI, recurrent - initiated macrobid on 02/13/17; resolved. Recent fall with closed head injury, 02/20/17. Gait instability with generalized weakness. Chronic Past Medical History Parkinson's disease. Dysphagia. Hypertension. Hypercholesterolemia. GERD. Depression and anxiety. Chronic kidney disease, stage III. Chronic pain. Hypothyroidism. Allergic rhinitis. Plan - 02/21/17 (Admission). Agree with admission to [facility] for further psychiatric evaluation and treatment. Hospitalist service consulted for medical management. Reported fall with head injury prior to arrival. CT head and C-spine completed at [place] [facility] showed no acute changes or abnormalities. Currently patient denies headache or concerns. Monitor neurologic function closely. History of Parkinson's disease with gait instability and generalized weakness. Patient is a high fall risk. Provide safe and supportive environment. May consider PT/OT evaluation for strengthening. Continue home medications - amantadine and Sinemet. History of dysphagia though unknown prior diet. Will consult speech for dysphagia evaluation and dietary recommendations. Until seen by speech, recommend nectar thickened liquids and purred diet as patient is at risk for aspiration. Crush pills as able. Continue home medications. Blood pressure currently controlled - continue amlodipine and Coreg. TSH on admission was 2.85. Continue home synthroid. Mild hypokalemia noted in [facility] ED. Will recheck BMP in AM to monitor electrolytes and renal function and treat hypokalemia if still present. Nursing reports poor oral intake and lack of appetite. Pre-albumin was stable at 28.8 but history of protein calorie malnutrition. Will consult dietary for nutritional recommendations. Encourage oral intake. CXR in [place] ED showed mild perihilar lower lobe interstitial prominence concerning for possible pneumonitis or mild pulmonary edema. Lungs are clear to auscultation on exam and patient is breathing easily without cough or signs of distress. Afebrile. May consider repeat CXR if increased respiratory symptoms. Upon discharge, patient's care will be returned to her PCP, Dr. Thao. 02/22/17 Chest pain - will check EKG, CXR, and trop x3. Labs reviewed - electrolytes are stable; not anemic; B12, folate, TSH, & A1c were normal. RPR pending Try tramadol for pain. Staff tried to ambulate Genny - she made it about 3 feet and then her legs became too weak. She's been able to stand and pivot for transfers.
[2017-02-22] MEDS: TRAMADOL 50 MG TABLET PO PRN ×2 (15:59→21:51)
--- NOTE | 2017-02-22 21:19 | Neuropsych Progress Note ---
[facility] Subjective Date: 02/22/17 - Sujective/Severity of Illness Medications: Acetaminophen (Tylenol) 1,000 mg PO TID [facility] Last Admin: 02/22/17 19:49 Dose: 1,000 mg Al Hydroxide/Mg Hydroxide (Maalox Plus) 30 ml PO Q4H PRN PRN Reason: Indigestion Last Admin: 02/22/17 14:15 Dose: 30 ml Amantadine HCl (Symmetrel) 100 mg PO DAILY [facility] Last Admin: 02/22/17 08:12 Dose: 100 mg Amlodipine Besylate (Norvasc) 5 mg PO DAILY [facility] Last Admin: 02/22/17 08:12 Dose: 5 mg Aspirin (Asa) 81 mg PO DAILY [facility] Last Admin: 02/22/17 08:12 Dose: 81 mg Atorvastatin Calcium (Lipitor) 20 mg PO HS [facility] Last Admin: 02/22/17 19:51 Dose: 20 mg Buspirone HCl (Buspar) 15 mg PO TID [facility] Last Admin: 02/22/17 19:51 Dose: 15 mg Carbidopa/Levodopa (Sinemet) 1 tab PO 0630,1030,1630,21 [facility] Last Admin: 02/22/17 19:52 Dose: 1 tab Carvedilol (Coreg) 3.125 mg PO BIDWM [facility] Last Admin: 02/22/17 17:35 Dose: 3.125 mg Cholecalciferol (Vit. D-3) 2,000 unit PO DAILY [facility] Last Admin: 02/22/17 08:13 Dose: 2,000 unit Cyclobenzaprine HCl (Flexeril) 5 mg PO Q8H PRN PRN Reason: Muscle spasm Diclofenac Sodium (Voltaren) 100 applic TP TID [facility] Last Admin: 02/22/17 14:20 Dose: 1 applic Escitalopram Oxalate (Lexapro) 10 mg PO DAILY [facility] Last Admin: 02/22/17 08:13 Dose: 10 mg Levothyroxine Sodium (Synthroid) 137 mcg PO ACB [facility] Last Admin: 02/22/17 08:10 Dose: 137 mcg Lorazepam (Ativan) 0.5 mg PO Q6H PRN PRN Reason: Extreme agitation Lorazepam (Ativan Inj) 0.5 mg IM Q6H PRN PRN Reason: Extreme agitation Lorazepam (Ativan) 1 mg PO BID [facility] Last Admin: 02/22/17 19:52 Dose: 1 mg Magnesium Hydroxide (Mom) 30 ml PO DAILY PRN PRN Reason: Constipation Multivitamins (Theragran) 1 tab PO DAILY [facility] Last Admin: 02/22/17 11:56 Dose: 1 tab Mupirocin (Bactroban Ointmment) 1 applic TP DAILY [facility] Last Admin: 02/22/17 14:21 Dose: 1 applic Omeprazole (Prilosec) 20 mg PO ACB [facility] Last Admin: 02/22/17 08:10 Dose: 20 mg Ondansetron HCl (Zofran Po) 4 mg PO Q4HR PRN PRN Reason: Nausea &/or vomiting Polyethylene Glycol (Miralax) 17 gm PO BID [facility] Last Admin: 02/22/17 08:13 Dose: 17 gm Ranitidine HCl (Zantac) 150 mg PO BID [facility] Last Admin: 02/22/17 19:51 Dose: 150 mg Senna/Docusate Sodium (Senna Plus Tablet) 1 tab PO BID PRN PRN Reason: Constipation Sodium Chloride (Iv Flush) 10 ml IV PRN PRN PRN Reason: Flushing Last Admin: 02/21/17 09:04 Dose: 10 ml Tramadol HCl (Ultram) 50 mg PO Q4HR PRN PRN Reason: Pain Last Admin: 02/22/17 15:59 Dose: 50 mg Subjective: Pt seen and chart examined. Nursing reports pt is doing a little better today. More active nd conversational. On face to face the pt states she is doing well. Not sure why she is here. Some paranoia at times. Denies any A/V kelly. Reports Lexapro caused nightmares and she does not want to take it. Tolerating meds Start Time: 18:15 Stop Time: 18:30 Mental Status Exam Vitals: Last Vital Signs Temp 96.8 F 02/22/17 19:51 Pulse 85 02/22/17 19:51 Resp 16 02/22/17 19:51 BP 123/65 02/22/17 19:51 Pulse Ox 95 02/22/17 19:51 Height: 1.65 m Weight: 77.8 kg - Mental Status Exam Muscle Strength/Tone: Normal Dressing: Casual Grooming: Good Attitude: Cooperative Motor Activity: Retardation Eye Contact: Fair Speech: Slowed Volume: Soft Rhythm: Appropriate Rhythm Orientation: Oriented X4 Mood: Depressed Rate of Thoughts: Delayed Thought Organization: [place] Associations: Intact Abstract Reasoning: Poor abstract reasoning Thought Content: Normal Perception/Psychotic: Hx psychosis, not current Language: Naming Impaired Fund of Knowledge: Poor fund of knowledge Memory: Poor-immediate Suicidal Ideation: None Homicidal Ideation: None Insight: Poor Judgement: Poor Impulse Control: Poor - Laboratory Result Diagrams: 02/22/17 04:11 02/22/17 04:11 Laboratory Results - last 24 hr 02/21/17 02/21/17 02/22/17 08:07 08:07 04:11 WBC 6.4 RBC 3.80 L Hgb 12.3 Hct 39.2 MCV 103.2 H MCH 32.4 MCHC 31.4 RDW Std Deviation 48.1 Plt Count 226 MPV 9.8 Immature Gran % (Auto) 0.3 Neut % (Auto) 56.6 Lymph % (Auto) 26.3 [place] % (Auto) 11.9 H Eos % (Auto) 4.4 H Baso % (Auto) 0.5 Neut # (Auto) 3.6 Lymph # (Auto) 1.7 [place] # (Auto) 0.8 Eos # (Auto) 0.3 Baso # (Auto) 0.0 Abs Immat Gran (auto) 0.02 Turbidity Sodium Potassium Chloride Carbon Dioxide Anion Gap BUN Creatinine GFR Calculation BUN/Creatinine Ratio Glucose Calculated Osmolality Calcium Total Bilirubin Icterus Index AST ALT Alkaline Phosphatase Troponin I Total Protein Albumin Globulin Albumin/Globulin Ratio Vitamin B12 998 H Folate > 20.0 H Specimen Hemolysis RPR Non-reactive 02/22/17 02/22/17 04:11 15:21 WBC RBC Hgb Hct MCV MCH MCHC RDW Std Deviation Plt Count MPV Immature Gran % (Auto) Neut % (Auto) Lymph % (Auto) [place]ois % (Auto) Eos % (Auto) Baso % (Auto) Neut # (Auto) Lymph # (Auto) [place]ois # (Auto) Eos # (Auto) Baso # (Auto) Abs Immat Gran (auto) Turbidity < 20 Sodium 144 Potassium 3.7 Chloride 106 Carbon Dioxide 29 Anion Gap 9 BUN 19.0 H Creatinine 0.7 GFR Calculation 81 BUN/Creatinine Ratio 27 H Glucose 105 Calculated Osmolality 279 Calcium 8.6 Total Bilirubin 0.40 Icterus Index < 2 AST 33 ALT 36 Alkaline Phosphatase 89 Troponin I 0.021 Total Protein 6.2 L Albumin 3.5 Globulin 2.7 Albumin/Globulin Ratio 1.3 Vitamin B12 Folate Specimen Hemolysis < 15 < 15 RPR Assessment and Plan (1) Major neurocognitive disorder Problem details: with behavioral disturbance Current visit: Yes Status: Acute (2) Delirium due to another medical condition Current visit: Yes Status: Acute Hospital Course Summary Disclaimer: The visit summary below is not to be considered part of the above Progress Note. Hospital Course: Admission Diagnosis Dementia with behavioral disturbance, acute. Hallucinations with psychosis and delusions, acute. UTI, recurrent - initiated macrobid on 02/13/17; resolved. Recent fall with closed head injury, 02/20/17. Gait instability with generalized weakness. Chronic Past Medical History Parkinson's disease. Dysphagia. Hypertension. Hypercholesterolemia. GERD. Depression and anxiety. Chronic kidney disease, stage III. Chronic pain. Hypothyroidism. Allergic rhinitis. Plan - 02/21/17 (Admission). Agree with admission to [facility] for further psychiatric evaluation and treatment. Hospitalist service consulted for medical management. Reported fall with head injury prior to arrival. CT head and C-spine completed at [place] ED showed no acute changes or abnormalities. Currently patient denies headache or concerns. Monitor neurologic function closely. History of Parkinson's disease with gait instability and generalized weakness. Patient is a high fall risk. Provide safe and supportive environment. May consider PT/OT evaluation for strengthening. Continue home medications - amantadine and Sinemet. History of dysphagia though unknown prior diet. Will consult speech for dysphagia evaluation and dietary recommendations. Until seen by speech, recommend nectar thickened liquids and purred diet as patient is at risk for aspiration. Crush pills as able. Continue home medications. Blood pressure currently controlled - continue amlodipine and Coreg. TSH on admission was 2.85. Continue home synthroid. Mild hypokalemia noted in [facility] ED. Will recheck BMP in AM to monitor electrolytes and renal function and treat hypokalemia if still present. Nursing reports poor oral intake and lack of appetite. Pre-albumin was stable at 28.8 but history of protein calorie malnutrition. Will consult dietary for nutritional recommendations. Encourage oral intake. CXR in [place] ED showed mild perihilar lower lobe interstitial prominence concerning for possible pneumonitis or mild pulmonary edema. Lungs are clear to auscultation on exam and patient is breathing easily without cough or signs of distress. Afebrile. May consider repeat CXR if increased respiratory symptoms. Upon discharge, patient's care will be returned to her PCP, Dr. Thao. 02/22/17 Chest pain - will check EKG, CXR, and trop x3. Labs reviewed - electrolytes are stable; not anemic; B12, folate, TSH, & A1c were normal. RPR pending Try tramadol for pain. Staff tried to ambulate Genny - she made it about 3 feet and then her legs became too weak. She's been able to stand and pivot for transfers. 02/22/17 21:18 Will D/C lexapro at families request. Discussed with daughter use of Remeron but will allow Lexapro to get out of system before Remeron is started
[2017-02-23] MEDS: CYCLOBENZAPRINE 5 MG TABLET PO PRN (00:18)
[2017-02-23] MEDS: LEVOTHYROXINE 137 MCG TABLET PO SCH (05:32)
[2017-02-23] MEDS: OMEPRAZOLE 20 MG CAPSULE PO SCH (05:32)
--- NOTE | 2017-02-23 08:35 | XRay Report ---
Indication: left chest/back pain PROCEDURE: XR chest 1V: Encounter: Initial Comparison: None FINDINGS: Linear atelectasis or scarring in the left lateral base. Lungs are otherwise clear. There is no consolidation, pleural effusion or pneumothorax identified. The heart size, pulmonary vasculature and mediastinum are within normal limits. No significant skeletal abnormality is seen. IMPRESSION: No acute cardiopulmonary abnormality. .
[2017-02-23] MEDS: ACETAMINOPHEN 500 MG TABLET PO SCH ×3 (09:44→20:06)
[2017-02-23] MEDS: BUSPIRONE 15 MG TABLET PO SCH ×3 (09:45→20:07)
[2017-02-23] MEDS: POLYETHYL GLYCOL 3350 17gm PACKET PO SCH ×2 (09:48→20:08)
[2017-02-23] MEDS: LORazepam 1 MG TABLET PO SCH ×2 (09:48→20:08)
[2017-02-23] MEDS: RANITIDINE 150 MG TABLET PO SCH ×2 (09:49→20:08)
[2017-02-23] MEDS: CARVEDILOL 3.125 MG TABLET PO SCH ×2 (09:49→20:07)
[2017-02-23] MEDS: AMLODIPINE 5 MG TABLET PO SCH (09:49)
[2017-02-23] MEDS: ASPIRIN 81 MG CHEWABLE TABLET PO SCH (09:49)
[2017-02-23] MEDS: AMANTADINE 100 MG CAPSULE PO SCH (09:50)
[2017-02-23] MEDS: MUPIROCIN 2% OINTMENT 22gm TP SCH (09:50)
[2017-02-23] MEDS: MULTI-VITAMIN PLAIN TABLET PO SCH (09:50)
[2017-02-23] MEDS: TRAMADOL 50 MG TABLET PO PRN ×2 (11:18→23:18)
--- NOTE | 2017-02-23 18:09 | Neuropsych Progress Note ---
[facility] Subjective Date: 02/23/17 - Sujective/Severity of Illness Medications: Acetaminophen (Tylenol) 1,000 mg PO TID [facility] Last Admin: 02/23/17 15:45 Dose: 1,000 mg Al Hydroxide/Mg Hydroxide (Maalox Plus) 30 ml PO Q4H PRN PRN Reason: Indigestion Last Admin: 02/22/17 14:15 Dose: 30 ml Amantadine HCl (Symmetrel) 100 mg PO DAILY [facility] Last Admin: 02/23/17 09:50 Dose: 100 mg Amlodipine Besylate (Norvasc) 5 mg PO DAILY [facility] Last Admin: 02/23/17 09:49 Dose: 5 mg Aspirin (Asa) 81 mg PO DAILY [facility] Last Admin: 02/23/17 09:49 Dose: 81 mg Atorvastatin Calcium (Lipitor) 20 mg PO HS [facility] Last Admin: 02/22/17 19:51 Dose: 20 mg Buspirone HCl (Buspar) 15 mg PO TID [facility] Last Admin: 02/23/17 15:44 Dose: 15 mg Carbidopa/Levodopa (Sinemet) 1 tab PO 0630,1030,1630,21 [facility] Last Admin: 02/23/17 15:44 Dose: 1 tab Carvedilol (Coreg) 3.125 mg PO BIDWM [facility] Last Admin: 02/23/17 09:49 Dose: 3.125 mg Cholecalciferol (Vit. D-3) 2,000 unit PO DAILY [facility] Last Admin: 02/23/17 09:49 Dose: 2,000 unit Cyclobenzaprine HCl (Flexeril) 5 mg PO Q8H PRN PRN Reason: Muscle spasm Last Admin: 02/23/17 00:18 Dose: 5 mg Diclofenac Sodium (Voltaren) 1 applic TP TID [facility] Levothyroxine Sodium (Synthroid) 137 mcg PO ACB [facility] Last Admin: 02/23/17 05:32 Dose: 137 mcg Lorazepam (Ativan) 0.5 mg PO Q6H PRN PRN Reason: Extreme agitation Lorazepam (Ativan Inj) 0.5 mg IM Q6H PRN PRN Reason: Extreme agitation Lorazepam (Ativan) 1 mg PO BID [facility] Last Admin: 02/23/17 09:48 Dose: 1 mg Magnesium Hydroxide (Mom) 30 ml PO DAILY PRN PRN Reason: Constipation Multivitamins (Theragran) 1 tab PO DAILY [facility] Last Admin: 02/23/17 09:50 Dose: 1 tab Mupirocin (Bactroban Ointmment) 1 applic TP DAILY [facility] Last Admin: 02/23/17 09:50 Dose: 1 applic Omeprazole (Prilosec) 20 mg PO ACB [facility] Last Admin: 02/23/17 05:32 Dose: 20 mg Ondansetron HCl (Zofran Po) 4 mg PO Q4HR PRN PRN Reason: Nausea &/or vomiting Polyethylene Glycol (Miralax) 17 gm PO BID [facility] Last Admin: 02/23/17 09:48 Dose: 17 gm Ranitidine HCl (Zantac) 150 mg PO BID [facility] Last Admin: 02/23/17 09:49 Dose: 150 mg Senna/Docusate Sodium (Senna Plus Tablet) 1 tab PO BID PRN PRN Reason: Constipation Sodium Chloride (Iv Flush) 10 ml IV PRN PRN PRN Reason: Flushing Last Admin: 02/21/17 09:04 Dose: 10 ml Tramadol HCl (Ultram) 50 mg PO Q4HR PRN PRN Reason: Pain Last Admin: 02/23/17 11:18 Dose: 50 mg Subjective: Patient seen and chart reviewed. Case discussed with treatment team. On interview, patient is cooperative and reports tht her mood is "okay" but is quite restricted. She is mildly paranoid and talks about girls at the school plotting against her to put her in the hospital. She admits to SI in the past but denies any current SI or HI. She denies AVH though staff report she hallucinated that there was a snake in the bathroom this morning. Patient denies any adverse side effects related to psychotropic medications. Nursing staff report has not had any significant behavioral difficulties on the unit and has been adherent with medications. Patient slept 7.75 hours overnight. VSS. Patient is eating well. Psychotropic PRNs required in the past 24 hours: none. Start Time: 14:20 Stop Time: 14:40 Mental Status Exam Vitals: Last Vital Signs Temp 96.8 F 02/23/17 15:27 Pulse 69 02/23/17 15:27 Resp 15 02/23/17 15:27 BP 114/58 02/23/17 15:27 Pulse Ox 96 02/23/17 15:27 Height: 1.65 m Weight: 77.8 kg - Mental Status Exam Muscle Strength/Tone: Normal Dressing: Casual Grooming: Good Attitude: Cooperative Motor Activity: Retardation Eye Contact: Fair Speech: Slowed Volume: Soft Rhythm: Appropriate Rhythm Sensory: Alert Orientation: Disoriented to time, Disoriented to situation, Oriented to place Mood: Neutral ("okay", affect quite restricted) Rate of Thoughts: Delayed Thought Organization: [place] Associations: Intact Abstract Reasoning: Poor abstract reasoning Thought Content: Ruminations, Paranoia Perception/Psychotic: Psychotic Current Hallucinations: Visual Language: Naming Impaired Fund of Knowledge: Poor fund of knowledge Memory: Poor-immediate Suicidal Ideation: Denies Homicidal Ideation: Denies Insight: Poor Judgement: Poor Impulse Control: Other (Limited) - Laboratory Result Diagrams: 02/22/17 04:11 02/22/17 04:11 Assessment and Plan (1) Major neurocognitive disorder Problem details: with behavioral disturbance Current visit: Yes Status: Acute (2) Delirium due to another medical condition Current visit: Yes Status: Acute Hospital Course Summary Disclaimer: The visit summary below is not to be considered part of the above Progress Note. Hospital Course: Admission Diagnosis Dementia with behavioral disturbance, acute. Hallucinations with psychosis and delusions, acute. UTI, recurrent - initiated macrobid on 02/13/17; resolved. Recent fall with closed head injury, 02/20/17. Gait instability with generalized weakness. Chronic Past Medical History Parkinson's disease. Dysphagia. Hypertension. Hypercholesterolemia. GERD. Depression and anxiety. Chronic kidney disease, stage III. Chronic pain. Hypothyroidism. Allergic rhinitis. Plan - 02/21/17 (Admission). Agree with admission to [facility] for further psychiatric evaluation and treatment. Hospitalist service consulted for medical management. Reported fall with head injury prior to arrival. CT head and C-spine completed at [place] ED showed no acute changes or abnormalities. Currently patient denies headache or concerns. Monitor neurologic function closely. History of Parkinson's disease with gait instability and generalized weakness. Patient is a high fall risk. Provide safe and supportive environment. May consider PT/OT evaluation for strengthening. Continue home medications - amantadine and Sinemet. History of dysphagia though unknown prior diet. Will consult speech for dysphagia evaluation and dietary recommendations. Until seen by speech, recommend nectar thickened liquids and purred diet as patient is at risk for aspiration. Crush pills as able. Continue home medications. Blood pressure currently controlled - continue amlodipine and Coreg. TSH on admission was 2.85. Continue home synthroid. Mild hypokalemia noted in [facility] ED. Will recheck BMP in AM to monitor electrolytes and renal function and treat hypokalemia if still present. Nursing reports poor oral intake and lack of appetite. Pre-albumin was stable at 28.8 but history of protein calorie malnutrition. Will consult dietary for nutritional recommendations. Encourage oral intake. CXR in [place] ED showed mild perihilar lower lobe interstitial prominence concerning for possible pneumonitis or mild pulmonary edema. Lungs are clear to auscultation on exam and patient is breathing easily without cough or signs of distress. Afebrile. May consider repeat CXR if increased respiratory symptoms. Upon discharge, patient's care will be returned to her PCP, Dr. Thao. 02/22/17 Chest pain - will check EKG, CXR, and trop x3. Labs reviewed - electrolytes are stable; not anemic; B12, folate, TSH, & A1c were normal. RPR pending Try tramadol for pain. Staff tried to ambulate Genny - she made it about 3 feet and then her legs became too weak. She's been able to stand and pivot for transfers. 02/22/17Psych: Will D/C lexapro at families request. Discussed with daughter use of Remeron but will allow Lexapro to get out of system before Remeron is started 02/23/17 Psych: Patient reports tolerating discontinuation of Lexapro well and denies having any nightmares last night. Will hold evening dose of Sinemet making it effectively TID dosing rather than QID; monitor behavior and response.
[2017-02-23] MEDS: ATORVASTATIN 20 MG TABLET PO SCH (20:09)
[2017-02-23] MEDS: DICLOFENAC 1% TOP GEL 100gm TP SCH (20:09)
[2017-02-24] MEDS: TRAMADOL 50 MG TABLET PO PRN ×2 (05:20→20:01)
[2017-02-24] MEDS: LEVOTHYROXINE 137 MCG TABLET PO SCH (05:31)
[2017-02-24] MEDS: OMEPRAZOLE 20 MG CAPSULE PO SCH (05:31)
[2017-02-24] MEDS: ACETAMINOPHEN 500 MG TABLET PO SCH ×3 (09:45→20:01)
[2017-02-24] MEDS: POLYETHYL GLYCOL 3350 17gm PACKET PO SCH ×2 (09:45→20:00)
[2017-02-24] MEDS: ASPIRIN 81 MG CHEWABLE TABLET PO SCH (09:46)
[2017-02-24] MEDS: RANITIDINE 150 MG TABLET PO SCH ×2 (09:46→20:01)
[2017-02-24] MEDS: LORazepam 1 MG TABLET PO SCH ×2 (09:46→20:02)
[2017-02-24] MEDS: MULTI-VITAMIN PLAIN TABLET PO SCH (09:46)
[2017-02-24] MEDS: CARVEDILOL 3.125 MG TABLET PO SCH ×2 (09:50→21:10)
[2017-02-24] MEDS: AMLODIPINE 5 MG TABLET PO SCH (09:50)
[2017-02-24] MEDS: MUPIROCIN 2% OINTMENT 22gm TP SCH (09:51)
[2017-02-24] MEDS: BUSPIRONE 15 MG TABLET PO SCH ×3 (09:51→20:02)
[2017-02-24] MEDS: AMANTADINE 100 MG CAPSULE PO SCH (13:07)
[2017-02-24] MEDS: DICLOFENAC 1% TOP GEL 100gm TP SCH ×3 (13:07→21:06)
[2017-02-24] MEDS: ATORVASTATIN 20 MG TABLET PO SCH (20:01)
--- NOTE | 2017-02-24 20:25 | Neuropsych Progress Note ---
[facility] Subjective Date: 02/24/17 - Sujective/Severity of Illness Medications: Acetaminophen (Tylenol) 1,000 mg PO TID [facility] Last Admin: 02/24/17 20:01 Dose: 1,000 mg Al Hydroxide/Mg Hydroxide (Maalox Plus) 30 ml PO Q4H PRN PRN Reason: Indigestion Last Admin: 02/22/17 14:15 Dose: 30 ml Amantadine HCl (Symmetrel) 100 mg PO DAILY [facility] Last Admin: 02/24/17 13:07 Dose: 100 mg Amlodipine Besylate (Norvasc) 5 mg PO DAILY [facility] Last Admin: 02/24/17 09:50 Dose: 5 mg Aspirin (Asa) 81 mg PO DAILY [facility] Last Admin: 02/24/17 09:46 Dose: 81 mg Atorvastatin Calcium (Lipitor) 20 mg PO HS [facility] Last Admin: 02/24/17 20:01 Dose: 20 mg Buspirone HCl (Buspar) 15 mg PO TID [facility] Last Admin: 02/24/17 20:02 Dose: 15 mg Carbidopa/Levodopa (Sinemet) 1 tab PO 0630,1030,1630 [facility] Last Admin: 02/24/17 13:08 Dose: 1 tab Carvedilol (Coreg) 3.125 mg PO BIDWM [facility] Last Admin: 02/24/17 09:50 Dose: 3.125 mg Cholecalciferol (Vit. D-3) 2,000 unit PO DAILY [facility] Last Admin: 02/24/17 09:46 Dose: 2,000 unit Cyclobenzaprine HCl (Flexeril) 5 mg PO Q8H PRN PRN Reason: Muscle spasm Last Admin: 02/23/17 00:18 Dose: 5 mg Diclofenac Sodium (Voltaren) 1 applic TP TID [facility] Last Admin: 02/24/17 16:45 Dose: 1 applic Levothyroxine Sodium (Synthroid) 137 mcg PO ACB [facility] Last Admin: 02/24/17 05:31 Dose: 137 mcg Lorazepam (Ativan) 0.5 mg PO Q6H PRN PRN Reason: Extreme agitation Lorazepam (Ativan Inj) 0.5 mg IM Q6H PRN PRN Reason: Extreme agitation Lorazepam (Ativan) 1 mg PO BID [facility] Last Admin: 02/24/17 20:02 Dose: 1 mg Magnesium Hydroxide (Mom) 30 ml PO DAILY PRN PRN Reason: Constipation Multivitamins (Theragran) 1 tab PO DAILY [facility] Last Admin: 02/24/17 09:46 Dose: 1 tab Mupirocin (Bactroban Ointmment) 1 applic TP DAILY [facility] Last Admin: 02/24/17 09:51 Dose: 1 applic Omeprazole (Prilosec) 20 mg PO ACB [facility] Last Admin: 02/24/17 05:31 Dose: 20 mg Ondansetron HCl (Zofran Po) 4 mg PO Q4HR PRN PRN Reason: Nausea &/or vomiting Polyethylene Glycol (Miralax) 17 gm PO BID [facility] Last Admin: 02/24/17 20:00 Dose: 17 gm Ranitidine HCl (Zantac) 150 mg PO BID [facility] Last Admin: 02/24/17 20:01 Dose: 150 mg Senna/Docusate Sodium (Senna Plus Tablet) 1 tab PO BID PRN PRN Reason: Constipation Sodium Chloride (Iv Flush) 10 ml IV PRN PRN PRN Reason: Flushing Last Admin: 02/21/17 09:04 Dose: 10 ml Tramadol HCl (Ultram) 50 mg PO Q4HR PRN PRN Reason: Pain Last Admin: 02/24/17 20:01 Dose: 50 mg Subjective: Patient seen and chart reviewed. Case discussed with treatment team. On interview, patient is cooperative and reports that her mood is good. She appears brighter than yesterday and is observed enjoying socializing with a female peer. Patient denies any SI, HI, AVH since last seen and staff have not observed her responding to internal stimuli. She reports feeling better last night and safer without hallucinations. Patient denies any adverse side effects related to psychotropic medications. Nursing staff report has not had any significant behavioral difficulties on the unit and has been adherent with medications. Patient slept 8.25 hours overnight. VSS. Patient is eating well. Psychotropic PRNs required in the past 24 hours: none. Start Time: 14:00 Stop Time: 14:20 Mental Status Exam Vitals: Last Vital Signs Temp 96.5 F L 02/24/17 16:00 Pulse 73 02/24/17 16:00 Resp 18 02/24/17 16:00 BP 115/65 02/24/17 16:00 Pulse Ox 97 02/24/17 16:00 Height: 1.65 m Weight: 77.8 kg - Mental Status Exam Muscle Strength/Tone: Normal Dressing: Casual Grooming: Good Attitude: Cooperative Motor Activity: Retardation Eye Contact: Fair Speech: Slowed Volume: Soft Rhythm: Appropriate Rhythm Sensory: Alert Orientation: Disoriented to time, Oriented to place Mood: Neutral (reports mood is "good," affect brighter than yesterday) Rate of Thoughts: Delayed Thought Organization: [place] Associations: Intact Abstract Reasoning: Poor abstract reasoning Thought Content: Normal Perception/Psychotic: Hx psychosis, not current Language: Naming Impaired Fund of Knowledge: Poor fund of knowledge Memory: Poor-immediate Suicidal Ideation: Denies Homicidal Ideation: Denies Insight: Limited Judgement: Limited Impulse Control: Fair - Laboratory Result Diagrams: 02/22/17 04:11 02/22/17 04:11 Assessment and Plan (1) Major neurocognitive disorder Problem details: with behavioral disturbance Current visit: Yes Status: Acute (2) Delirium due to another medical condition Current visit: Yes Status: Acute Hospital Course Summary Disclaimer: The visit summary below is not to be considered part of the above Progress Note. Hospital Course: Admission Diagnosis Dementia with behavioral disturbance, acute. Hallucinations with psychosis and delusions, acute. UTI, recurrent - initiated macrobid on 02/13/17; resolved. Recent fall with closed head injury, 02/20/17. Gait instability with generalized weakness. Chronic Past Medical History Parkinson's disease. Dysphagia. Hypertension. Hypercholesterolemia. GERD. Depression and anxiety. Chronic kidney disease, stage III. Chronic pain. Hypothyroidism. Allergic rhinitis. Plan - 02/21/17 (Admission). Agree with admission to [facility] for further psychiatric evaluation and treatment. Hospitalist service consulted for medical management. Reported fall with head injury prior to arrival. CT head and C-spine completed at [place] [facility] showed no acute changes or abnormalities. Currently patient denies headache or concerns. Monitor neurologic function closely. History of Parkinson's disease with gait instability and generalized weakness. Patient is a high fall risk. Provide safe and supportive environment. May consider PT/OT evaluation for strengthening. Continue home medications - amantadine and Sinemet. History of dysphagia though unknown prior diet. Will consult speech for dysphagia evaluation and dietary recommendations. Until seen by speech, recommend nectar thickened liquids and purred diet as patient is at risk for aspiration. Crush pills as able. Continue home medications. Blood pressure currently controlled - continue amlodipine and Coreg. TSH on admission was 2.85. Continue home synthroid. Mild hypokalemia noted in [facility] ED. Will recheck BMP in AM to monitor electrolytes and renal function and treat hypokalemia if still present. Nursing reports poor oral intake and lack of appetite. Pre-albumin was stable at 28.8 but history of protein calorie malnutrition. Will consult dietary for nutritional recommendations. Encourage oral intake. CXR in [place] ED showed mild perihilar lower lobe interstitial prominence concerning for possible pneumonitis or mild pulmonary edema. Lungs are clear to auscultation on exam and patient is breathing easily without cough or signs of distress. Afebrile. May consider repeat CXR if increased respiratory symptoms. Upon discharge, patient's care will be returned to her PCP, Dr. Thao. 02/22/17 Chest pain - will check EKG, CXR, and trop x3. Labs reviewed - electrolytes are stable; not anemic; B12, folate, TSH, & A1c were normal. RPR pending Try tramadol for pain. Staff tried to ambulate Genny - she made it about 3 feet and then her legs became too weak. She's been able to stand and pivot for transfers. 02/22/17Psych: Will D/C lexapro at families request. Discussed with daughter use of Remeron but will allow Lexapro to get out of system before Remeron is started 02/23/17 Psych: Patient reports tolerating discontinuation of Lexapro well and denies having any nightmares last night. Will hold evening dose of Sinemet making it effectively TID dosing rather than QID; monitor behavior and response. 02/24/17 Psych: Patient is doing quite well, mood improved and movement disorder manageable at this point. Will continue observations to ensure that psychosis has resolved with medication changes.
[2017-02-25] MEDS: TRAMADOL 50 MG TABLET PO PRN ×2 (02:27→06:27)
[2017-02-25] MEDS: LEVOTHYROXINE 137 MCG TABLET PO SCH (05:48)
[2017-02-25] MEDS: OMEPRAZOLE 20 MG CAPSULE PO SCH (05:48)
[2017-02-25] MEDS: MUPIROCIN 2% OINTMENT 22gm TP SCH (08:52)
[2017-02-25] MEDS: POLYETHYL GLYCOL 3350 17gm PACKET PO SCH ×3 (08:53→20:12)
[2017-02-25] MEDS: ACETAMINOPHEN 500 MG TABLET PO SCH ×4 (08:53→20:13)
[2017-02-25] MEDS: DICLOFENAC 1% TOP GEL 100gm TP SCH ×4 (08:53→20:12)
[2017-02-25] MEDS: AMLODIPINE 5 MG TABLET PO SCH (08:54)
[2017-02-25] MEDS: LORazepam 1 MG TABLET PO SCH ×3 (08:54→20:13)
[2017-02-25] MEDS: BUSPIRONE 15 MG TABLET PO SCH ×4 (08:55→20:14)
[2017-02-25] MEDS: CARVEDILOL 3.125 MG TABLET PO SCH ×2 (08:55→17:12)
[2017-02-25] MEDS: AMANTADINE 100 MG CAPSULE PO SCH (08:55)
[2017-02-25] MEDS: MULTI-VITAMIN PLAIN TABLET PO SCH (08:55)
[2017-02-25] MEDS: RANITIDINE 150 MG TABLET PO SCH ×3 (08:55→20:14)
[2017-02-25] MEDS: ASPIRIN 81 MG CHEWABLE TABLET PO SCH (08:55)
[2017-02-25] MEDS: CYCLOBENZAPRINE 5 MG TABLET PO PRN (08:57)
--- NOTE | 2017-02-25 10:20 | CT Scan Report ---
Indication: fall, 02/20. New headache left lateral PROCEDURE: CT head/brain wo con: Encounter: Initial Comparison: None Technique: Axial CT images through the head were performed without contrast. Iterative Reconstruction dose reducing technique was utilized. FINDINGS: The ventricles are of normal size, shape, and contour for the patient's age. There are scattered areas of low attenuation in the white matter which most likely represent changes from chronic microvascular ischemia. The brainstem, cerebellum, and cerebral hemispheres otherwise have a normal morphology and CT attenuation. There is no evidence of midline displacement. No hemorrhage, signs of acute territorial stroke, mass effect, mass lesions, or edema is evident. The visualized portions of the skull base, midface, and calvarium demonstrate no abnormality. The paranasal sinuses are well aerated and free of significant disease. The tympanic and mastoid cavities appear normal. IMPRESSION: No acute intracranial abnormality or hemorrhage. .
--- NOTE | 2017-02-25 10:53 | Progress Note ---
<Lazaar Chase V - Last Filed: 02/25/17 10:47> - Date 02/25/17 Subjective: Genny is seen today following a phone call from nursing staff reporting started having headache overnight that has been difficult to control. Staff has concern as patient did suffer a fall and hit her head prior to admission on 02/20/17. She was evaluated acutely at [facility] emergency room at which time she had a CT scan of the head and cervical spine. Both images were found to be negative for acute trauma or bleeding. Today, patient complains of a persistent left lateral head pain. She initially states that it is different from past headaches and that is intermittent, however, later reports that it's been constant since yesterday. She has no focal deficits or weakness. She denies any neck pain on gentle range of motion. Visual changes. No dizziness, no nausea. BP this morning was 136/63. Objective Vital signs: Temperature 98.2 F 02/25/17 08:00 Pulse Rate 89 02/25/17 08:00 Respiratory Rate 20 02/25/17 08:00 Blood Pressure 136/63 02/25/17 08:00 Pulse Oximetry 96 02/25/17 08:00 Height/Weight/BMI: Height 1.65 m Weight 77.8 kg Body Mass Index 28.5 - Constitutional Present: no acute distress, well nourished, well developed - Routine HEENT Exam Eye: Present: EOMI, PERRL. Absent: nystagmus ENT: Present: mucous membranes moist, dentition normal - Routine Respiratory Exam Present: CTA bilaterally. Absent: wheezes - Routine Cardiovascular Exam Present: RRR, S1, S2. Absent: murmur - Routine Abdominal Exam Present: soft, normoactive bowel sounds, non distended. Absent: tenderness - Routine Extremities Exam Present: normal capillary refill - Routine Skin Exam Present: dry, warm - Routine Neurological Exam Present: alert, CN II-XII intact, moving all extremities, normal tone, vision grossly intact, hearing grossly intact. Absent: sensory deficit, motor deficit , nystagmus - Routine Lymphatic Exam Lymphatic: Absent: adenopathy - Routine Psychiatric Exam Present: normal affect, cooperative Results - Labs CBC & Chem 7: 02/22/17 04:11 02/22/17 04:11 Assessment and Plan (1) Dementia with behavioral disturbance Current visit: Yes Status: Acute (2) Hallucinogen psychosis, with delusions Current visit: Yes Status: Acute (3) Gait instability Problem details: Due to Parkinson's disease Current visit: Yes Status: Chronic (4) Closed head injury Problem details: Recent fall, negative head [facility] Current visit: Yes Status: Acute Assessment and Plan: Assessment Dementia with behavioral disturbance, acute. Hallucinations with psychosis and delusions, acute. UTI, recurrent - initiated macrobid on 02/13/17; resolved. Recent fall with closed head injury, 02/20/17. Gait instability with generalized weakness. Parkinson's disease. Dysphagia. Hypertension. Hypercholesterolemia. GERD. Depression and anxiety. Chronic kidney disease, stage III. Chronic pain. Hypothyroidism. Allergic rhinitis Headache- post fall Plan - Given new onset headache over the past 24 hours will re-image CT scan of the head to rule out intracranial hemorrhage. Original radiology studies reviewed from 02/20/17 that were done at [place] emergency room. CT head and C-spine were both negative at that time Continue with scheduled Tylenol 3 times a day. May utilize tramadol in between 4 further pain control if needed. Blood pressures have been stable. Continue on Norvasc and Coreg. Encourage participation in unit activities Hospital Course Summary Disclaimer: The visit summary below is not to be considered part of the above Progress Note. Hospital Course: Admission Diagnosis Dementia with behavioral disturbance, acute. Hallucinations with psychosis and delusions, acute. UTI, recurrent - initiated macrobid on 02/13/17; resolved. Recent fall with closed head injury, 02/20/17. Gait instability with generalized weakness. Chronic Past Medical History Parkinson's disease. Dysphagia. Hypertension. Hypercholesterolemia. GERD. Depression and anxiety. Chronic kidney disease, stage III. Chronic pain. Hypothyroidism. Allergic rhinitis. Plan - 02/21/17 (Admission). Agree with admission to [facility] for further psychiatric evaluation and treatment. Hospitalist service consulted for medical management. Reported fall with head injury prior to arrival. CT head and C-spine completed at [place] ED showed no acute changes or abnormalities. Currently patient denies headache or concerns. Monitor neurologic function closely. History of Parkinson's disease with gait instability and generalized weakness. Patient is a high fall risk. Provide safe and supportive environment. May consider PT/OT evaluation for strengthening. Continue home medications - amantadine and Sinemet. History of dysphagia though unknown prior diet. Will consult speech for dysphagia evaluation and dietary recommendations. Until seen by speech, recommend nectar thickened liquids and purred diet as patient is at risk for aspiration. Crush pills as able. Continue home medications. Blood pressure currently controlled - continue amlodipine and Coreg. TSH on admission was 2.85. Continue home synthroid. Mild hypokalemia noted in [facility] ED. Will recheck BMP in AM to monitor electrolytes and renal function and treat hypokalemia if still present. Nursing reports poor oral intake and lack of appetite. Pre-albumin was stable at 28.8 but history of protein calorie malnutrition. Will consult dietary for nutritional recommendations. Encourage oral intake. CXR in [place] ED showed mild perihilar lower lobe interstitial prominence concerning for possible pneumonitis or mild pulmonary edema. Lungs are clear to auscultation on exam and patient is breathing easily without cough or signs of distress. Afebrile. May consider repeat CXR if increased respiratory symptoms. Upon discharge, patient's care will be returned to her PCP, Dr. Thao. 02/22/17- hospitalist Chest pain - will check EKG, CXR, and trop x3. Labs reviewed - electrolytes are stable; not anemic; B12, folate, TSH, & A1c were normal. RPR pending Try tramadol for pain. Staff tried to ambulate Genny - she made it about 3 feet and then her legs became too weak. She's been able to stand and pivot for transfers. 02/22/17-Psych:Will D/C lexapro at families request. Discussed with daughter use of Remeron but will allow Lexapro to get out of system before Remeron is started 02/23/17 Psych: Patient reports tolerating discontinuation of Lexapro well and denies having any nightmares last night. Will hold evening dose of Sinemet making it effectively TID dosing rather than QID; monitor behavior and response. 02/24/17 Psych: Patient is doing quite well, mood improved and movement disorder manageable at this point. Will continue observations to ensure that psychosis has resolved with medication changes. 02/25/1744-[id number] new onset headache over the past 24 hours will re- image CT scan of the head to rule out intracranial hemorrhage. Continue with scheduled Tylenol 3 times a day. May utilize tramadol in between 4 further pain control if needed. Blood pressures have been stable. Continue on Norvasc and Coreg. <Patricia Winn - Last Filed: 02/25/17 20:32> - Date 02/25/17 Objective Height/Weight/BMI: Results - Labs CBC & Chem 7: 02/22/17 04:11 02/22/17 04:11 Assessment and Plan (1) Dementia with behavioral disturbance Current visit: Yes Status: Acute (2) Hallucinogen psychosis, with delusions Current visit: Yes Status: Acute (3) Closed head injury Problem details: Recent fall, negative head CT [facility] Current visit: Yes Status: Acute (4) Gait instability Problem details: Due to Parkinson's disease Current visit: Yes Status: Chronic Assessment and Plan: I have independently evaluated and examined this patient. I reviewed the chart, the patient's history, and the PASTE MIXING SUPERVISOR/PA's documented findings as above. We discussed and formulated the assessment and plan as above with additions as below: Mrs. Roca was reevaluated in light of reported headache. When seen in the day room this afternoon she advised me that her headache is better although she described a bump on the top of her head and rub the area repetitively. She expressed frustration that she can't walk; and speaking with staff the patient can walk with assistance but is frustrated that she can't walk independently. Patient reports that she was walking with a walker before she arrived at the facility. The patient is soft spoken but her speech is fluent. EOMI, facial structures are symmetric There is a small palpable area of soft tissue swelling on the crown of the head without evidence of bruising or tenderness no greater than 2 cm in size. Skin is not broken and there are no sutures present. MAEW, cooperative. CT head reviewed by myself-no evidence of acute pathology/subdural hematoma. Continue symptomatic management. Could entertain PT consult if appropriate given nursing's description patient's ambulatory function does not appear to be significantly impaired. Resuscitation Status: Full Code Hospital Course Summary Disclaimer: The visit summary below is not to be considered part of the above Progress Note.
[2017-02-25] MEDS: ATORVASTATIN 20 MG TABLET PO SCH ×2 (11:44→20:14)
--- NOTE | 2017-02-25 16:31 | Neuropsych Progress Note ---
[facility] Subjective Date: 02/25/17 - Sujective/Severity of Illness Medications: Acetaminophen (Tylenol) 1,000 mg PO TID [facility] Last Admin: 02/25/17 15:03 Dose: 1,000 mg Al Hydroxide/Mg Hydroxide (Maalox Plus) 30 ml PO Q4H PRN PRN Reason: Indigestion Last Admin: 02/22/17 14:15 Dose: 30 ml Amantadine HCl (Symmetrel) 100 mg PO DAILY [facility] Last Admin: 02/25/17 08:55 Dose: 100 mg Amlodipine Besylate (Norvasc) 5 mg PO DAILY [facility] Last Admin: 02/25/17 08:54 Dose: 5 mg Aspirin (Asa) 81 mg PO DAILY [facility] Last Admin: 02/25/17 08:55 Dose: 81 mg Atorvastatin Calcium (Lipitor) 20 mg PO HS [facility] Last Admin: 02/25/17 11:44 Dose: Not Given Buspirone HCl (Buspar) 15 mg PO TID [facility] Last Admin: 02/25/17 15:03 Dose: 15 mg Carbidopa/Levodopa (Sinemet) 1 tab PO 0630,1030,1630 [facility] Last Admin: 02/25/17 11:47 Dose: 1 tab Carvedilol (Coreg) 3.125 mg PO BIDWM [facility] Last Admin: 02/25/17 08:55 Dose: 3.125 mg Cholecalciferol (Vit. D-3) 2,000 unit PO DAILY [facility] Last Admin: 02/25/17 08:54 Dose: 2,000 unit Cyclobenzaprine HCl (Flexeril) 5 mg PO Q8H PRN PRN Reason: Muscle spasm Last Admin: 02/25/17 08:57 Dose: 5 mg Diclofenac Sodium (Voltaren) 1 applic TP TID [facility] Last Admin: 02/25/17 15:07 Dose: Not Given Levothyroxine Sodium (Synthroid) 137 mcg PO ACB [facility] Last Admin: 02/25/17 05:48 Dose: 137 mcg Lorazepam (Ativan) 0.5 mg PO Q6H PRN PRN Reason: Extreme agitation Lorazepam (Ativan Inj) 0.5 mg IM Q6H PRN PRN Reason: Extreme agitation Lorazepam (Ativan) 1 mg PO BID [facility] Last Admin: 02/25/17 11:44 Dose: Not Given Magnesium Hydroxide (Mom) 30 ml PO DAILY PRN PRN Reason: Constipation Multivitamins (Theragran) 1 tab PO DAILY [facility] Last Admin: 02/25/17 08:55 Dose: 1 tab Mupirocin (Bactroban Ointmment) 1 applic TP DAILY [facility] Last Admin: 02/25/17 08:52 Dose: 1 applic Omeprazole (Prilosec) 20 mg PO ACB [facility] Last Admin: 02/25/17 05:48 Dose: 20 mg Ondansetron HCl (Zofran Po) 4 mg PO Q4HR PRN PRN Reason: Nausea &/or vomiting Polyethylene Glycol (Miralax) 17 gm PO BID [facility] Last Admin: 02/25/17 11:44 Dose: Not Given Ranitidine HCl (Zantac) 150 mg PO BID [facility] Last Admin: 02/25/17 11:44 Dose: Not Given Senna/Docusate Sodium (Senna Plus Tablet) 1 tab PO BID PRN PRN Reason: Constipation Sodium Chloride (Iv Flush) 10 ml IV PRN PRN PRN Reason: Flushing Last Admin: 02/21/17 09:04 Dose: 10 ml Tramadol HCl (Ultram) 50 mg PO Q4HR PRN PRN Reason: Pain Last Admin: 02/25/17 06:27 Dose: 50 mg Subjective: Patient seen and chart reviewed. Case discussed with treatment team. Patient is pleasant and cooperative during interview. She reports her mood is good and she is feeling well physically. Denies SI, HI. Nursing staff report patient has been hallucinating today and has been paranoid toward staff. Patient slept 6.5 hours overnight. VSS. Patient is eating well. Psychotropic PRNs required in the past 24 hours: none. Start Time: 06:30 Stop Time: 06:45 Mental Status Exam Vitals: Last Vital Signs Temp 98.2 F 02/25/17 08:00 Pulse 89 02/25/17 08:00 Resp 20 02/25/17 08:00 BP 136/63 02/25/17 08:00 Pulse Ox 96 02/25/17 08:00 Height: 1.65 m Weight: 77.8 kg - Mental Status Exam Muscle Strength/Tone: Normal Dressing: Casual Grooming: Good Attitude: Cooperative Motor Activity: Retardation Eye Contact: Fair Speech: Slowed Volume: Soft Rhythm: Appropriate Rhythm Orientation: Disoriented to time, Oriented to place Mood: Neutral (reports mood is "good," affect brighter than yesterday) Rate of Thoughts: Delayed Thought Organization: [place] Associations: Intact Abstract Reasoning: Poor abstract reasoning Thought Content: Paranoia (intermittent) Perception/Psychotic: Psychotic Current Hallucinations: Visual Language: Naming Impaired Fund of Knowledge: Poor fund of knowledge Memory: Poor-immediate Suicidal Ideation: Denies Homicidal Ideation: Denies Insight: Limited Judgement: Limited Impulse Control: Fair - Laboratory Result Diagrams: 02/22/17 04:11 02/22/17 04:11 Assessment and Plan (1) Major neurocognitive disorder Problem details: with behavioral disturbance Current visit: Yes Status: Acute (2) Delirium due to another medical condition Current visit: Yes Status: Acute Hospital Course Summary Disclaimer: The visit summary below is not to be considered part of the above Progress Note. Hospital Course: Admission Diagnosis Dementia with behavioral disturbance, acute. Hallucinations with psychosis and delusions, acute. UTI, recurrent - initiated macrobid on 02/13/17; resolved. Recent fall with closed head injury, 02/20/17. Gait instability with generalized weakness. Chronic Past Medical History Parkinson's disease. Dysphagia. Hypertension. Hypercholesterolemia. GERD. Depression and anxiety. Chronic kidney disease, stage III. Chronic pain. Hypothyroidism. Allergic rhinitis. Plan - 02/21/17 (Admission). Agree with admission to [facility] for further psychiatric evaluation and treatment. Hospitalist service consulted for medical management. Reported fall with head injury prior to arrival. CT head and C-spine completed at [place] [facility] showed no acute changes or abnormalities. Currently patient denies headache or concerns. Monitor neurologic function closely. History of Parkinson's disease with gait instability and generalized weakness. Patient is a high fall risk. Provide safe and supportive environment. May consider PT/OT evaluation for strengthening. Continue home medications - amantadine and Sinemet. History of dysphagia though unknown prior diet. Will consult speech for dysphagia evaluation and dietary recommendations. Until seen by speech, recommend nectar thickened liquids and purred diet as patient is at risk for aspiration. Crush pills as able. Continue home medications. Blood pressure currently controlled - continue amlodipine and Coreg. TSH on admission was 2.85. Continue home synthroid. Mild hypokalemia noted in [facility] ED. Will recheck BMP in AM to monitor electrolytes and renal function and treat hypokalemia if still present. Nursing reports poor oral intake and lack of appetite. Pre-albumin was stable at 28.8 but history of protein calorie malnutrition. Will consult dietary for nutritional recommendations. Encourage oral intake. CXR in [facility] showed mild perihilar lower lobe interstitial prominence concerning for possible pneumonitis or mild pulmonary edema. Lungs are clear to auscultation on exam and patient is breathing easily without cough or signs of distress. Afebrile. May consider repeat CXR if increased respiratory symptoms. Upon discharge, patient's care will be returned to her PCP, Dr. Thao. 02/22/17- hospitalist Chest pain - will check EKG, CXR, and trop x3. Labs reviewed - electrolytes are stable; not anemic; B12, folate, TSH, & A1c were normal. RPR pending Try tramadol for pain. Staff tried to ambulate Genny - she made it about 3 feet and then her legs became too weak. She's been able to stand and pivot for transfers. 02/22/17-Psych:Will D/C lexapro at families request. Discussed with daughter use of Remeron but will allow Lexapro to get out of system before Remeron is started 02/23/17 Psych: Patient reports tolerating discontinuation of Lexapro well and denies having any nightmares last night. Will hold evening dose of Sinemet making it effectively TID dosing rather than QID; monitor behavior and response. 02/24/17 Psych: Patient is doing quite well, mood improved and movement disorder manageable at this point. Will continue observations to ensure that psychosis has resolved with medication changes. 02/25/1709-[id number] new onset headache over the past 24 hours will re- image CT scan of the head to rule out intracranial hemorrhage. Continue with scheduled Tylenol 3 times a day. May utilize tramadol in between 4 further pain control if needed. Blood pressures have been stable. Continue on Norvasc and Coreg. 02/25/17 Psych: Follow results of CT above - I believe patient is improving overall and hallucinations/paranoia are intermittent, decreased from admission. Continue to follow re: whether antipsychotic is beneficial at this point.
[2017-02-26] MEDS: LEVOTHYROXINE 137 MCG TABLET PO SCH (06:06)
[2017-02-26] MEDS: ONDANSETRON ODT 4 MG TABLET PO PRN (06:06)
[2017-02-26] MEDS: OMEPRAZOLE 20 MG CAPSULE PO SCH (06:06)
[2017-02-26] MEDS: AMANTADINE 100 MG CAPSULE PO SCH (08:12)
[2017-02-26] MEDS: POLYETHYL GLYCOL 3350 17gm PACKET PO SCH ×2 (08:12→20:09)
[2017-02-26] MEDS: LORazepam 1 MG TABLET PO SCH ×2 (08:13→20:08)
[2017-02-26] MEDS: RANITIDINE 150 MG TABLET PO SCH ×2 (08:13→20:08)
[2017-02-26] MEDS: BUSPIRONE 15 MG TABLET PO SCH ×3 (08:13→20:08)
[2017-02-26] MEDS: ACETAMINOPHEN 500 MG TABLET PO SCH ×3 (08:13→20:06)
[2017-02-26] MEDS: CARVEDILOL 3.125 MG TABLET PO SCH ×2 (08:13→17:23)
[2017-02-26] MEDS: DICLOFENAC 1% TOP GEL 100gm TP SCH ×3 (08:14→20:07)
[2017-02-26] MEDS: AMLODIPINE 5 MG TABLET PO SCH (08:14)
[2017-02-26] MEDS: ASPIRIN 81 MG CHEWABLE TABLET PO SCH (08:14)
[2017-02-26] MEDS: MULTI-VITAMIN PLAIN TABLET PO SCH (08:14)
[2017-02-26] MEDS: MUPIROCIN 2% OINTMENT 22gm TP SCH (08:15)
[2017-02-26] MEDS: LORazepam 0.5 MG TABLET PO PRN (11:42)
--- NOTE | 2017-02-26 18:06 | Neuropsych Progress Note ---
[facility] Subjective Date: 02/26/17 - Sujective/Severity of Illness Medications: Acetaminophen (Tylenol) 1,000 mg PO TID [facility] Last Admin: 02/26/17 16:10 Dose: 1,000 mg Al Hydroxide/Mg Hydroxide (Maalox Plus) 30 ml PO Q4H PRN PRN Reason: Indigestion Last Admin: 02/22/17 14:15 Dose: 30 ml Amantadine HCl (Symmetrel) 100 mg PO DAILY [facility] Last Admin: 02/26/17 08:12 Dose: 100 mg Amlodipine Besylate (Norvasc) 5 mg PO DAILY [facility] Last Admin: 02/26/17 08:14 Dose: 5 mg Aspirin (Asa) 81 mg PO DAILY [facility] Last Admin: 02/26/17 08:14 Dose: 81 mg Atorvastatin Calcium (Lipitor) 20 mg PO HS [facility] Last Admin: 02/25/17 20:14 Dose: 20 mg Buspirone HCl (Buspar) 15 mg PO TID [facility] Last Admin: 02/26/17 16:10 Dose: 15 mg Carbidopa/Levodopa (Sinemet) 1 tab PO 0630,1030,1630 [facility] Last Admin: 02/26/17 16:10 Dose: 1 tab Carvedilol (Coreg) 3.125 mg PO BIDWM [facility] Last Admin: 02/26/17 17:23 Dose: 3.125 mg Cholecalciferol (Vit. D-3) 2,000 unit PO DAILY [facility] Last Admin: 02/26/17 08:13 Dose: 2,000 unit Cyclobenzaprine HCl (Flexeril) 5 mg PO Q8H PRN PRN Reason: Muscle spasm Last Admin: 02/25/17 08:57 Dose: 5 mg Diclofenac Sodium (Voltaren) 1 applic TP TID [facility] Last Admin: 02/26/17 16:10 Dose: 1 applic Levothyroxine Sodium (Synthroid) 137 mcg PO ACB [facility] Last Admin: 02/26/17 06:06 Dose: 137 mcg Lorazepam (Ativan) 0.5 mg PO Q6H PRN PRN Reason: Extreme agitation Last Admin: 02/26/17 11:42 Dose: 0.5 mg Lorazepam (Ativan Inj) 0.5 mg IM Q6H PRN PRN Reason: Extreme agitation Lorazepam (Ativan) 1 mg PO BID [facility] Last Admin: 02/26/17 08:13 Dose: 1 mg Magnesium Hydroxide (Mom) 30 ml PO DAILY PRN PRN Reason: Constipation Multivitamins (Theragran) 1 tab PO DAILY [facility] Last Admin: 02/26/17 08:14 Dose: 1 tab Mupirocin (Bactroban Ointmment) 1 applic TP DAILY [facility] Last Admin: 02/26/17 08:15 Dose: 1 applic Omeprazole (Prilosec) 20 mg PO ACB [facility] Last Admin: 02/26/17 06:06 Dose: 20 mg Ondansetron HCl (Zofran Po) 4 mg PO Q4HR PRN PRN Reason: Nausea &/or vomiting Last Admin: 02/26/17 06:06 Dose: 4 mg Polyethylene Glycol (Miralax) 17 gm PO BID [facility] Last Admin: 02/26/17 08:12 Dose: 17 gm Ranitidine HCl (Zantac) 150 mg PO BID [facility] Last Admin: 02/26/17 08:13 Dose: 150 mg Senna/Docusate Sodium (Senna Plus Tablet) 1 tab PO BID PRN PRN Reason: Constipation Sodium Chloride (Iv Flush) 10 ml IV PRN PRN PRN Reason: Flushing Last Admin: 02/21/17 09:04 Dose: 10 ml Tramadol HCl (Ultram) 50 mg PO Q4HR PRN PRN Reason: Pain Last Admin: 02/25/17 06:27 Dose: 50 mg Subjective: Patient seen and chart examined. Nursing reports has some anxiety and paranoia at times but no hallucinations noted today. pt received Ativan at 1142am today for anxiety. On face to face the pt is pleasant. She reports she is doing well and voices no concerns. Tolerating meds. Reports her mood is fairly stable. Denies S/I or psychosis Start Time: 17:30 Stop Time: 17:45 Mental Status Exam Vitals: Last Vital Signs Temp 97.2 F 02/26/17 16:00 Pulse 88 02/26/17 16:00 Resp 16 02/26/17 16:00 BP 133/75 02/26/17 16:00 Pulse Ox 94 02/26/17 16:00 Height: 1.65 m Weight: 77.8 kg - Mental Status Exam Muscle Strength/Tone: Normal Dressing: Casual Grooming: Good Attitude: Cooperative Motor Activity: Retardation Eye Contact: Fair Speech: Slowed Volume: Soft Rhythm: Appropriate Rhythm Orientation: Disoriented to time, Oriented to place Mood: Neutral (reports mood is "good," affect brighter than yesterday) Rate of Thoughts: Delayed Thought Organization: [place] Associations: Intact Abstract Reasoning: Poor abstract reasoning Thought Content: Paranoia (intermittent) Perception/Psychotic: Psychotic Current Hallucinations: Visual Language: Naming Impaired Fund of Knowledge: Poor fund of knowledge Memory: Poor-immediate Suicidal Ideation: Denies Homicidal Ideation: Denies Insight: Limited Judgement: Limited Impulse Control: Fair - Laboratory Result Diagrams: 02/22/17 04:11 02/22/17 04:11 Assessment and Plan (1) Major neurocognitive disorder Problem details: with behavioral disturbance Current visit: Yes Status: Acute (2) Delirium due to another medical condition Current visit: Yes Status: Acute Hospital Course Summary Disclaimer: The visit summary below is not to be considered part of the above Progress Note. Hospital Course: Admission Diagnosis Dementia with behavioral disturbance, acute. Hallucinations with psychosis and delusions, acute. UTI, recurrent - initiated macrobid on 02/13/17; resolved. Recent fall with closed head injury, 02/20/17. Gait instability with generalized weakness. Chronic Past Medical History Parkinson's disease. Dysphagia. Hypertension. Hypercholesterolemia. GERD. Depression and anxiety. Chronic kidney disease, stage III. Chronic pain. Hypothyroidism. Allergic rhinitis. Plan - 02/21/17 (Admission). Agree with admission to [facility] for further psychiatric evaluation and treatment. Hospitalist service consulted for medical management. Reported fall with head injury prior to arrival. CT head and C-spine completed at [facility] showed no acute changes or abnormalities. Currently patient denies headache or concerns. Monitor neurologic function closely. History of Parkinson's disease with gait instability and generalized weakness. Patient is a high fall risk. Provide safe and supportive environment. May consider PT/OT evaluation for strengthening. Continue home medications - amantadine and Sinemet. History of dysphagia though unknown prior diet. Will consult speech for dysphagia evaluation and dietary recommendations. Until seen by speech, recommend nectar thickened liquids and purred diet as patient is at risk for aspiration. Crush pills as able. Continue home medications. Blood pressure currently controlled - continue amlodipine and Coreg. TSH on admission was 2.85. Continue home synthroid. Mild hypokalemia noted in [facility] ED. Will recheck BMP in AM to monitor electrolytes and renal function and treat hypokalemia if still present. Nursing reports poor oral intake and lack of appetite. Pre-albumin was stable at 28.8 but history of protein calorie malnutrition. Will consult dietary for nutritional recommendations. Encourage oral intake. CXR in [facility] showed mild perihilar lower lobe interstitial prominence concerning for possible pneumonitis or mild pulmonary edema. Lungs are clear to auscultation on exam and patient is breathing easily without cough or signs of distress. Afebrile. May consider repeat CXR if increased respiratory symptoms. Upon discharge, patient's care will be returned to her PCP, Dr. Thao. 02/22/17- hospitalist Chest pain - will check EKG, CXR, and trop x3. Labs reviewed - electrolytes are stable; not anemic; B12, folate, TSH, & A1c were normal. RPR pending Try tramadol for pain. Staff tried to ambulate Genny - she made it about 3 feet and then her legs became too weak. She's been able to stand and pivot for transfers. 02/22/17-Psych:Will D/C lexapro at families request. Discussed with daughter use of Remeron but will allow Lexapro to get out of system before Remeron is started 02/23/17 Psych: Patient reports tolerating discontinuation of Lexapro well and denies having any nightmares last night. Will hold evening dose of Sinemet making it effectively TID dosing rather than QID; monitor behavior and response. 02/24/17 Psych: Patient is doing quite well, mood improved and movement disorder manageable at this point. Will continue observations to ensure that psychosis has resolved with medication changes. 02/25/1738-Hlfgiysvrgu-[id number] new onset headache over the past 24 hours will re- image CT scan of the head to rule out intracranial hemorrhage. Continue with scheduled Tylenol 3 times a day. May utilize tramadol in between 4 further pain control if needed. Blood pressures have been stable. Continue on Norvasc and Coreg. 02/25/17 Psych: Follow results of CT above - I believe patient is improving overall and hallucinations/paranoia are intermittent, decreased from admission. Continue to follow re: whether antipsychotic is beneficial at this point. 02/26/17 18:05 Some paranoia but no hallucinations today. Will start Remeron 7.5mg PO QHS. Consider Seroquel if psychosis continues
[2017-02-26] MEDS: ATORVASTATIN 20 MG TABLET PO SCH (20:07)
[2017-02-26] MEDS: MIRTAZAPINE 15 MG TABLET PO SCH (20:27)
[2017-02-27] MEDS: OMEPRAZOLE 20 MG CAPSULE PO SCH (06:49)
[2017-02-27] MEDS: LEVOTHYROXINE 137 MCG TABLET PO SCH (06:49)
[2017-02-27] MEDS: CARVEDILOL 3.125 MG TABLET PO SCH (09:42)
[2017-02-27] MEDS: AMANTADINE 100 MG CAPSULE PO SCH (09:42)
[2017-02-27] MEDS: DICLOFENAC 1% TOP GEL 100gm TP SCH ×3 (09:43→20:13)
[2017-02-27] MEDS: BUSPIRONE 15 MG TABLET PO SCH ×3 (09:43→20:12)
[2017-02-27] MEDS: ASPIRIN 81 MG CHEWABLE TABLET PO SCH (09:43)
[2017-02-27] MEDS: AMLODIPINE 5 MG TABLET PO SCH (09:43)
[2017-02-27] MEDS: LORazepam 1 MG TABLET PO SCH (09:44)
[2017-02-27] MEDS: POLYETHYL GLYCOL 3350 17gm PACKET PO SCH ×2 (09:44→20:13)
[2017-02-27] MEDS: MULTI-VITAMIN PLAIN TABLET PO SCH (09:44)
[2017-02-27] MEDS: MUPIROCIN 2% OINTMENT 22gm TP SCH (09:44)
[2017-02-27] MEDS: RANITIDINE 150 MG TABLET PO SCH ×2 (09:44→20:12)
[2017-02-27] MEDS: ACETAMINOPHEN 500 MG TABLET PO SCH (09:49)
--- NOTE | 2017-02-27 10:42 | Neuropsych Progress Note ---
[facility] Subjective Date: 02/27/17 - Sujective/Severity of Illness Medications: Acetaminophen (Tylenol) 1,000 mg PO TID [facility] Last Admin: 02/27/17 09:49 Dose: 1,000 mg Al Hydroxide/Mg Hydroxide (Maalox Plus) 30 ml PO Q4H PRN PRN Reason: Indigestion Last Admin: 02/22/17 14:15 Dose: 30 ml Amantadine HCl (Symmetrel) 100 mg PO DAILY [facility] Last Admin: 02/27/17 09:42 Dose: 100 mg Amlodipine Besylate (Norvasc) 5 mg PO DAILY [facility] Last Admin: 02/27/17 09:43 Dose: 5 mg Aspirin (Asa) 81 mg PO DAILY [facility] Last Admin: 02/27/17 09:43 Dose: 81 mg Atorvastatin Calcium (Lipitor) 20 mg PO HS [facility] Last Admin: 02/26/17 20:07 Dose: 20 mg Buspirone HCl (Buspar) 15 mg PO TID [facility] Last Admin: 02/27/17 09:43 Dose: 15 mg Carbidopa/Levodopa (Sinemet) 1 tab PO 0630,1030,1630 [facility] Last Admin: 02/27/17 06:49 Dose: 1 tab Carvedilol (Coreg) 3.125 mg PO BIDWM [facility] Last Admin: 02/27/17 09:42 Dose: 3.125 mg Cholecalciferol (Vit. D-3) 2,000 unit PO DAILY [facility] Last Admin: 02/27/17 09:43 Dose: 2,000 unit Cyclobenzaprine HCl (Flexeril) 5 mg PO Q8H PRN PRN Reason: Muscle spasm Last Admin: 02/25/17 08:57 Dose: 5 mg Diclofenac Sodium (Voltaren) 1 applic TP TID [facility] Last Admin: 02/27/17 09:43 Dose: 1 applic Levothyroxine Sodium (Synthroid) 137 mcg PO ACB [facility] Last Admin: 02/27/17 06:49 Dose: 137 mcg Lorazepam (Ativan) 0.5 mg PO Q6H PRN PRN Reason: Extreme agitation Last Admin: 02/26/17 11:42 Dose: 0.5 mg Lorazepam (Ativan Inj) 0.5 mg IM Q6H PRN PRN Reason: Extreme agitation Lorazepam (Ativan) 1 mg PO BID [facility] Last Admin: 02/27/17 09:44 Dose: 1 mg Magnesium Hydroxide (Mom) 30 ml PO DAILY PRN PRN Reason: Constipation Mirtazapine (Remeron) 7.5 mg PO HS [facility] Last Admin: 02/26/17 20:27 Dose: 7.5 mg Multivitamins (Theragran) 1 tab PO DAILY [facility] Last Admin: 02/27/17 09:44 Dose: 1 tab Mupirocin (Bactroban Ointmment) 1 applic TP DAILY [facility] Last Admin: 02/27/17 09:44 Dose: 1 applic Omeprazole (Prilosec) 20 mg PO ACB [facility] Last Admin: 02/27/17 06:49 Dose: 20 mg Ondansetron HCl (Zofran Po) 4 mg PO Q4HR PRN PRN Reason: Nausea &/or vomiting Last Admin: 02/26/17 06:06 Dose: 4 mg Polyethylene Glycol (Miralax) 17 gm PO BID [facility] Last Admin: 02/27/17 09:44 Dose: 17 gm Ranitidine HCl (Zantac) 150 mg PO BID [facility] Last Admin: 02/27/17 09:44 Dose: 150 mg Senna/Docusate Sodium (Senna Plus Tablet) 1 tab PO BID PRN PRN Reason: Constipation Sodium Chloride (Iv Flush) 10 ml IV PRN PRN PRN Reason: Flushing Last Admin: 02/21/17 09:04 Dose: 10 ml Tramadol HCl (Ultram) 50 mg PO Q4HR PRN PRN Reason: Pain Last Admin: 02/25/17 06:27 Dose: 50 mg Subjective: Patient seen and chart examined. Nursing reports pt is doing a little better today. no behaviors or paranoia noted. On face to face the pt is pleasant and cooperative. She reports doing well. Denies pain. Tolerating meds. Voices no concerns at this time Start Time: 09:30 Stop Time: 09:45 Mental Status Exam Vitals: Last Vital Signs Temp 97.4 F 02/27/17 08:00 Pulse 92 02/27/17 08:00 Resp 16 02/27/17 08:00 BP 148/67 H 02/27/17 08:00 Pulse Ox 100 02/27/17 08:00 Height: 1.65 m Weight: 77.8 kg - Mental Status Exam Muscle Strength/Tone: Normal Dressing: Casual Grooming: Good Attitude: Cooperative Motor Activity: Retardation Eye Contact: Fair Speech: Slowed Volume: Soft Rhythm: Appropriate Rhythm Orientation: Disoriented to time, Oriented to place Mood: Neutral (reports mood is "good," affect brighter than yesterday) Rate of Thoughts: Delayed Thought Organization: [place] Associations: Intact Abstract Reasoning: Poor abstract reasoning Thought Content: Paranoia (intermittent) Perception/Psychotic: Psychotic Current Hallucinations: Visual Language: Naming Impaired Fund of Knowledge: Poor fund of knowledge Memory: Poor-immediate Suicidal Ideation: Denies Homicidal Ideation: Denies Insight: Limited Judgement: Limited Impulse Control: Fair - Laboratory Result Diagrams: 02/22/17 04:11 02/22/17 04:11 Assessment and Plan (1) Major neurocognitive disorder Problem details: with behavioral disturbance Current visit: Yes Status: Acute (2) Delirium due to another medical condition Current visit: Yes Status: Acute Hospital Course Summary Disclaimer: The visit summary below is not to be considered part of the above Progress Note. Hospital Course: Admission Diagnosis Dementia with behavioral disturbance, acute. Hallucinations with psychosis and delusions, acute. UTI, recurrent - initiated macrobid on 02/13/17; resolved. Recent fall with closed head injury, 02/20/17. Gait instability with generalized weakness. Chronic Past Medical History Parkinson's disease. Dysphagia. Hypertension. Hypercholesterolemia. GERD. Depression and anxiety. Chronic kidney disease, stage III. Chronic pain. Hypothyroidism. Allergic rhinitis. Plan - 02/21/17 (Admission). Agree with admission to [facility] for further psychiatric evaluation and treatment. Hospitalist service consulted for medical management. Reported fall with head injury prior to arrival. CT head and C-spine completed at [place] ED showed no acute changes or abnormalities. Currently patient denies headache or concerns. Monitor neurologic function closely. History of Parkinson's disease with gait instability and generalized weakness. Patient is a high fall risk. Provide safe and supportive environment. May consider PT/OT evaluation for strengthening. Continue home medications - amantadine and Sinemet. History of dysphagia though unknown prior diet. Will consult speech for dysphagia evaluation and dietary recommendations. Until seen by speech, recommend nectar thickened liquids and purred diet as patient is at risk for aspiration. Crush pills as able. Continue home medications. Blood pressure currently controlled - continue amlodipine and Coreg. TSH on admission was 2.85. Continue home synthroid. Mild hypokalemia noted in [facility] ED. Will recheck BMP in AM to monitor electrolytes and renal function and treat hypokalemia if still present. Nursing reports poor oral intake and lack of appetite. Pre-albumin was stable at 28.8 but history of protein calorie malnutrition. Will consult dietary for nutritional recommendations. Encourage oral intake. CXR in [facility] ED showed mild perihilar lower lobe interstitial prominence concerning for possible pneumonitis or mild pulmonary edema. Lungs are clear to auscultation on exam and patient is breathing easily without cough or signs of distress. Afebrile. May consider repeat CXR if increased respiratory symptoms. Upon discharge, patient's care will be returned to her PCP, Dr. Thao. 02/22/17- hospitalist Chest pain - will check EKG, CXR, and trop x3. Labs reviewed - electrolytes are stable; not anemic; B12, folate, TSH, & A1c were normal. RPR pending Try tramadol for pain. Staff tried to ambulate Genny - she made it about 3 feet and then her legs became too weak. She's been able to stand and pivot for transfers. 02/22/17-Psych:Will D/C lexapro at families request. Discussed with daughter use of Remeron but will allow Lexapro to get out of system before Remeron is started 02/23/17 Psych: Patient reports tolerating discontinuation of Lexapro well and denies having any nightmares last night. Will hold evening dose of Sinemet making it effectively TID dosing rather than QID; monitor behavior and response. 02/24/17 Psych: Patient is doing quite well, mood improved and movement disorder manageable at this point. Will continue observations to ensure that psychosis has resolved with medication changes. 02/25/1720-[id number] new onset headache over the past 24 hours will re- image CT scan of the head to rule out intracranial hemorrhage. Continue with scheduled Tylenol 3 times a day. May utilize tramadol in between 4 further pain control if needed. Blood pressures have been stable. Continue on Norvasc and Coreg. 02/25/17 Psych: Follow results of CT above - I believe patient is improving overall and hallucinations/paranoia are intermittent, decreased from admission. Continue to follow re: whether antipsychotic is beneficial at this point. 02/26/17 18:05 Some paranoia but no hallucinations today. Will start Remeron 7.5mg PO QHS. Consider Seroquel if psychosis continues 02/27/17 10:42 Better today. No paranoia or VH noted. Continue current care
[2017-02-27] MEDS ORDERED: IBUPROFEN 200 MG TABLET PO PRN (14:34)
--- NOTE | 2017-02-27 14:41 | Progress Note ---
- Date 02/27/17 Subjective: Genny is seen in follow up. She is up in TV area. She reports persistent GARCIA. Chart is reviewed- this has been a persistent c/o for her. She does get scheduled Tylenol, which is not helpful with resolving her pain. She also reports that she wants to get up and walk, but knows that she will need staff help. She does not normally use a walker, but is agreeable to trying one. Objective Vital signs: Temperature 97.4 F 02/27/17 08:00 Pulse Rate 92 02/27/17 08:00 Respiratory Rate 16 02/27/17 08:00 Blood Pressure 148/67 H 02/27/17 08:00 Pulse Oximetry 100 02/27/17 08:00 Height/Weight/BMI: Height 1.65 m Weight 77.8 kg Body Mass Index 28.5 - Constitutional Present: no acute distress, well developed, average body habitus, cooperative - Routine HEENT Exam Eye: Present: EOMI, PERRL ENT: Present: mucous membranes moist - Routine Respiratory Exam Present: CTA bilaterally. Absent: decreased breath sounds, rales, rhonchi, crackles - Routine Cardiovascular Exam Present: RRR, S1, S2, no murmur - Routine Abdominal Exam Present: soft, normoactive bowel sounds, non distended, non tender - Routine Extremities Exam Present: edema (mild), non tender - Routine Musculoskeletal Exam Musculoskeletal: Present: no clubbing or cyanosis, moving extremities well - Routine Skin Exam Present: intact, dry, warm - Routine Neurological Exam Present: alert, moving all extremities - Routine Psychiatric Exam Present: cooperative Results - Labs CBC & Chem 7: 02/22/17 04:11 02/22/17 04:11 - Impressions CT head negative. Assessment and Plan (1) Dementia with behavioral disturbance Current visit: Yes Status: Acute (2) Hallucinogen psychosis, with delusions Current visit: Yes Status: Acute (3) Gait instability Problem details: Due to Parkinson's disease Current visit: Yes Status: Chronic (4) Closed head injury Problem details: Recent fall, negative head CT [facility] Current visit: Yes Status: Acute Assessment and Plan: 02/27/17- Plan: Chart is reviewed for collateral information. She does c/o persistent GARCIA. CT head was normal. If persists, could consider CT of c-spine, but she is not c/o any neck pain or stiffness. Will change Tylenol to PRN to R/O overuse headaches. Allow small amounts of BID ibuprofen for GARCIA relief. Also, will DC Norvasc as some patients c/o headaches with this medication. In regards to her BP- will increase Coreg to 6.25mg. May need to up more depending on BP with DC of Norvasc. Patient continues to request increase ambulation. Will order PT consult and FWW for bedside use. Plan to recheck labs on Wednesday. Question some mild LE edema vs. normal body habitus. Consider addition of diuretic if indicated. She indicates not liking her current LTCF- may need to move to another facility upon DC? GI Prophylaxis: Rantidine Resuscitation Status: Full Code Hospital Course Summary Disclaimer: The visit summary below is not to be considered part of the above Progress Note. Hospital Course: Admission Diagnosis Dementia with behavioral disturbance, acute. Hallucinations with psychosis and delusions, acute. UTI, recurrent - initiated macrobid on 02/13/17; resolved. Recent fall with closed head injury, 02/20/17. Gait instability with generalized weakness. Chronic Past Medical History Parkinson's disease. Dysphagia. Hypertension. Hypercholesterolemia. GERD. Depression and anxiety. Chronic kidney disease, stage III. Chronic pain. Hypothyroidism. Allergic rhinitis. Plan - 02/21/17 (Admission). Agree with admission to [facility] for further psychiatric evaluation and treatment. Hospitalist service consulted for medical management. Reported fall with head injury prior to arrival. CT head and C-spine completed at [place] ED showed no acute changes or abnormalities. Currently patient denies headache or concerns. Monitor neurologic function closely. History of Parkinson's disease with gait instability and generalized weakness. Patient is a high fall risk. Provide safe and supportive environment. May consider PT/OT evaluation for strengthening. Continue home medications - amantadine and Sinemet. History of dysphagia though unknown prior diet. Will consult speech for dysphagia evaluation and dietary recommendations. Until seen by speech, recommend nectar thickened liquids and purred diet as patient is at risk for aspiration. Crush pills as able. Continue home medications. Blood pressure currently controlled - continue amlodipine and Coreg. TSH on admission was 2.85. Continue home synthroid. Mild hypokalemia noted in [facility] ED. Will recheck BMP in AM to monitor electrolytes and renal function and treat hypokalemia if still present. Nursing reports poor oral intake and lack of appetite. Pre-albumin was stable at 28.8 but history of protein calorie malnutrition. Will consult dietary for nutritional recommendations. Encourage oral intake. CXR in [facility] showed mild perihilar lower lobe interstitial prominence concerning for possible pneumonitis or mild pulmonary edema. Lungs are clear to auscultation on exam and patient is breathing easily without cough or signs of distress. Afebrile. May consider repeat CXR if increased respiratory symptoms. Upon discharge, patient's care will be returned to her PCP, Dr. Thao. 02/22/17- hospitalist Chest pain - will check EKG, CXR, and trop x3. Labs reviewed - electrolytes are stable; not anemic; B12, folate, TSH, & A1c were normal. RPR pending Try tramadol for pain. Staff tried to ambulate Genny - she made it about 3 feet and then her legs became too weak. She's been able to stand and pivot for transfers. 02/22/17-Psych:Will D/C lexapro at families request. Discussed with daughter use of Remeron but will allow Lexapro to get out of system before Remeron is started 02/23/17 Psych: Patient reports tolerating discontinuation of Lexapro well and denies having any nightmares last night. Will hold evening dose of Sinemet making it effectively TID dosing rather than QID; monitor behavior and response. 02/24/17 Psych: Patient is doing quite well, mood improved and movement disorder manageable at this point. Will continue observations to ensure that psychosis has resolved with medication changes. 02/25/1703-[id number] new onset headache over the past 24 hours will re- image CT scan of the head to rule out intracranial hemorrhage. Continue with scheduled Tylenol 3 times a day. May utilize tramadol in between 4 further pain control if needed. Blood pressures have been stable. Continue on Norvasc and Coreg. 02/25/17 Psych: Follow results of CT above - I believe patient is improving overall and hallucinations/paranoia are intermittent, decreased from admission. Continue to follow re: whether antipsychotic is beneficial at this point. 02/26/17 18:05 Some paranoia but no hallucinations today. Will start Remeron 7.5mg PO QHS. Consider Seroquel if psychosis continues 02/27/17 10:42 Better today. No paranoia or VH noted. Continue current care 02/27/17 14:45 Plan: Chart is reviewed for collateral information. She does c/o persistent GARCIA. CT head was normal. If persists, could consider CT of c-spine, but she is not c/o any neck pain or stiffness. Will change Tylenol to PRN to R/O overuse headaches. Allow small amounts of BID ibuprofen for GARCIA relief. Also, will DC Norvasc as some patients c/o headaches with this medication. In regards to her BP- will increase Coreg to 6.25mg. May need to up more depending on BP with DC of Norvasc. Patient continues to request increase ambulation. Will order PT consult and FWW for bedside use. Plan to recheck labs on Wednesday. Question some mild LE edema vs. normal body habitus. Consider addition of diuretic if indicated. She indicates not liking her current LTCF- may need to move to another facility upon DC?
[2017-02-27] MEDS: ACETAMINOPHEN 500 MG TABLET PO PRN (15:35)
[2017-02-27] MEDS: ONDANSETRON ODT 4 MG TABLET PO PRN (16:39)
[2017-02-27] MEDS: CARVEDILOL 6.25 MG TABLET PO SCH (17:28)
[2017-02-27] MEDS: MIRTAZAPINE 15 MG TABLET PO SCH (20:12)
[2017-02-27] MEDS: ATORVASTATIN 20 MG TABLET PO SCH (20:12)
[2017-02-28] MEDS: LEVOTHYROXINE 137 MCG TABLET PO SCH (06:06)
[2017-02-28] MEDS: OMEPRAZOLE 20 MG CAPSULE PO SCH (06:06)
[2017-02-28] MEDS: ACETAMINOPHEN 500 MG TABLET PO PRN (06:19)
[2017-02-28] MEDS: CARVEDILOL 6.25 MG TABLET PO SCH ×2 (09:14→17:38)
[2017-02-28] MEDS: MULTI-VITAMIN PLAIN TABLET PO SCH (09:14)
[2017-02-28] MEDS: LORazepam 1 MG TABLET PO SCH ×3 (09:14→20:11)
[2017-02-28] MEDS: ASPIRIN 81 MG CHEWABLE TABLET PO SCH (09:14)
[2017-02-28] MEDS: AMANTADINE 100 MG CAPSULE PO SCH (09:14)
[2017-02-28] MEDS: BUSPIRONE 15 MG TABLET PO SCH ×3 (09:15→20:03)
[2017-02-28] MEDS: RANITIDINE 150 MG TABLET PO SCH ×2 (09:15→20:06)
[2017-02-28] MEDS: DICLOFENAC 1% TOP GEL 100gm TP SCH ×3 (09:15→20:04)
[2017-02-28] MEDS: MUPIROCIN 2% OINTMENT 22gm TP SCH (09:15)
[2017-02-28] MEDS: POLYETHYL GLYCOL 3350 17gm PACKET PO SCH ×2 (09:15→20:04)
--- NOTE | 2017-02-28 11:05 | Neuropsych Progress Note ---
[facility] Subjective Date: 02/28/17 - Sujective/Severity of Illness Medications: Acetaminophen (Tylenol) 500 mg PO Q5H PRN PRN Reason: Pain Last Admin: 02/28/17 06:19 Dose: 500 mg Al Hydroxide/Mg Hydroxide (Maalox Plus) 30 ml PO Q4H PRN PRN Reason: Indigestion Last Admin: 02/22/17 14:15 Dose: 30 ml Amantadine HCl (Symmetrel) 100 mg PO DAILY [facility] Last Admin: 02/28/17 09:14 Dose: 100 mg Aspirin (Asa) 81 mg PO DAILY [facility] Last Admin: 02/28/17 09:14 Dose: 81 mg Atorvastatin Calcium (Lipitor) 20 mg PO HS [facility] Last Admin: 02/27/17 20:12 Dose: 20 mg Buspirone HCl (Buspar) 15 mg PO TID [facility] Last Admin: 02/28/17 09:15 Dose: 15 mg Carbidopa/Levodopa (Sinemet) 1 tab PO 0630,1030,1630 [facility] Last Admin: 02/28/17 06:05 Dose: 1 tab Carvedilol (Coreg) 6.25 mg PO BIDWM [facility] Last Admin: 02/28/17 09:14 Dose: 6.25 mg Cholecalciferol (Vit. D-3) 2,000 unit PO DAILY [facility] Last Admin: 02/28/17 09:14 Dose: 2,000 unit Cyclobenzaprine HCl (Flexeril) 5 mg PO Q8H PRN PRN Reason: Muscle spasm Last Admin: 02/25/17 08:57 Dose: 5 mg Diclofenac Sodium (Voltaren) 1 applic TP TID [facility] Last Admin: 02/28/17 09:15 Dose: 1 applic Ibuprofen (Motrin) 200 mg PO BID PRN PRN Reason: Headache Levothyroxine Sodium (Synthroid) 137 mcg PO ACB [facility] Last Admin: 02/28/17 06:06 Dose: 137 mcg Lorazepam (Ativan) 0.5 mg PO Q6H PRN PRN Reason: Extreme agitation Last Admin: 02/26/17 11:42 Dose: 0.5 mg Lorazepam (Ativan Inj) 0.5 mg IM Q6H PRN PRN Reason: Extreme agitation Lorazepam (Ativan) 1 mg PO BID [facility] Last Admin: 02/28/17 09:14 Dose: 1 mg Magnesium Hydroxide (Mom) 30 ml PO DAILY PRN PRN Reason: Constipation Mirtazapine (Remeron) 7.5 mg PO HS [facility] Last Admin: 02/27/17 20:12 Dose: 7.5 mg Multivitamins (Theragran) 1 tab PO DAILY [facility] Last Admin: 02/28/17 09:14 Dose: 1 tab Mupirocin (Bactroban Ointmment) 1 applic TP DAILY [facility] Last Admin: 02/28/17 09:15 Dose: 1 applic Omeprazole (Prilosec) 20 mg PO ACB [facility] Last Admin: 02/28/17 06:06 Dose: 20 mg Ondansetron HCl (Zofran Po) 4 mg PO Q4HR PRN PRN Reason: Nausea &/or vomiting Last Admin: 02/27/17 16:39 Dose: 4 mg Polyethylene Glycol (Miralax) 17 gm PO BID [facility] Last Admin: 02/28/17 09:15 Dose: 17 gm Ranitidine HCl (Zantac) 150 mg PO BID [facility] Last Admin: 02/28/17 09:15 Dose: 150 mg Senna/Docusate Sodium (Senna Plus Tablet) 1 tab PO BID PRN PRN Reason: Constipation Sodium Chloride (Iv Flush) 10 ml IV PRN PRN PRN Reason: Flushing Last Admin: 02/21/17 09:04 Dose: 10 ml Tramadol HCl (Ultram) 50 mg PO Q4HR PRN PRN Reason: Pain Last Admin: 02/25/17 06:27 Dose: 50 mg Subjective: Patient seen and chart examined. Nursing reports pt is doing fairly well. Sleeping well and has a good appetite. No behaviors noted. On face to face the pt states she is doing well. She reports a GARCIA which is chronic. Some anxiety but mood is stable and denies any S/I or psychosis. Tolerating meds Start Time: 10:15 Stop Time: 10:30 Mental Status Exam Vitals: Last Vital Signs Temp 96.8 F 02/28/17 00:00 Pulse 81 02/28/17 00:00 Resp 18 02/28/17 00:00 BP 90/56 02/28/17 00:00 Pulse Ox 97 02/28/17 00:00 Height: 1.65 m Weight: 77.8 kg - Mental Status Exam Muscle Strength/Tone: Normal Dressing: Casual Grooming: Good Attitude: Cooperative Motor Activity: Retardation Eye Contact: Fair Speech: Slowed Volume: Soft Rhythm: Appropriate Rhythm Orientation: Disoriented to time, Oriented to place Mood: Neutral (reports mood is "good," affect brighter than yesterday) Rate of Thoughts: Delayed Thought Organization: [place] Associations: Intact Abstract Reasoning: Poor abstract reasoning Thought Content: Paranoia (intermittent) Perception/Psychotic: Psychotic Current Hallucinations: Visual Language: Naming Impaired Fund of Knowledge: Poor fund of knowledge Memory: Poor-immediate Suicidal Ideation: Denies Homicidal Ideation: Denies Insight: Limited Judgement: Limited Impulse Control: Fair - Laboratory Result Diagrams: 02/22/17 04:11 02/22/17 04:11 Assessment and Plan (1) Major neurocognitive disorder Problem details: with behavioral disturbance Current visit: Yes Status: Acute (2) Delirium due to another medical condition Current visit: Yes Status: Acute Hospital Course Summary Disclaimer: The visit summary below is not to be considered part of the above Progress Note. Hospital Course: Admission Diagnosis Dementia with behavioral disturbance, acute. Hallucinations with psychosis and delusions, acute. UTI, recurrent - initiated macrobid on 02/13/17; resolved. Recent fall with closed head injury, 02/20/17. Gait instability with generalized weakness. Chronic Past Medical History Parkinson's disease. Dysphagia. Hypertension. Hypercholesterolemia. GERD. Depression and anxiety. Chronic kidney disease, stage III. Chronic pain. Hypothyroidism. Allergic rhinitis. Plan - 02/21/17 (Admission). Agree with admission to [facility] for further psychiatric evaluation and treatment. Hospitalist service consulted for medical management. Reported fall with head injury prior to arrival. CT head and C-spine completed at [facility] showed no acute changes or abnormalities. Currently patient denies headache or concerns. Monitor neurologic function closely. History of Parkinson's disease with gait instability and generalized weakness. Patient is a high fall risk. Provide safe and supportive environment. May consider PT/OT evaluation for strengthening. Continue home medications - amantadine and Sinemet. History of dysphagia though unknown prior diet. Will consult speech for dysphagia evaluation and dietary recommendations. Until seen by speech, recommend nectar thickened liquids and purred diet as patient is at risk for aspiration. Crush pills as able. Continue home medications. Blood pressure currently controlled - continue amlodipine and Coreg. TSH on admission was 2.85. Continue home synthroid. Mild hypokalemia noted in [facility] ED. Will recheck BMP in AM to monitor electrolytes and renal function and treat hypokalemia if still present. Nursing reports poor oral intake and lack of appetite. Pre-albumin was stable at 28.8 but history of protein calorie malnutrition. Will consult dietary for nutritional recommendations. Encourage oral intake. CXR in [place] ED showed mild perihilar lower lobe interstitial prominence concerning for possible pneumonitis or mild pulmonary edema. Lungs are clear to auscultation on exam and patient is breathing easily without cough or signs of distress. Afebrile. May consider repeat CXR if increased respiratory symptoms. Upon discharge, patient's care will be returned to her PCP, Dr. Thao. 02/22/17- hospitalist Chest pain - will check EKG, CXR, and trop x3. Labs reviewed - electrolytes are stable; not anemic; B12, folate, TSH, & A1c were normal. RPR pending Try tramadol for pain. Staff tried to ambulate Genny - she made it about 3 feet and then her legs became too weak. She's been able to stand and pivot for transfers. 02/22/17-Psych:Will D/C lexapro at families request. Discussed with daughter use of Remeron but will allow Lexapro to get out of system before Remeron is started 02/23/17 Psych: Patient reports tolerating discontinuation of Lexapro well and denies having any nightmares last night. Will hold evening dose of Sinemet making it effectively TID dosing rather than QID; monitor behavior and response. 02/24/17 Psych: Patient is doing quite well, mood improved and movement disorder manageable at this point. Will continue observations to ensure that psychosis has resolved with medication changes. 02/25/1759-[id number] new onset headache over the past 24 hours will re- image CT scan of the head to rule out intracranial hemorrhage. Continue with scheduled Tylenol 3 times a day. May utilize tramadol in between 4 further pain control if needed. Blood pressures have been stable. Continue on Norvasc and Coreg. 02/25/17 Psych: Follow results of CT above - I believe patient is improving overall and hallucinations/paranoia are intermittent, decreased from admission. Continue to follow re: whether antipsychotic is beneficial at this point. 02/26/17 18:05 Some paranoia but no hallucinations today. Will start Remeron 7.5mg PO QHS. Consider Seroquel if psychosis continues 02/27/17 10:42 Better today. No paranoia or VH noted. Continue current care 02/27/17 14:45 Plan: Chart is reviewed for collateral information. She does c/o persistent GARCIA. CT head was normal. If persists, could consider CT of c-spine, but she is not c/o any neck pain or stiffness. Will change Tylenol to PRN to R/O overuse headaches. Allow small amounts of BID ibuprofen for GARCIA relief. Also, will DC Norvasc as some patients c/o headaches with this medication. In regards to her BP- will increase Coreg to 6.25mg. May need to up more depending on BP with DC of Norvasc. Patient continues to request increase ambulation. Will order PT consult and FWW for bedside use. Plan to recheck labs on Wednesday. Question some mild LE edema vs. normal body habitus. Consider addition of diuretic if indicated. She indicates not liking her current LTCF- may need to move to another facility upon DC? 02/28/17 11:04 No behaviors or paranoia today. Continue current care
[2017-02-28] MEDS: LORazepam 0.5 MG TABLET PO PRN (15:26)
[2017-02-28] MEDS: TRAMADOL 50 MG TABLET PO PRN ×2 (15:26→20:07)
[2017-02-28] MEDS: ONDANSETRON ODT 4 MG TABLET PO PRN (16:03)
[2017-02-28] MEDS: ATORVASTATIN 20 MG TABLET PO SCH (20:02)
[2017-02-28] MEDS: MIRTAZAPINE 15 MG TABLET PO SCH (20:02)
[2017-03-01] MEDS: OMEPRAZOLE 20 MG CAPSULE PO SCH (05:58)
[2017-03-01] MEDS: LEVOTHYROXINE 137 MCG TABLET PO SCH (05:58)
[2017-03-01] MEDS: MULTI-VITAMIN PLAIN TABLET PO SCH (08:10)
[2017-03-01] MEDS: RANITIDINE 150 MG TABLET PO SCH ×2 (08:10→20:07)
[2017-03-01] MEDS: AMANTADINE 100 MG CAPSULE PO SCH (08:10)
[2017-03-01] MEDS: BUSPIRONE 15 MG TABLET PO SCH ×3 (08:10→20:06)
[2017-03-01] MEDS: CARVEDILOL 6.25 MG TABLET PO SCH ×2 (08:10→16:43)
[2017-03-01] MEDS: DICLOFENAC 1% TOP GEL 100gm TP SCH ×3 (08:10→20:06)
[2017-03-01] MEDS: ASPIRIN 81 MG CHEWABLE TABLET PO SCH (08:10)
[2017-03-01] MEDS: LORazepam 1 MG TABLET PO SCH ×2 (08:10→20:17)
[2017-03-01] MEDS: MUPIROCIN 2% OINTMENT 22gm TP SCH (08:11)
[2017-03-01] MEDS: POLYETHYL GLYCOL 3350 17gm PACKET PO SCH ×2 (08:11→20:07)
--- NOTE | 2017-03-01 13:34 | Neuropsych Progress Note ---
[facility] Subjective Date: 03/01/17 - Sujective/Severity of Illness Medications: Acetaminophen (Tylenol) 500 mg PO Q5H PRN PRN Reason: Pain Last Admin: 02/28/17 06:19 Dose: 500 mg Al Hydroxide/Mg Hydroxide (Maalox Plus) 30 ml PO Q4H PRN PRN Reason: Indigestion Last Admin: 02/22/17 14:15 Dose: 30 ml Amantadine HCl (Symmetrel) 100 mg PO DAILY [facility] Last Admin: 03/01/17 08:10 Dose: 100 mg Aspirin (Asa) 81 mg PO DAILY [facility] Last Admin: 03/01/17 08:10 Dose: 81 mg Atorvastatin Calcium (Lipitor) 20 mg PO HS [facility] Last Admin: 02/28/17 20:02 Dose: 20 mg Buspirone HCl (Buspar) 15 mg PO TID [facility] Last Admin: 03/01/17 08:10 Dose: 15 mg Carbidopa/Levodopa (Sinemet) 1 tab PO 0630,1030,1630 [facility] Last Admin: 03/01/17 11:57 Dose: 1 tab Carvedilol (Coreg) 6.25 mg PO BIDWM [facility] Last Admin: 03/01/17 08:10 Dose: 6.25 mg Cholecalciferol (Vit. D-3) 2,000 unit PO DAILY [facility] Last Admin: 03/01/17 08:09 Dose: 2,000 unit Cyclobenzaprine HCl (Flexeril) 5 mg PO Q8H PRN PRN Reason: Muscle spasm Last Admin: 02/25/17 08:57 Dose: 5 mg Diclofenac Sodium (Voltaren) 1 applic TP TID [facility] Last Admin: 03/01/17 08:10 Dose: 1 applic Ibuprofen (Motrin) 200 mg PO BID PRN PRN Reason: Headache Levothyroxine Sodium (Synthroid) 137 mcg PO ACB [facility] Last Admin: 03/01/17 05:58 Dose: 137 mcg Lorazepam (Ativan) 0.5 mg PO Q6H PRN PRN Reason: Extreme agitation Last Admin: 02/28/17 15:26 Dose: 0.5 mg Lorazepam (Ativan Inj) 0.5 mg IM Q6H PRN PRN Reason: Extreme agitation Lorazepam (Ativan) 1 mg PO BID [facility] Last Admin: 03/01/17 08:10 Dose: 1 mg Magnesium Hydroxide (Mom) 30 ml PO DAILY PRN PRN Reason: Constipation Mirtazapine (Remeron) 7.5 mg PO HS [facility] Last Admin: 02/28/17 20:02 Dose: 7.5 mg Multivitamins (Theragran) 1 tab PO DAILY [facility] Last Admin: 03/01/17 08:10 Dose: 1 tab Mupirocin (Bactroban Ointmment) 1 applic TP DAILY [facility] Last Admin: 03/01/17 08:11 Dose: 1 applic Omeprazole (Prilosec) 20 mg PO ACB [facility] Last Admin: 03/01/17 05:58 Dose: 20 mg Ondansetron HCl (Zofran Po) 4 mg PO Q4HR PRN PRN Reason: Nausea &/or vomiting Last Admin: 02/28/17 16:03 Dose: 4 mg Polyethylene Glycol (Miralax) 17 gm PO BID [facility] Last Admin: 03/01/17 08:11 Dose: 17 gm Ranitidine HCl (Zantac) 150 mg PO BID [facility] Last Admin: 03/01/17 08:10 Dose: 150 mg Senna/Docusate Sodium (Senna Plus Tablet) 1 tab PO BID PRN PRN Reason: Constipation Sodium Chloride (Iv Flush) 10 ml IV PRN PRN PRN Reason: Flushing Last Admin: 02/21/17 09:04 Dose: 10 ml Tramadol HCl (Ultram) 50 mg PO Q4HR PRN PRN Reason: Pain Last Admin: 02/28/17 20:07 Dose: 50 mg Subjective: Patient seen and chart reviewed. Case discussed with treatment team. On interview, patient reports feeling anxious about what will happen when she leaves here to go back to the facility as she feels like staff there will mistreat her and have plotted against her in the past. Patient denies any SI, HI or AVH. However, staff report she does have occasional VH overnight, though less than upon admission. Patient denies any adverse side effects related to psychotropic medications. Nursing staff report patient continues to have frequent anxiety and can be difficult to reassure at times. Patient slept 8+ hours overnight. VSS. Patient is eating well. Psychotropic PRNs required in the past 24 hours: Ativan 0.5mg PO x1. Start Time: 09:50 Stop Time: 10:10 Mental Status Exam Vitals: Last Vital Signs Temp 97.2 F 03/01/17 08:00 Pulse 84 03/01/17 08:00 Resp 18 03/01/17 08:00 BP 120/65 03/01/17 08:00 Pulse Ox 99 03/01/17 08:00 Height: 1.65 m Weight: 74.6 kg - Mental Status Exam Muscle Strength/Tone: Normal Dressing: Casual Grooming: Good Attitude: Cooperative Motor Activity: Retardation Eye Contact: Fair Speech: Slowed Volume: Normal, Soft Rhythm: Appropriate Rhythm Orientation: Disoriented to situation, Oriented to person, Oriented to place, Other (believes date is 02/28/17) Mood: Anxious (congruent affect) Rate of Thoughts: Delayed Thought Organization: [place] Associations: Illogical Abstract Reasoning: Poor abstract reasoning Thought Content: Ruminations, Paranoia (intermittent) Perception/Psychotic: Psychotic Current Hallucinations: Visual Language: Naming Impaired Fund of Knowledge: Poor fund of knowledge Memory: Poor-immediate, Poor-recent Suicidal Ideation: Denies Homicidal Ideation: Denies Insight: Limited Judgement: Limited Impulse Control: Other (Limited) - Laboratory Result Diagrams: 03/01/17 06:30 03/01/17 06:30 Laboratory Results - last 24 hr 03/01/17 03/01/17 06:30 06:30 WBC 5.6 RBC 3.79 L Hgb 12.2 Hct 39.5 MCV 104.2 H MCH 32.2 MCHC 30.9 L RDW Std Deviation 50.3 H Plt Count 219 MPV 9.9 Immature Gran % (Auto) 0.2 Neut % (Auto) 59.9 Lymph % (Auto) 24.8 [place] % (Auto) 10.1 H Eos % (Auto) 4.3 H Baso % (Auto) 0.7 Neut # (Auto) 3.3 Lymph # (Auto) 1.4 [place] # (Auto) 0.6 Eos # (Auto) 0.2 Baso # (Auto) 0.0 Abs Immat Gran (auto) 0.01 Turbidity < 20 Sodium 143 Potassium 4.0 Chloride 106 Carbon Dioxide 26 Anion Gap 11 BUN 16.0 Creatinine 0.9 GFR Calculation 60 BUN/Creatinine Ratio 18 Glucose 96 Calculated Osmolality 276 Calcium 8.7 Icterus Index < 2 Specimen Hemolysis < 15 Assessment and Plan (1) Major neurocognitive disorder Problem details: moderate, with behavioral disturbance Parkinson's vs. Alzheimer's Current visit: Yes Status: Acute (2) Delirium due to another medical condition Current visit: Yes Status: Acute (3) Parkinson disease Current visit: Yes Status: Acute (4) Dysphagia Current visit: Yes Status: Acute (5) Hypertension Current visit: Yes Status: Acute (6) Hypercholesteremia Current visit: Yes Status: Acute (7) Chronic kidney disease, stage 3 Current visit: Yes Status: Acute (8) Hypothyroidism Current visit: Yes Status: Acute (9) UTI (urinary tract infection) Current visit: Yes Status: Acute (10) Frequent falls Current visit: Yes Status: Chronic (11) Generalized weakness Current visit: Yes Status: Chronic Hospital Course Summary Disclaimer: The visit summary below is not to be considered part of the above Progress Note. Hospital Course: Admission Diagnosis Dementia with behavioral disturbance, acute. Hallucinations with psychosis and delusions, acute. UTI, recurrent - initiated macrobid on 02/13/17; resolved. Recent fall with closed head injury, 02/20/17. Gait instability with generalized weakness. Chronic Past Medical History Parkinson's disease. Dysphagia. Hypertension. Hypercholesterolemia. GERD. Depression and anxiety. Chronic kidney disease, stage III. Chronic pain. Hypothyroidism. Allergic rhinitis. Plan - 02/21/17 (Admission). Agree with admission to [facility] for further psychiatric evaluation and treatment. Hospitalist service consulted for medical management. Reported fall with head injury prior to arrival. CT head and C-spine completed at [facility] showed no acute changes or abnormalities. Currently patient denies headache or concerns. Monitor neurologic function closely. History of Parkinson's disease with gait instability and generalized weakness. Patient is a high fall risk. Provide safe and supportive environment. May consider PT/OT evaluation for strengthening. Continue home medications - amantadine and Sinemet. History of dysphagia though unknown prior diet. Will consult speech for dysphagia evaluation and dietary recommendations. Until seen by speech, recommend nectar thickened liquids and purred diet as patient is at risk for aspiration. Crush pills as able. Continue home medications. Blood pressure currently controlled - continue amlodipine and Coreg. TSH on admission was 2.85. Continue home synthroid. Mild hypokalemia noted in [facility] ED. Will recheck BMP in AM to monitor electrolytes and renal function and treat hypokalemia if still present. Nursing reports poor oral intake and lack of appetite. Pre-albumin was stable at 28.8 but history of protein calorie malnutrition. Will consult dietary for nutritional recommendations. Encourage oral intake. CXR in [place] ED showed mild perihilar lower lobe interstitial prominence concerning for possible pneumonitis or mild pulmonary edema. Lungs are clear to auscultation on exam and patient is breathing easily without cough or signs of distress. Afebrile. May consider repeat CXR if increased respiratory symptoms. Upon discharge, patient's care will be returned to her PCP, Dr. Thao. 02/22/17- hospitalist Chest pain - will check EKG, CXR, and trop x3. Labs reviewed - electrolytes are stable; not anemic; B12, folate, TSH, & A1c were normal. RPR pending Try tramadol for pain. Staff tried to ambulate Genny - she made it about 3 feet and then her legs became too weak. She's been able to stand and pivot for transfers. 02/22/17-Psych:Will D/C lexapro at families request. Discussed with daughter use of Remeron but will allow Lexapro to get out of system before Remeron is started 02/23/17 Psych: Patient reports tolerating discontinuation of Lexapro well and denies having any nightmares last night. Will hold evening dose of Sinemet making it effectively TID dosing rather than QID; monitor behavior and response. 02/24/17 Psych: Patient is doing quite well, mood improved and movement disorder manageable at this point. Will continue observations to ensure that psychosis has resolved with medication changes. 02/25/[id number] new onset headache over the past 24 hours will re- image CT scan of the head to rule out intracranial hemorrhage. Continue with scheduled Tylenol 3 times a day. May utilize tramadol in between 4 further pain control if needed. Blood pressures have been stable. Continue on Norvasc and Coreg. 02/25/17 Psych: Follow results of CT above - I believe patient is improving overall and hallucinations/paranoia are intermittent, decreased from admission. Continue to follow re: whether antipsychotic is beneficial at this point. 02/26/17 18:05 Some paranoia but no hallucinations today. Will start Remeron 7.5mg PO QHS. Consider Seroquel if psychosis continues 02/27/17 10:42 Better today. No paranoia or VH noted. Continue current care 02/27/17 14:45 Plan: Chart is reviewed for collateral information. She does c/o persistent GARCIA. CT head was normal. If persists, could consider CT of c-spine, but she is not c/o any neck pain or stiffness. Will change Tylenol to PRN to R/O overuse headaches. Allow small amounts of BID ibuprofen for GARCIA relief. Also, will DC Norvasc as some patients c/o headaches with this medication. In regards to her BP- will increase Coreg to 6.25mg. May need to up more depending on BP with DC of Norvasc. Patient continues to request increase ambulation. Will order PT consult and FWW for bedside use. Plan to recheck labs on Wednesday. Question some mild LE edema vs. normal body habitus. Consider addition of diuretic if indicated. She indicates not liking her current LTCF- may need to move to another facility upon DC? 02/28/17 11:04 No behaviors or paranoia today. Continue current care 03/01/17 Psych: Will increase Remeron to 15mg PO q HS to target anxiety, decrease Sinemet to BID dosing (rather than TID) and monitor psychosis symptoms as well as movement. Would ideally like to taper/discontinue scheduled lorazepam.
[2017-03-01] MEDS: ATORVASTATIN 20 MG TABLET PO SCH (20:06)
[2017-03-01] MEDS: MIRTAZAPINE 15 MG TABLET PO SCH (20:07)
[2017-03-02] MEDS: LEVOTHYROXINE 137 MCG TABLET PO SCH (05:39)
[2017-03-02] MEDS: OMEPRAZOLE 20 MG CAPSULE PO SCH (05:40)
[2017-03-02] MEDS: TRAMADOL 50 MG TABLET PO PRN ×3 (06:01→20:00)
[2017-03-02] MEDS: ASPIRIN 81 MG CHEWABLE TABLET PO SCH (08:50)
[2017-03-02] MEDS: CARVEDILOL 6.25 MG TABLET PO SCH ×2 (08:50→16:55)
[2017-03-02] MEDS: AMANTADINE 100 MG CAPSULE PO SCH (08:50)
[2017-03-02] MEDS: RANITIDINE 150 MG TABLET PO SCH ×2 (08:51→20:55)
[2017-03-02] MEDS: MUPIROCIN 2% OINTMENT 22gm TP SCH (08:51)
[2017-03-02] MEDS: MULTI-VITAMIN PLAIN TABLET PO SCH (08:51)
[2017-03-02] MEDS: BUSPIRONE 15 MG TABLET PO SCH ×3 (08:51→20:56)
[2017-03-02] MEDS: POLYETHYL GLYCOL 3350 17gm PACKET PO SCH ×2 (08:51→20:57)
[2017-03-02] MEDS: DICLOFENAC 1% TOP GEL 100gm TP SCH ×3 (08:51→20:57)
[2017-03-02] MEDS: LORazepam 1 MG TABLET PO SCH ×2 (08:51→20:55)
--- NOTE | 2017-03-02 12:24 | Neuropsych Progress Note ---
[facility] Subjective Date: 03/02/17 - Sujective/Severity of Illness Medications: Acetaminophen (Tylenol) 500 mg PO Q5H PRN PRN Reason: Pain Last Admin: 02/28/17 06:19 Dose: 500 mg Al Hydroxide/Mg Hydroxide (Maalox Plus) 30 ml PO Q4H PRN PRN Reason: Indigestion Last Admin: 02/22/17 14:15 Dose: 30 ml Amantadine HCl (Symmetrel) 100 mg PO DAILY [facility] Last Admin: 03/02/17 08:50 Dose: 100 mg Aspirin (Asa) 81 mg PO DAILY [facility] Last Admin: 03/02/17 08:50 Dose: 81 mg Atorvastatin Calcium (Lipitor) 20 mg PO HS [facility] Last Admin: 03/01/17 20:06 Dose: 20 mg Buspirone HCl (Buspar) 15 mg PO TID [facility] Last Admin: 03/02/17 08:51 Dose: 15 mg Carbidopa/Levodopa (Sinemet) 1 tab PO 0630,1630 [facility] Last Admin: 03/02/17 05:40 Dose: 1 tab Carvedilol (Coreg) 6.25 mg PO BIDWM [facility] Last Admin: 03/02/17 08:50 Dose: 6.25 mg Cholecalciferol (Vit. D-3) 2,000 unit PO DAILY [facility] Last Admin: 03/02/17 08:50 Dose: 2,000 unit Cyclobenzaprine HCl (Flexeril) 5 mg PO Q8H PRN PRN Reason: Muscle spasm Last Admin: 02/25/17 08:57 Dose: 5 mg Diclofenac Sodium (Voltaren) 1 applic TP TID [facility] Last Admin: 03/02/17 08:51 Dose: 1 applic Ibuprofen (Motrin) 200 mg PO BID PRN PRN Reason: Headache Levothyroxine Sodium (Synthroid) 137 mcg PO ACB [facility] Last Admin: 03/02/17 05:39 Dose: 137 mcg Lorazepam (Ativan) 0.5 mg PO Q6H PRN PRN Reason: Extreme agitation Last Admin: 02/28/17 15:26 Dose: 0.5 mg Lorazepam (Ativan Inj) 0.5 mg IM Q6H PRN PRN Reason: Extreme agitation Lorazepam (Ativan) 1 mg PO BID [facility] Last Admin: 03/02/17 08:51 Dose: 1 mg Magnesium Hydroxide (Mom) 30 ml PO DAILY PRN PRN Reason: Constipation Mirtazapine (Remeron) 15 mg PO HS [facility] Last Admin: 03/01/17 20:07 Dose: 15 mg Multivitamins (Theragran) 1 tab PO DAILY [facility] Last Admin: 03/02/17 08:51 Dose: 1 tab Mupirocin (Bactroban Ointmment) 1 applic TP DAILY [facility] Last Admin: 03/02/17 08:51 Dose: 1 applic Omeprazole (Prilosec) 20 mg PO ACB [facility] Last Admin: 03/02/17 05:40 Dose: 20 mg Ondansetron HCl (Zofran Po) 4 mg PO Q4HR PRN PRN Reason: Nausea &/or vomiting Last Admin: 02/28/17 16:03 Dose: 4 mg Polyethylene Glycol (Miralax) 17 gm PO BID [facility] Last Admin: 03/02/17 08:51 Dose: 17 gm Ranitidine HCl (Zantac) 150 mg PO BID [facility] Last Admin: 03/02/17 08:51 Dose: 150 mg Senna/Docusate Sodium (Senna Plus Tablet) 1 tab PO BID PRN PRN Reason: Constipation Sodium Chloride (Iv Flush) 10 ml IV PRN PRN PRN Reason: Flushing Last Admin: 02/21/17 09:04 Dose: 10 ml Tramadol HCl (Ultram) 50 mg PO Q4HR PRN PRN Reason: Pain Last Admin: 03/02/17 11:42 Dose: 50 mg Subjective: Patient seen and chart reviewed. Case discussed with treatment team. On interview, patient reports that her mood is "okay" bu that she feels weak and has a slight headache, which she attributes to Parkinson's disease. Patient denies any SI, HI or AVH. Patient denies any adverse side effects related to psychotropic medications. Nursing staff report patient had some anxiety last night but responded well to talking with staff. She has been adherent with medications. Patient slept 6.25 hours overnight. VSS. Patient is eating well. Psychotropic PRNs required in the past 24 hours: None. Start Time: 09:00 Stop Time: 09:20 Mental Status Exam Vitals: Last Vital Signs Temp 97.5 F 03/01/17 22:12 Pulse 79 03/01/17 22:12 Resp 24 03/01/17 22:12 BP 107/64 03/01/17 22:12 Pulse Ox 94 03/01/17 22:12 Height: 1.65 m Weight: 74.6 kg - Mental Status Exam Muscle Strength/Tone: Normal Dressing: Casual Grooming: Good Attitude: Cooperative Motor Activity: Retardation Eye Contact: Fair Speech: Slowed Volume: Normal, Soft Rhythm: Appropriate Rhythm Orientation: Disoriented to situation, Oriented to person, Oriented to place, Other (believes date is 03/01/17) Mood: Neutral (restricted affect) Rate of Thoughts: Delayed Thought Organization: [place] Associations: Illogical Abstract Reasoning: Poor abstract reasoning Thought Content: Ruminations Perception/Psychotic: Hx psychosis, not current Language: Naming Impaired Fund of Knowledge: Poor fund of knowledge Memory: Poor-immediate, Poor-recent Suicidal Ideation: Denies Homicidal Ideation: Denies Insight: Limited Judgement: Limited Impulse Control: Other (Limited) - Laboratory Result Diagrams: 03/01/17 06:30 03/01/17 06:30 Assessment and Plan (1) Major neurocognitive disorder Problem details: moderate, with behavioral disturbance Parkinson's vs. Alzheimer's Current visit: Yes Status: Acute (2) Delirium due to another medical condition Current visit: Yes Status: Acute (3) Parkinson disease Current visit: Yes Status: Acute (4) Dysphagia Current visit: Yes Status: Acute (5) Hypertension Current visit: Yes Status: Acute (6) Hypercholesteremia Current visit: Yes Status: Acute (7) Chronic kidney disease, stage 3 Current visit: Yes Status: Acute (8) Hypothyroidism Current visit: Yes Status: Acute (9) UTI (urinary tract infection) Current visit: Yes Status: Acute (10) Frequent falls Current visit: Yes Status: Chronic (11) Generalized weakness Current visit: Yes Status: Chronic Hospital Course Summary Disclaimer: The visit summary below is not to be considered part of the above Progress Note. Hospital Course: Admission Diagnosis Dementia with behavioral disturbance, acute. Hallucinations with psychosis and delusions, acute. UTI, recurrent - initiated macrobid on 02/13/17; resolved. Recent fall with closed head injury, 02/20/17. Gait instability with generalized weakness. Chronic Past Medical History Parkinson's disease. Dysphagia. Hypertension. Hypercholesterolemia. GERD. Depression and anxiety. Chronic kidney disease, stage III. Chronic pain. Hypothyroidism. Allergic rhinitis. Plan - 02/21/17 (Admission). Agree with admission to [facility] for further psychiatric evaluation and treatment. Hospitalist service consulted for medical management. Reported fall with head injury prior to arrival. CT head and C-spine completed at [place] ED showed no acute changes or abnormalities. Currently patient denies headache or concerns. Monitor neurologic function closely. History of Parkinson's disease with gait instability and generalized weakness. Patient is a high fall risk. Provide safe and supportive environment. May consider PT/OT evaluation for strengthening. Continue home medications - amantadine and Sinemet. History of dysphagia though unknown prior diet. Will consult speech for dysphagia evaluation and dietary recommendations. Until seen by speech, recommend nectar thickened liquids and purred diet as patient is at risk for aspiration. Crush pills as able. Continue home medications. Blood pressure currently controlled - continue amlodipine and Coreg. TSH on admission was 2.85. Continue home synthroid. Mild hypokalemia noted in [facility] ED. Will recheck BMP in AM to monitor electrolytes and renal function and treat hypokalemia if still present. Nursing reports poor oral intake and lack of appetite. Pre-albumin was stable at 28.8 but history of protein calorie malnutrition. Will consult dietary for nutritional recommendations. Encourage oral intake. CXR in [place] ED showed mild perihilar lower lobe interstitial prominence concerning for possible pneumonitis or mild pulmonary edema. Lungs are clear to auscultation on exam and patient is breathing easily without cough or signs of distress. Afebrile. May consider repeat CXR if increased respiratory symptoms. Upon discharge, patient's care will be returned to her PCP, Dr. Thao. 02/22/17- hospitalist Chest pain - will check EKG, CXR, and trop x3. Labs reviewed - electrolytes are stable; not anemic; B12, folate, TSH, & A1c were normal. RPR pending Try tramadol for pain. Staff tried to ambulate Genny - she made it about 3 feet and then her legs became too weak. She's been able to stand and pivot for transfers. 02/22/17-Psych:Will D/C lexapro at families request. Discussed with daughter use of Remeron but will allow Lexapro to get out of system before Remeron is started 02/23/17 Psych: Patient reports tolerating discontinuation of Lexapro well and denies having any nightmares last night. Will hold evening dose of Sinemet making it effectively TID dosing rather than QID; monitor behavior and response. 02/24/17 Psych: Patient is doing quite well, mood improved and movement disorder manageable at this point. Will continue observations to ensure that psychosis has resolved with medication changes. 02/25/1772-[id number] new onset headache over the past 24 hours will re- image CT scan of the head to rule out intracranial hemorrhage. Continue with scheduled Tylenol 3 times a day. May utilize tramadol in between 4 further pain control if needed. Blood pressures have been stable. Continue on Norvasc and Coreg. 02/25/17 Psych: Follow results of CT above - I believe patient is improving overall and hallucinations/paranoia are intermittent, decreased from admission. Continue to follow re: whether antipsychotic is beneficial at this point. 02/26/17 18:05 Some paranoia but no hallucinations today. Will start Remeron 7.5mg PO QHS. Consider Seroquel if psychosis continues 02/27/17 10:42 Better today. No paranoia or VH noted. Continue current care 02/27/17 14:45 Plan: Chart is reviewed for collateral information. She does c/o persistent GARCIA. CT head was normal. If persists, could consider CT of c-spine, but she is not c/o any neck pain or stiffness. Will change Tylenol to PRN to R/O overuse headaches. Allow small amounts of BID ibuprofen for GARCIA relief. Also, will DC Norvasc as some patients c/o headaches with this medication. In regards to her BP- will increase Coreg to 6.25mg. May need to up more depending on BP with DC of Norvasc. Patient continues to request increase ambulation. Will order PT consult and FWW for bedside use. Plan to recheck labs on Wednesday. Question some mild LE edema vs. normal body habitus. Consider addition of diuretic if indicated. She indicates not liking her current LTCF- may need to move to another facility upon DC? 02/28/17 11:04 No behaviors or paranoia today. Continue current care 03/01/17 Psych: Will increase Remeron to 15mg PO q HS to target anxiety, decrease Sinemet to BID dosing (rather than TID) and monitor psychosis symptoms as well as movement. Would ideally like to taper/discontinue scheduled lorazepam. 03/02/17 Psych: Continue current care, monitor anxiety/psychosis/movement since medication changes made yesterday.
[2017-03-02] MEDS: ATORVASTATIN 20 MG TABLET PO SCH (20:55)
[2017-03-02] MEDS: MIRTAZAPINE 15 MG TABLET PO SCH (20:55)
[2017-03-03] MEDS: TRAMADOL 50 MG TABLET PO PRN ×3 (02:30→20:21)
[2017-03-03] MEDS: CYCLOBENZAPRINE 5 MG TABLET PO PRN (07:21)
[2017-03-03] MEDS: OMEPRAZOLE 20 MG CAPSULE PO SCH (07:22)
[2017-03-03] MEDS: LEVOTHYROXINE 137 MCG TABLET PO SCH (07:22)
[2017-03-03] MEDS: CARVEDILOL 6.25 MG TABLET PO SCH ×2 (09:52→17:07)
[2017-03-03] MEDS: ASPIRIN 81 MG CHEWABLE TABLET PO SCH (09:53)
[2017-03-03] MEDS: BUSPIRONE 15 MG TABLET PO SCH ×3 (09:53→20:03)
[2017-03-03] MEDS: AMANTADINE 100 MG CAPSULE PO SCH (09:53)
[2017-03-03] MEDS: LORazepam 1 MG TABLET PO SCH ×2 (09:53→20:02)
[2017-03-03] MEDS: RANITIDINE 150 MG TABLET PO SCH ×2 (09:54→20:04)
[2017-03-03] MEDS: MUPIROCIN 2% OINTMENT 22gm TP SCH (09:54)
[2017-03-03] MEDS: POLYETHYL GLYCOL 3350 17gm PACKET PO SCH ×2 (09:54→20:04)
[2017-03-03] MEDS: DICLOFENAC 1% TOP GEL 100gm TP SCH ×3 (09:54→20:03)
[2017-03-03] MEDS: MULTI-VITAMIN PLAIN TABLET PO SCH (09:54)
[2017-03-03] MEDS: ONDANSETRON ODT 4 MG TABLET PO PRN (12:37)
[2017-03-03] MEDS: LORazepam 0.5 MG TABLET PO PRN (15:41)
--- NOTE | 2017-03-03 19:21 | Neuropsych Progress Note ---
[facility] Subjective Date: 03/03/17 - Sujective/Severity of Illness Medications: Acetaminophen (Tylenol) 500 mg PO Q5H PRN PRN Reason: Pain Last Admin: 02/28/17 06:19 Dose: 500 mg Al Hydroxide/Mg Hydroxide (Maalox Plus) 30 ml PO Q4H PRN PRN Reason: Indigestion Last Admin: 02/22/17 14:15 Dose: 30 ml Amantadine HCl (Symmetrel) 100 mg PO DAILY [facility] Last Admin: 03/03/17 09:53 Dose: 100 mg Aspirin (Asa) 81 mg PO DAILY [facility] Last Admin: 03/03/17 09:53 Dose: 81 mg Atorvastatin Calcium (Lipitor) 20 mg PO HS [facility] Last Admin: 03/02/17 20:55 Dose: 20 mg Buspirone HCl (Buspar) 15 mg PO TID [facility] Last Admin: 03/03/17 15:41 Dose: 15 mg Carbidopa/Levodopa (Sinemet) 1 tab PO 0630,1630 [facility] Last Admin: 03/03/17 15:41 Dose: 1 tab Carvedilol (Coreg) 6.25 mg PO BIDWM [facility] Last Admin: 03/03/17 17:07 Dose: 6.25 mg Cholecalciferol (Vit. D-3) 2,000 unit PO DAILY [facility] Last Admin: 03/03/17 09:53 Dose: 2,000 unit Cyclobenzaprine HCl (Flexeril) 5 mg PO Q8H PRN PRN Reason: Muscle spasm Last Admin: 03/03/17 07:21 Dose: 5 mg Diclofenac Sodium (Voltaren) 1 applic TP TID [facility] Last Admin: 03/03/17 15:22 Dose: Not Given Ibuprofen (Motrin) 200 mg PO BID PRN PRN Reason: Headache Levothyroxine Sodium (Synthroid) 137 mcg PO ACB [facility] Last Admin: 03/03/17 07:22 Dose: 137 mcg Lorazepam (Ativan) 0.5 mg PO Q6H PRN PRN Reason: Extreme agitation Last Admin: 03/03/17 15:41 Dose: 0.5 mg Lorazepam (Ativan Inj) 0.5 mg IM Q6H PRN PRN Reason: Extreme agitation Lorazepam (Ativan) 1 mg PO BID [facility] Last Admin: 03/03/17 09:53 Dose: 1 mg Magnesium Hydroxide (Mom) 30 ml PO DAILY PRN PRN Reason: Constipation Mirtazapine (Remeron) 15 mg PO HS [facility] Last Admin: 03/02/17 20:55 Dose: 15 mg Multivitamins (Theragran) 1 tab PO DAILY [facility] Last Admin: 03/03/17 09:54 Dose: 1 tab Mupirocin (Bactroban Ointmment) 1 applic TP DAILY [facility] Last Admin: 03/03/17 09:54 Dose: 1 applic Omeprazole (Prilosec) 20 mg PO ACB [facility] Last Admin: 03/03/17 07:22 Dose: 20 mg Ondansetron HCl (Zofran Po) 4 mg PO Q4HR PRN PRN Reason: Nausea &/or vomiting Last Admin: 03/03/17 12:37 Dose: 4 mg Polyethylene Glycol (Miralax) 17 gm PO BID [facility] Last Admin: 03/03/17 09:54 Dose: 17 gm Ranitidine HCl (Zantac) 150 mg PO BID [facility] Last Admin: 03/03/17 09:54 Dose: 150 mg Senna/Docusate Sodium (Senna Plus Tablet) 1 tab PO BID PRN PRN Reason: Constipation Sodium Chloride (Iv Flush) 10 ml IV PRN PRN PRN Reason: Flushing Last Admin: 02/21/17 09:04 Dose: 10 ml Tramadol HCl (Ultram) 50 mg PO Q4HR PRN PRN Reason: Pain Last Admin: 03/03/17 12:37 Dose: 50 mg Subjective: Patient seen and chart reviewed. Case discussed with treatment team. Patient is sleeping soundly at time of rounds but per nursing report, has been in a good mood all day. She has mild intermittent anxiety, which her family states is baseline. Patient has reportedly denied any SI, HI or AVH and staff have not reported her responding to internal stimuli in 3 days. Patient has denied any adverse side effects related to psychotropic medications. Nursing staff report patient has been pleasant and cooperative overall with no significant behavioral difficulties. She has been adherent with medications. She was able to walk today and has not had any visible tremors despite decrease in Parkinson's medication. Patient slept 9+ hours overnight. VSS. Patient is eating well. Psychotropic PRNs required in the past 24 hours: None. MSE below based on last interaction with patient. Start Time: 13:00 Stop Time: 13:20 Mental Status Exam Vitals: Last Vital Signs Temp 97.6 F 03/03/17 15:27 Pulse 83 03/03/17 15:27 Resp 15 03/03/17 15:27 BP 123/67 03/03/17 15:27 Pulse Ox 95 03/03/17 15:27 Height: 1.65 m Weight: 74.6 kg - Mental Status Exam Muscle Strength/Tone: Normal Dressing: Casual Grooming: Good Attitude: Cooperative Motor Activity: Retardation Eye Contact: Fair Speech: Slowed Volume: Normal, Soft Rhythm: Appropriate Rhythm Orientation: Disoriented to situation, Oriented to person, Oriented to place, Other (believes date is 03/01/17) Mood: Neutral Affect: Relaxed Rate of Thoughts: Delayed Thought Organization: [place] Associations: Illogical Abstract Reasoning: Poor abstract reasoning Thought Content: Ruminations Perception/Psychotic: Hx psychosis, not current Language: Naming Impaired Fund of Knowledge: Poor fund of knowledge Memory: Poor-immediate, Poor-recent Suicidal Ideation: Denies Homicidal Ideation: Denies Insight: Limited Judgement: Limited Impulse Control: Fair - Laboratory Result Diagrams: 03/01/17 06:30 03/01/17 06:30 Assessment and Plan (1) Major neurocognitive disorder Problem details: moderate, with behavioral disturbance possible Alzheimer's Current visit: Yes Status: Acute (2) Delirium due to another medical condition Current visit: Yes Status: Acute (3) Parkinson disease Current visit: Yes Status: Acute (4) Dysphagia Current visit: Yes Status: Acute (5) Hypertension Current visit: Yes Status: Acute (6) Hypercholesteremia Current visit: Yes Status: Acute (7) Chronic kidney disease, stage 3 Current visit: Yes Status: Acute (8) Hypothyroidism Current visit: Yes Status: Acute (9) UTI (urinary tract infection) Current visit: Yes Status: Acute (10) Frequent falls Current visit: Yes Status: Chronic (11) Generalized weakness Current visit: Yes Status: Chronic Hospital Course Summary Disclaimer: The visit summary below is not to be considered part of the above Progress Note. Hospital Course: Admission Diagnosis Dementia with behavioral disturbance, acute. Hallucinations with psychosis and delusions, acute. UTI, recurrent - initiated macrobid on 02/13/17; resolved. Recent fall with closed head injury, 02/20/17. Gait instability with generalized weakness. Chronic Past Medical History Parkinson's disease. Dysphagia. Hypertension. Hypercholesterolemia. GERD. Depression and anxiety. Chronic kidney disease, stage III. Chronic pain. Hypothyroidism. Allergic rhinitis. Plan - 02/21/17 (Admission). Agree with admission to [facility] for further psychiatric evaluation and treatment. Hospitalist service consulted for medical management. Reported fall with head injury prior to arrival. CT head and [facility]sp[facility] completed at [facility] showed no acute changes or abnormalities. Currently patient denies headache or concerns. Monitor neurologic function closely. History of Parkinson's disease with gait instability and generalized weakness. Patient is a high fall risk. Provide safe and supportive environment. May consider PT/OT evaluation for strengthening. Continue home medications - amantadine and Sinemet. History of dysphagia though unknown prior diet. Will consult speech for dysphagia evaluation and dietary recommendations. Until seen by speech, recommend nectar thickened liquids and purred diet as patient is at risk for aspiration. Crush pills as able. Continue home medications. Blood pressure currently controlled - continue amlodipine and Coreg. TSH on admission was 2.85. Continue home synthroid. Mild hypokalemia noted in [facility] ED. Will recheck BMP in AM to monitor electrolytes and renal function and treat hypokalemia if still present. Nursing reports poor oral intake and lack of appetite. Pre-albumin was stable at 28.8 but history of protein calorie malnutrition. Will consult dietary for nutritional recommendations. Encourage oral intake. CXR in [place] ED showed mild perihilar lower lobe interstitial prominence concerning for possible pneumonitis or mild pulmonary edema. Lungs are clear to auscultation on exam and patient is breathing easily without cough or signs of distress. Afebrile. May consider repeat CXR if increased respiratory symptoms. Upon discharge, patient's care will be returned to her PCP, Dr. Thao. 02/22/17- hospitalist Chest pain - will check EKG, CXR, and trop x3. Labs reviewed - electrolytes are stable; not anemic; B12, folate, TSH, & A1c were normal. RPR pending Try tramadol for pain. Staff tried to ambulate Genny - she made it about 3 feet and then her legs became too weak. She's been able to stand and pivot for transfers. 02/22/17-Psych:Will D/C lexapro at families request. Discussed with daughter use of Remeron but will allow Lexapro to get out of system before Remeron is started 02/23/17 Psych: Patient reports tolerating discontinuation of Lexapro well and denies having any nightmares last night. Will hold evening dose of Sinemet making it effectively TID dosing rather than QID; monitor behavior and response. 02/24/17 Psych: Patient is doing quite well, mood improved and movement disorder manageable at this point. Will continue observations to ensure that psychosis has resolved with medication changes. 02/25/1718-[id number] new onset headache over the past 24 hours will re- image CT scan of the head to rule out intracranial hemorrhage. Continue with scheduled Tylenol 3 times a day. May utilize tramadol in between 4 further pain control if needed. Blood pressures have been stable. Continue on Norvasc and Coreg. 02/25/17 Psych: Follow results of CT above - I believe patient is improving overall and hallucinations/paranoia are intermittent, decreased from admission. Continue to follow re: whether antipsychotic is beneficial at this point. 02/26/17 18:05 Some paranoia but no hallucinations today. Will start Remeron 7.5mg PO QHS. Consider Seroquel if psychosis continues 02/27/17 10:42 Better today. No paranoia or VH noted. Continue current care 02/27/17 14:45 Plan: Chart is reviewed for collateral information. She does c/o persistent GARCIA. CT head was normal. If persists, could consider CT of c-spine, but she is not c/o any neck pain or stiffness. Will change Tylenol to PRN to R/O overuse headaches. Allow small amounts of BID ibuprofen for GARCIA relief. Also, will DC Norvasc as some patients c/o headaches with this medication. In regards to her BP- will increase Coreg to 6.25mg. May need to up more depending on BP with DC of Norvasc. Patient continues to request increase ambulation. Will order PT consult and FWW for bedside use. Plan to recheck labs on Wednesday. Question some mild LE edema vs. normal body habitus. Consider addition of diuretic if indicated. She indicates not liking her current LTCF- may need to move to another facility upon DC? 02/28/17 11:04 No behaviors or paranoia today. Continue current care 03/01/17 Psych: Will increase Remeron to 15mg PO q HS to target anxiety, decrease Sinemet to BID dosing (rather than TID) and monitor psychosis symptoms as well as movement. Would ideally like to taper/discontinue scheduled lorazepam. 03/02/17 Psych: Continue current care, monitor anxiety/psychosis/movement since medication changes made yesterday. 03/03/17 Psych: Patient doing well with recent med changes - mild intermittent anxiety that family reports is baseline, no recent AVH and still able to ambulate after decrease in Parkinson's medications. SW to have family meeting with yvette naveen to finalize plans with facility and will make plans to discharge patient back when possible.
--- NOTE | 2017-03-03 19:38 | Extended Care Facility Orders ---
Admission Orders Admit to:: [facility] Allergies/Adverse Reactions: Allergies hydrocodone [From Lortab] Allergy (Verified 02/20/17 18:43) metoclopramide [From Reglan] Allergy (Verified 02/20/17 18:43) promethazine Allergy (Verified 02/20/17 18:43) Sulfa (Sulfonamide Antibiotics) Allergy (Verified 02/20/17 18:43) sulfamethoxazole [From Bactrim] Allergy (Verified 02/20/17 18:43) trimethoprim [From Bactrim] Allergy (Verified 02/20/17 18:43) Admitting Diagnosis: major neurocognitive disorder w/ behavior disturba Admitting Physician: Unruly Jacobs MD Attending Physician: Unruly Jacobs MD Code Status: Full Code Anticiapted Length of Stay: greater than 30 days Rehab Potential: fair Rehab Prognosis: fair Diet: 02/22/17 Dinner Regular Diet [DIET] Diet Modifications: Fluid Consistency: REGLIQU Food Consistency: SOFT Comment: CHOPPED MEATS May use Facility Protocol or Standing Orders: Yes May have flu vaccine: Yes Evaluations/Treatment: PT, OT, Psychiatric Mcc Certification: I certify that SNF services are required to be given on an Inpatient basis because of the patients need for fdc care on a continuing basis for the condition(s) for which he/she received inpatient hospital services prior to his/her transfer to the SNF. SNF inpatient care is necessary for the following reasons Indication for Mcc: Not Applicable - Additional Information Referrals: [facility] [Provider Group] (Kirstin Martinez APRN will see patient on rounds at the facility for Mental Health follow-up. ) AYUSH ANDERSON MD [Physician Nonstaff] - (Dr. Mary Alice Andesron on 03/12/17 at 9:45 am for Hosp. follow-up. [place] [id number])
--- NOTE | 2017-03-03 19:39 | Neuropsychiatric Disch Summary ---
Discharge Information Date of admission: 02/20/17 18:44 Anticipated date of discharge: 03/04/17 Attending Physician: Unruly Jacobs MD Consults: 02/20/17 18:44 Case Management Consult [CONS] Routine Reason For Exam: medical management Physician Consult [CONS] Routine Consulting Provider: Patricia Winn Reason For Exam: medical management Ordering Provider has Notified [employer] Operator: No 02/21/17 11:14 Dietary Consult [CONS] Routine Comment: Reason For Exam: 02/27/17 14:36 DME-Walker [CONS] Routine Height: 1.65 m Weight: 77.8 kg Comment: Front wheeled walker when ambulating - Discharge Diagnosis (1) Major neurocognitive disorder Status: Acute (2) Delirium due to another medical condition Status: Acute (3) Parkinson disease Status: Acute (4) Dysphagia Status: Acute (5) Hypertension Status: Acute (6) Hypercholesteremia Status: Acute (7) Chronic kidney disease, stage 3 Status: Acute (8) Hypothyroidism Status: Acute (9) UTI (urinary tract infection) Status: Acute (10) Frequent falls Status: Chronic (11) Generalized weakness Status: Chronic Major neurocognitive disorder, 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 Pt had a recent fall but CT of head was negative. Pt has also recently been treated for a UTI. Nursing staff reports pt has been resistant to care and has been refusing meds. On face to face the pt has a flat affect and is very slow to respond. She will only respond with yes or no answers. She denies any S/I. PSYCH ROS: Difficult to obtain at this time. When given options for her mood she states "I am not happy" but relates it to being here. She is oriented x 3. She denies feeling anxious and denies psychotic symptoms. Again nursing reports she can be agitated and resistive to cares PAST PSYCH: Pt reportedly has a hx of anxiety and depression and is taking Ativan scheduled along with Lexapro and Buspar. No other past psych hx is known at this time Hospital Course This is a general summary of the patient's hospital course. For more details refer to the complete medical record. Hospital course: Admission Diagnosis Dementia with behavioral disturbance, acute. Hallucinations with psychosis and delusions, acute. UTI, recurrent - initiated macrobid on 02/13/17; resolved. Recent fall with closed head injury, 02/20/17. Gait instability with generalized weakness. Chronic Past Medical History Parkinson's disease. Dysphagia. Hypertension. Hypercholesterolemia. GERD. Depression and anxiety. Chronic kidney disease, stage III. Chronic pain. Hypothyroidism. Allergic rhinitis. Plan - 02/21/17 (Admission). Agree with admission to [facility] for further psychiatric evaluation and treatment. Hospitalist service consulted for medical management. Reported fall with head injury prior to arrival. CT head and C-spine completed at [facility] showed no acute changes or abnormalities. Currently patient denies headache or concerns. Monitor neurologic function closely. History of Parkinson's disease with gait instability and generalized weakness. Patient is a high fall risk. Provide safe and supportive environment. May consider PT/OT evaluation for strengthening. Continue home medications - amantadine and Sinemet. History of dysphagia though unknown prior diet. Will consult speech for dysphagia evaluation and dietary recommendations. Until seen by speech, recommend nectar thickened liquids and purred diet as patient is at risk for aspiration. Crush pills as able. Continue home medications. Blood pressure currently controlled - continue amlodipine and Coreg. TSH on admission was 2.85. Continue home synthroid. Mild hypokalemia noted in [facility]. Will recheck BMP in AM to monitor electrolytes and renal function and treat hypokalemia if still present. Nursing reports poor oral intake and lack of appetite. Pre-albumin was stable at 28.8 but history of protein calorie malnutrition. Will consult dietary for nutritional recommendations. Encourage oral intake. CXR in [facility] showed mild perihilar lower lobe interstitial prominence concerning for possible pneumonitis or mild pulmonary edema. Lungs are clear to auscultation on exam and patient is breathing easily without cough or signs of distress. Afebrile. May consider repeat CXR if increased respiratory symptoms. Upon discharge, patient's care will be returned to her PCP, Dr. Anderson. 02/22/17- hospitalist Chest pain - will check EKG, CXR, and trop x3. Labs reviewed - electrolytes are stable; not anemic; B12, folate, TSH, & A1c were normal. RPR pending Try tramadol for pain. Staff tried to ambulate Genny - she made it about 3 feet and then her legs became too weak. She's been able to stand and pivot for transfers. 02/22/17-Psych:Will D/C lexapro at families request. Discussed with daughter use of Remeron but will allow Lexapro to get out of system before Remeron is started 02/23/17 Psych: Patient reports tolerating discontinuation of Lexapro well and denies having any nightmares last night. Will hold evening dose of Sinemet making it effectively TID dosing rather than QID; monitor behavior and response. 02/24/17 Psych: Patient is doing quite well, mood improved and movement disorder manageable at this point. Will continue observations to ensure that psychosis has resolved with medication changes. 02/25/1786-[id number] new onset headache over the past 24 hours will re- image CT scan of the head to rule out intracranial hemorrhage. Continue with scheduled Tylenol 3 times a day. May utilize tramadol in between 4 further pain control if needed. Blood pressures have been stable. Continue on Norvasc and Coreg. 02/25/17 Psych: Follow results of CT above - I believe patient is improving overall and hallucinations/paranoia are intermittent, decreased from admission. Continue to follow re: whether antipsychotic is beneficial at this point. 02/26/17 18:05 Some paranoia but no hallucinations today. Will start Remeron 7.5mg PO QHS. Consider Seroquel if psychosis continues 02/27/17 10:42 Better today. No paranoia or VH noted. Continue current care 02/27/17 14:45 Plan: Chart is reviewed for collateral information. She does c/o persistent GARCIA. CT head was normal. If persists, could consider CT of c-spine, but she is not c/o any neck pain or stiffness. Will change Tylenol to PRN to R/O overuse headaches. Allow small amounts of BID ibuprofen for GARCIA relief. Also, will DC Norvasc as some patients c/o headaches with this medication. In regards to her BP- will increase Coreg to 6.25mg. May need to up more depending on BP with DC of Norvasc. Patient continues to request increase ambulation. Will order PT consult and FWW for bedside use. Plan to recheck labs on Wednesday. Question some mild LE edema vs. normal body habitus. Consider addition of diuretic if indicated. She indicates not liking her current LTCF- may need to move to another facility upon DC? 02/28/17 11:04 No behaviors or paranoia today. Continue current care 03/01/17 Psych: Will increase Remeron to 15mg PO q HS to target anxiety, decrease Sinemet to BID dosing (rather than TID) and monitor psychosis symptoms as well as movement. Would ideally like to taper/discontinue scheduled lorazepam. 03/02/17 Psych: Continue current care, monitor anxiety/psychosis/movement since medication changes made yesterday. 03/03/17 Psych: Patient doing well with recent med changes - mild intermittent anxiety that family reports is baseline, no recent AVH and still able to ambulate after decrease in Parkinson's medications. SW to have family meeting with yvette hodge to finalize plans with facility and will make plans to discharge patient back when possible. Discharge Plan - Med Rec/Dispo Referrals/Follow Up: [facility] [Provider Group] (Kirstin Martinez APRN will see patient on rounds at the facility for Mental Health follow-up. ) AYUSH ANDERSON MD [Physician Nonstaff] - (Dr. Mary Alice Anderson on 03/12/17 at 9:45 am for Hosp. follow-up. [place] [id number]) Additional Instructions: Discharge Diagnosis: Reasons for Admission: Combative, agitated with staff, and hallucinations IN CASE OF PSYCHIATRIC EMERGENCY, CONTACT GENERATION STAFF AT [phone] ( available 24 hrs daily). Prescriptions: New Acetaminophen [Tylenol] 500 mg PO Q5H PRN tab PRN Reason: Pain Carbidopa/Levodopa 25/100 MG [Sinemet] 1 tab PO 0630,1630 tab Carvedilol [Coreg] 6.25 mg PO BIDWM tab Ibuprofen [Motrin] 200 mg PO BID PRN tab PRN Reason: Headache Mag-Al + Sim Oral Liq [Maalox Plus] 30 ml PO Q4H PRN udc PRN Reason: Indigestion Mirtazapine [Remeron] 15 mg PO HS 30 Days #30 tab Multi-Vitamin Plain [Theragran] 1 tab PO DAILY #0 tab Senna + Docusate [Senna Plus Tablet] 1 tab PO BID PRN tab PRN Reason: Constipation Cyclobenzaprine [Flexeril] 5 mg PO Q8H PRN tab PRN Reason: Muscle Spasm Milk of Magnesia [Mom] 30 ml PO DAILY PRN udc PRN Reason: Constipation Continue Cholecalciferol (Vitamin D3) [Vitamin D3] 2,000 unit PO DAILY Atorvastatin [Lipitor] 20 mg PO HS Aspirin Chewable [ASA] 81 mg PO DAILY raNITIdine HCl [Ranitidine HCl] 150 mg PO BID Omeprazole 20 mg PO ACB PEG 3350 17gm PACKET [Miralax] 17 gm PO BID LORazepam [Lorazepam] 1 mg PO BID Levothyroxine Tab [Synthroid] 137 mcg PO ACB Diclofenac Sodium 100 gm TP TID Buspirone [Buspar] 15 mg PO TID Amantadine HCl [Amantadine] 100 mg PO DAILY Tramadol [Ultram] 50 mg PO Q4HR PRN PRN Reason: Pain Ondansetron [Zofran Odt] 4 mg PO Q4HR PRN PRN Reason: Nausea &/Or Vomiting Mupirocin Ointment [Bactroban Ointmment] 1 applicatio TP DAILY Discontinued Carvedilol [Coreg] 3.125 mg PO BIDWM Carbidopa/Levodopa 25/100 MG [Sinemet] 1 tab PO QID Amlodipine [Norvasc] 5 mg PO DAILY Acetaminophen [Tylenol] 1,000 mg PO TID Acetaminophen 650 mg PO Q4H PRN PRN Reason: Pain LORazepam [Lorazepam] 0.5 mg PO Q6H PRN PRN Reason: Anxiety/Air Hunger/Agitation Cyclobenzaprine [Flexeril] 10 mg PO Q8H PRN PRN Reason: Muscle Spasm Escitalopram Oxalate [Lexapro] 20 mg PO DAILY Divalproex Sprinkle [Depakote Sprinkle] 500 mg PO HS - Disposition 04 To [facility] Home/Facility - Dismissal Complete Discharge Instructions are:: Complete
[2017-03-03] MEDS: ATORVASTATIN 20 MG TABLET PO SCH (20:02)
[2017-03-03] MEDS: MIRTAZAPINE 15 MG TABLET PO SCH (20:02)
[2017-03-03] MEDS: ACETAMINOPHEN 500 MG TABLET PO PRN (22:24)
[2017-03-04] MEDS: LEVOTHYROXINE 137 MCG TABLET PO SCH (06:00)
[2017-03-04] MEDS: ACETAMINOPHEN 500 MG TABLET PO PRN (06:00)
[2017-03-04] MEDS: OMEPRAZOLE 20 MG CAPSULE PO SCH (06:00)
[2017-03-04 09:08] VITALS: BP 127/71; PULSE 77; RESP 20; TEMP 97.8; O2SAT 99
[2017-03-04] MEDS: CARVEDILOL 6.25 MG TABLET PO SCH (09:26)
[2017-03-04] MEDS: AMANTADINE 100 MG CAPSULE PO SCH (09:26)
[2017-03-04] MEDS: DICLOFENAC 1% TOP GEL 100gm TP SCH (09:27)
[2017-03-04] MEDS: MULTI-VITAMIN PLAIN TABLET PO SCH (09:27)
[2017-03-04] MEDS: LORazepam 1 MG TABLET PO SCH (09:27)
[2017-03-04] MEDS: POLYETHYL GLYCOL 3350 17gm PACKET PO SCH (09:27)
[2017-03-04] MEDS: MUPIROCIN 2% OINTMENT 22gm TP SCH (09:27)
[2017-03-04] MEDS: BUSPIRONE 15 MG TABLET PO SCH (09:27)
[2017-03-04] MEDS: RANITIDINE 150 MG TABLET PO SCH (09:27)
[2017-03-04] MEDS: ASPIRIN 81 MG CHEWABLE TABLET PO SCH (09:27)
[2017-03-04] MEDS: TRAMADOL 50 MG TABLET PO PRN (13:11)
[2017-03-04] MEDS: ONDANSETRON ODT 4 MG TABLET PO PRN (13:11)
[2017-03-04] MEDS: MAG-AL + SIM ORAL LIQUID 30ml PO PRN (14:47)
== END 2017-03-04 15:00 | DRG 884 ==
LOC: GEN 18:44
PROVIDERS: ADMIT Psychiatry & Neurology Psychiatry; ATTEND Psychiatry & Neurology Psychiatry